=== PATIENT | male | born 1940 | race Caucasian/White ===

== ENCOUNTER 2019-02-27 09:30 | Outpatient (RCR) | payer MEDICARE, SELFPAY ==
[2018-12-13 09:17] LABS: INR 2.3; Prothrombin Time 24.2 Seconds (9.64-11.0)
[2018-12-26 08:06] LABS: INR 1.8; Prothrombin Time 18.7 Seconds (9.64-11.0)
[2019-01-02 08:16] LABS: INR 1.9; Prothrombin Time 19.6 Seconds (9.64-11.0)
[2019-01-23 10:51] LABS: INR 1.8; Prothrombin Time 18.5 Seconds (9.64-11.0)
[2019-02-27 09:50] LABS: INR 1.5; Prothrombin Time 15.4 Seconds (9.64-11.0)
== END 2019-03-13 23:59 | disposition home or self-care (01) ==
LOC: CHSLAB 09:30
PROVIDERS: PCP Internal Medicine; Visit Provider Internal Medicine
DX: Z79.01 Long term (current) use of anticoagulants (principal)
CPT/HCPCS: 36415; 85610

== ENCOUNTER 2019-04-16 11:28 | Outpatient (CLI) | payer MEDICARE, SELFPAY ==
[2019-04-16 11:52] LABS: INR 1.1; Prothrombin Time 11.8 Seconds (9.64-11.0)
== END 2019-04-16 11:29 | disposition home or self-care (01) ==
LOC: CHSLAB 11:30
PROVIDERS: PCP Internal Medicine; Visit Provider Dentist
DX: Z79.01 Long term (current) use of anticoagulants (principal)
CPT/HCPCS: 36415; 85610

== ENCOUNTER 2019-04-17 18:58 | Emergency (ER) | payer MEDICARE, SELFPAY ==
[2019-04-17 19:56] VITALS: BP 191/88; PULSE 69; RESP 13; TEMP 36.4; O2SAT 100
--- NOTE | 2019-04-17 20:20 | ED.GENADULT ---
HPI - General Adult General Chief complaint: Dental/Oral Stated complaint: Tooth removed today, will not stop bleeding Time Seen by Provider: 04/17/19 20:20 Source: patient and family Mode of arrival: ambulatory Limitations: no limitations History of Present Illness HPI narrative: 78-year-old man comes in today complaining of Bleeding from his gums we had a tooth extracted at approximately 3:00 p.m. today. He states that he has been replacing the gauze regularly. He has not taking his Coumadin for 3 days as per his dentist's instructions. He states that his jaw is aching. He is taking no pain medication. He states he is feeling a little weak tonight. He had local anesthesia only. Onset (ago): hour(s) (4) Location: mouth Radiation: non-radiation Severity: moderate Quality: aching Pain Consistency: constant Relieving factors: none Exacerbating factors: none Treatments prior to arrival: none Related Data Home Medications Medication Instructions Recorded Confirmed allopurinol 300 mg PO DAILY 04/17/19 04/17/19 amoxicillin 1 mg PO DAILY 04/17/19 04/17/19 carvedilol 6.25 mg PO BID 04/17/19 04/17/19 enalapril maleate 5 mg PO DAILY 04/17/19 04/17/19 finasteride 5 mg PO DAILY 04/17/19 04/17/19 furosemide 40 mg PO DAILY 04/17/19 04/17/19 glimepiride 4 mg PO DAILY 04/17/19 04/17/19 lovastatin 20 mg PO DAILY 04/17/19 04/17/19 metformin 1,000 mg PO DAILY 04/17/19 04/17/19 potassium chloride 20 meq PO DAILY 04/17/19 04/17/19 tamsulosin 0.4 mg PO DAILY 04/17/19 04/17/19 warfarin 3 mg PO HS 04/17/19 04/17/19 warfarin 4 mg PO HS 04/17/19 04/17/19 Allergies Allergy/AdvReac Type Severity Reaction Status Date / Time No Known Allergies Allergy Unverified 08/02/17 10:42 Review of Systems Constitutional: Constitutional: Denies chills, Denies fever(s) and Reports weakness Eyes: Eyes: Denies change in vision and Denies photophobia PMF Past Medical History Medical History (Updated 04/17/19 @ 22:26 by Mark Bean MD) Atrial fibrillation Back pain BPH (benign prostatic hyperplasia) Dyslipidemia Gout Hypertension Type 2 diabetes mellitus Surgical History Surgical History Pacemaker Social History Social History Tobacco type: smokeless tobacco Alcohol intake: never Substance use: never Living arrangements: alone Occupation/Education: retired Exam Const: General: healthy appearing, no acute distress and alert Orientation/consciousness: patient oriented x3 Limitations: no limitations Other: chatting and laughing with friends HENMT: Head: normal to inspection Ears: TM's normal bilaterally and EAC's normal Mouth: Yes Normal oral and palatal mucosa present and Yes moist mucous membranes Throat: posterior oropharynx normal and uvula midline Other: small amount of blood weeping from a right jaw wound. No swelling. Eyes: Conjunctivae: conjunctivae normal Pupils: Equal, round and reactive pupils present EOM: EOMs intact bilaterally Resp: Effort & Inspection: normal respiratory effort and not labored Auscultation: clear to auscultation bilaterally, no rales, no rhonchi and no wheezes Cardio: Rate: regular rate Rhythm: regular rhythm Heart sounds: no murmurs Skin: General skin exam: normal color, no jaundice and no pallor Rashes: no rashes Neuro: General: patient oriented x3, moves all extremities, no focal motor deficits and CN's II-XI intact bilaterally Speech: normal speech Extrem: General: normal to inspection and no clubbing, cyanosis or edema Psych: Appearance: grossly normal and well kempt Mental Status: mental status grossly normal Affect: normal affect Attitude: cooperative Thought content: Yes Normal thought content present Course Vital Signs Vital signs: Vital Signs Temperature 36.4 C 04/17/19 19:56 Pulse Rate 69 04/17/19 19:56 Respiratory Rate 13
--- NOTE | 2019-04-17 20:54 | ECG_ITS ---
Measurements Intervals [place] Rate: 62 P: IN: 0 QRS: -46 QRSD: 178 T: 120 QT: 448 QTc: 457 Interpretive Statements ELECTRONIC VENTRICULAR PACEMAKER BASELINE ARTIFACT- I, II, III, AVR, AVL, AVF, V1-V6 NO FURTHER INTERPRETATION IS POSSIBLE ATYPICAL ECG Electronically Signed On 04-18-2019 8:19:57 CDT by Cj Barrera D.O.
[2019-04-17 20:55] LABS: Basophils Absolute Auto 0.03 K/mm3 (0.00-0.10); Basophils Percent Auto 0.3 % (0.0-1.0); Eosinophils Absolute Auto 0.05 K/mm3 (0.02-0.50); Eosinophils Percent Auto 0.5 % (1.0-6.0); Hematocrit 42.4 % (37.0-46.0); Hemoglobin 14.2 g/dL (12.4-15.3); Immature Granulocyte Absolute 0.05 K/mm3 (0.00-0.00); Immature Granulocyte Percent A 0.5 % (0.0-0.0); Lymphocytes Absolute Auto 1.05 K/mm3 (1.10-4.50); Lymphocytes Percent Auto 9.5 % (18.0-42.0); Mean Corpuscular HGB Conc 33.5 g/dL (32.0-36.0); Mean Corpuscular Hemoglobin 30.9 pg (27.0-31.0); Mean Corpuscular Volume 92.2 fL (78.0-102.0); Mean Platelet Volume 9.8 fl (8.7-11.0); Monocytes Absolute Auto 0.55 K/mm3 (0.10-0.90); Neutrophils Absolute Auto 9.3 K/mm3 (1.7-7.2); Neutrophils Percent Auto 84.2 % (50.0-70.0); Platelet Count Result 176 K/mm3 (150-420); Red Cell Distribution Width 12.7 % (11.6-14.4)
[2019-04-17 21:08] LABS: Partial Thromboplastin Time 28.7 SEC (22.3-31.6); Prothrombin Time 10.3 Seconds (9.64-11.0)
[2019-04-17 21:12] LABS: Anion Gap 13.3 mmol/L (7-16); Blood Urea Nitrogen 17 mg/dL (7-18); Calcium 9.7 mg/dL (8.5-10.1); Carbon Dioxide 26 mmol/L (21-32); Chloride 102 mmol/L (98-108); Estimated CRCL calculation 53 ml/min; Estimated Glomerular Filt Rate > 60; Glucose 206 mg/dL (70-99); Osmolality Calculated 291 mOsm/kg (285-295); Potassium 4.3 mmol/L (3.5-5.1); Sodium 137 mmol/L (136-145); Troponin I 0.03 ng/mL (0.00-0.056)
[2019-04-17 21:42] LABS: Add Urine Microscopic? YES; Appearance Urine Clear (Clear); Bilirubin Urine Negative (Negative); Blood Urine Negative (Negative); Color Urine Yellow (Yellow); Glucose Urine UA Negative (Negative); Ketones Urine Negative (Negative); Leukocyte Esterase Ur Negative LEU/UL (Negative); Nitrate Urine Negative (Negative); Protein Urine Trace (Negative); Specific Grav Ur >= 1.030 (1.010-1.020); Urobilinogen Urine 0.2 mg/dL (0.2-1.0)
[2019-04-17 21:49] LABS: RBC Urine 0-2 /hpf (0-2); Squamous Epithelial Cell Urine Rare /hpf (Few); WBC Urine 0-3 /hpf (0-3)
[2019-04-17 21:50] LABS: Bacteria Urine Trace /hpf
[2019-04-17 21:57] VITALS: BP 163/89
[2019-04-17 22:30] VITALS: RESP 14; O2SAT 100
== END 2019-04-17 22:31 | disposition home or self-care (01) ==
PROVIDERS: Emergency Provider Emergency Medicine; PCP Internal Medicine
DX: L76.22 Postprocedural hemorrhage of skin and subcutaneous tissue following other procedure (principal); I48.91 Unspecified atrial fibrillation; E78.5 Hyperlipidemia, unspecified; I10 Essential (primary) hypertension; E11.9 Type 2 diabetes mellitus without complications
CPT/HCPCS: 36415; 80048; 81001; 84484; 85025; 85610; 85730; 93005; 99283; 99284; A9270

== ENCOUNTER 2019-05-15 09:11 | Outpatient (RCR) | payer MEDICARE, SELFPAY ==
[2019-03-26 09:15] LABS: INR 4.8; Prothrombin Time 47.4 Seconds (9.64-11.0)
[2019-04-05 10:05] LABS: Prothrombin Time 29.5 Seconds (9.64-11.0)
[2019-04-27 10:50] LABS: INR 1.2; Prothrombin Time 12.2 Seconds (9.64-11.0)
[2019-05-07 10:52] LABS: INR 4.2; Prothrombin Time 41.3 Seconds (9.64-11.0)
[2019-05-15 09:37] LABS: INR 3.9; Prothrombin Time 38.3 Seconds (9.64-11.0)
== END 2019-06-24 23:59 | disposition home or self-care (01) ==
LOC: CHSLAB 09:11
PROVIDERS: PCP Internal Medicine; Visit Provider Internal Medicine
DX: Z79.01 Long term (current) use of anticoagulants (principal)
CPT/HCPCS: 36415; 85610

== ENCOUNTER 2019-06-01 10:47 | Outpatient (CLI) | payer MEDICARE, SELFPAY ==
--- NOTE | ~2019-06-01 | US_ITS ---
EXAMINATION: US soft tissue LE LT DATE: 06/01/2019 12:20 INDICATION: Left leg cellulitis and abscess with swelling and erythema. TECHNIQUE: Multiple grayscale and Doppler ultrasound images of the left lower leg were obtained. COMPARISON: None FINDINGS: 2.6 x 1.9 x 0.6 cm complex mixed hypoechoic/anechoic subcutaneous fluid collection at the medial aspe ct of the distal third of the left lower leg. No internal flow on color Doppler. IMPRESSION: 1. 2.6 x 1.9 x 0.6 cm loculated complex fluid collection at the medial distal left lower leg consiste nt with given history of abscess. Differential would include hematoma. Reviewed, dictated and finalized at location A. IMPRESSION: 1. 2.6 x 1.9 x 0.6 cm loculated complex fluid collection at the medial distal l eft lower leg consistent with given history of abscess. Differential would incl ude hematoma.
[2019-06-01 11:01] LABS: Basophils Absolute Auto 0.02 K/mm3 (0.00-0.10); Basophils Percent Auto 0.3 % (0.0-1.0); Eosinophils Absolute Auto 0.09 K/mm3 (0.02-0.50); Eosinophils Percent Auto 1.4 % (1.0-6.0); Hemoglobin 13.7 g/dL (12.4-15.3); Immature Granulocyte Absolute 0.02 K/mm3 (0.00-0.00); Immature Granulocyte Percent A 0.3 % (0.0-0.0); Lymphocytes Percent Auto 20.5 % (18.0-42.0); Mean Corpuscular HGB Conc 34.3 g/dL (32.0-36.0); Mean Corpuscular Hemoglobin 31.8 pg (27.0-31.0); Mean Corpuscular Volume 92.8 fL (78.0-102.0); Mean Platelet Volume 9.6 fl (8.7-11.0); Monocytes Absolute Auto 0.36 K/mm3 (0.10-0.90); Monocytes Percent Auto 5.7 % (2.0-11.0); Neutrophils Absolute Auto 4.6 K/mm3 (1.7-7.2); Neutrophils Percent Auto 71.8 % (50.0-70.0); Platelet Count Result 173 K/mm3 (150-420); Red Blood Count 4.31 M/mm3 (4.70-6.10); Red Cell Distribution Width 13.3 % (11.6-14.4); White Blood Count 6.4 K/mm3 (4.8-10.8)
[2019-06-01 11:11] LABS: Anion Gap 13.6 mmol/L (7-16); Blood Urea Nitrogen 19 mg/dL (7-18); Calcium 9.9 mg/dL (8.5-10.1); Carbon Dioxide 27 mmol/L (21-32); Chloride 103 mmol/L (98-108); Estimated Glomerular Filt Rate > 60; Glucose 141 mg/dL (70-99); Osmolality Calculated 292 mOsm/kg (285-295); Potassium 4.6 mmol/L (3.5-5.1); Sodium 139 mmol/L (136-145)
== END 2019-06-01 10:48 | disposition home or self-care (01) ==
LOC: CHSIMG 10:50
PROVIDERS: PCP Internal Medicine; Visit Provider Internal Medicine
DX: L03.116 Cellulitis of left lower limb (principal)
CPT/HCPCS: 36415; 76882; 80048; 85025

== ENCOUNTER 2019-08-04 06:44 | Outpatient (CLI) | payer MEDICARE, SELFPAY ==
[2019-08-04 07:13] LABS: Basophils Absolute Auto 0.03 K/mm3 (0.00-0.10); Basophils Percent Auto 0.6 % (0.0-1.0); Eosinophils Percent Auto 1.8 % (1.0-6.0); Hematocrit 38.4 % (37.0-46.0); Hemoglobin 12.9 g/dL (12.4-15.3); Immature Granulocyte Absolute 0.02 K/mm3 (0.00-0.00); Immature Granulocyte Percent A 0.4 % (0.0-0.0); Lymphocytes Absolute Auto 1.43 K/mm3 (1.10-4.50); Lymphocytes Percent Auto 26.4 % (18.0-42.0); Mean Corpuscular HGB Conc 33.6 g/dL (32.0-36.0); Mean Corpuscular Hemoglobin 31.7 pg (27.0-31.0); Mean Corpuscular Volume 94.3 fL (78.0-102.0); Mean Platelet Volume 9.6 fl (8.7-11.0); Monocytes Absolute Auto 0.43 K/mm3 (0.10-0.90); Monocytes Percent Auto 7.9 % (2.0-11.0); Neutrophils Absolute Auto 3.4 K/mm3 (1.7-7.2); Neutrophils Percent Auto 62.9 % (50.0-70.0); Platelet Count Result 190 K/mm3 (150-420); Red Blood Count 4.07 M/mm3 (4.70-6.10); Red Cell Distribution Width 13.9 % (11.6-14.4); White Blood Count 5.4 K/mm3 (4.8-10.8)
[2019-08-04 07:16] LABS: Add Urine Microscopic? NO; Appearance Urine Clear (Clear); Bilirubin Urine Negative (Negative); Blood Urine Negative (Negative); Color Urine Yellow (Yellow); Glucose Urine UA Negative (Negative); Ketones Urine Negative (Negative); Leukocyte Esterase Ur Negative LEU/UL (Negative); Nitrate Urine Negative (Negative); Protein Urine Negative (Negative); Specific Grav Ur 1.015 (1.010-1.020); Urobilinogen Urine 0.2 mg/dL (0.2-1.0)
[2019-08-04 07:22] LABS: Hemoglobin A1C 6.7 % (<5.7)
[2019-08-04 07:25] LABS: INR 2.6; Prothrombin Time 26.1 Seconds (9.64-11.0)
[2019-08-04 07:57] LABS: Creatinine Urine 61.65 mg/dL (40-278)
[2019-08-04 08:12] LABS: MALB Creatinine Ratio 2.1 mg/g (0-30); Microalbumin Urine Random < 1.3 mg/L
[2019-08-04 08:22] LABS: Alanine Aminotransferase 35 U/L (16-63); Albumin Level 3.7 g/dL (3.4-5.0); Alkaline Phosphatase 96 U/L (46-116); Anion Gap 12.4 mmol/L (7-16); Aspartate Amino Transferase 28 U/L (15-37); Bilirubin,Total 0.4 mg/dL (0.00-1.00); Blood Urea Nitrogen 24 mg/dL (7-18); Calcium 8.9 mg/dL (8.5-10.1); Carbon Dioxide 28 mmol/L (21-32); Chloride 103 mmol/L (98-108); Cholesterol 125 mg/dL (0-200); Creatine Kinase 100 U/L (39-308); Estimated Glomerular Filt Rate > 60; Free T4 Free Thyroxine 1.09 ng/dL (0.76-1.46); Glucose 135 mg/dL (70-99); HDL Direct 32 mg/dL (40-60); LDL Cholesterol Calculated 72 mg/dL (<130); Osmolality Calculated 294 mOsm/kg (285-295); Potassium 4.4 mmol/L (3.5-5.1); Sodium 139 mmol/L (136-145); Thyroid Stimulating Hormone 4.34 uIU/mL (0.36-3.74); Total Protein 6.6 g/dL (6.4-8.2); Triglycerides 106 mg/dL (0-150); Uric Acid 4.8 mg/dL (3.5-7.2)
== END 2019-08-04 06:45 | disposition home or self-care (01) ==
LOC: CHSLAB 06:47
PROVIDERS: PCP Internal Medicine; Visit Provider Internal Medicine
DX: E78.5 Hyperlipidemia, unspecified (principal); I10 Essential (primary) hypertension; E11.9 Type 2 diabetes mellitus without complications; E79.0 Hyperuricemia without signs of inflammatory arthritis and tophaceous disease; E03.4 Atrophy of thyroid (acquired); D64.9 Anemia, unspecified; Z79.01 Long term (current) use of anticoagulants
CPT/HCPCS: 36415; 80053; 80061; 81003; 82043; 82550; 83036; 84439; 84443; 84550; 85025; 85610

== ENCOUNTER 2019-09-07 07:23 | Outpatient (RCR) | payer MEDICARE, SELFPAY ==
[2019-06-29 08:49] LABS: INR 2.7; Prothrombin Time 26.8 Seconds (9.64-11.0)
[2019-07-30 07:44] LABS: INR 4.7; Prothrombin Time 46.2 Seconds (9.64-11.0)
[2019-09-07 08:08] LABS: INR 2.4; Prothrombin Time 23.9 Seconds (9.64-11.0)
== END 2019-09-27 23:59 | disposition home or self-care (01) ==
LOC: CHSLAB 07:23
PROVIDERS: PCP Internal Medicine; Visit Provider Internal Medicine
DX: Z79.01 Long term (current) use of anticoagulants (principal)
CPT/HCPCS: 36415; 85610

== ENCOUNTER 2019-10-03 07:07 | Outpatient (RCR) | payer MEDICARE, SELFPAY ==
[2019-10-03 07:30] LABS: INR 2.7; Prothrombin Time 27.1 Seconds (9.64-11.0)
== END 2019-11-05 09:12 | disposition home or self-care (01) ==
LOC: CHSLAB 07:07
PROVIDERS: PCP Internal Medicine; Visit Provider Internal Medicine
DX: Z79.01 Long term (current) use of anticoagulants (principal)
CPT/HCPCS: 36415; 85610

== ENCOUNTER 2019-12-13 07:34 | Outpatient (CLI) | payer MEDICARE, SELFPAY ==
--- NOTE | ~2019-12-13 | XR_ITS ---
EXAMINATION: XR chest 2V EXAM DATE: 12/13/2019 07:58 INDICATION: Hypertension, pre-OP TECHNIQUE: Frontal and lateral projections of the chest obtained and reviewed. Comparison is made to prior examination from 07/10/2014. FINDINGS: There is a dual lead pacemaker/AICD seen with leads projecting over the expected locations of the right atrial appendage and right ventricle. The lungs are clear. There are no pleural effusi ons. The cardiomediastinal silhouette is within normal limits. There is no pneumothorax suspected. The bones and soft tissues are unremarkable. There is aortic arteriosclerosis. IMPRESSION: No acute cardiopulmonary findings. Reviewed, dictated and finalized at location B. 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
[2019-12-13 07:45] LABS: Basophils Absolute Auto 0.02 K/mm3 (0.00-0.10); Basophils Percent Auto 0.3 % (0.0-1.0); Eosinophils Absolute Auto 0.16 K/mm3 (0.02-0.50); Eosinophils Percent Auto 2.4 % (1.0-6.0); Hematocrit 41.4 % (37.0-46.0); Hemoglobin 13.5 g/dL (12.4-15.3); Immature Granulocyte Absolute 0.03 K/mm3 (0.00-0.00); Immature Granulocyte Percent A 0.4 % (0.0-0.0); Lymphocytes Absolute Auto 1.39 K/mm3 (1.10-4.50); Lymphocytes Percent Auto 20.4 % (18.0-42.0); Mean Corpuscular HGB Conc 32.6 g/dL (32.0-36.0); Mean Corpuscular Hemoglobin 30.6 pg (27.0-31.0); Mean Corpuscular Volume 93.9 fL (78.0-102.0); Mean Platelet Volume 9.5 fl (8.7-11.0); Monocytes Absolute Auto 0.51 K/mm3 (0.10-0.90); Monocytes Percent Auto 7.5 % (2.0-11.0); Neutrophils Absolute Auto 4.7 K/mm3 (1.7-7.2); Platelet Count Result 170 K/mm3 (150-420); Red Blood Count 4.41 M/mm3 (4.70-6.10); Red Cell Distribution Width 13.4 % (11.6-14.4); White Blood Count 6.8 K/mm3 (4.8-10.8)
[2019-12-13 07:49] LABS: Add Urine Microscopic? NO; Appearance Urine Clear (Clear); Bilirubin Urine Negative (Negative); Blood Urine Negative (Negative); Color Urine Yellow (Yellow); Glucose Urine UA Negative (Negative); Ketones Urine Negative (Negative); Leukocyte Esterase Ur Negative (Negative); Nitrate Urine Negative (Negative); Protein Urine Negative (Negative); Specific Grav Ur >= 1.030 (1.010-1.020); Urobilinogen Urine 0.2 mg/dL (0.2-1.0); pH Urine 5.5 (5.0-8.0)
[2019-12-13 07:59] LABS: Creatinine Urine 171.86 mg/dL (40-278); MALB Creatinine Ratio 9.6 mg/g (0-30); Microalbumin Urine Random 16.5 mg/L
[2019-12-13 08:01] LABS: Hemoglobin A1C 6.9 % (<5.7)
[2019-12-13 09:05] LABS: Alanine Aminotransferase 47 U/L (16-63); Albumin Level 4.1 g/dL (3.4-5.0); Alkaline Phosphatase 111 U/L (46-116); Anion Gap 10 mmol/L (8-16); Aspartate Amino Transferase 24 U/L (15-37); Bilirubin,Total 0.6 mg/dL (0.00-1.00); Blood Urea Nitrogen 18 mg/dL (7-18); Calcium 9.6 mg/dL (8.5-10.1); Carbon Dioxide 28 mmol/L (21-32); Chloride 104 mmol/L (98-108); Cholesterol 145 mg/dL (0-200); Creatine Kinase 108 U/L (39-308); Estimated Glomerular Filt Rate > 60; Free T3 2.61 pg/mL (2.18-3.98); Free T4 Free Thyroxine 1.11 ng/dL (0.76-1.46); Glucose 168 mg/dL (70-99); HDL Direct 37 mg/dL (40-60); LDL Cholesterol Calculated 87 mg/dL (<130); Osmolality Calculated 299 mOsm/kg (285-295); Potassium 4.4 mmol/L (3.5-5.1); Sodium 142 mmol/L (136-145); Total Protein 7.3 g/dL (6.4-8.2); Triglycerides 103 mg/dL (0-150)
== END 2019-12-13 07:35 | disposition home or self-care (01) ==
PROVIDERS: PCP Internal Medicine; Visit Provider Internal Medicine
DX: Z01.812 Encounter for preprocedural laboratory examination (principal); E11.9 Type 2 diabetes mellitus without complications; I10 Essential (primary) hypertension; E03.9 Hypothyroidism, unspecified; D64.9 Anemia, unspecified; E78.5 Hyperlipidemia, unspecified
CPT/HCPCS: 36415; 71046; 80053; 80061; 81003; 82043; 82550; 83036; 84439; 84443; 84481; 85025

== ENCOUNTER 2020-01-24 09:08 | Outpatient (RCR) | payer MEDICARE, SELFPAY ==
[2019-11-05 09:24] LABS: INR 3.6; Prothrombin Time 35.2 Seconds (9.64-11.0)
[2019-12-03 09:43] LABS: Prothrombin Time 19.8 Seconds (9.64-11.0)
[2020-01-24 09:31] LABS: INR 1.8; Prothrombin Time 19.5 Seconds (9.50-12.10)
== END 2020-02-03 23:59 | disposition home or self-care (01) ==
LOC: CHSLAB 09:08
PROVIDERS: PCP Internal Medicine; Visit Provider Internal Medicine
DX: Z79.01 Long term (current) use of anticoagulants (principal)
CPT/HCPCS: 36415; 85610

== ENCOUNTER 2020-04-24 10:13 | Outpatient (RCR) | payer MEDICARE, SELFPAY ==
[2020-02-07 08:07] LABS: INR 2.6; Prothrombin Time 26.8 Seconds (9.50-12.10)
[2020-03-10 10:32] LABS: INR 3.6; Prothrombin Time 36.1 Seconds (9.50-12.10)
[2020-03-17 08:43] LABS: INR 3.3; Prothrombin Time 33.7 Seconds (9.50-12.10)
[2020-04-24 10:40] LABS: INR 2.3; Prothrombin Time 23.6 Seconds (9.50-12.10)
== END 2020-05-07 23:59 | disposition home or self-care (01) ==
LOC: CHSLAB 10:13
PROVIDERS: PCP Internal Medicine; Visit Provider Internal Medicine
DX: Z79.01 Long term (current) use of anticoagulants (principal)
CPT/HCPCS: 36415; 85610

== ENCOUNTER 2020-06-09 07:28 | Outpatient (CLI) | payer MEDICARE, SELFPAY ==
[2020-06-09 07:44] LABS: Add Urine Microscopic? NO; Appearance Urine Clear (Clear); Basophils Absolute Auto 0.02 K/mm3 (0.00-0.10); Basophils Percent Auto 0.3 % (0.0-1.0); Bilirubin Urine Negative (Negative); Blood Urine Negative (Negative); Color Urine Yellow (Yellow); Eosinophils Absolute Auto 0.13 K/mm3 (0.02-0.50); Glucose Urine UA Negative (Negative); Hematocrit 38.1 % (37.0-46.0); Hemoglobin 12.5 g/dL (12.4-15.3); Immature Granulocyte Absolute 0.02 K/mm3 (0.00-0.00); Immature Granulocyte Percent A 0.3 % (0.0-0.0); Ketones Urine Negative (Negative); Leukocyte Esterase Ur Negative (Negative); Lymphocytes Absolute Auto 1.35 K/mm3 (1.10-4.50); Lymphocytes Percent Auto 20.7 % (18.0-42.0); Mean Corpuscular HGB Conc 32.8 g/dL (32.0-36.0); Mean Corpuscular Hemoglobin 31.5 pg (27.0-31.0); Mean Platelet Volume 9.5 fl (8.7-11.0); Monocytes Absolute Auto 0.48 K/mm3 (0.10-0.90); Monocytes Percent Auto 7.4 % (2.0-11.0); Neutrophils Absolute Auto 4.5 K/mm3 (1.7-7.2); Neutrophils Percent Auto 69.3 % (50.0-70.0); Nitrate Urine Negative (Negative); Platelet Count Result 180 K/mm3 (150-420); Protein Urine Negative (Negative); Red Blood Count 3.97 M/mm3 (4.70-6.10); Red Cell Distribution Width 13.2 % (11.6-14.4); Specific Grav Ur 1.015 (1.010-1.020); Urobilinogen Urine 0.2 mg/dL (0.2-1.0); White Blood Count 6.5 K/mm3 (4.8-10.8); pH Urine 5.5 (5.0-8.0)
[2020-06-09 07:56] LABS: Creatinine Urine 131.29 mg/dL (40-278); MALB Creatinine Ratio 17.8 mg/g (0-30); Microalbumin Urine Random 23.5 mg/L
[2020-06-09 07:57] LABS: INR 2.7; Prothrombin Time 27.6 Seconds (9.50-12.10)
[2020-06-09 08:36] LABS: Alanine Aminotransferase 43 U/L (16-63); Albumin Level 3.7 g/dL (3.4-5.0); Alkaline Phosphatase 105 U/L (46-116); Anion Gap 6 mmol/L (8-16); Aspartate Amino Transferase 21 U/L (15-37); Bilirubin,Total 0.5 mg/dL (0.00-1.00); Blood Urea Nitrogen 18 mg/dL (7-18); Calcium 9.7 mg/dL (8.5-10.1); Carbon Dioxide 28 mmol/L (21-32); Chloride 102 mmol/L (98-108); Cholesterol 110 mg/dL (0-200); Creatine Kinase 91 U/L (39-308); Estimated Glomerular Filt Rate > 60; Free T3 2.28 pg/mL (2.18-3.98); Free T4 Free Thyroxine 1.05 ng/dL (0.76-1.46); Glucose 141 mg/dL (70-99); HDL Direct 31 mg/dL (40-60); LDL Cholesterol Calculated 59 mg/dL (<130); Osmolality Calculated 285 mOsm/kg (285-295); Potassium 4.9 mmol/L (3.5-5.1); Sodium 136 mmol/L (136-145); Thyroid Stimulating Hormone 4.49 uIU/mL (0.36-3.74); Total Protein 6.7 g/dL (6.4-8.2); Triglycerides 99 mg/dL (0-150)
== END 2020-06-09 07:29 | disposition home or self-care (01) ==
PROVIDERS: PCP Internal Medicine; Visit Provider Internal Medicine
DX: I10 Essential (primary) hypertension (principal); E78.2 Mixed hyperlipidemia; E03.9 Hypothyroidism, unspecified; E11.8 Type 2 diabetes mellitus with unspecified complications; I47.1 Supraventricular tachycardia
CPT/HCPCS: 36415; 80053; 80061; 81003; 82043; 82550; 83036; 84439; 84443; 84481; 85025; 85610

== ENCOUNTER 2020-08-12 07:56 | Outpatient (RCR) | payer MEDICARE, SELFPAY ==
[2020-05-23 09:14] LABS: INR 3.4; Prothrombin Time 34.3 Seconds (9.50-12.10)
[2020-07-11 11:57] LABS: INR 3.2
[2020-08-12 08:18] LABS: INR 2.4; Prothrombin Time 24.2 Seconds (9.50-12.10)
== END 2020-08-21 23:59 | disposition home or self-care (01) ==
LOC: CHSLAB 07:56
PROVIDERS: PCP Internal Medicine; Visit Provider Internal Medicine
DX: Z79.01 Long term (current) use of anticoagulants (principal)
CPT/HCPCS: 36415; 85610

== ENCOUNTER 2020-09-04 11:32 | Outpatient (CLI) | payer MEDICARE, SELFPAY ==
[2020-09-04 12:08] LABS: Basophils Absolute Auto 0.03 K/mm3 (0.00-0.10); Basophils Percent Auto 0.5 % (0.0-1.0); Eosinophils Absolute Auto 0.18 K/mm3 (0.02-0.50); Eosinophils Percent Auto 2.9 % (1.0-6.0); Hematocrit 39.8 % (37.0-46.0); Hemoglobin 13.3 g/dL (12.4-15.3); Immature Granulocyte Absolute 0.03 K/mm3 (0.00-0.00); Immature Granulocyte Percent A 0.5 % (0.0-0.0); Lymphocytes Absolute Auto 1.52 K/mm3 (1.10-4.50); Lymphocytes Percent Auto 24.6 % (18.0-42.0); Mean Corpuscular HGB Conc 33.4 g/dL (32.0-36.0); Mean Corpuscular Hemoglobin 31.7 pg (27.0-31.0); Mean Platelet Volume 9.7 fl (8.7-11.0); Monocytes Absolute Auto 0.63 K/mm3 (0.10-0.90); Monocytes Percent Auto 10.2 % (2.0-11.0); Neutrophils Absolute Auto 3.8 K/mm3 (1.7-7.2); Neutrophils Percent Auto 61.3 % (50.0-70.0); Platelet Count Result 214 K/mm3 (150-420); Red Blood Count 4.19 M/mm3 (4.70-6.10); Red Cell Distribution Width 13.2 % (11.6-14.4); White Blood Count 6.2 K/mm3 (4.8-10.8)
[2020-09-04 12:28] LABS: INR 4.4; Prothrombin Time 43.4 Seconds (9.50-12.10)
[2020-09-04 12:48] LABS: Alanine Aminotransferase 51 U/L (16-63); Albumin Level 3.9 g/dL (3.4-5.0); Alkaline Phosphatase 108 U/L (46-116); Anion Gap 11 mmol/L (8-16); Aspartate Amino Transferase 34 U/L (15-37); Bilirubin,Total 0.5 mg/dL (0.00-1.00); Blood Urea Nitrogen 23 mg/dL (7-18); CRP 0.7 mg/dL (0.0-0.9); Calcium 9.5 mg/dL (8.5-10.1); Carbon Dioxide 25 mmol/L (21-32); Chloride 102 mmol/L (98-108); Creatine Kinase 214 U/L (39-308); Estimated Glomerular Filt Rate > 60; Glucose 127 mg/dL (70-99); Magnesium 2.1 mg/dL (1.8-2.4); Osmolality Calculated 291 mOsm/kg (285-295); Potassium 4.7 mmol/L (3.5-5.1); Sodium 138 mmol/L (136-145); Total Protein 7.4 g/dL (6.4-8.2); Vitamin B12 444 pg/mL (193-986)
[2020-09-04 13:11] LABS: Erythrocyte Sedimentation Rate 34 mm/hr (0-20)
== END 2020-09-04 11:33 | disposition home or self-care (01) ==
LOC: CHSLAB 11:37
PROVIDERS: PCP Internal Medicine; Visit Provider Internal Medicine
DX: M79.605 Pain in left leg (principal); M79.604 Pain in right leg; I48.91 Unspecified atrial fibrillation; E11.9 Type 2 diabetes mellitus without complications; M79.10 Myalgia, unspecified site; G62.9 Polyneuropathy, unspecified
CPT/HCPCS: 36415; 80053; 82550; 82607; 83735; 85025; 85610; 85652; 86140

== ENCOUNTER 2020-10-09 09:10 | Outpatient (RCR) | payer MEDICARE, SELFPAY ==
[2020-09-11 09:47] LABS: INR 3.2
[2020-10-09 09:32] LABS: INR 2.8; Prothrombin Time 28.8 Seconds (9.50-12.10)
== END 2020-12-10 23:59 | disposition home or self-care (01) ==
LOC: CHSLAB 09:10
PROVIDERS: PCP Internal Medicine; Visit Provider Internal Medicine
DX: Z79.01 Long term (current) use of anticoagulants (principal)
CPT/HCPCS: 36415; 85610

== ENCOUNTER 2020-11-07 08:32 | Outpatient (CLI) | payer MEDICARE, SELFPAY ==
[2020-11-07 08:58] LABS: INR 2.6; Prothrombin Time 26.8 Seconds (9.50-12.10)
== END 2020-11-07 08:33 | disposition home or self-care (01) ==
LOC: CHSLAB 08:33
PROVIDERS: PCP Internal Medicine; Visit Provider Internal Medicine
DX: Z79.01 Long term (current) use of anticoagulants (principal)
CPT/HCPCS: 36415; 85610

== ENCOUNTER 2020-12-08 07:45 | Outpatient (CLI) | payer MEDICARE, SELFPAY ==
[2020-12-08 08:00] LABS: Basophils Absolute Auto 0.02 K/mm3 (0.00-0.10); Basophils Percent Auto 0.3 % (0.0-1.0); Eosinophils Absolute Auto 0.16 K/mm3 (0.02-0.50); Eosinophils Percent Auto 2.6 % (1.0-6.0); Hematocrit 39.7 % (37.0-46.0); Hemoglobin 13.1 g/dL (12.4-15.3); Immature Granulocyte Absolute 0.03 K/mm3 (0.00-0.00); Immature Granulocyte Percent A 0.5 % (0.0-0.0); Lymphocytes Absolute Auto 1.57 K/mm3 (1.10-4.50); Lymphocytes Percent Auto 25.2 % (18.0-42.0); Mean Corpuscular Hemoglobin 31.2 pg (27.0-31.0); Mean Corpuscular Volume 94.5 fL (78.0-102.0); Mean Platelet Volume 9.3 fl (8.7-11.0); Monocytes Absolute Auto 0.42 K/mm3 (0.10-0.90); Monocytes Percent Auto 6.7 % (2.0-11.0); Neutrophils Percent Auto 64.7 % (50.0-70.0); Platelet Count Result 211 K/mm3 (150-420); Red Cell Distribution Width 13.1 % (11.6-14.4); White Blood Count 6.2 K/mm3 (4.8-10.8)
[2020-12-08 08:01] LABS: Add Urine Microscopic? YES; Appearance Urine Clear (Clear); Bilirubin Urine Negative (Negative); Blood Urine 1+ (Negative); Color Urine Light Yellow (Yellow); Glucose Urine UA Negative (Negative); Ketones Urine Negative (Negative); Leukocyte Esterase Ur Negative (Negative); Nitrate Urine Negative (Negative); Protein Urine Negative (Negative); Urobilinogen Urine 0.2 mg/dL (0.2-1.0); pH Urine 5.5 (5.0-8.0)
[2020-12-08 08:06] LABS: Bacteria Urine Trace /hpf; WBC Urine None seen /hpf (0-3)
[2020-12-08 08:15] LABS: Creatinine Urine 90.16 mg/dL (40-278); MALB Creatinine Ratio 14.4 mg/g (0-30); Microalbumin Urine Random < 13.0 mg/L
[2020-12-08 08:25] LABS: INR 2.8; Prothrombin Time 28.8 Seconds (9.50-12.10)
[2020-12-08 08:28] LABS: Hemoglobin A1C 6.3 % (<5.7)
[2020-12-08 09:06] LABS: Alanine Aminotransferase 59 U/L (16-63); Albumin Level 3.8 g/dL (3.4-5.0); Alkaline Phosphatase 125 U/L (46-116); Anion Gap 8 mmol/L (8-16); Aspartate Amino Transferase 28 U/L (15-37); Bilirubin,Total 0.4 mg/dL (0.00-1.00); Blood Urea Nitrogen 25 mg/dL (7-18); Calcium 9.2 mg/dL (8.5-10.1); Carbon Dioxide 28 mmol/L (21-32); Chloride 106 mmol/L (98-108); Cholesterol 115 mg/dL (0-200); Creatine Kinase 115 U/L (39-308); Estimated Glomerular Filt Rate 54; Free T3 2.01 pg/mL (2.18-3.98); Free T4 Free Thyroxine 1.01 ng/dL (0.76-1.46); Glucose 97 mg/dL (70-99); HDL Direct 27 mg/dL (40-60); LDL Cholesterol Calculated 63 mg/dL (<130); Osmolality Calculated 298 mOsm/kg (285-295); Potassium 4.9 mmol/L (3.5-5.1); Sodium 142 mmol/L (136-145); Thyroid Stimulating Hormone 5.83 uIU/mL (0.36-3.74); Total Protein 6.9 g/dL (6.4-8.2); Triglycerides 124 mg/dL (0-150); Uric Acid 3.9 mg/dL (3.5-7.2)
== END 2020-12-08 07:46 | disposition home or self-care (01) ==
LOC: CHSLAB 07:47
PROVIDERS: PCP Internal Medicine; Visit Provider Internal Medicine
DX: E11.9 Type 2 diabetes mellitus without complications (principal); I10 Essential (primary) hypertension; E78.2 Mixed hyperlipidemia; E03.4 Atrophy of thyroid (acquired); E79.0 Hyperuricemia without signs of inflammatory arthritis and tophaceous disease; I48.21 Permanent atrial fibrillation
CPT/HCPCS: 36415; 80053; 80061; 81001; 82043; 82550; 83036; 84439; 84443; 84481; 84550; 85025; 85610

== ENCOUNTER 2021-04-06 07:49 | Outpatient (CLI) | payer MEDICARE, SELFPAY ==
[2021-04-06 09:00] LABS: Alanine Aminotransferase 74 U/L (16-63); Albumin Level 3.6 g/dL (3.4-5.0); Alkaline Phosphatase 134 U/L (46-116); Anion Gap 8 mmol/L (8-16); Aspartate Amino Transferase 37 U/L (15-37); Bilirubin,Total 0.4 mg/dL (0.00-1.00); Blood Urea Nitrogen 21 mg/dL (7-18); Calcium 9.6 mg/dL (8.5-10.1); Carbon Dioxide 27 mmol/L (21-32); Chloride 106 mmol/L (98-108); Cholesterol 123 mg/dL (0-200); Estimated Glomerular Filt Rate > 60; Glucose 140 mg/dL (70-99); HDL Direct 28 mg/dL (40-60); LDL Cholesterol Calculated 69 mg/dL (<130); Osmolality Calculated 297 mOsm/kg (285-295); Potassium 4.9 mmol/L (3.5-5.1); Sodium 141 mmol/L (136-145); Total Protein 6.7 g/dL (6.4-8.2); Triglycerides 128 mg/dL (0-150)
== END 2021-04-06 07:50 | disposition home or self-care (01) ==
LOC: CHSLAB 07:51
PROVIDERS: PCP Internal Medicine; Visit Provider Internal Medicine Cardiovascular Disease
DX: I25.10 Atherosclerotic heart disease of native coronary artery without angina pectoris (principal); I50.32 Chronic diastolic (congestive) heart failure; I48.19 Other persistent atrial fibrillation; E11.69 Type 2 diabetes mellitus with other specified complication; E78.5 Hyperlipidemia, unspecified
CPT/HCPCS: 36415; 80053; 80061

== ENCOUNTER 2021-04-13 08:55 | Outpatient (RCR) | payer MEDICARE, SELFPAY ==
[2021-01-14 08:06] LABS: INR 2.9; Prothrombin Time 29.9 Seconds (9.50-12.10)
[2021-02-12 09:37] LABS: INR 2.6; Prothrombin Time 26.7 Seconds (9.50-12.10)
[2021-03-18 09:49] LABS: INR 2.6; Prothrombin Time 26.9 Seconds (9.50-12.10)
[2021-04-13 09:36] LABS: INR 2.3
== END 2021-04-14 23:59 | disposition home or self-care (01) ==
LOC: CHSLAB 08:55
PROVIDERS: PCP Internal Medicine; Visit Provider Internal Medicine
DX: Z79.01 Long term (current) use of anticoagulants (principal)
CPT/HCPCS: 36415; 85610

== ENCOUNTER 2021-05-20 07:59 | Outpatient (CLI) | payer MEDICARE, SELFPAY ==
[2021-05-20 08:29] LABS: INR 2.8; Prothrombin Time 28.8 Seconds (9.50-12.10)
[2021-05-20 09:02] LABS: Alanine Aminotransferase 62 U/L (16-63); Albumin Level 3.6 g/dL (3.4-5.0); Alkaline Phosphatase 133 U/L (46-116); Anion Gap 8 mmol/L (8-16); Aspartate Amino Transferase 36 U/L (15-37); Bilirubin,Total 0.4 mg/dL (0.00-1.00); Blood Urea Nitrogen 21 mg/dL (7-18); Calcium 9.4 mg/dL (8.5-10.1); Carbon Dioxide 27 mmol/L (21-32); Chloride 102 mmol/L (98-108); Estimated Glomerular Filt Rate > 60; Glucose 105 mg/dL (70-99); Osmolality Calculated 287 mOsm/kg (285-295); Potassium 4.8 mmol/L (3.5-5.1); Sodium 137 mmol/L (136-145); Total Protein 6.8 g/dL (6.4-8.2)
== END 2021-05-20 08:00 | disposition home or self-care (01) ==
LOC: CHSLAB 08:04
PROVIDERS: PCP Internal Medicine; Visit Provider Internal Medicine
DX: Z79.01 Long term (current) use of anticoagulants (principal); R94.5 Abnormal results of liver function studies
CPT/HCPCS: 36415; 80053; 85610

== ENCOUNTER 2021-06-08 07:34 | Outpatient (CLI) | payer MEDICARE, SELFPAY ==
[2021-06-08 07:53] LABS: Basophils Absolute Auto 0.03 K/mm3 (0.00-0.10); Basophils Percent Auto 0.5 % (0.0-1.0); Eosinophils Absolute Auto 0.13 K/mm3 (0.02-0.50); Eosinophils Percent Auto 2.1 % (1.0-6.0); Hematocrit 39.4 % (37.0-46.0); Hemoglobin 12.9 g/dL (12.4-15.3); Immature Granulocyte Absolute 0.01 K/mm3 (0.00-0.00); Immature Granulocyte Percent A 0.2 % (0.0-0.0); Lymphocytes Absolute Auto 1.34 K/mm3 (1.10-4.50); Lymphocytes Percent Auto 21.3 % (18.0-42.0); Mean Corpuscular HGB Conc 32.7 g/dL (32.0-36.0); Mean Corpuscular Hemoglobin 30.9 pg (27.0-31.0); Mean Corpuscular Volume 94.5 fL (78.0-102.0); Mean Platelet Volume 9.6 fl (8.7-11.0); Monocytes Absolute Auto 0.46 K/mm3 (0.10-0.90); Monocytes Percent Auto 7.3 % (2.0-11.0); Neutrophils Absolute Auto 4.3 K/mm3 (1.7-7.2); Neutrophils Percent Auto 68.6 % (50.0-70.0); Platelet Count Result 217 K/mm3 (150-420); Red Blood Count 4.17 M/mm3 (4.70-6.10); Red Cell Distribution Width 13.8 % (11.6-14.4); White Blood Count 6.3 K/mm3 (4.8-10.8)
[2021-06-08 07:58] LABS: Add Urine Microscopic? NO; Appearance Urine Clear (Clear); Bilirubin Urine Negative (Negative); Blood Urine Negative (Negative); Color Urine Light Yellow (Yellow); Glucose Urine UA Negative (Negative); Ketones Urine Negative (Negative); Leukocyte Esterase Ur Negative (Negative); Nitrate Urine Negative (Negative); Protein Urine Negative (Negative); Urobilinogen Urine 0.2 mg/dL (0.2-1.0); pH Urine 5.5 (5.0-8.0)
[2021-06-08 08:06] LABS: INR 3.3; Prothrombin Time 32.9 Seconds (9.50-12.10)
[2021-06-08 08:17] LABS: Alanine Aminotransferase 58 U/L (16-63); Albumin Level 3.5 g/dL (3.4-5.0); Alkaline Phosphatase 135 U/L (46-116); Anion Gap 7 mmol/L (8-16); Aspartate Amino Transferase 33 U/L (15-37); Bilirubin,Total 0.4 mg/dL (0.00-1.00); Blood Urea Nitrogen 19 mg/dL (7-18); Calcium 9.3 mg/dL (8.5-10.1); Carbon Dioxide 27 mmol/L (21-32); Chloride 103 mmol/L (98-108); Cholesterol 103 mg/dL (0-200); Creatine Kinase 138 U/L (39-308); Estimated Glomerular Filt Rate > 60; Glucose 100 mg/dL (70-99); HDL Direct 27 mg/dL (40-60); LDL Cholesterol Calculated 50 mg/dL (<130); Osmolality Calculated 286 mOsm/kg (285-295); Potassium 4.4 mmol/L (3.5-5.1); Sodium 137 mmol/L (136-145); Thyroid Stimulating Hormone 6.41 uIU/mL (0.36-3.74); Total Protein 7.3 g/dL (6.4-8.2); Triglycerides 129 mg/dL (0-150); Uric Acid 3.8 mg/dL (3.5-7.2)
[2021-06-08 08:22] LABS: Creatinine Urine 74.88 mg/dL (40-278); MALB Creatinine Ratio 30.3 mg/g (0-30); Microalbumin Urine Random 22.7 mg/L
[2021-06-08 08:40] LABS: Hemoglobin A1C 6.2 % (<5.7)
== END 2021-06-08 07:35 | disposition home or self-care (01) ==
LOC: CHSLAB 07:37
PROVIDERS: PCP Internal Medicine; Visit Provider Internal Medicine
DX: E11.9 Type 2 diabetes mellitus without complications (principal); I10 Essential (primary) hypertension; E79.0 Hyperuricemia without signs of inflammatory arthritis and tophaceous disease; E03.4 Atrophy of thyroid (acquired); I48.21 Permanent atrial fibrillation
CPT/HCPCS: 36415; 80053; 80061; 81003; 82043; 82550; 83036; 84439; 84443; 84550; 85025; 85610

== ENCOUNTER 2021-07-16 08:33 | Outpatient (CLI) | payer MEDICARE, SELFPAY ==
[2021-07-19 02:53] LABS: Thyroid Peroxidase Antibodies <1 IU/mL (<9)
[2021-07-20 17:43] LABS: Thyroxin Binding Globulin 21.2 mcg/mL (12.7-25.1)
== END 2021-07-16 08:34 | disposition home or self-care (01) ==
LOC: CHSLAB 08:37
PROVIDERS: PCP Internal Medicine; Visit Provider Internal Medicine
DX: E03.9 Hypothyroidism, unspecified (principal)
CPT/HCPCS: 36415; 84442; 86376

== ENCOUNTER 2021-07-17 08:47 | Outpatient (CLI) | payer MEDICARE, SELFPAY ==
--- NOTE | ~2021-07-17 | US_ITS ---
EXAMINATION: US thyroid DATE: 07/17/2021 09:11 INDICATION: Hypothyroidism. TECHNIQUE: Multiple ultrasound images of the thyroid were obtained. COMPARISON: Ultrasound 04/28/2005 FINDINGS: The right thyroid lobe measures 5.1 x 1.6 x 1.8 cm. The left thyroid lobe measures 3.6 x 1.4 x 1.3 c m. There is normal echotexture and echogenicity throughout the thyroid gland. No discrete nodules id entified. Normal vascular flow is present. IMPRESSION: 1. Normal thyroid. Reviewed, dictated and finalized at location A. IMPRESSION: 1. Normal thyroid.
== END 2021-07-17 08:48 | disposition home or self-care (01) ==
LOC: CHSIMG 08:47
PROVIDERS: PCP Internal Medicine; Visit Provider Internal Medicine
DX: E03.9 Hypothyroidism, unspecified (principal)
CPT/HCPCS: 76536

== ENCOUNTER 2021-09-25 08:51 | Outpatient (RCR) | payer MEDICARE, SELFPAY ==
[2021-07-13 09:05] LABS: INR 3.5; Prothrombin Time 35.1 Seconds (9.50-12.10)
[2021-08-28 08:57] LABS: INR 2.4; Prothrombin Time 24.9 Seconds (9.50-12.10)
[2021-09-25 09:20] LABS: INR 3.2; Prothrombin Time 31.8 Seconds (9.50-12.10)
== END 2021-10-11 23:59 | disposition home or self-care (01) ==
LOC: CHSLAB 08:51
PROVIDERS: PCP Internal Medicine; Visit Provider Internal Medicine
DX: Z79.01 Long term (current) use of anticoagulants (principal)
CPT/HCPCS: 36415; 85610

== ENCOUNTER 2021-10-13 13:18 | Outpatient (CLI) | payer MEDICARE, MEDICAID, SELFPAY | END 2021-10-13 13:19 | disposition home or self-care (01) | LOC: CHSIMG 13:21 | PROVIDERS: PCP Internal Medicine; Visit Provider Internal Medicine | DX: M54.50 Low back pain, unspecified (principal); I73.9 Peripheral vascular disease, unspecified | CPT/HCPCS: 99199 ==

== ENCOUNTER 2021-10-26 09:13 | Outpatient (CLI) | payer MEDICARE, SELFPAY ==
--- NOTE | ~2021-10-26 | CT_ITS ---
EXAMINATION: CT lumbar spine wo con DATE: 10/26/2021 09:43 INDICATION: Chronic low back pain. TECHNIQUE: Computed tomography (CT) of the lumbar spine was performed without intravenous contrast. A utomated exposure control and iterative reconstruction technique were employed. The dose-length produ ct was 984.51 mGy-cm. COMPARISON: CT lumbar spine 04/12/2017 FINDINGS: There is 15 degrees dextroscoliosis of lumbar spine. L1 vertebral body and posterior elemen ts are enlarged with thickening of the cortex and trabecula, consistent with Paget disease. There is a chronic compression fracture of L1 with 2/5 loss of height. There is moderately decreased disc heig ht at L1-L2 and severely decreased disc height from L2-L3 through L5-S1 with endplate remodeling. The re are old healed right rib fractures. The following disc levels are specifically discussed: L1-L2: The disc does not extend beyond the endplate margin. There is moderate and severe left facet j oint osteoarthritis. There is mild right and moderate left neural foraminal stenosis. There is mild c entral canal stenosis. L2-L3: The disc is bulging. There is severe bilateral facet joint osteoarthritis. There is mild right and moderate left neural foraminal stenosis. There is mild central canal stenosis. L3-L4: The disc is bulging. There is severe bilateral facet joint osteoarthritis. There is mild bilat eral neural foraminal stenosis. There is mild central canal stenosis. L4-L5: The disc is bulging. There is severe bilateral facet joint osteoarthritis. There is moderate b ilateral neural foraminal stenosis. There is mild central canal stenosis. L5-S1: The disc is bulging. There is severe bilateral facet joint osteoarthritis. There is mild bilat eral neural foraminal stenosis. There is mild central canal stenosis. IMPRESSION: 1. Severe lumbar spondylosis, stable from 04/12/2017. 2. Lumbar dextroscoliosis. Reviewed, dictated and finalized at location A.
[2021-10-26 09:41] LABS: INR 3.6
== END 2021-10-26 09:14 | disposition home or self-care (01) ==
LOC: CHSIMG 09:18
PROVIDERS: PCP Internal Medicine; Visit Provider Internal Medicine
DX: M54.50 Low back pain, unspecified (principal); Z79.01 Long term (current) use of anticoagulants
CPT/HCPCS: 36415; 72131; 85610

== ENCOUNTER 2021-12-11 09:14 | Outpatient (RCR) | payer MEDICARE, SELFPAY ==
[2021-11-03 09:50] LABS: Prothrombin Time 30.3 Seconds (9.50-12.10)
[2021-12-11 09:37] LABS: INR 1.5; Prothrombin Time 16.2 Seconds (9.50-12.10)
== END 2022-02-01 23:59 | disposition home or self-care (01) ==
LOC: CHSLAB 09:14
PROVIDERS: PCP Internal Medicine; Visit Provider Internal Medicine
DX: Z51.81 Encounter for therapeutic drug level monitoring (principal); Z79.01 Long term (current) use of anticoagulants
CPT/HCPCS: 36415; 85610

== ENCOUNTER 2021-12-17 07:41 | Outpatient (CLI) | payer MEDICARE, SELFPAY ==
[2021-12-17 07:54] LABS: Basophils Absolute Auto 0.02 K/mm3 (0.00-0.10); Basophils Percent Auto 0.4 % (0.0-1.0); Eosinophils Absolute Auto 0.12 K/mm3 (0.02-0.50); Eosinophils Percent Auto 2.1 % (1.0-6.0); Hematocrit 34.7 % (37.0-46.0); Hemoglobin 11.1 g/dL (12.4-15.3); Immature Granulocyte Absolute 0.02 K/mm3 (0.00-0.00); Immature Granulocyte Percent A 0.4 % (0.0-0.0); Lymphocytes Absolute Auto 1.03 K/mm3 (1.10-4.50); Mean Corpuscular Hemoglobin 30.4 pg (27.0-31.0); Mean Corpuscular Volume 95.1 fL (78.0-102.0); Mean Platelet Volume 9.1 fl (8.7-11.0); Monocytes Absolute Auto 0.43 K/mm3 (0.10-0.90); Monocytes Percent Auto 7.5 % (2.0-11.0); Neutrophils Absolute Auto 4.1 K/mm3 (1.7-7.2); Neutrophils Percent Auto 71.6 % (50.0-70.0); Platelet Count Result 212 K/mm3 (150-420); Red Blood Count 3.65 M/mm3 (4.70-6.10); Red Cell Distribution Width 14.9 % (11.6-14.4); White Blood Count 5.7 K/mm3 (4.8-10.8)
[2021-12-17 08:02] LABS: Appearance Urine Clear (Clear); Bilirubin Urine Negative (Negative); Blood Urine Negative (Negative); Glucose Urine UA Negative (Negative); Ketones Urine Negative (Negative); Leukocyte Esterase Ur Negative LEU/UL (Negative); Nitrate Urine Negative (Negative); Protein Urine Negative (Negative); Specific Grav Ur 1.015 (1.010-1.020); Urobilinogen Urine 0.2 mg/dL (0.2-1.0)
[2021-12-17 08:05] LABS: Add Urine Microscopic? NO; Color Urine Light Yellow (Yellow)
[2021-12-17 08:09] LABS: INR 2.6; Prothrombin Time 26.2 Seconds (9.50-12.10)
[2021-12-17 08:12] LABS: Hemoglobin A1C 6.2 % (<5.7)
[2021-12-17 08:51] LABS: Alanine Aminotransferase 74 U/L (16-63); Albumin Level 3.5 g/dL (3.4-5.0); Alkaline Phosphatase 143 U/L (46-116); Anion Gap 7 mmol/L (8-16); Aspartate Amino Transferase 42 U/L (15-37); Bilirubin,Total 0.5 mg/dL (0.00-1.00); Blood Urea Nitrogen 24 mg/dL (7-18); Calcium 9.1 mg/dL (8.5-10.1); Carbon Dioxide 27 mmol/L (21-32); Chloride 106 mmol/L (98-108); Cholesterol 106 mg/dL (0-200); Creatine Kinase 157 U/L (39-308); Estimated Glomerular Filt Rate 50; Free T3 2.38 pg/mL (2.18-3.98); Glucose 130 mg/dL (70-99); HDL Direct 25 mg/dL (40-60); LDL Cholesterol Calculated 61 mg/dL (<130); Osmolality Calculated 296 mOsm/kg (285-295); Potassium 4.9 mmol/L (3.5-5.1); Sodium 140 mmol/L (136-145); Total Protein 6.8 g/dL (6.4-8.2); Triglycerides 99 mg/dL (0-150); Uric Acid 4.5 mg/dL (3.5-7.2)
== END 2021-12-17 07:42 | disposition home or self-care (01) ==
PROVIDERS: PCP Internal Medicine; Visit Provider Internal Medicine
DX: Z79.01 Long term (current) use of anticoagulants (principal); E78.2 Mixed hyperlipidemia; I10 Essential (primary) hypertension; E11.9 Type 2 diabetes mellitus without complications; E79.0 Hyperuricemia without signs of inflammatory arthritis and tophaceous disease; N39.0 Urinary tract infection, site not specified; E03.9 Hypothyroidism, unspecified
CPT/HCPCS: 36415; 80053; 80061; 81003; 82550; 83036; 84439; 84443; 84481; 84550; 85025; 85610

== ENCOUNTER 2022-02-17 07:18 | Outpatient (CLI) | payer MEDICARE, SELFPAY ==
[2022-02-17 08:17] LABS: INR 3.4; Prothrombin Time 33.4 Seconds (9.50-12.10)
[2022-02-17 08:46] LABS: Anion Gap 8 mmol/L (8-16); Blood Urea Nitrogen 32 mg/dL (7-18); Calcium 9.1 mg/dL (8.5-10.1); Carbon Dioxide 27 mmol/L (21-32); Chloride 99 mmol/L (98-108); Estimated Glomerular Filt Rate 52; Glucose 107 mg/dL (70-99); Osmolality Calculated 284 mOsm/kg (285-295); Potassium 5.1 mmol/L (3.5-5.1); Sodium 134 mmol/L (136-145)
== END 2022-02-17 07:19 | disposition home or self-care (01) ==
PROVIDERS: PCP Internal Medicine; Visit Provider Internal Medicine
DX: I10 Essential (primary) hypertension (principal); Z79.01 Long term (current) use of anticoagulants
CPT/HCPCS: 36415; 80048; 85610

== ENCOUNTER 2022-02-23 13:57 | Outpatient (CLI) | payer MEDICARE, SELFPAY ==
[2022-02-23 14:16] LABS: Immature Reticulocyte Fraction 11.1 % (2.0-16.52); Reticulocyte Hemoglobin Conten 32.8 pg (28.0-35.0); Reticulocyte Percent 1.59 % (0.50-1.50); Reticulocytes Absolute 0.06 M/mm3 (0.02-0.1)
[2022-02-23 15:20] LABS: Ferritin 19 ng/mL (26-388); Iron 70 ug/dL (65-175); Vitamin B12 432 pg/mL (193-986)
== END 2022-02-23 13:58 | disposition home or self-care (01) ==
LOC: CHSLAB 14:00
PROVIDERS: PCP Internal Medicine; Visit Provider Internal Medicine
DX: D64.9 Anemia, unspecified (principal)
CPT/HCPCS: 36415; 82607; 82728; 83540; 85046

== ENCOUNTER 2022-03-12 08:06 | Outpatient (CLI) | payer MEDICARE, SELFPAY ==
[2022-03-12 09:11] LABS: Anion Gap 6 mmol/L (8-16); Blood Urea Nitrogen 20 mg/dL (7-18); Calcium 8.9 mg/dL (8.5-10.1); Carbon Dioxide 27 mmol/L (21-32); Chloride 104 mmol/L (98-108); Estimated Glomerular Filt Rate > 60; Glucose 126 mg/dL (70-99); Osmolality Calculated 288 mOsm/kg (285-295); Potassium 4.9 mmol/L (3.5-5.1); Sodium 137 mmol/L (136-145)
== END 2022-03-12 08:07 | disposition home or self-care (01) ==
LOC: CHSLAB 08:08
PROVIDERS: PCP Internal Medicine; Visit Provider Internal Medicine
DX: D64.9 Anemia, unspecified (principal); I10 Essential (primary) hypertension
CPT/HCPCS: 36415; 80048

== ENCOUNTER 2022-04-01 01:22 | Day surgery (SDC) | payer MEDICARE, SELFPAY ==
[2022-03-26 10:23] VITALS: BMI 27.2
--- NOTE | 2022-03-26 16:20 | PC.NURSE ---
pt interviewed for procedure, instructions given, Dr. Bianchi's office had received an okay to hold Warfarin for 5 days, pt expressed his anxiety and concern over holding for 5 days, he asked if it was ok with Dr. Argueta, I did tell him I could check with her if that would reassure him. I called and faxed her office. She was not in the office today and there was no one that could sign off on it today. I called the pt back and explained this to him and his biggest concern was stopping it for 5 days, I called Dr. Bianchi's office and explained, Dr. Bianchi gave okay for pt to hold for 4 days instead of 5. I gave this instruction to patient and he was quite relieved and stated he could follow that and his last dose of Warfarin would be on 03/27/2022,
--- NOTE | 2022-04-01 07:43 | WPDANESEPPF ---
Anes - Initial Pre Proc Eval Procedure: Operation Date: 04/01/22 09:30 Proposed Procedures p Colonoscopy - Power Bianchi DO Date/Time: 04/01/22 07:43 Surgeon: Power Bianchi DO Pre Op Diagnosis: change in bowel habits Patient Data Age: 81 Gender: M Height: 1.8 m Weight: 88.5 kg Allergies Allergy/AdvReac Type Severity Reaction Status Date / Time No Known Allergies Allergy Unverified 03/26/22 10:24 Home Medications Medication Instructions Recorded Confirmed Type allopurinol 300 mg tablet 300 mg PO DAILY 04/17/19 03/26/22 History carvedilol 6.25 mg tablet 6.25 mg PO BID 04/17/19 03/26/22 History enalapril maleate 5 mg tablet 5 mg PO DAILY 04/17/19 03/26/22 History furosemide 40 mg tablet 40 mg PO DAILY 04/17/19 03/26/22 History lovastatin 20 mg tablet 20 mg PO DAILY 04/17/19 03/26/22 History potassium chloride 20 mEq 20 meq PO DAILY 04/17/19 03/26/22 History tablet,extended release(part/cryst) warfarin 1 mg tablet 0.5 mg PO HS 04/17/19 03/26/22 History aspirin 81 mg tablet 81 mg PO DAILY 03/26/22 03/26/22 History glimepiride 2 mg tablet 2 mg PO DAILY 03/26/22 03/26/22 History magnesium oxide 400 mg PO DAILY 03/26/22 03/26/22 History triamcinolone acetonide 0.1 % 1 applic topical DAILY 03/26/22 03/26/22 History topical cream warfarin 5 mg tablet 5 mg PO HS 03/26/22 03/26/22 History Patient hx anesthesia problems: none Family hx anesthesia problems: none Results Review: All pre-operative results and documents have been reviewed as part of the pre-operative evaluation. [facility] Past Medical History Medical History (Updated 04/18/19 @ 00:00 by Background Daemon) Atrial fibrillation Back pain BPH (benign prostatic hyperplasia) Dyslipidemia Gout Hypertension Type 2 diabetes mellitus Surgical History Surgical History (Updated 04/18/19 @ 00:00 by Background Daemon) Pacemaker Social History Social History Years smoked: 30 Smoking status: Former smoker Tobacco type: cigarettes, cigars and smokeless tobacco Alcohol intake: current Substance use: never Substance use type: does not use Living arrangements: alone Occupation/Education: retired Spiritual care concerns: No Anes - Eval Final PreProcedure Day of Procedure 04/01/22 07:43 Patient weight: overweight Heart: regular rate and rhythm Lungs: clear to auscultation Airway: Mallampati scale class II Neurological: alert and oriented Last oral intake: >/= 8 hours ASA classification: III Emergent: no Anesthetic plan: proceed Anesthesia type and monitoring: general GIVS and standard monitoring Results Review: All pre-operative results and documents have been reviewed as part of the pre-operative evaluation. Informed Consent: The patient's anesthetic plan and its attendant risks and benefits were discussed with the patient/family/POA. Questions were solicited and answers provided to the satisfaction of the patient/family/POA.
[2022-04-01 08:48] VITALS: BP 141/68; PULSE 92; RESP 20; TEMP 30.3; O2SAT 100; BMI 25.4
[2022-04-01] MEDS: LACTATED RINGERS 1,000 ML 150 ML IV CONT ×2 (08:52→10:49)
[2022-04-01 08:57] LABS: Glucose Point of Care 127 mg/dl (65-105)
[2022-04-01 09:24] LABS: INR 1.4; Partial Thromboplastin Time 39.7 SECONDS (22.3-36.8); Prothrombin Time 16.3 Seconds (11.1-14.7)
--- NOTE | 2022-04-01 10:00 | PM.IMHP ---
H&P: HPI History of Present Illness Date/Time: 04/01/22 10:00 Chief Complaint: change in bowel habits Narrative: this is an 81-year-old man who presents for colonoscopy. He last had a colonoscopy 5 years ago and 1 polyp was removed. He has had changes with his bowel habits alternating between looser stool and constipation. He denies any blood in his stool. Review of Systems Review of Systems: All systems reviewed & are unremarkable except as noted in HPI and below Constitutional: Constitutional: Denies chills, Denies fever(s), Denies headache(s) and Denies weight loss Eyes: Eyes: Denies change in vision ENT: Denies dizziness, Denies headache(s), Denies neck mass and Denies throat swelling Cardiovascular: Cardiovascular: Denies chest pain, Denies lightheadedness and Denies dyspnea Respiratory: Respiratory: Denies cough, Denies dyspnea and Denies wheezing Gastrointestinal: Gastrointestinal: Denies abdominal pain, Denies change in bowel habits, Denies nausea and Denies vomiting Genitourinary: Genitourinary: Denies hematuria and Denies dysuria Musculoskeletal: Musculoskeletal: Reports as per HPI Integumentary/Breasts: Skin/Breast: Reports as per HPI Neurologic: Denies dizziness and Denies headache(s) Allergic/Immunologic: Allergic/Immunologic: Denies throat swelling and Denies wheezing [facility] Past Medical History Medical History (Updated 04/01/22 @ 10:01 by Power Bianchi DO) Atrial fibrillation Back pain BPH (benign prostatic hyperplasia) Dyslipidemia Gout Hypertension Type 2 diabetes mellitus Surgical History Surgical History (Updated 04/18/19 @ 00:00 by Jalil Connell) Pacemaker Social History Social History Years smoked: 30 Smoking status: Former smoker Tobacco type: cigarettes, cigars and smokeless tobacco Alcohol intake: current Substance use: never Substance use type: does not use Living arrangements: alone Occupation/Education: retired Spiritual care concerns: No Meds Home Medications and Allergies Home Medications Medication Instructions Recorded Confirmed Type allopurinol 300 mg tablet 300 mg PO DAILY 04/17/19 03/26/22 History carvedilol 6.25 mg tablet 6.25 mg PO BID 04/17/19 03/26/22 History enalapril maleate 5 mg tablet 5 mg PO DAILY 04/17/19 03/26/22 History furosemide 40 mg tablet 40 mg PO DAILY 04/17/19 03/26/22 History lovastatin 20 mg tablet 20 mg PO DAILY 04/17/19 03/26/22 History potassium chloride 20 mEq 20 meq PO DAILY 04/17/19 03/26/22 History tablet,extended release(part/cryst) warfarin 1 mg tablet 0.5 mg PO HS 04/17/19 03/26/22 History aspirin 81 mg tablet 81 mg PO DAILY 03/26/22 03/26/22 History glimepiride 2 mg tablet 2 mg PO DAILY 03/26/22 03/26/22 History magnesium oxide 400 mg PO DAILY 03/26/22 03/26/22 History triamcinolone acetonide 0.1 % 1 applic topical DAILY 03/26/22 03/26/22 History topical cream warfarin 5 mg tablet 5 mg PO HS 03/26/22 03/26/22 History Allergies Allergy/AdvReac Type Severity Reaction Status Date / Time No Known Allergies Allergy Unverified 03/26/22 10:24 Vital Signs Vital Signs - 24 hr 04/01/22 08:48 Temperature 30.3 C L Pulse Rate 92 Respiratory Rate 20 Blood Pressure 141/68 H Pulse Oximetry 100 Oxygen Delivery Room Air Exam Const: General: no acute distress and alert Orientation/consciousness: patient oriented x3 HENMT: Head: normocephalic and atraumatic Ears: hearing grossly normal bilaterally Face/Nose/Sinus: Normal nares present Mouth: Yes Normal oral and palatal mucosa present Eyes: Periorbital: periorbital findings normal Sclera: sclerae normal EOM: EOMs intact bilaterally Neck: Neck: normal visual inspection, no lymphadenopathy and trachea midline Chest: Chest palpation & inspection: normal inspection of the chest Resp: Effort & Inspection: normal respiratory effort Auscultation: clear to auscultation b
[2022-04-01 10:47] VITALS: BP 116/64; PULSE 62; RESP 24; O2SAT 100
[2022-04-01 10:57] VITALS: BP 129/66; PULSE 60; RESP 18; O2SAT 100
[2022-04-01 11:07] VITALS: BP 149/70; PULSE 62; RESP 20; O2SAT 100
== END 2022-04-01 11:32 | disposition home or self-care (01) ==
PROVIDERS: PCP Internal Medicine; Visit Provider Surgery
PROC: 0DJD8ZZ Inspection of Lower Intestinal Tract, Via Natural or Artificial Opening Endoscopic (ICD-10-PCS; CPT 45378; principal; 2022-04-01 09:30)
DX: K52.9 Noninfective gastroenteritis and colitis, unspecified (principal); D12.0 Benign neoplasm of cecum; K62.89 Other specified diseases of anus and rectum; I48.91 Unspecified atrial fibrillation; I10 Essential (primary) hypertension; E11.9 Type 2 diabetes mellitus without complications; E78.5 Hyperlipidemia, unspecified; M10.9 Gout, unspecified; N40.0 Benign prostatic hyperplasia without lower urinary tract symptoms; Z95.0 Presence of cardiac pacemaker; Z79.01 Long term (current) use of anticoagulants; Z79.84 Long term (current) use of oral hypoglycemic drugs; Z79.82 Long term (current) use of aspirin; Z87.891 Personal history of nicotine dependence
CPT/HCPCS: 45380; 36415; 82948; 85610; 85730; 88305; J2704; J7120

== ENCOUNTER 2022-04-12 09:51 | Outpatient (RCR) | payer MEDICARE, SELFPAY ==
[2022-04-12 10:20] LABS: Prothrombin Time 20.9 Seconds (9.50-12.10)
== END 2022-07-11 23:59 | disposition home or self-care (01) ==
LOC: CHSLAB 09:51
PROVIDERS: PCP Internal Medicine; Visit Provider Internal Medicine
DX: Z51.81 Encounter for therapeutic drug level monitoring (principal); Z79.01 Long term (current) use of anticoagulants
CPT/HCPCS: 36415; 85610

== ENCOUNTER 2022-05-10 07:07 | Outpatient (CLI) | payer MEDICARE, SELFPAY ==
[2022-05-10 07:23] LABS: Basophils Absolute Auto 0.02 K/mm3 (0.00-0.10); Basophils Percent Auto 0.3 % (0.0-1.0); Eosinophils Absolute Auto 0.17 K/mm3 (0.02-0.50); Eosinophils Percent Auto 2.9 % (1.0-6.0); Hematocrit 34.9 % (37.0-46.0); Hemoglobin 11.5 g/dL (12.4-15.3); Immature Granulocyte Absolute 0.02 K/mm3 (0.00-0.00); Immature Granulocyte Percent A 0.3 % (0.0-0.0); Lymphocytes Absolute Auto 1.38 K/mm3 (1.10-4.50); Lymphocytes Percent Auto 23.6 % (18.0-42.0); Mean Corpuscular Hemoglobin 29.7 pg (27.0-31.0); Mean Corpuscular Volume 90.2 fL (78.0-102.0); Mean Platelet Volume 8.9 fl (8.7-11.0); Monocytes Absolute Auto 0.51 K/mm3 (0.10-0.90); Monocytes Percent Auto 8.7 % (2.0-11.0); Neutrophils Absolute Auto 3.8 K/mm3 (1.7-7.2); Neutrophils Percent Auto 64.2 % (50.0-70.0); Platelet Count Result 211 K/mm3 (150-420); Red Blood Count 3.87 M/mm3 (4.70-6.10); Red Cell Distribution Width 14.2 % (11.6-14.4); White Blood Count 5.9 K/mm3 (4.8-10.8)
[2022-05-10 07:36] LABS: INR 3.2
== END 2022-05-10 07:08 | disposition home or self-care (01) ==
LOC: CHSLAB 07:08
PROVIDERS: PCP Internal Medicine; Visit Provider Internal Medicine
DX: D64.9 Anemia, unspecified (principal); I48.21 Permanent atrial fibrillation
CPT/HCPCS: 36415; 85025; 85610

== ENCOUNTER 2022-05-20 14:53 | Outpatient (CLI) | payer MEDICARE, SELFPAY ==
[2022-05-20 15:23] LABS: Basophils Absolute Auto 0.02 K/mm3 (0.00-0.10); Basophils Percent Auto 0.3 % (0.0-1.0); Eosinophils Absolute Auto 0.15 K/mm3 (0.02-0.50); Eosinophils Percent Auto 2.1 % (1.0-6.0); Hematocrit 33.6 % (37.0-46.0); Hemoglobin 11.1 g/dL (12.4-15.3); Immature Granulocyte Absolute 0.03 K/mm3 (0.00-0.00); Immature Granulocyte Percent A 0.4 % (0.0-0.0); Lymphocytes Absolute Auto 1.27 K/mm3 (1.10-4.50); Lymphocytes Percent Auto 18.1 % (18.0-42.0); Mean Corpuscular Hemoglobin 30.2 pg (27.0-31.0); Mean Corpuscular Volume 91.6 fL (78.0-102.0); Mean Platelet Volume 9.9 fl (8.7-11.0); Monocytes Absolute Auto 0.51 K/mm3 (0.10-0.90); Monocytes Percent Auto 7.3 % (2.0-11.0); Neutrophils Percent Auto 71.8 % (50.0-70.0); Platelet Count Result 205 K/mm3 (150-420); Red Blood Count 3.67 M/mm3 (4.70-6.10); Red Cell Distribution Width 14.2 % (11.6-14.4)
[2022-05-20 15:50] LABS: Alanine Aminotransferase 109 U/L (16-63); Albumin Level 3.5 g/dL (3.4-5.0); Alkaline Phosphatase 167 U/L (46-116); Anion Gap 10 mmol/L (8-16); Aspartate Amino Transferase 50 U/L (15-37); Bilirubin,Total 0.5 mg/dL (0.00-1.00); Blood Urea Nitrogen 18 mg/dL (7-18); Calcium 8.9 mg/dL (8.5-10.1); Carbon Dioxide 26 mmol/L (21-32); Chloride 101 mmol/L (98-108); Estimated Glomerular Filt Rate > 60; Free T3 2.08 pg/mL (2.18-3.98); Glucose 137 mg/dL (70-99); NT Pro B Type Natriuretic Pept 909 pg/mL (0-450); Osmolality Calculated 287 mOsm/kg (285-295); Potassium 4.6 mmol/L (3.5-5.1); Sodium 137 mmol/L (136-145); Total Protein 7.3 g/dL (6.4-8.2)
== END 2022-05-20 14:54 | disposition home or self-care (01) ==
LOC: CHSLAB 14:56
PROVIDERS: PCP Internal Medicine; Visit Provider Internal Medicine
DX: I50.9 Heart failure, unspecified (principal); M79.89 Other specified soft tissue disorders; E03.9 Hypothyroidism, unspecified
CPT/HCPCS: 36415; 80053; 83880; 84481; 85025

== ENCOUNTER 2022-05-26 08:17 | Outpatient (CLI) | payer MEDICARE, SELFPAY ==
--- NOTE | ~2022-05-26 | US_ITS ---
Limited Abdominal Sonogram: Real-time sonographic imaging of the right upper quadrant was performed. Clinical History: Abnormal liver enzymes Findings: The liver appears mildly echogenic, with no evidence of mass lesion or bile duct dilatatio n. Main portal vein demonstrates normal direction of flow. The gallbladder is partially distended, an d appears normal with no evidence of gallstone or wall thickening. The common bile duct measures 4 mm . The visualized pancreas, aorta, and IVC are unremarkable. Impression: Diffuse fatty infiltration of the liver. Reviewed, dictated and finalized at location M. Impression: Diffuse fatty infiltration of the liver.
== END 2022-05-26 08:18 | disposition home or self-care (01) ==
LOC: CHSIMG 08:19
PROVIDERS: PCP Internal Medicine; Visit Provider Internal Medicine
DX: R74.01 Elevation of levels of liver transaminase levels (principal); I10 Essential (primary) hypertension; K76.0 Fatty (change of) liver, not elsewhere classified
CPT/HCPCS: 76705

== ENCOUNTER 2022-05-31 14:03 | Outpatient (CLI) | payer MEDICARE, SELFPAY ==
--- NOTE | 2022-05-31 14:52 | ECHO_ITS ---
Patient Info Name: Pato Payne Age: 81 years : 1940 Gender: Male Ht: 71 in Wt: 200 lbs BSA: 2.15 m2 HR: 86 bpm BP: 126 / 66 mmHg Technical Quality: Fair Exam Date: 05/31/2022 2:09 PM Exam Location: [facility] Patient Status: Outpatient Admit Date: 05/31/2022 Staff Ordering Physician: Brady Bourgeois MD Car Shunter: Scot Valle RDCS, RT Attending Provider: Brady Bourgeois MD Referring Physician: Bk SAGASTUME; Exam Type: CA echo doppler color flow Study Info Indications I50.9 - Heart failure, unspecified Complete two-dimensional, color flow and Doppler transthoracic echocardiogram is performed. Strain analysis performed. Summary 1. Complete two-dimensional, color flow and Doppler transthoracic echocardiogram is performed. 2. Left ventricular chamber dimension is normal. 3. Left ventricular systolic function is normal, estimated at 55-60%. 4. There is mild concentric increased left ventricular wall thickness. 5. The left ventricular diastolic function is grade IV diastolic dysfunction. 6. E/e' 21 is elevated. 7. Global longitudinal strain is abnormal at -11.5%. 8. Linear artifact in right ventricle suggestive of catheter(s), pacemaker lead(s), or ICD lead(s). 9. Left atrial chamber dimension is moderately enlarged. 10. Linear artifact in the right atrium suggestive of catheter(s), pacemaker lead(s), or ICD lead(s). 11. There is mild aortic valve sclerosis. 12. There is trace aortic valve regurgitation. 13. There is mild to moderate mitral valve regurgitation. 14. There is moderate to severe tricuspid valve regurgitation. 15. Moderate pulmonary hypertension, estimated pulmonary arterial systolic pressure is 53 mmHg. 16. There is trace pulmonic regurgitation. 17. Dilated inferior vena cava with >50% collapse upon inspiration consistent with elevated right atrial pressure, 10 mmHg. Left Ventricle E/e' 21 is elevated. Global longitudinal strain is abnormal at -11.5%. Left ventricular chamber dimension is normal. Left ventricular systolic function is normal, estimated at 55-60%. There is mild concentric increased left ventricular wall thickness. The left ventricular diastolic function is grade IV diastolic dysfunction. Right Ventricle Right ventricular systolic function is normal and with normal TAPSE 1.7 cm. Linear artifact in right ventricle suggestive of catheter(s), pacemaker lead(s), or ICD lead(s). Right ventricular chamber dimension is normal. Left Atria Left atrial chamber dimension is moderately enlarged. Right Atria Linear artifact in the right atrium suggestive of catheter(s), pacemaker lead(s), or ICD lead(s). Right atrial chamber dimension is normal. Aortic Valve The aortic valve is trileaflet. There is mild aortic valve sclerosis. There is no aortic valve stenosis. There is trace aortic valve regurgitation. Pulmonic Valve There is trace pulmonic regurgitation. Mitral Valve There is no mitral valve stenosis. There is mild to moderate mitral valve regurgitation. Tricuspid Valve There is moderate to severe tricuspid valve regurgitation. Moderate pulmonary hypertension, estimated pulmonary arterial systolic pressure is 53 mmHg. Pericardium/Pleural There is no pericardial effusion. Inferior Vena Cava Dilated inferior vena cava with >50% collapse upon inspiration consistent with elevated right atrial pressure, 10 mmHg. Aorta The aortic root size at the sinus of Valsalva is normal. Left Ventricula
== END 2022-05-31 14:04 | disposition home or self-care (01) ==
LOC: CHSIMG 14:05
PROVIDERS: PCP Internal Medicine; Visit Provider Internal Medicine
DX: I50.9 Heart failure, unspecified (principal); M79.89 Other specified soft tissue disorders; E03.9 Hypothyroidism, unspecified; I35.8 Other nonrheumatic aortic valve disorders; I51.7 Cardiomegaly
CPT/HCPCS: 93306

== ENCOUNTER 2022-06-14 07:15 | Outpatient (CLI) | payer MEDICARE, SELFPAY ==
[2022-06-14 07:32] LABS: Basophils Absolute Auto 0.02 K/mm3 (0.00-0.10); Basophils Percent Auto 0.4 % (0.0-1.0); Eosinophils Absolute Auto 0.09 K/mm3 (0.02-0.50); Eosinophils Percent Auto 1.9 % (1.0-6.0); Hematocrit 34.6 % (37.0-46.0); Hemoglobin 11.1 g/dL (12.4-15.3); Lymphocytes Absolute Auto 1.12 K/mm3 (1.10-4.50); Lymphocytes Percent Auto 23.2 % (18.0-42.0); Mean Corpuscular HGB Conc 32.1 g/dL (32.0-36.0); Mean Corpuscular Hemoglobin 29.3 pg (27.0-31.0); Mean Corpuscular Volume 91.3 fL (78.0-102.0); Mean Platelet Volume 9.3 fl (8.7-11.0); Monocytes Absolute Auto 0.32 K/mm3 (0.10-0.90); Monocytes Percent Auto 6.6 % (2.0-11.0); Neutrophils Absolute Auto 3.3 K/mm3 (1.7-7.2); Neutrophils Percent Auto 67.9 % (50.0-70.0); Platelet Count Result 185 K/mm3 (150-420); Red Blood Count 3.79 M/mm3 (4.70-6.10); Red Cell Distribution Width 13.9 % (11.6-14.4); White Blood Count 4.8 K/mm3 (4.8-10.8)
[2022-06-14 07:33] LABS: Appearance Urine Clear (Clear); Bilirubin Urine Negative (Negative); Blood Urine Negative (Negative); Color Urine Light Yellow (Yellow); Glucose Urine UA Negative (Negative); Ketones Urine Negative (Negative); Leukocyte Esterase Ur Negative (Negative); Nitrate Urine Negative (Negative); Protein Urine Negative (Negative); Specific Grav Ur 1.015 (1.010-1.020); Urobilinogen Urine 0.2 mg/dL (0.2-1.0)
[2022-06-14 07:43] LABS: Add Urine Microscopic? NO
[2022-06-14 07:44] LABS: Creatinine Urine 55.79 mg/dL (40-278); MALB Creatinine Ratio 45.1 mg/g (0-30); Microalbumin Urine Random 25.2 mg/L
[2022-06-14 07:46] LABS: Hemoglobin A1C 6.6 % (<5.7)
[2022-06-14 07:53] LABS: INR 2.3
[2022-06-14 08:39] LABS: Alanine Aminotransferase 111 U/L (16-63); Albumin Level 3.4 g/dL (3.4-5.0); Alkaline Phosphatase 170 U/L (46-116); Anion Gap 8 mmol/L (8-16); Aspartate Amino Transferase 71 U/L (15-37); Bilirubin,Total 0.5 mg/dL (0.00-1.00); Blood Urea Nitrogen 17 mg/dL (7-18); Calcium 8.9 mg/dL (8.5-10.1); Carbon Dioxide 27 mmol/L (21-32); Chloride 104 mmol/L (98-108); Estimated Glomerular Filt Rate > 60; Glucose 155 mg/dL (70-99); NT Pro B Type Natriuretic Pept 809 pg/mL (0-450); Osmolality Calculated 292 mOsm/kg (285-295); Potassium 4.9 mmol/L (3.5-5.1); Sodium 139 mmol/L (136-145); Total Protein 6.9 g/dL (6.4-8.2); Uric Acid 4.1 mg/dL (3.5-7.2)
== END 2022-06-14 07:16 | disposition home or self-care (01) ==
LOC: CHSLAB 07:16
PROVIDERS: PCP Internal Medicine; Visit Provider Internal Medicine
DX: E79.0 Hyperuricemia without signs of inflammatory arthritis and tophaceous disease (principal); E78.2 Mixed hyperlipidemia; E11.8 Type 2 diabetes mellitus with unspecified complications; I50.9 Heart failure, unspecified; Z79.01 Long term (current) use of anticoagulants
CPT/HCPCS: 36415; 80053; 81003; 82043; 83036; 83880; 84550; 85025; 85610

== ENCOUNTER 2022-06-22 11:14 | Outpatient (CLI) | payer MEDICARE, SELFPAY ==
[2022-06-22 12:05] LABS: Prothrombin Time 30.4 Seconds (9.50-12.10)
[2022-06-22 12:29] LABS: Ferritin 18 ng/mL (26-388); GGT 33 U/L (15-85); Iron 38 ug/dL (65-175)
[2022-06-27 12:07] LABS: Hepatitis B Surface Antibody Nonreactive (Nonreactive); Hepatitis C Signal to Cutoff 0.03 ratio (<1.00); Hepatitis C Virus Antibody Nonreactive (Nonreactive)
== END 2022-06-22 11:15 | disposition home or self-care (01) ==
PROVIDERS: PCP Internal Medicine; Visit Provider Internal Medicine
DX: R74.01 Elevation of levels of liver transaminase levels (principal); Z79.01 Long term (current) use of anticoagulants
CPT/HCPCS: 36415; 82728; 82977; 83540; 85610; 86706; 86803

== ENCOUNTER 2022-06-30 06:55 | Outpatient (CLI) | payer MEDICARE, SELFPAY ==
--- NOTE | ~2022-06-30 | US_ITS ---
EXAMINATION: US carotid duplex BI DATE: 06/30/2022 09:11 INDICATION: Bilateral carotid stenosis TECHNIQUE: Grayscale, color Doppler, and pulsed Doppler images of the cervical carotid arteries were obtained. The degree of vessel stenosis is placed in one of the following categories: normal, <50%, 5 0-69%, >=70% but less than near-occlusion, near-occlusion, or total occlusion. Note that percent sten osis relative to normal distal artery lumen diameter is indirectly measured from velocity measurement s as described by Davey, et al. Radiology 2003; 229:340-346. COMPARISON: 11/26/2009 FINDINGS: RIGHT: The right common carotid artery (CCA) peak systolic velocity (PSV) is 64 cm/s. The right internal car otid artery (ICA) PSV is 72 cm/s. The right ICA end-diastolic velocity (EDV) is 20 cm/s. The right IC A/CCA PSV ratio is 1.1. Grayscale and color Doppler images yield an estimate of <50% diameter reducti on from plaque in the ICA. The external carotid artery (ECA) PSV is 53 cm/s. There is antegrade flow in the right vertebral artery. LEFT: The left CCA PSV is 84 cm/s. The left ICA PSV is 63 cm/s. The left ICA EDV is 16 cm/s. The left ICA/C CA PSV ratio is 0.8. Grayscale and color Doppler images yield an estimate of <50% diameter reduction from plaque in the ICA. The ECA PSV is cm/s. There is antegrade flow in the left vertebral artery. IMPRESSION: 1. <50% stenosis in the right internal carotid artery. 2. <50% stenosis in the left internal carotid artery. Reviewed, dictated and finalized at location A.
--- NOTE | ~2022-06-30 | US_ITS ---
US arterial ankle brachial ind INDICATION: Peripheral arterial disease TECHNIQUE: Segmental pressures and plethysmographic and Doppler waveforms of the brachial and lower e xtremity arteries were obtained. COMPARISON: None. FINDINGS: Right and left brachial artery pressures of 133 mm Hg and 138 mm Hg, respectively, are concordant (no rmal difference <= 30 mmHg). The right ankle-brachial index (OLIVIA) is 1.49 (normal >= 0.9-1.0). The right great toe-brachial index (TBI) is 0.71 (normal >= 0.60). The left OLIVIA is 1.16. The left TBI is 0.6. IMPRESSION: 1. Normal bilateral ankle and toe brachial indices. Reviewed, dictated and finalized at location B.
--- NOTE | ~2022-06-30 | CT_ITS ---
EXAMINATION: CT abdomen w con DATE: 06/30/2022 07:48 INDICATION: Abnormal liver enzymes. TECHNIQUE: Computed tomography (CT) of the abdomen and pelvis was performed with 100 cc Omnipaque 350 intravenous contrast. The dose-length product was 620.61 mGy-cm. Automated exposure control and iter ative reconstruction technique were employed. COMPARISON: None. FINDINGS: There is a 6 mm fissural nodule on the right, image 55. Small pleural effusions. Heart size normal. There is atherosclerosis. Small hiatal hernia. There is atherosclerosis of the abdominal aor ta without aneurysm. No lymphadenopathy. Fatty infiltration of the liver. These spleen, pancreas, adrenal glands are unremarkable. There are b ilateral renal cysts. Nonobstructive bowel pattern. No free air or free fluid. Gallbladder is present . IMPRESSION: 1. Hepatic steatosis. 2: Small pleural effusions. 3: Right-sided fissural nodule measuring 6 mm. Recommend follow-up low dose CT chest in 3 months. Reviewed, dictated and finalized at location B.
== END 2022-06-30 06:56 | disposition home or self-care (01) ==
LOC: CHSIMG 06:57
PROVIDERS: PCP Internal Medicine; Visit Provider Internal Medicine
DX: R74.01 Elevation of levels of liver transaminase levels (principal); I10 Essential (primary) hypertension; I73.9 Peripheral vascular disease, unspecified; I65.23 Occlusion and stenosis of bilateral carotid arteries; K76.0 Fatty (change of) liver, not elsewhere classified; J90 Pleural effusion, not elsewhere classified; R91.1 Solitary pulmonary nodule
CPT/HCPCS: 74160; 93880; 93922; Q9967

== ENCOUNTER 2022-07-13 13:33 | Outpatient (CLI) | payer MEDICARE, SELFPAY ==
[2022-07-13 13:51] VITALS: BMI 25.4
[2022-07-13] MEDS: IRON SUCROSE COMPLEX 300 MG in SODIUM CHLORIDE 0.9% IV 250 ML 125 MG IVPB (13:55)
[2022-07-13 14:03] VITALS: BP 128/71; PULSE 72; RESP 14; TEMP 36.4; O2SAT 97
--- NOTE | 2022-07-13 14:05 | PC.NURSE ---
Patient here for #1 of 3 q 2 weeks IV Venofer infusion. Education given. All concerns voiced. IV Venofer administration started. SEE MAR.
== END 2022-07-13 13:34 | disposition home or self-care (01) ==
LOC: CHSTREATRM 13:36
PROVIDERS: PCP Internal Medicine; Visit Provider Internal Medicine
DX: D50.9 Iron deficiency anemia, unspecified (principal)
CPT/HCPCS: 96365; 96366; J1756; J7050

== ENCOUNTER 2022-07-27 13:41 | Outpatient (CLI) | payer MEDICARE, SELFPAY ==
[2022-07-27 13:48] VITALS: BMI 25.4
[2022-07-27 14:16] LABS: INR 2.8; Prothrombin Time 28.4 Seconds (9.50-12.10)
[2022-07-27] MEDS: IRON SUCROSE COMPLEX 300 MG in SODIUM CHLORIDE 0.9% IV 250 ML 125 MG IVPB (14:22)
--- NOTE | 2022-07-27 14:23 | PC.NURSE ---
Patient here for #2 of 3 IV Venofer infusion. Education given. No concerns voiced. Reports no problems with the last IV Venofer infusion. IV infusion administeration started.
[2022-07-27 14:24] VITALS: BP 121/63; PULSE 68; RESP 14; TEMP 36.4; O2SAT 98
[2022-07-27 14:37] LABS: Alanine Aminotransferase 78 U/L (16-63); Albumin Level 3.5 g/dL (3.4-5.0); Alkaline Phosphatase 167 U/L (46-116); Anion Gap 8 mmol/L (8-16); Aspartate Amino Transferase 43 U/L (15-37); Bilirubin,Total 0.5 mg/dL (0.00-1.00); Blood Urea Nitrogen 22 mg/dL (7-18); Carbon Dioxide 26 mmol/L (21-32); Chloride 101 mmol/L (98-108); Estimated CRCL calculation 49 ml/min; Estimated Glomerular Filt Rate > 60; Glucose 134 mg/dL (70-99); Osmolality Calculated 285 mOsm/kg (285-295); Potassium 4.8 mmol/L (3.5-5.1); Sodium 135 mmol/L (136-145); Total Protein 6.8 g/dL (6.4-8.2)
--- NOTE | 2022-07-28 08:05 | PC.NURSE ---
07/27/22 1420 Tolerated IV Venofer infusion well. No concerns. Safe exit of hospital. Will return 08/09/22 at 1400 for #3 of 3.
== END 2022-07-27 13:42 | disposition home or self-care (01) ==
LOC: CHSLAB 13:45 → CHSTREATRM 14:06
PROVIDERS: PCP Internal Medicine; Visit Provider Internal Medicine
DX: D50.9 Iron deficiency anemia, unspecified (principal)
CPT/HCPCS: 36415; 80053; 85610; 96365; 96366; J1756; J7050

== ENCOUNTER 2022-08-11 13:52 | Outpatient (CLI) | payer MEDICARE, SELFPAY ==
[2022-08-11 13:56] VITALS: BMI 26.2
[2022-08-11 14:03] VITALS: BP 119/60; PULSE 88; RESP 16; TEMP 36.8
[2022-08-11] MEDS: IRON SUCROSE COMPLEX 300 MG in SODIUM CHLORIDE 0.9% IV 250 ML 125 MG IVPB (14:10)
--- NOTE | 2022-08-11 14:13 | PC.NURSE ---
Patient here for #3 of 3 IV Venofer infusion. Education given. No concerns voiced. Reports has tolerated the last two infusion without a problem. IV Venofer infusion started. SEE MAR. Call light in reach.
--- NOTE | 2022-08-11 16:22 | PC.NURSE ---
Patient's IV therapy completed. IV flushed, then removed intact. No c/o offered.
== END 2022-08-11 13:53 | disposition home or self-care (01) ==
LOC: CHSTREATRM 13:55
PROVIDERS: PCP Internal Medicine; Visit Provider Internal Medicine
DX: D50.9 Iron deficiency anemia, unspecified (principal)
CPT/HCPCS: 96365; 96366; J1756; J7050

== ENCOUNTER 2022-08-26 06:55 | Outpatient (CLI) | payer MEDICARE, SELFPAY ==
[2022-08-26 07:08] LABS: Basophils Absolute Auto 0.02 K/mm3 (0.00-0.10); Basophils Percent Auto 0.4 % (0.0-1.0); Eosinophils Absolute Auto 0.09 K/mm3 (0.02-0.50); Eosinophils Percent Auto 1.8 % (1.0-6.0); Hematocrit 36.6 % (37.0-46.0); Hemoglobin 11.8 g/dL (12.4-15.3); Immature Granulocyte Absolute 0.01 K/mm3 (0.00-0.00); Immature Granulocyte Percent A 0.2 % (0.0-0.0); Immature Reticulocyte Fraction 8.2 % (2.0-16.52); Lymphocytes Absolute Auto 1.34 K/mm3 (1.10-4.50); Lymphocytes Percent Auto 26.6 % (18.0-42.0); Mean Corpuscular HGB Conc 32.2 g/dL (32.0-36.0); Mean Corpuscular Hemoglobin 29.4 pg (27.0-31.0); Mean Corpuscular Volume 91.3 fL (78.0-102.0); Monocytes Absolute Auto 0.44 K/mm3 (0.10-0.90); Monocytes Percent Auto 8.7 % (2.0-11.0); Neutrophils Absolute Auto 3.1 K/mm3 (1.7-7.2); Neutrophils Percent Auto 62.3 % (50.0-70.0); Platelet Count Result 172 K/mm3 (150-420); Red Blood Count 4.01 M/mm3 (4.70-6.10); Reticulocyte Hemoglobin Conten 35.6 pg (28.0-35.0); Reticulocyte Percent 1.16 % (0.50-1.50); Reticulocytes Absolute 0.05 M/mm3 (0.02-0.1)
[2022-08-26 07:22] LABS: INR 2.1; Prothrombin Time 21.4 Seconds (9.50-12.10)
[2022-08-26 08:06] LABS: Alanine Aminotransferase 92 U/L (16-63); Albumin Level 3.4 g/dL (3.4-5.0); Alkaline Phosphatase 169 U/L (46-116); Anion Gap 6 mmol/L (8-16); Aspartate Amino Transferase 47 U/L (15-37); Bilirubin,Total 0.4 mg/dL (0.00-1.00); Blood Urea Nitrogen 18 mg/dL (7-18); Calcium 9.2 mg/dL (8.5-10.1); Carbon Dioxide 28 mmol/L (21-32); Chloride 102 mmol/L (98-108); Estimated Glomerular Filt Rate > 60; Ferritin 122 ng/mL (26-388); Glucose 104 mg/dL (70-99); Iron 59 ug/dL (65-175); Osmolality Calculated 283 mOsm/kg (285-295); Potassium 4.6 mmol/L (3.5-5.1); Sodium 136 mmol/L (136-145); Total Protein 6.5 g/dL (6.4-8.2)
== END 2022-08-26 06:56 | disposition home or self-care (01) ==
LOC: CHSLAB 06:57
PROVIDERS: PCP Internal Medicine; Visit Provider Internal Medicine
DX: E11.9 Type 2 diabetes mellitus without complications (principal); I10 Essential (primary) hypertension; R74.8 Abnormal levels of other serum enzymes; D64.89 Other specified anemias; I48.21 Permanent atrial fibrillation
CPT/HCPCS: 36415; 80053; 82728; 83540; 85025; 85046; 85610

== ENCOUNTER 2022-09-03 07:11 | Outpatient (CLI) | payer MEDICARE, SELFPAY ==
[2022-09-12 19:12] LABS: Calprotectin, Stool 78 mcg/g
== END 2022-09-03 07:12 | disposition home or self-care (01) ==
LOC: CHSLAB 07:12
PROVIDERS: PCP Internal Medicine; Visit Provider Internal Medicine Gastroenterology
DX: K52.9 Noninfective gastroenteritis and colitis, unspecified (principal)
CPT/HCPCS: 83993

== ENCOUNTER 2022-09-22 13:05 | Emergency (ER) | payer MEDICARE, SELFPAY ==
[2022-09-22] VITALS (26 sets, daily range): BP systolic 117–124; BP diastolic 41–67; PULSE 61–85; RESP 17–28; TEMP 37.2–37.7; O2SAT 94–100
--- NOTE | ~2022-09-22 | CT_ITS ---
EXAMINATION: CT brain wo con DATE: 09/22/2022 13:52 INDICATION: Confusion. TECHNIQUE: Computed tomography (CT) of the head was performed without intravenous contrast. The mA wa s adjusted according to patient size. Iterative reconstruction technique was employed. The dose-lengt h product was 681.00 mGy-cm. 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 There is a small infarct in left parietal lobe. There is no intracranial hemorrhage or abnormal intracranial mass lesion. The ventricles are normal in size. There are likely changes of ocular lens replacement surgeries. There is mild mucosal thicken ing in the paranasal sinuses. The mastoid air cells are normal. IMPRESSION: 1. Age-indeterminate small infarct in left parietal lobe. 2. Old infarct in left cerebellum. Reviewed, dictated and finalized at location A.
--- NOTE | ~2022-09-22 | XR_ITS ---
EXAMINATION: XR chest 1V portable Exam Date/Time: 09/22/2022 15:40 CDT HISTORY: COVID positive/SOB Comparison: 12/13/2019; x-ray RIBS 07/10/2014. RESULT: Lines, tubes, and devices: Left chest pacer, with one disconnected lead. Lungs and pleura: Mild diffuse interstitial opacities. Minimal streaky bibasilar atelectasis/scar. Cardiomediastinal silhouette: Stable. Other: No acute osseous or upper abdominal finding. IMPRESSION: A pacer lead is disconnected, correlate with pacemaker function. Mild interstitial edema. Reviewed, dictated and finalized at location K.
--- NOTE | 2022-09-22 13:19 | ECG_ITS ---
Measurements Intervals Hinkle Rate: 64 P: MS: 0 QRS: -41 QRSD: 170 T: 257 QT: 432 QTc: 446 Interpretive Statements ELECTRONIC VENTRICULAR PACEMAKER NO FURTHER INTERPRETATION POSSIBLE COMPARED TO ECG 04/17/2019 21:10:53 NO SIGNIFICANT CHANGES Electronically Signed On 09-22-2022 13:31:03 CDT by Doug Nick M.D.
--- NOTE | 2022-09-22 13:19 | ED.NEUROSD ---
HPI - Neuro Symptoms/Deficit General Chief Complaint: Weakness Stated Complaint: confusion Time Seen by Provider: 09/22/22 13:12 Source: patient Mode of arrival: ambulatory Limitations: no limitations History of Present Illness HPI Narrative: 82-year-old male with a history of ex smoking, diabetes mellitus pain BPH,, atrial fibrillation status post ablation permanent pacemaker presents to the ER a 1 day history of\ -- patient has been off balance since yesterday while walking. 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 -- EN route to the house he had 1 episode of vomiting. -- Increased confusion. The patient is able to answer questions and follow simple commands. Symptoms started last night. Onset (ago): day(s) ( Symptoms started yesterday) Last Observed Normal: 16:00 Timing confirmed by: caregiver Location: altered Severity: mild Relieving factors: none Exacerbating factors: none On Anticoagulants: Yes Associated symptoms: confusion Treatments Prior to Arrival: none Related Data Home Medications Medication Instructions Recorded Confirmed allopurinol 300 mg tablet 300 mg PO DAILY 04/17/19 09/22/22 carvedilol 6.25 mg tablet 6.25 mg PO BID 04/17/19 09/22/22 enalapril maleate 5 mg tablet 5 mg PO DAILY 04/17/19 09/22/22 lovastatin 20 mg tablet 20 mg PO DAILY 04/17/19 09/22/22 potassium chloride 20 mEq 20 meq PO DAILY 04/17/19 09/22/22 tablet,extended release(part/cryst) warfarin 1 mg tablet 0.5 mg PO HS 04/17/19 08/31/22 glimepiride 2 mg tablet 2 mg PO DAILY 03/26/22 09/22/22 warfarin 5 mg tablet 5 mg PO HS 03/26/22 08/31/22 furosemide 40 mg tablet 60 mg PO DAILY 08/31/22 09/22/22 Allergies Allergy/AdvReac Type Severity Reaction Status Date / Time No Known Allergies Allergy Verified 09/22/22 13:15 Review of Systems Review of Systems: All systems reviewed & are unremarkable except as noted in HPI and below Constitutional: Constitutional: Reports as per HPI and Reports no additional constitutional complaints Eyes: Eyes: Reports as per HPI and Reports no additional eye complaints ENT: Reports system reviewed and no additional complaints, except as documented and Reports as per HPI Cardiovascular: Cardiovascular: Reports as per HPI and Reports no additional cardiovascular complaints Respiratory: Respiratory: Reports as per HPI and Reports no additional respiratory complaints Gastrointestinal: Gastrointestinal: Reports as per HPI and Reports no additional gastrointestinal complaints Genitourinary: Genitourinary: Reports no additional male genitourinary complaints and Reports as per HPI Musculoskeletal: Musculoskeletal: Reports no additional musculoskeletal complaints and Reports as per HPI Integumentary/Breasts: Skin/Breast: Reports system reviewed and no additional complaints, except as docu and Reports as per HPI Neurologic: Reports system reviewed and no additional complaints, except as documented and Reports as per HPI Psychiatric: Psychiatric: Reports no additional psychiatric complaints and Reports as per HPI Endocrine: Endocrine: Reports no additional endocrine complaints and Reports excessive sweating Hematologic/Lymphatic: Hematologic/Lymphatic: Reports no additional hematologic/lymphatic complaints and Reports as per HPI PMFSH Past Medical History Medical History Atrial fibrillation Back pain BPH (benign prostatic hyperplasia) Dyslipidemia Gout Hypertension Type 2 diabetes mellitus Surgical History Surgical History Pacemaker Social History Social History Years smoked: 30 Smoking status: Former smoker Tobacco type: cigarettes, cigars and smokeless tobacco Alcohol intake: current Substance use: never Substance use type: does not use L
[2022-09-22 13:40] LABS: Glucose Point of Care 92 mg/dl (65-105)
[2022-09-22 14:16] LABS: Basophils Absolute Auto 0.02 K/mm3 (0.00-0.10); Basophils Percent Auto 0.3 % (0.0-1.0); Eosinophils Absolute Auto 0.02 K/mm3 (0.02-0.50); Eosinophils Percent Auto 0.3 % (1.0-6.0); Hematocrit 36.1 % (37.0-46.0); Immature Granulocyte Absolute 0.03 K/mm3 (0.00-0.00); Immature Granulocyte Percent A 0.5 % (0.0-0.0); Lymphocytes Absolute Auto 0.61 K/mm3 (1.10-4.50); Lymphocytes Percent Auto 10.6 % (18.0-42.0); Mean Corpuscular HGB Conc 33.2 g/dL (32.0-36.0); Mean Corpuscular Hemoglobin 29.7 pg (27.0-31.0); Mean Corpuscular Volume 89.4 fL (78.0-102.0); Mean Platelet Volume 9.3 fl (8.7-11.0); Monocytes Percent Auto 12.1 % (2.0-11.0); Neutrophils Absolute Auto 4.4 K/mm3 (1.7-7.2); Neutrophils Percent Auto 76.2 % (50.0-70.0); Platelet Count Result 165 K/mm3 (150-420); Red Blood Count 4.04 M/mm3 (4.70-6.10); Red Cell Distribution Width 16.7 % (11.6-14.4); White Blood Count 5.8 K/mm3 (4.8-10.8)
[2022-09-22 14:17] LABS: Appearance Urine Clear (Clear); Bilirubin Urine Negative (Negative); Blood Urine Trace-Intact (Negative); Color Urine Light Yellow (Yellow); Glucose Urine UA Negative (Negative); Ketones Urine Negative (Negative); Leukocyte Esterase Ur Negative LEU/UL (Negative); Nitrate Urine Negative (Negative); Protein Urine Negative (Negative); Urobilinogen Urine 0.2 mg/dL (0.2-1.0); pH Urine 5.5 (5.0-8.0)
[2022-09-22 14:25] LABS: Add Urine Microscopic? YES; Bacteria Urine None seen /hpf; RBC Urine 0-2 /hpf (0-2); WBC Urine None seen /hpf (0-3)
[2022-09-22 14:30] LABS: INR 3.5; Partial Thromboplastin Time 61.2 SEC (23.90-30.70); Prothrombin Time 35.1 Seconds (9.50-12.10)
[2022-09-22 14:43] LABS: Lactic Acid Reflex 3.1 mmol/L (0.4-2.0)
[2022-09-22 14:44] LABS: Alanine Aminotransferase 92 U/L (16-63); Albumin Level 3.4 g/dL (3.4-5.0); Alkaline Phosphatase 169 U/L (46-116); Anion Gap 10 mmol/L (8-16); Aspartate Amino Transferase 48 U/L (15-37); Bilirubin,Total 0.6 mg/dL (0.00-1.00); Blood Urea Nitrogen 21 mg/dL (7-18); Calcium 8.9 mg/dL (8.5-10.1); Carbon Dioxide 26 mmol/L (21-32); Chloride 96 mmol/L (98-108); Estimated Glomerular Filt Rate 55; Glucose 95 mg/dL (70-99); NT Pro B Type Natriuretic Pept 2369 pg/mL (0-450); Osmolality Calculated 277 mOsm/kg (285-295); Potassium 4.4 mmol/L (3.5-5.1); Sodium 132 mmol/L (136-145); Thyroid Stimulating Hormone 1.85 uIU/mL (0.36-3.74); Total Protein 7.1 g/dL (6.4-8.2)
[2022-09-22 14:47] LABS: Ammonia 20 umol/L (11-32); Troponin I 60.6 ng/L (0.00-60.4)
[2022-09-22 14:52] LABS: Influenza A QL RT-PCR Negative (Negative); Influenza B QL RT-PCR Negative (Negative); SARS-CoV-2 RNA PCR Positive (Negative)
[2022-09-22 14:56] LABS: RSV RNA, RT-PCR Negative (Negative)
[2022-09-22] MEDS: LACTATED RINGERS 1,000 ML 999 ML IV CONT (15:10)
[2022-09-22 17:14] LABS: Reflex Lactic Acid Yes or No Add Lactic
== END 2022-09-22 16:31 | disposition short-term general hospital (02) ==
PROVIDERS: Emergency Provider Internal Medicine Critical Care Medicine; PCP Internal Medicine
DX: I63.9 Cerebral infarction, unspecified (principal); U07.1 COVID-19; R41.0 Disorientation, unspecified; R77.8 Other specified abnormalities of plasma proteins; E11.9 Type 2 diabetes mellitus without complications; I48.91 Unspecified atrial fibrillation; E78.5 Hyperlipidemia, unspecified; I10 Essential (primary) hypertension; Z79.01 Long term (current) use of anticoagulants; Z87.891 Personal history of nicotine dependence; Z95.0 Presence of cardiac pacemaker
CPT/HCPCS: 36415; 70450; 71045; 80053; 81001; 82140; 82948; 83605; 83880; 84443; 84484; 85025; 85610; 85730; 87637; 93005; 96360; 99285; J7120

== ENCOUNTER 2022-09-22 23:10 | Inpatient (IN) | payer MEDICARE, SELFPAY ==
--- NOTE | ~2022-09-22 | XR_ITS ---
EXAMINATION: XR chest 1V portable INDICATION: Cough and shortness of breath TECHNIQUE: Portable AP chest at 1417 hours COMPARISON: 09/22/2022 FINDINGS: Mild diffuse opacities of the lungs persists without significant change. No pleural effusio n or pneumothorax. Cardiomediastinal silhouette is stable. A dual-lead cardiac pacemaker of the left chest wall ends with leads in expected locations. There is chronic disconnection of one of the pacema ker leads. IMPRESSION: 1. Mild, stable diffuse lung disease, consistent with pneumonia and/or pulmonary edema. 2. Disconnected pacemaker lead. Reviewed, dictated and finalized at location B. IMPRESSION: 1. Mild, stable diffuse lung disease, consistent with pneumonia and/or pulmonar y edema. 2. Disconnected pacemaker lead.
--- NOTE | ~2022-09-22 | CT_ITS ---
EXAMINATION: CT abdomen pelvis wo con DATE: 09/24/2022 10:57 INDICATION: Nausea TECHNIQUE: Computed tomography (CT) of the abdomen and pelvis was performed without intravenous contr ast. Automated exposure control and iterative reconstruction technique were employed. The dose-length product was 540.95 mGy-cm. COMPARISON: 06/30/2022 FINDINGS: Mild dependent atelectasis in the bilateral lower lobes. No significant interval change in a 5-6 mm p clarke fissural right lower lobe nodule. Tiny posterior layering right pleural effusion. Mild cardiomega ly. Atherosclerotic coronary artery calcifications. No pericardial effusion. Small sliding-type hiata l hernia. Liver, gallbladder, spleen, pancreas and bilateral adrenal glands are normal. Bilateral cameron al cysts the larger on the left measuring 2.7 cm. Small amount of residual excreted contrast in the b ilateral renal collecting systems and in the bladder related to contrast enhancement in brain and car otid CT angiogram from one day prior. Small amount of gas and a Carrillo catheter within the decompresse d bladder. There is mild colonic diverticulosis with a sigmoid predominance. There is no adjacent in flammatory change to suggest diverticulitis. No bowel obstruction. Short appendix versus appendiceal stump post prior appendectomy. Small amount of ascites in the deep pelvis. No abscess or free intrape ritoneal gas. No pathologically enlarged abdominal or pelvic lymphadenopathy. 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 Mild lumbar dextrocurvature with severe spondylosis. IMPRESSION: 1. Small amount of ascites in the deep pelvis. No other acute intra-abdominal/pelvic process. 2. Tiny right pleural effusion. 3. Mild cardiomegaly. 4. No interval change in a 5-6 mm elizabeth fissural right lower lobe nodule. Consider 1 year follow-up lo w-dose noncontrast chest CT. Reviewed, dictated and finalized at location A. IMPRESSION: 1. Small amount of ascites in the deep pelvis. No other acute intra-abdominal/p elvic process. 2. Tiny right pleural effusion. 3. Mild cardiomegaly. 4. No interval change in a 5-6 mm elizabeth fissural right lower lobe nodule. Consid er 1 year follow-up low-dose noncontrast chest CT.
--- NOTE | ~2022-09-22 | CT_ITS ---
EXAMINATION: CTA brain carotid DATE: 09/23/2022 17:04 INDICATION: L parietal stroke TECHNIQUE: Computed tomographic angiography (CTA) of the head was performed without and with 100 mL O mnipaque-350 intravenous contrast. CTA of the neck was performed with intravenous contrast. The dose- length product was 1827.36 mGy-cm. Maximum intensity projection and volume rendered 3D-reconstruction s were created by the technologist on a separate workstation. COMPARISON: CT brain 09/22/2022. FINDINGS: CT BRAIN: No acute large vessel infarct, intracranial hemorrhage, mass, or hydrocephalus. CTA HEAD: No large vessel occlusion, aneurysm, high flow vascular malformation, nidus or extravasation. Symmetr ic parenchymal enhancement. Patent cerebral veins. CTA NECK: Aortic arch and proximal great vessels: Normal arch anatomy. Moderate arch calcifications. Right common carotid, carotid bifurcation, and internal carotid artery: Calcified plaque at the right bifurcation.There is 0% stenosis of the proximal right internal carotid artery relative to normal di stal artery lumen diameter (NASCET criteria). Left common carotid, carotid bifurcation, and internal carotid artery: No significant plaque.There is 0% stenosis of the proximal left internal carotid artery relative to normal distal artery lumen diam eter (NASCET criteria). Vertebral arteries: No significant plaque or stenosis. Vertebral arteries co-dominant. Other findings: Mild paranasal sinus mucosal thickening. Bilateral lens replacements. Mild emphysemat ous/senescent changes in the lungs. IMPRESSION: No large vessel occlusion. No significant carotid or vertebral stenosis. Reviewed, dictated and finalized at location K.
--- NOTE | ~2022-09-22 | US_ITS ---
EXAMINATION: US carotid duplex BI DATE: 09/23/2022 18:09 INDICATION: Left parietal lobe infarct. Cerebral vascular accident. TECHNIQUE: Grayscale, color Doppler, and pulsed Doppler images of the cervical carotid arteries were obtained. The degree of vessel stenosis is placed in one of the following categories: normal, <50%, 5 0-69%, >=70% but less than near-occlusion, near-occlusion, or total occlusion. Note that percent sten osis relative to normal distal artery lumen diameter is indirectly measured from velocity measurement s as described by Davey, et al. Radiology 2003; 229:340-346. COMPARISON: None. FINDINGS: RIGHT: The right common carotid artery (CCA) peak systolic velocity (PSV) is 98 cm/s. The right internal car otid artery (ICA) PSV is 95 cm/s. The right ICA end-diastolic velocity (EDV) is 21 cm/s. The right IC A/CCA PSV ratio is 1.0. Grayscale and color Doppler images yield an estimate of <50% diameter reducti on from plaque in the ICA. There is antegrade flow in the right vertebral artery. LEFT: The left CCA PSV is 118 cm/s. The left ICA PSV is 72 cm/s. The left ICA EDV is 17 cm/s. The left ICA/ CCA PSV ratio is 0.6. Grayscale and color Doppler images yield an estimate of <50% diameter reduction from plaque in the ICA. There is antegrade flow in the left vertebral artery. IMPRESSION: 1. <50% stenosis in the right internal carotid artery. 2. <50% stenosis in the left internal carotid artery. Reviewed, dictated and finalized at location A.
[2022-09-22 17:41] VITALS: BP 119/63; PULSE 78; RESP 18; TEMP 36.9; O2SAT 98; BMI 26.6
--- NOTE | 2022-09-22 17:41 | ADMGEN ---
This patient, Pato Payne, was admitted to IMU Room 202-01. Patient/family oriented to hospital policies and general routines including ID bracelet, bed and alarms, visiting hours, pain management, procedures, bathroom and other care routines, personal items, smoking policy, room service/diet, and visiting hours. Information on how to activate the Rapid Response Team has been discussed. Patient/Family are encouraged to report perceived risks to care and to ask questions if they do not understand what they are told or what they should do.
[2022-09-22 17:44] VITALS: BMI 26.6
[2022-09-22 18:00] VITALS: PULSE 70
[2022-09-22 20:00] VITALS: BP 118/74; PULSE 72; PULSE 78; RESP 20; TEMP 36.3; O2SAT 96
[2022-09-22 22:00] VITALS: PULSE 64
--- NOTE | 2022-09-22 23:13 | PM.IMHP ---
H&P: HPI History of Present Illness Date/Time: 09/22/22 23:00 Chief Complaint: Weakness and confusion. Narrative: This is a pleasant 82-year-old male with atrial fibrillation status post cardiac ablation and permanent pacemaker insertion on chronic anticoagulation, diastolic dysfunction, hypertension, hyperlipidemia, and type 2 diabetes mellitus who presented to the emergency department at the [facility] earlier today for evaluation of weakness and confusion. The patient provides the following history. He was feeling okay yesterday but felt perhaps a bit off balance. He attended a town romero meeting last evening. Later that night at home he developed some mild confusion and had difficulties remembering with the meeting was about. He had an appointment today with Dr. Argueta and had an echocardiogram done at that time. On the way home he began to feel bad with nausea and he had 1 episode of emesis. He was a bit more confused than he was the night before and he was directed to the emergency department. Workup for that facility was significant for a positive SARS-CoV-2 by PCR, mildly elevated troponin with no complaints of chest pain, and a brain CT which showed a left parietal hypodensity suspicious for CVA. Transfer was initiated to [place] for close monitoring and neurology consultation. At the time my evaluation he is resting comfortably and has no specific complaints. He denies headache, facial droop, slurred speech, difficulty speaking and swallowing, focal weakness, and paresthesias. He also denies chest pain, pleuritic pain, palpitations, and shortness of breath. No fever, chills, or sweats. He denies sinus congestion, body aches, sore throat, and cough. No further nausea or vomiting. Denies diarrhea. Review of Systems Review of Systems: Twelve systems were reviewed and are negative except for as per HPI. [facility] Past Medical History Medical History (Updated 09/22/22 @ 23:26 by Adri Johnston PA-C) Arthritis Atrial fibrillation Benign prostatic hyperplasia Chronic anticoagulation Diastolic congestive heart failure Dyslipidemia Gout Hypertension Type 2 diabetes mellitus Surgical History Surgical History (Updated 09/22/22 @ 23:19 by Adri Johnston PA-C) History of appendectomy History of cardiac catheterization History of colonoscopy with polypectomy History of permanent cardiac pacemaker placement Family History Family History (Updated 09/22/22 @ 23:19 by Adri G Gerling, PA-C) Other Diabetes mellitus Hypertension Social History Social History (Updated 09/22/22 @ 23:20 by Adri Johnston PA-C) Social History: Surrogate medical decision maker: Kiley Saha (daughter) or Ham Brewer (son). Code status: Full code. Years smoked: 30 Smoking status: Former smoker Tobacco type: cigarettes Smoking end date: 09/08/99 Alcohol intake: never Substance use: never Substance use type: does not use Lack of Transportation: No Lack of Food: Never True Current Housing: I Have Housing Concerned About Future Housing: No Difficulty Paying Gas/Electric Bills: No Difficulty Paying for Meds: No Currently Unemployed: No Education: High School Diploma/GED Difficulty w/ Childcare or Family Care: No Living arrangements: alone Occupation/Education: retired Spiritual care concerns: No Meds Home Medications and Allergies Home Medications Medication Instructions Recorded Confirmed Type allopurinol 300 mg tablet 300 mg PO DAILY 04/17/19 09/22/22 History carvedilol 6.25 mg tablet 6.25 mg PO BID 04/17/19 09/22/22 History enalapril maleate 5 mg tablet 5 mg PO DAILY 04/17/19 09/22/22 History lovastatin 20 mg tablet 20 mg PO DAILY 04/17/19 09/22/22 History potassium chloride 20 mEq 20 meq PO DAILY 04/17/19 09/22/22 History tablet,extended release(part/cryst) warfarin 1 mg tablet 0.5 mg PO HS 04/17/19 09/22/22 History glimepiride 2 mg tablet 2 mg PO DAILY
[2022-09-22 23:19] VITALS: BP 110/60; PULSE 73; RESP 18; TEMP 36.6; O2SAT 96
[2022-09-23] VITALS (16 sets, daily range): BP systolic 118–141; BP diastolic 53–74; PULSE 52–77; RESP 16–28; TEMP 36.4–37.7; O2SAT 9–99
--- NOTE | 2022-09-23 | ECHO_ITS ---
Patient Info Name: Pato Payne Age: 82 years : 1940 Gender: Male Ht: 71 in Wt: 191 lbs BSA: 2.10 m2 HR: 71 bpm BP: 141 / 74 mmHg Heart Rhythm: Atrial Fibrillation Technical Quality: Good Exam Date: 09/23/2022 10:30 AM Exam Location: [facility] Pulmonary Patient Status: Outpatient Admit Date: 09/22/2022 Staff Ordering Physician: Adri Johnston PA-C Demand Manager: Osito Thakur RDCS Attending Provider: Noe Wright MD Referring Physician: Preston BENITEZ; Exam Type: CA echo doppler color flow Study Info Indications - stroke, afib, HTN Complete two-dimensional, color flow and Doppler transthoracic echocardiogram is performed. Summary 1. Complete two-dimensional, color flow and Doppler transthoracic echocardiogram is performed. 2. Mild left ventricular hypertrophy with normal systolic contractility. 3. Moderate biatrial dilation. 4. Permanent pacemaker leads noted. 5. Mild mitral and tricuspid valve regurgitation. 6. Atrial fibrillation. 7. Compared with exam from May of this year nothing has changed. Left Ventricle Left ventricular chamber dimension is normal. Left ventricular systolic function is normal, estimated at 55-60%. The left ventricular diastolic function is indeterminate. Right Ventricle Right ventricular chamber dimension is normal. Linear artifact in right ventricle suggestive of catheter(s), pacemaker lead(s), or ICD lead(s). Left Atria Left atrial chamber dimension is moderately enlarged. Right Atria Right atrial chamber dimension is moderately enlarged. Linear artifact in the right atrium suggestive of catheter(s), pacemaker lead(s), or ICD lead(s). Aortic Valve The aortic valve is normal. There is trace aortic valve regurgitation. Pulmonic Valve The pulmonic valve is not well visualized. Mitral Valve The mitral valve has normal leaflets. There is mild mitral valve regurgitation. Tricuspid Valve The tricuspid valve leaflets are normal. There is mild tricuspid valve regurgitation. Moderate pulmonary hypertension, estimated pulmonary arterial systolic pressure is 53 mmHg. Pericardium/Pleural The pericardium appears normal. Aorta The aortic root size at the sinus of Valsalva is normal. Left Ventricular Outflow Tract Name Value Normal LVOT 2D LVOT Diameter 2.4 cm LVOT Doppler LVOT Peak Gradient 2 mmHg LVOT Mean Gradient 1 mmHg LVOT VTI 18 cm LVOT VTI/AV VTI Ratio 0.7 LVOT Stroke Volume 81 ml LVOT CO 4.9 l/min LVOT CI 2.4 l/min/m2 Pulmonic Valve Name Value Normal RVOT Doppler RVOT Peak Gradient 3 mmHg PV Doppler PV Peak Gradient 4 mmHg Mitral Valve ---
[2022-09-23 00:14] LABS: INR 2.6
[2022-09-23] MEDS: carvediloL 6.25 MG TABLET PO ×3 (00:14→20:19)
[2022-09-23 00:33] LABS: Anion Gap 6 mmol/L (8-16); Blood Urea Nitrogen 21 mg/dL (9-20); CRP 4.4 mg/dL (<1.0); Calcium 8.6 mg/dL (8.4-10.2); Carbon Dioxide 24 mmol/L (22-30); Chloride 97 mmol/L (98-107); Estimated CRCL calculation 48 ml/min; Estimated Glomerular Filt Rate > 60; Glucose 129 mg/dL (65-110); Magnesium 1.8 mg/dL (1.6-2.3); Potassium 4.2 mmol/L (3.4-5.0); Sodium 127 mmol/L (137-145); Troponin I 0.076 ng/mL (0.000-0.034)
[2022-09-23 00:46] LABS: Lactate Dehydrogenase 161 U/L (120-246)
[2022-09-23] MEDS: ONDANSETRON INJ 4 MG/2 ML VIAL IV PUSH ×2 (04:40→13:31)
[2022-09-23 06:49] LABS: Hematocrit 36.2 % (42.0-52.0); Hemoglobin 12.1 g/dL (14.0-18.0); Mean Corpuscular HGB Conc 33.4 g/dl (32-36); Mean Corpuscular Hemoglobin 29.7 pg (26-34); Mean Corpuscular Volume 88.9 fl (80-100); Mean Platelet Volume 9.2 fl (7.4-10.4); Platelet Count Result 142 k/mm3 (150-375); Red Blood Count 4.07 M/mm3 (4.6-6.20); Red Cell Distribution Width 17.1 % (11.5-14.5); White Blood Count 6.1 K/mm3 (4.5-10.0)
[2022-09-23 06:50] LABS: Alanine Aminotransferase 72 U/L (6-50); Albumin Level 3.5 g/dL (3.5-5.1); Alkaline Phosphatase 129 U/L (38-126); Anion Gap 5 mmol/L (8-16); Aspartate Amino Transferase 56 U/L (17-59); Bilirubin,Total 0.6 mg/dL (0.2-1.3); Blood Urea Nitrogen 23 mg/dL (9-20); Calcium 8.9 mg/dL (8.4-10.2); Carbon Dioxide 27 mmol/L (22-30); Chloride 95 mmol/L (98-107); Estimated CRCL calculation 41 ml/min; Estimated Glomerular Filt Rate 53; Glucose 151 mg/dL (65-110); Potassium 4.7 mmol/L (3.4-5.0); Sodium 127 mmol/L (137-145)
[2022-09-23 07:05] LABS: Troponin I 0.086 ng/mL (0.000-0.034)
[2022-09-23] MEDS: allopurinoL 300 MG TABLET PO (10:35)
[2022-09-23] MEDS: ENALAPRIL MALEATE 5 MG TABLET PO (10:36)
[2022-09-23] MEDS: LOVASTATIN 20 MG TABLET PO (10:36)
[2022-09-23] MEDS: FUROSEMIDE 20 MG TABLET 60 MG PO (10:36)
[2022-09-23] MEDS: POTASSIUM CHLORIDE 20 MEQ ER TABLET PO (10:36)
[2022-09-23] MEDS: GLIMEPIRIDE 2 MG TABLET PO (10:36)
[2022-09-23 12:25] LABS: Glucose Point of Care 178 mg/dl (65-105)
--- NOTE | 2022-09-23 12:26 | WPDNEURCNPN ---
Assessment and Plan Assessment and plan (1) Cerebrovascular accident: Code(s): I63.9 - Cerebral infarction, unspecified Status: Acute (2) Chronic anticoagulation: Code(s): Z79.01 - penitentiary (current) use of anticoagulants Status: Acute (3) Atrial fibrillation: Code(s): I48.91 - Unspecified atrial fibrillation Status: Acute (4) Type 2 diabetes mellitus: Code(s): E11.9 - Type 2 diabetes mellitus without complications Status: Acute (5) Dyslipidemia: Code(s): E78.5 - Hyperlipidemia, unspecified Status: Acute (6) Hypertension: Code(s): I10 - Essential (primary) hypertension Status: Acute Plan Mr. Torres is an 82 year old male with a history of HTN, HLD, DM, atrial fibrillation s/p pacemaker, on chronic anticoagulation with warfarin. Patient presented due to altered mental status and generalized weakness. CT head showed age indeterminate L parietal hypodensity, concerning for stroke -- correlates with new RUE and RLE weakness. INR was 3.5 on day of admission so there is no concern for warfarin non-compliance. There is no strong evidence for switching anticoagulation in the setting of acute ischemic stroke secondary to atrial fibrillation while already on oral anticoagulation, but may be worth switching to Eliquis given supratherapeutic INR on presentation. Would discuss with Cardiology, if ok from a cardiac/pacemaker standpoint to make this change. - Obtain vessel imaging -- CTA brain/carotid - Check LDL, A1c - Surface echo has been done, results pending - Continue Lovastatin 20mg daily (goal LDL <70) Consult date: 09/23/22 Reason for consult: R sided weakness, stroke HPI: Pato Payne is a 82 year old male with a history of atrial fibrillation s/p cardiac ablation and permanent pacemaker, on warfarin, HTN, HLD, DM presenting due to weakness and confusion. Patient lives a lone. The day prior to admission he felt a little off balance. 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 On the way home he had emesis and was more confused. He was directed to go to the emergency department for further evaluation. He was noted to be positive for COVID. CT head was done that showed L parietal hypodensity, that was concerning for stroke. He reports good compliance with his warfarin, and his INR was 3.5 on presentation. Vessel imaging has not been done. LDL was done about a year ago and was 61. Most recent HgbA1c is 6.6. Blood pressure has been mostly in the 120s systolic since admission. Echocardiogram has been done but report is pending. Review of Systems Constitutional: Constitutional: Denies chills, Denies fever(s), Reports weakness and Denies weight loss Eyes: Eyes: Denies diplopia and Denies loss of vision ENT: Denies dizziness, Denies hearing loss and Denies tinnitus Cardiovascular: Cardiovascular: Reports chest pain, Denies syncope and Reports dyspnea Respiratory: Respiratory: Denies cough, Denies dyspnea and Denies wheezing Gastrointestinal: Gastrointestinal: Denies abdominal pain, Denies change in bowel habits and Denies vomiting Genitourinary: Genitourinary: Denies urinary incontinence Musculoskeletal: Musculoskeletal: Reports arthralgias and Denies joint swelling Integumentary/Breasts: Skin/Breast: Denies new lesions and Denies rash Neurologic: Reports as per HPI, Denies dizziness, Denies syncope and Denies loss of vision Psychiatric: Psychiatric: Denies anxiety and Denies depression Endocrine: Endocrine: Denies cold intolerance and Denies heat intolerance Hematologic/Lymphatic: Hematologic/Lymphatic: Denies easy bleeding and Denies easy bruising Allergic/Immunologic: Allergic/Immunologic: Denies no additional allergic/immunologic complaints and Denies wheezing PMFSH Past Medical History Medical History Arthritis Atrial fibrillation Benign prostatic hyperplasia 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
--- NOTE | 2022-09-23 14:35 | PM.IMPN ---
Progress Note: A&P Assessment and Plan (1) Cerebrovascular accident: Code(s): I63.9 - Cerebral infarction, unspecified Status: Acute Assessment and Plan: Patient presents with weakness and confusion. Head CT shows age-indeterminate small infarct in left parietal lobe. 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 Blood pressure is well controlled. Neurology has been consulted. INR was 3.5 on admission. Coumadin was held. Will start baby aspirin. No recent lipid panel. Currently on lovastatin. Appreciate Neurology input. Echo is pending. CTA head/neckhas been ordered. (2) COVID-19: Code(s): U07.1 - COVID-19 Status: Acute Assessment and Plan: Patient was diagnosed with COVID. He believes he has been vaccinated although is unsure of this. CRP is 4.4 but LDH and ferritin levels are normal. Patient is on room air. Continue supportive care. (3) Elevated troponin: Code(s): R77.8 - Other specified abnormalities of plasma proteins Status: Inactive Assessment and Plan: Troponin elevated to 0.086. EKG shows paced rhythm with evidence of atrial flutter. Echocardiogram from May is reviewed. Echo has been repeated and results are pending. Etiology unclear. He is not tachycardic or hypertensive. Could be related to COVID infection and/or recent CVA. Cardiology consult. (4) Atrial fibrillation: Code(s): I48.91 - Unspecified atrial fibrillation Status: Acute Assessment and Plan: Patient has chronic atrial fibrillation as paced rhythm at times. He is on Coreg. Coumadin was held because INR was supratherapeutic. INR is better today. Neurology recommends possibly transitioning patient to Eliquis. Will consult Cardiology for their opinion in this regard. Continue daily INRs but will hold on resuming the Coumadin today. (5) Diastolic congestive heart failure: Code(s): I50.30 - Unspecified diastolic (congestive) heart failure Status: Acute Assessment and Plan: Echocardiogram in May shows grade 4 diastolic dysfunction. Will add empagliflozin and stop his Amaryl. Currently euvolemic. Continue to follow. (6) Hypertension: Code(s): I10 - Essential (primary) hypertension Status: Acute Assessment and Plan: Patient's blood pressure was reviewed on 09/23 Blood pressure remains well controlled. Will continue to monitor (7) Dyslipidemia: Code(s): E78.5 - Hyperlipidemia, unspecified Status: Acute Assessment and Plan: As above. Repeat lipid panel. LFTs mildly elevated on admission and are trending downward. Probably related to COVID. Continue lovastatin. (8) Type 2 diabetes mellitus: Code(s): E11.9 - Type 2 diabetes mellitus without complications Status: Acute Assessment and Plan: The patient's blood glucose was reviewed on 09/23 Glucose remains well controlled. Continue AccuCheks covering with sliding scale. Hypoglycemia protocol available as needed. Continue to monitor. Stop Amaryl and start empagliflozin. Plan Urine retention - called by RN stating patient not voiding and has 700mL urine retention. Subjective Date/time seen: 09/23/22 14:35 Interval history: 82yo male with HTN, CHF, AFib on anticoagulation and DM here for weakness and confusion. Patient is alert but confused and hx is unreliable. Review of Systems Review of Systems: ROS unobtainable: Yes unobtainable due to mental status Exam Narrative: AF 98.2 133/55 66 28 97% ra Gen - NARD Chest - CTA bilaterally, nml RR CV - irregularly irregular. Tele showing AFib/flutter Abd - Soft, NT/ND, Positive BS Ext - No pedal edema Neuro - Alert and oriented x2. No focal weakness Psych - Nml mood and affect Skin - Warm and dry Objective Data Vital Signs Vital Signs: Vital Signs - 24 hr 09/22/22 17:41 09/22/22 18:00 09/22/22 18:00 Temperature 98.4 F
[2022-09-23 16:59] LABS: LDL Cholesterol Direct 51 mg/dL
[2022-09-23 17:48] LABS: Glucose Point of Care 138 mg/dl (65-105)
[2022-09-23] MEDS: ASPIRIN 81 MG CHEWABLE TABLET PO (20:19)
[2022-09-23 20:24] LABS: Hemoglobin A1C 6.2 % (<5.7)
[2022-09-23 20:28] LABS: Glucose Point of Care 155 mg/dl (65-105)
[2022-09-23 20:48] LABS: Creatinine Urine 72.5 mg/dL
[2022-09-23 21:07] LABS: Sodium Urine Random 14 meq/L
[2022-09-24] VITALS (15 sets, daily range): BP systolic 111–140; BP diastolic 56–72; PULSE 60–80; RESP 16–24; TEMP 36.4–36.8; O2SAT 96–99
[2022-09-24] MEDS: ONDANSETRON INJ 4 MG/2 ML VIAL IV PUSH (03:00)
[2022-09-24 05:17] LABS: Hematocrit 39.8 % (42.0-52.0); Hemoglobin 13.2 g/dL (14.0-18.0); Mean Corpuscular HGB Conc 33.2 g/dl (32-36); Mean Corpuscular Hemoglobin 29.9 pg (26-34); Mean Platelet Volume 9.3 fl (7.4-10.4); Platelet Count Result 146 k/mm3 (150-375); Red Blood Count 4.42 M/mm3 (4.6-6.20); Red Cell Distribution Width 17.2 % (11.5-14.5); White Blood Count 5.8 K/mm3 (4.5-10.0)
[2022-09-24 05:26] LABS: Alanine Aminotransferase 66 U/L (6-50); Albumin Level 3.4 g/dL (3.5-5.1); Alkaline Phosphatase 123 U/L (38-126); Anion Gap 7 mmol/L (8-16); Aspartate Amino Transferase 58 U/L (17-59); Bilirubin,Total 0.5 mg/dL (0.2-1.3); Blood Urea Nitrogen 30 mg/dL (9-20); Calcium 8.9 mg/dL (8.4-10.2); Carbon Dioxide 26 mmol/L (22-30); Chloride 96 mmol/L (98-107); Cholesterol 89 mg/dL (0-200); Estimated CRCL calculation 48 ml/min; Estimated Glomerular Filt Rate > 60; Glucose 156 mg/dL (65-110); HDL Direct 24 mg/dL; INR 2.1; Magnesium 2.1 mg/dL (1.6-2.3); Potassium 4.5 mmol/L (3.4-5.0); Prothrombin Time 24.8 Seconds (11.1-14.7); Sodium 129 mmol/L (137-145); Triglycerides 93 mg/dL (<150)
[2022-09-24 05:36] LABS: LDL Cholesterol Direct 45 mg/dL
[2022-09-24 08:08] LABS: Glucose Point of Care 157 mg/dl (65-105)
[2022-09-24] MEDS: ASPIRIN 81 MG CHEWABLE TABLET PO (08:51)
[2022-09-24] MEDS: allopurinoL 300 MG TABLET PO (08:51)
[2022-09-24] MEDS: carvediloL 6.25 MG TABLET PO ×2 (08:51→21:24)
[2022-09-24] MEDS: POTASSIUM CHLORIDE 20 MEQ ER TABLET PO (08:51)
[2022-09-24] MEDS: EMPAGLIFLOZIN 10 MG TABLET PO (08:51)
[2022-09-24] MEDS: LOVASTATIN 20 MG TABLET PO (08:52)
[2022-09-24] MEDS: FUROSEMIDE 20 MG TABLET 60 MG PO (08:52)
[2022-09-24] MEDS: ENALAPRIL MALEATE 5 MG TABLET PO (08:52)
--- NOTE | 2022-09-24 09:34 | PM.CNCAR ---
Assessment and Plan Assessment and plan (1) Atrial fibrillation: Code(s): I48.91 - Unspecified atrial fibrillation Status: Acute (2) Pacemaker: Code(s): Z95.0 - Presence of cardiac pacemaker Status: Acute Plan This is an elderly man with chronic coronary artery disease and chronic atrial fibrillation who entered the hospital with a CVA despite being anticoagulated. It is also important to note that he has tested positive for coronavirus. He has had no difficulty with noncompliance with Coumadin and his INR upon arrival is therapeutic. As the neurology senior professional services consultant correctly indicated in consultation note there is no guideline based evidence to transition him to a different anticoagulant based on this event. It is also important to note the patient has a level of comfort with Coumadin and does not wish to changes agents. As far as his atrial fib is concerned does not matter to me which anticoagulation he takes. Since it is the patient's preference to stick with Coumadin that is what I would do. If you have any questions regarding this opinion please let me know Kit Patel MD [facility] History of Present Illness History of Present Illness Consult date/time: 09/24/22 09:34 Reason For Visit: STROKE,ELEVATED TROP Narrative: This is a 82-year-old man who I am seeing this morning at the request of the hospitalist to render an opinion regarding choice of anticoagulation agent. The patient is unknown to me but is known to and followed chronically by my partner, Dr. Argueta. The patient was admitted to the hospital here yesterday after coming into the hospital with some generalized weakness confusion and apparently some right-sided arm and leg weakness. The patient is seems to be a poor historian of this he can not really recount the symptoms very well to me this morning. He otherwise feels okay this morning and denies any specific complaints. The patient sees Dr. Farias because of a history of coronary disease and chronic persistent atrial fibrillation with AV node dysfunction and a chronically implanted pacemaker device with which he is known to be dependent. 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 He has had this anatomy since 2007. He has been anticoagulated with warfarin because of chronic permanent atrial fibrillation and has a [employer] pacemaker device implanted. His pacemaker was implanted in 2007 and he underwent a generator change in 2015. The current device is functioning well and has over 2 years left until expected need for generator change. Because of this he has been anticoagulated with Coumadin. He has been compliant with his anticoagulation his INR upon admission to the hospital was 3.5. He also tested positive for coronavirus upon admission to the hospital. He is denying any specific symptoms such as cough or fever. In this setting I am seeing him in consultation. The neurology senior professional services consultant suggested the option of transitioning the patient to apixaban for anticoagulation. I have been asked to render an opinion regarding this matter. This was discussed in some detail with Mr. Payne at the time of this appointment. He indicates a comfort level with staying on Coumadin because he has been on it for years and is familiar with that and it is his preference not to change agents. Review of Systems Constitutional: Constitutional: Reports fatigue Eyes: Eyes: Reports no additional eye complaints ENT: Reports system reviewed and no additional complaints, except as documented Cardiovascular: Cardiovascular: Reports no additional cardiovascular complaints Respiratory: Respiratory: Reports no additional respiratory complaints Gastrointestinal: Gastrointestinal: Reports no additional gastrointestinal complaints Musculoskeletal: Musculoskeletal: Reports back pain Integumentary/Breasts: Skin/Breas
--- NOTE | 2022-09-24 09:58 | PM.IMPN ---
Progress Note: A&P Assessment and Plan (1) Cerebrovascular accident: Code(s): I63.9 - Cerebral infarction, unspecified Status: Acute Assessment and Plan: Patient presents with weakness and confusion. Head CT shows age-indeterminate small infarct in left parietal lobe. 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 Blood pressure is well controlled. Neurology was consulted. INR was 3.5 on admission. Coumadin was held. He was started on a baby aspirin. LDL 45. Echo showing EF 55-60% and no change since May. CTA head/neck showing no large vessel occlusion. Currently on lovastatin. Appreciate Neurology input. PT/OT. (2) COVID-19: Code(s): U07.1 - COVID-19 Status: Acute Assessment and Plan: Patient was diagnosed with COVID. He believes he has been vaccinated although is unsure of this. CRP was 4.4 but LDH and ferritin levels are normal. CXR showing mild interstitial edema. Patient remains on room air. Continue supportive care. Repeat CXR. (3) Elevated troponin: Code(s): R77.8 - Other specified abnormalities of plasma proteins Status: Inactive Assessment and Plan: Troponin elevated to 0.086. EKG shows paced rhythm with evidence of atrial flutter. Echo noted and unchanged from May. Etiology of elevated Trop unclear. He was not tachycardic or hypertensive. Could be related to COVID infection and/or recent CVA. He is having atypical chest pain felt related to COVID but will check EKG and serial Trop. Add NTG. Cardiology consulted and appreciate their input. (4) Atrial fibrillation: Code(s): I48.91 - Unspecified atrial fibrillation Status: Acute Assessment and Plan: Patient has chronic atrial fibrillation as paced rhythm at times. He is on Coreg. Coumadin was held because INR was supratherapeutic. INR remains therapeutic. Neurology recommends possibly transitioning patient to Eliquis. Cardiology note reviewed. Continue daily INRs. Resume Coumadin today. (5) Diastolic congestive heart failure: Code(s): I50.30 - Unspecified diastolic (congestive) heart failure Status: Acute Assessment and Plan: Echocardiogram in May shows grade 4 diastolic dysfunction but echo this admission showing no significant change but only showing indeterminate diastolic function. Empagliflozin added. Currently euvolemic. CXR showing mild interstitial edema but felt this is likely from COVID and not edema. Repeat CXR as above. CXR did show possible PM lead off so will interrogate PM. Continue to follow. (6) Hypertension: Code(s): I10 - Essential (primary) hypertension Status: Acute Assessment and Plan: Patient's blood pressure was reviewed on 09/24 Blood pressure remains well controlled. Will continue to monitor (7) Dyslipidemia: Code(s): E78.5 - Hyperlipidemia, unspecified Status: Acute Assessment and Plan: As above. Repeat lipid panel noted. LFTs mildly elevated on admission and are trending downward. Probably related to COVID. Continue lovastatin. (8) Type 2 diabetes mellitus: Code(s): E11.9 - Type 2 diabetes mellitus without complications Status: Acute Assessment and Plan: The patient's blood glucose was reviewed on 09/24 Glucose remains well controlled. Continue AccuCheks covering with sliding scale. Hypoglycemia protocol available as needed. Continue to monitor. (9) Nausea & vomiting: Code(s): R11.2 - Nausea with vomiting, unspecified Status: Acute Assessment and Plan: Patient was having n/v on arrival. Thought related to urine retention but still with symptoms despite Carrillo placement. Abd soft and nonsurgical. Will check CT. Zofran prn. (10) Urine retention: Code(s): R33.9 - Retention of urine, unspecified Status: Acute Assessment and Plan: Called by RN 09/23 stating patient not voiding and has 700mL urine rete
--- NOTE | 2022-09-24 10:29 | ECG_ITS ---
Measurements Intervals [place] Rate: 67 P: [place]: 0 QRS: -53 QRSD: 165 T: 113 QT: 451 QTc: 476 Interpretive Statements ELECTRONIC VENTRICULAR PACEMAKER ATRIAL RHYTHM IS ATRIAL FIBRILLATION ABNORMAL RHYTHM ECG COMPARED TO ECG 09/22/2022 13:22:35 NO SIGNIFICANT CHANGES Electronically Signed On 09-24-2022 16:00:13 CDT by Kit Patel M.D.
--- NOTE | 2022-09-24 11:25 | PC.NURSE ---
Received call from [employer] stating [employer] called to report no recent cardiac activity present on the pacemaker interrogation report. Informed Dr Wright. Fax placed on chart.
--- NOTE | 2022-09-24 11:33 | PCSTNOTE ---
Please refer to the Bedside Swallow Evaluation in the EMR. Please note, silent aspiration cannot be ruled out at bedside.
[2022-09-24 12:08] LABS: Glucose Point of Care 181 mg/dl (65-105)
[2022-09-24 12:37] LABS: Troponin I 0.053 ng/mL (0.000-0.034)
[2022-09-24 14:55] LABS: Troponin I 0.052 ng/mL (0.000-0.034)
[2022-09-24] MEDS: WARFARIN (*PBKC) 4 MG TABLET PO (16:21)
[2022-09-24 17:05] LABS: Glucose Point of Care 149 mg/dl (65-105)
[2022-09-24 17:13] LABS: Troponin I 0.053 ng/mL (0.000-0.034)
[2022-09-24 21:04] LABS: Glucose Point of Care 174 mg/dl (65-105)
[2022-09-25] VITALS (14 sets, daily range): BP systolic 103–135; BP diastolic 54–86; PULSE 60–73; RESP 18; TEMP 36–36.9; O2SAT 95–99
[2022-09-25 05:26] LABS: Anion Gap 8 mmol/L (8-16); Blood Urea Nitrogen 29 mg/dL (9-20); Calcium 8.7 mg/dL (8.4-10.2); Carbon Dioxide 28 mmol/L (22-30); Chloride 96 mmol/L (98-107); Estimated CRCL calculation 44 ml/min; Estimated Glomerular Filt Rate 58; Glucose 131 mg/dL (65-110); Potassium 4.4 mmol/L (3.4-5.0); Sodium 132 mmol/L (137-145)
[2022-09-25 09:12] LABS: INR 2.2; Prothrombin Time 26.2 Seconds (11.1-14.7)
[2022-09-25] MEDS: FUROSEMIDE 40 MG TABLET PO (09:46)
[2022-09-25] MEDS: ENALAPRIL MALEATE 5 MG TABLET PO (09:47)
[2022-09-25] MEDS: POTASSIUM CHLORIDE 20 MEQ ER TABLET PO (09:47)
[2022-09-25] MEDS: TAMSULOSIN HCL 0.4 MG CAPSULE PO (09:47)
[2022-09-25] MEDS: carvediloL 6.25 MG TABLET PO ×2 (09:47→20:18)
[2022-09-25] MEDS: EMPAGLIFLOZIN 10 MG TABLET PO (09:47)
[2022-09-25] MEDS: LOVASTATIN 20 MG TABLET PO (09:47)
[2022-09-25] MEDS: allopurinoL 300 MG TABLET PO (09:48)
[2022-09-25] MEDS: ASPIRIN 81 MG CHEWABLE TABLET PO (09:48)
[2022-09-25 13:47] LABS: Glucose Point of Care 164 mg/dl (65-105)
--- NOTE | 2022-09-25 15:07 | PM.IMPN ---
Progress Note: A&P Assessment and Plan (1) Cerebrovascular accident: Code(s): I63.9 - Cerebral infarction, unspecified Status: Acute Assessment and Plan: Patient presents with weakness and confusion. Head CT shows age-indeterminate small infarct in left parietal lobe. 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 Blood pressure is well controlled. Neurology was consulted. INR was 3.5 on admission. Coumadin was held. He was started on a baby aspirin. LDL 45. Echo showing EF 55-60% and no change since May. CTA head/neck showing no large vessel occlusion. Currently on lovastatin. Confusion resolved. Appreciate Neurology input. PT/OT evaluation showing he needs home health. (2) COVID-19: Code(s): U07.1 - COVID-19 Status: Acute Assessment and Plan: Patient was diagnosed with COVID. He believes he has been vaccinated although is unsure of this. CXR showing mild interstitial edema. CRP was 4.4 but LDH and ferritin levels are normal. Patient remains on room air. Repeat CXR showing mild stable diffuse disease. Continue supportive care. (3) Elevated troponin: Code(s): R77.8 - Other specified abnormalities of plasma proteins Status: Inactive Assessment and Plan: Troponin elevated to 0.086. EKG shows paced rhythm with evidence of atrial flutter. Echo noted and unchanged from May. Etiology of elevated Trop unclear but felt related to COVID infection and/or recent CVA. He was having atypical chest pain felt related to COVID. Cardiology consulted and appreciate their input. (4) Atrial fibrillation: Code(s): I48.91 - Unspecified atrial fibrillation Status: Acute Assessment and Plan: Patient has chronic atrial fibrillation with paced rhythm at times. He is on Coreg. Coumadin was held because INR was supratherapeutic. INR remained therapeutic. Neurology recommends possibly transitioning patient to Eliquis. Cardiology note reviewed and felt okay to resume Coumadin which was done. Continue daily INRs. (5) Diastolic congestive heart failure: Code(s): I50.30 - Unspecified diastolic (congestive) heart failure Status: Acute Assessment and Plan: Echocardiogram in May shows grade 4 diastolic dysfunction but echo this admission showing no significant change but only showing indeterminate diastolic function. Empagliflozin added. Currently euvolemic. CXR showing mild interstitial edema but felt this is likely from COVID and not edema. Repeat CXR as above. CXR did show possible PM lead off but normal function with PM interrogation; felt the lead was capped. Continue to follow. (6) Hypertension: Code(s): I10 - Essential (primary) hypertension Status: Acute Assessment and Plan: Patient's blood pressure was reviewed on 09/25 Blood pressure remains well controlled. Will continue to monitor (7) Dyslipidemia: Code(s): E78.5 - Hyperlipidemia, unspecified Status: Acute Assessment and Plan: As above. Repeat lipid panel noted. LFTs mildly elevated on admission and are trending downward. Probably related to COVID. Continue lovastatin. (8) Type 2 diabetes mellitus: Code(s): E11.9 - Type 2 diabetes mellitus without complications Status: Acute Assessment and Plan: The patient's blood glucose was reviewed on 09/25 Glucose remains well controlled. Continue AccuCheks covering with sliding scale. Hypoglycemia protocol available as needed. Continue to monitor. (9) Nausea & vomiting: Code(s): R11.2 - Nausea with vomiting, unspecified Status: Acute Assessment and Plan: Patient was having n/v on arrival. Thought related to urine retention but still with symptoms despite Carrillo placement. Abd soft and nonsurgical. CT showing no acute findings. Zofran prn. (10) Urine retention: Code(s): R33.9 - Retention of urine, unspecified Status: Acut
[2022-09-25 17:23] LABS: Glucose Point of Care 124 mg/dl (65-105)
[2022-09-25] MEDS: WARFARIN (*PBKC) 4 MG TABLET PO (17:26)
--- NOTE | 2022-09-25 17:35 | PC.NURSE ---
Received from [facility] via bed. Wallet placed in safe on [facility].
[2022-09-25 19:52] LABS: Strep Group A RT-PCR NOT DETECTED (Negative)
[2022-09-25 20:25] LABS: Glucose Point of Care 151 mg/dl (65-105)
[2022-09-26] VITALS (7 sets, daily range): BP systolic 116–127; BP diastolic 46–61; PULSE 61–75; RESP 18–21; TEMP 36.2–36.4; O2SAT 97–100
[2022-09-26 05:10] LABS: Anion Gap 7 mmol/L (8-16); Blood Urea Nitrogen 26 mg/dL (9-20); Calcium 8.6 mg/dL (8.4-10.2); Carbon Dioxide 28 mmol/L (22-30); Chloride 98 mmol/L (98-107); Estimated CRCL calculation 48 ml/min; Estimated Glomerular Filt Rate > 60; Glucose 125 mg/dL (65-110); Potassium 4.1 mmol/L (3.4-5.0); Sodium 133 mmol/L (137-145)
[2022-09-26 05:33] LABS: INR 2.9; Prothrombin Time 32.2 Seconds (11.1-14.7)
[2022-09-26 08:36] LABS: Glucose Point of Care 114 mg/dl (65-105)
[2022-09-26] MEDS: ENALAPRIL MALEATE 5 MG TABLET PO (10:10)
[2022-09-26] MEDS: FUROSEMIDE 40 MG TABLET PO (10:10)
[2022-09-26] MEDS: carvediloL 6.25 MG TABLET PO (10:11)
[2022-09-26] MEDS: ASPIRIN 81 MG CHEWABLE TABLET PO (10:13)
[2022-09-26] MEDS: EMPAGLIFLOZIN 10 MG TABLET PO (10:13)
[2022-09-26] MEDS: LOVASTATIN 20 MG TABLET PO (10:13)
[2022-09-26] MEDS: POTASSIUM CHLORIDE 20 MEQ ER TABLET PO (10:15)
[2022-09-26] MEDS: allopurinoL 300 MG TABLET PO (10:16)
[2022-09-26] MEDS: TAMSULOSIN HCL 0.4 MG CAPSULE PO (10:17)
--- NOTE | 2022-09-26 11:56 | PM.DS ---
DS: Admitting Diagnosis Discharge Date 09/26/22 Admitting Diagnosis Confusion DS: Discharge Diagnosis Discharge Diagnosis (1) Cerebrovascular accident: Code(s): I63.9 - Cerebral infarction, unspecified Status: Acute (2) COVID-19: Code(s): U07.1 - COVID-19 Status: Acute (3) Elevated troponin: Code(s): R77.8 - Other specified abnormalities of plasma proteins Status: Inactive (4) Atrial fibrillation: Code(s): I48.91 - Unspecified atrial fibrillation Status: Acute (5) Diastolic congestive heart failure: Code(s): I50.30 - Unspecified diastolic (congestive) heart failure Status: Acute (6) Hypertension: Code(s): I10 - Essential (primary) hypertension Status: Acute (7) Dyslipidemia: Code(s): E78.5 - Hyperlipidemia, unspecified Status: Acute (8) Type 2 diabetes mellitus: Code(s): E11.9 - Type 2 diabetes mellitus without complications Status: Acute (9) Nausea & vomiting: Code(s): R11.2 - Nausea with vomiting, unspecified Status: Acute (10) Urine retention: Code(s): R33.9 - Retention of urine, unspecified Status: Acute (11) Hyponatremia: Code(s): E87.1 - Hypo-osmolality and hyponatremia Status: Acute DS: Summary Hospital Course Reason for hospitalization: 82yo male with HTN, CHF, AFib on anticoagulation and DM here for weakness and confusion. Please see H&P for details. Hospital Course: Patient presents with weakness and confusion.? Head CT shows age-indeterminate small infarct in left parietal lobe.? 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 Blood pressure remained well controlled.? Neurology was consulted.? INR was 3.5 on admission.? Coumadin was held.? He was started on a baby aspirin. CTA head/neck showing no large vessel occlusion. LDL 45.? We continued his lovastatin.? His confusion resolved. PT/OT evaluation showing he needs to walk with a walker and home health. Patient refused home health. Patient was diagnosed with COVID on admission.? He believes he has been vaccinated although he was unsure of this.? CXR showing mild interstitial edema. CRP was 4.4 but LDH and ferritin levels were normal. Patient remained on room air.? Repeat CXR showing mild stable diffuse disease. He was treated with supportive care. Troponin was elevated to 0.086.? EKG showed paced rhythm with evidence of atrial flutter. Etiology of elevated Trop unclear but felt related to COVID infection and/or recent CVA. He was having atypical chest pain felt related to COVID. Cardiology was consulted and appreciated their input. Patient has chronic atrial fibrillation with paced rhythm at times.? He was continued on Coreg.? Coumadin was held because INR was supratherapeutic.? INR improved and remained therapeutic throughout his hospital course.? Neurology recommended possibly transitioning patient to Eliquis. Cardiology note reviewed and felt okay to resume Coumadin which was done.?Echo in May shows grade 4 diastolic dysfunction but echo this admission showing no significant change but only showing indeterminate diastolic function. Empagliflozin added.? He remained euvolemic. CXR as above and felt this is likely from COVID and not edema. CXR did show possible PM lead off but PM was functioning normally. It was felt the lead was capped. Patient was having n/v on arrival. Thought related to urine retention but still with symptoms despite Carrillo placement. Abd was soft and nonsurgical. CT Abd/Pelvis showing no acute findings. Patient was not voiding and had 700mL urine retention. Carrillo was placed and Flomax started. Carrillo trial attempted once he was more ambulatory and he was able to void on his own. Patient has normal sodium at baseline. Na 132 on admission and dropped to 127. Urine Na 14. Sodium better at 133 today. We did cut his Lasix back. He overall did well and was able to be discharged on 09/26/22. Discussed in detail with rajiv
[2022-09-26 12:14] LABS: Glucose Point of Care 164 mg/dl (65-105)
== END 2022-09-26 14:28 | disposition home or self-care (01) | DRG 64 ==
LOC: ANHIMU 09-24 13:37 → ANH2MED 09-25 17:23
PROVIDERS: Internal Medicine; Physician Assistant; Student in an Organized Health Care Education/Training Program; Admitting Provider Internal Medicine; PCP Internal Medicine; Visit Provider Internal Medicine
DX: I63.9 Cerebral infarction, unspecified (principal); U07.1 COVID-19; E87.1 Hypo-osmolality and hyponatremia; G81.91 Hemiplegia, unspecified affecting right dominant side; I48.20 Chronic atrial fibrillation, unspecified; I50.32 Chronic diastolic (congestive) heart failure; I48.92 Unspecified atrial flutter; R41.0 Disorientation, unspecified; E78.5 Hyperlipidemia, unspecified; E86.0 Dehydration; R07.89 Other chest pain; R79.1 Abnormal coagulation profile; E11.9 Type 2 diabetes mellitus without complications; I11.0 Hypertensive heart disease with heart failure; I50.9 Heart failure, unspecified; N40.1 Benign prostatic hyperplasia with lower urinary tract symptoms; R33.8 Other retention of urine; M19.90 Unspecified osteoarthritis, unspecified site; I25.10 Atherosclerotic heart disease of native coronary artery without angina pectoris; Z79.01 Long term (current) use of anticoagulants; Z95.0 Presence of cardiac pacemaker; Z90.49 Acquired absence of other specified parts of digestive tract; Z87.891 Personal history of nicotine dependence
CPT/HCPCS: 36415; 70496; 70498; 71045; 74176; 80048; 80053; 80061; 82570; 82728; 82948; 83036; 83605; 83615; 83721; 83735; 84300; 84484; 85027; 85610; 86140; 87040; 87651; 87880; 92610; 93005; 93306; 93880; 96374; 96376; 97161; 97165; A9270; G0378; G0379; J2405; Q9967

== ENCOUNTER 2022-10-27 15:05 | Outpatient (RCR) | payer MEDICARE, SELFPAY ==
--- NOTE | 2022-11-09 07:33 | OPREHPOC ---
Outpatient Therapy Plan of Care This is a Multidisciplinary Plan of Care that may contain components documented by all disciplines (PT, OT, and ST.) PT Problem 1 PT Problem #1 Knowledge Deficit PT Goal 1 Goal 1. Patient to demonstrate independence with HEP to improve progress made in PT. Target Visit 5 PT Problem 2 PT Problem #2 Impaired Strength PT Goal 1 Goal 1. Patient to improve LE strength to 4/5 or more overall to improve endurance for walking in home. Target Visit 10 PT Problem 3 PT Problem #3 Impaired Balance PT Goal 1 Goal 1. Patient to improve Tinetti balance score to 24 points or greater to decrease fall risk. 2. Patient to improve 5 times sit to stand time to 20 seconds or less without use of UE. Target Visit 10 PT Problem 4 PT Problem #4 Impaired Endurance PT Goal 1 Goal 1. Patient to perform 6 MWT with no more than 1 seated rest break to improve endurance for walking in community. 2. Patient to tolerate standing for 15 minutes while performing exercises to improve endurance for cooking in home. Target Visit 10 PT Problem 5 PT Problem #5 Impaired Functional Mobil PT Goal 1 Goal 1. Patient to climb 3 steps with unilateral handrail to improve ability to navigate community. 2. Patient to perform squat without loss of balance to allow for him to cloth picker item from floor. Target Visit 10
--- NOTE | 2022-11-09 07:33 | PTOPEVAL1 ---
Assessment and note entered by JT File, PT Evaluation Information Assessment Status Evaluation Diagnosis CVA Onset 10/20/22 Subjective Information Patient reports he had a stroke about three weeks ago. He notes he was in the hospital for about 5 or 6 days before returning back home. He has been having difficulty with his R shoulder and lower back since the stroke. He reports that he feels unsteady when he has been walking, and notes he has not been using any assistive device. He states he lives in a long term community, where he has some help with cleaning and cooking. His goals for PT are to be able to move better and return to his prior level of activity, stating he was fairly active prior to the stroke. Reported Pain Level Pain Score 0: Self Report Assessment PT Clinical Summary Mr. Payne is a 82 y/o male who presents to skilled PT following a CVA three weeks ago. He currently demonstrates R sided weakness, as well as impairments in balance, gait, and endurance. Patient is currently a fall risk as assessed by the Tinnetti, and has not been ambulating with any assistive device. He currently has difficulty with endurance for his normal activities and has been requiring more rest breaks with upright activity, making it more difficult to perform activities he would like to such as cooking in his home. Appropriate to continue skilled PT to address general strenghtening, balance, and endurance to allow for improved patient safety and ability to perform activities in home. Plan of Care PT Services Indicated Yes Treatment Frequency and 3x/week for 10 visits Duration These treatments will address the objective and functional deficits as defined above. The patient will be advanced safely and appropriately in order for the patient to progress towards his/her prior level of function. Additional exercises will be introduced and as well as a comprehensive home exercise program upon discharge, if needed, ?to ensure carryover of functional gains achieved in the clinic. This treatment plan has been reviewed and agreement upon by the patient.
--- NOTE | 2022-11-23 16:02 | OPREHPOC ---
Outpatient Therapy Plan of Care This is a Multidisciplinary Plan of Care that may contain components documented by all disciplines (PT, OT, and ST.) PT Problem 1 PT Problem #1 Knowledge Deficit PT Goal 1 Goal 1. Patient to demonstrate independence with HEP to improve progress made in PT. Target Visit 5 Progress Met PT Problem 2 PT Problem #2 Impaired Strength PT Goal 1 Goal 1. Patient to improve LE strength to 4/5 or more overall to improve endurance for walking in home. Target Visit 10 Progress Met PT Problem 3 PT Problem #3 Impaired Balance PT Goal 1 Goal 1. Patient to improve Tinetti balance score to 24 points or greater to decrease fall risk. 2. Patient to improve 5 times sit to stand time to 20 seconds or less without use of UE. met Target Visit 10 Progress Partially Met PT Problem 4 PT Problem #4 Impaired Endurance PT Goal 1 Goal 1. Patient to perform 6 MWT with no more than 1 seated rest break to improve endurance for walking in community. 2. Patient to tolerate standing for 15 minutes while performing exercises to improve endurance for cooking in home. met Target Visit 10 Progress Partially Met PT Problem 5 PT Problem #5 Impaired Functional Mobil PT Goal 1 Goal 1. Patient to climb 3 steps with unilateral handrail to improve ability to navigate community. met 2. Patient to perform squat without loss of balance to allow for him to vegetable picker item from floor. met Target Visit 10 Progress Met
--- NOTE | 2022-11-23 16:03 | PTOPDC ---
Assessment and note entered by JT File, PT Evaluation Information Assessment Status Discharge Diagnosis CVA Onset 10/20/22 Subjective Information patient reports he feels Good this date. he reports he is compliant with his HEP at home daily , uses his walker for all ambulation, and is up and down daily with exercises/activities around the home. Reported Pain Level Pain Score 0: Self Report Assessment PT Clinical Summary mr. esparza presents to skilled PT for his 10th skilled therapy visit. he has met nearly all goals for skilled PT, and is compliant with using a walker for all ambulation. he is safe and independent with his walker, and is ready to DC skilled PT today. he will continue with independent HEP and attend fall prevention class 1 -2 times weekly. Plan of Care PT Services Indicated Yes
== END 2022-11-23 17:01 | disposition home or self-care (01) ==
LOC: CHSPT 15:05
PROVIDERS: PCP Internal Medicine; Visit Provider Internal Medicine
DX: I69.398 Other sequelae of cerebral infarction (principal); R26.89 Other abnormalities of gait and mobility
CPT/HCPCS: 97110; 97112; 97161; 97530; 97750

== ENCOUNTER 2022-10-28 11:30 | Observation (INO) | payer MEDICARE, SELFPAY ==
[2022-10-28] VITALS (7 sets, daily range): BP systolic 96–124; BP diastolic 34–68; PULSE 60–85; RESP 16–20; TEMP 36.3–36.7; O2SAT 97–100; BMI 25.0
--- NOTE | ~2022-10-28 | CT_ITS ---
EXAMINATION: CT brain wo con DATE: 10/28/2022 12:11 INDICATION: Head injury post fall TECHNIQUE: Computed tomography (CT) of the head was performed without intravenous contrast. Sagittal and coronal reconstructions were performed. The mA was adjusted according to patient size. Iterative reconstruction technique was employed. The dose-length product was 605.33 mGy-cm. COMPARISON: head CT dated 09/23/2022 FINDINGS: Small left frontal scalp hematoma. No calvarial fracture. Small old infarct in the left cerebellar he misphere. Additional small old infarct in the left parietal lobe at the posterior margin of the sylvi an fissure. No acute intracranial hemorrhage, acute infarction or abnormal extra axial fluid collecti on. Symmetric prominence of the sulci consistent with moderate age-appropriate diffuse cerebral volum e loss. No mass/mass effect. Changes of bilateral intraocular lens replacement. The orbits and mastoi d air cells are normal. Moderate mucosal thickening of the bilateral ethmoid and maxillary sinuses. IMPRESSION: 1. No fracture or acute intracranial process. 2. 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 Reviewed, dictated and finalized at location A.
--- NOTE | ~2022-10-28 | CT_ITS ---
EXAMINATION: 1. CT facial & cervical spine wo DATE: 10/28/2022 12:11 INDICATION: Neck and facial injury post fall TECHNIQUE: 1. Computed tomography (CT) of the maxillofacial region and of the cervical spine were performed with out intravenous contrast. Sagittal and coronal reconstructions of both regions were obtained. Automat ed exposure control and iterative reconstruction technique were employed. The dose-length product was 349.88 mGy-cm. COMPARISON: None. FINDINGS: Maxillofacial CT: Small left frontal scalp hematoma. No maxillofacial fractures. Specifically the mandible, zygomatic a rches, nasal bones and chavez of the orbits and paranasal sinuses are all intact. Changes of bilateral intraocular lens replacement. Orbits are otherwise normal. Moderate mucosal thickening in the bilate ral ethmoid and maxillary sinuses. Nasal septum is midline. Minimal dependently layering fluid in the right sphenoid sinus. Visualized portion of the mastoid air cells and middle ear cavities are clear. Maxilla is edentulous with alveolar ridge resorption. There are couple residual left-sided tooth fra gments, one of which appears loose with small amount of surrounding lucency. There are multiple absen t teeth along the mandible. With periodontal disease associated with the remaining teeth. Small amoun t of atherosclerotic calcific location at the right carotid bulb. Cervical spine CT: 15 degree cervicothoracic dextroscoliosis. Sagittal alignment is normal. Vertebral body heights are n ormal. No acute fracture. Severe disc height loss at C5-C6 and moderate disc height loss at C3-C4. Se halley left-sided and moderate right-sided uncovertebral osteoarthritis at both levels. Disc bulges res ulting in mild central canal stenosis at C2-C3, C3-C4 and C5-C6. There is multilevel moderate to epi re cervical and upper thoracic facet osteoarthritis. This contributes to moderate neural foraminal st enosis on the left at C5-C6 and T1-T2, mild to moderate neural from stenosis bilaterally at C3-C4 and on the left at C5-C6. Mild neural from stenosis at the remaining cervical and upper thoracic levels. Visualized apices of the lungs are clear. IMPRESSION: 1. No maxillofacial fractures. 2. Severe cervical spondylosis with no acute osseous abnormality. Reviewed, dictated and finalized at location A.
[2022-10-28 12:29] LABS: Basophils Absolute Auto 0.03 K/mm3 (0.00-0.10); Basophils Percent Auto 0.5 % (0.0-1.0); Eosinophils Absolute Auto 0.13 K/mm3 (0.02-0.50); Eosinophils Percent Auto 2.1 % (1.0-6.0); Hematocrit 33.8 % (37.0-46.0); Hemoglobin 11.1 g/dL (12.4-15.3); Immature Granulocyte Absolute 0.01 K/mm3 (0.00-0.00); Immature Granulocyte Percent A 0.2 % (0.0-0.0); Lymphocytes Absolute Auto 1.18 K/mm3 (1.10-4.50); Lymphocytes Percent Auto 18.9 % (18.0-42.0); Mean Corpuscular HGB Conc 32.8 g/dL (32.0-36.0); Mean Corpuscular Volume 91.4 fL (78.0-102.0); Mean Platelet Volume 9.1 fl (8.7-11.0); Monocytes Absolute Auto 0.37 K/mm3 (0.10-0.90); Monocytes Percent Auto 5.9 % (2.0-11.0); Neutrophils Absolute Auto 4.5 K/mm3 (1.7-7.2); Neutrophils Percent Auto 72.4 % (50.0-70.0); Platelet Count Result 161 K/mm3 (150-420); Red Cell Distribution Width 15.7 % (11.6-14.4); White Blood Count 6.2 K/mm3 (4.8-10.8)
[2022-10-28 12:44] LABS: Alanine Aminotransferase 61 U/L (16-63); Albumin Level 2.9 g/dL (3.4-5.0); Alkaline Phosphatase 141 U/L (46-116); Anion Gap 6 mmol/L (8-16); Aspartate Amino Transferase 28 U/L (15-37); Bilirubin,Total 0.4 mg/dL (0.00-1.00); Blood Urea Nitrogen 22 mg/dL (7-18); Calcium 9.3 mg/dL (8.5-10.1); Carbon Dioxide 28 mmol/L (21-32); Chloride 100 mmol/L (98-108); Estimated CRCL calculation 44 ml/min; Estimated Glomerular Filt Rate 57; Glucose 138 mg/dL (70-99); Osmolality Calculated 283 mOsm/kg (285-295); Potassium 4.6 mmol/L (3.5-5.1); Sodium 134 mmol/L (136-145); Total Protein 6.4 g/dL (6.4-8.2)
[2022-10-28 12:49] LABS: INR 1.8; Partial Thromboplastin Time 42.1 SEC (23.90-30.70); Prothrombin Time 19.3 Seconds (9.50-12.10)
--- NOTE | 2022-10-28 13:05 | ED.FALL ---
HPI - Fall General Chief Complaint: Fall Stated Complaint: fall Time Seen by Provider: 10/28/22 11:34 Source: patient and EMS Mode of arrival: EMS Limitations: no limitations History of Present Illness HPI Narrative: this is an 82-year-old male that presents via EMS after he sustained a ground level fall he was going into his home he had a bag of groceries and misstepped and hit the the curb and fell forward some face planting causing some abrasions to above the left eye and to the bridge of his nose, initially there was bleeding at the scene but here in the ER there is currently no bleeding the patient is alert oriented times 4 with no neurological deficits currently no bleeding is not complaining of any neck pain or headache does have some tenderness around the the abrasion site over the left eye. The patient recently had a stroke approximately a month ago and was just released from home health/ physical therapy, the patient has a history of atrial fibrillation and his vitals are stable with a blood pressure 121/64 with a heart rate of 85. The patient denies any chest pain shortness a breath no back pain. Patient is on Coumadin. Patient lives alone. patient brought in with a cervical collar. avulsion injury above his left eyebrow. complaint: fall Onset (ago): hour(s) Fall from: standing Fall witnessed: no Place fall occurred: street Loss of consciousness: none Prolonged down time: no Symptoms prior to fall: none Context: tripped/slipped Location of injury: head, face and neck Related Data Home Medications Medication Instructions Recorded Confirmed allopurinol 300 mg tablet 300 mg PO HS 04/17/19 10/28/22 carvedilol 6.25 mg tablet 6.25 mg PO BID 04/17/19 10/28/22 enalapril maleate 5 mg tablet 5 mg PO DAILY 04/17/19 10/28/22 lovastatin 20 mg tablet 20 mg PO HS 04/17/19 10/28/22 potassium chloride 20 mEq 20 meq PO DAILY 04/17/19 10/28/22 tablet,extended release(part/cryst) albuterol sulfate 90 mcg/actuation 2 puff inhalation Q4H PRN sob 10/28/22 10/28/22 aerosol inhaler glimepiride 2 mg tablet 2 mg PO HS 10/28/22 10/28/22 Allergies Allergy/AdvReac Type Severity Reaction Status Date / Time No Known Allergies Allergy Verified 10/19/22 09:39 Review of Systems Review of Systems: All systems reviewed & are unremarkable except as noted in HPI and below PMFSH Past Medical History Medical History Arthritis Atrial fibrillation Benign prostatic hyperplasia Chronic anticoagulation Diastolic congestive heart failure Dyslipidemia Gout Hypertension Type 2 diabetes mellitus Surgical History Surgical History History of appendectomy History of cardiac catheterization History of colonoscopy with polypectomy History of permanent cardiac pacemaker placement Family History Family History Other Diabetes mellitus Hypertension Social History Social History Social History: Surrogate medical decision maker: Kiley Saha (daughter) or Ahm Osman (son). Code status: Full code. Years smoked: 30 Smoking status: Former smoker Tobacco type: cigarettes Smoking end date: 09/08/99 Alcohol intake: never Substance use: never Substance use type: does not use Lack of Transportation: No Lack of Food: Never True Current Housing: I Have Housing Concerned About Future Housing: No Difficulty Paying Gas/Electric Bills: No Difficulty Paying for Meds: No Currently Unemployed: No Education: High School Diploma/GED Difficulty w/ Childcare or Family Care: No Living arrangements: alone Occupation/Education: retired Spiritual care concerns: No Exam Const: General: healthy appearing, no acute distress and alert Nutritional Appearance: well nourished Orientation/conscio
[2022-10-28] MEDS: TETANUS,DIPHTHERIA,AC PERTUSSIS ADULT 0.5 ML (ADACEL) IM (14:25)
--- NOTE | 2022-10-28 14:35 | ADMGEN ---
This patient, Pato Payne, was admitted to 2nd Floor Room 205-1. Patient/family oriented to hospital policies and general routines including ID bracelet, bed and alarms, visiting hours, pain management, procedures, bathroom and other care routines, personal items, smoking policy, room service/diet, and visiting hours. Information on how to activate the Rapid Response Team has been discussed. Patient/Family are encouraged to report perceived risks to care and to ask questions if they do not understand what they are told or what they should do.
--- NOTE | 2022-10-28 14:49 | PC.NURSE ---
On 10/28/22, the student, [CEASAR JERNIGAN ], provided care and completed [employer] ([facility] documentation on this patient. I have reviewed the student's documentation and agree with the findings.
--- NOTE | 2022-10-28 15:27 | PC.NURSE ---
Patient reports carried lafrg box of groceries into apartment across grass. tripped when stepping onto concrete and could not catch himself
[2022-10-28] MEDS: DOCUSATE SODIUM 100 MG CAPSULE PO (16:40)
[2022-10-28] MEDS: WARFARIN (*PBKC) 2 MG TABLET PO (16:40)
[2022-10-28 16:45] LABS: Glucose Point of Care 138 mg/dl (65-105)
[2022-10-28] MEDS: ACETAMINOPHEN 325 MG TABLET 650 MG PO (16:47)
--- NOTE | 2022-10-28 17:52 | PM.IMHP ---
H&P: HPI History of Present Illness Date/Time: 10/28/22 17:52 Chief Complaint: fall Narrative: This is an 82 year old male with history of a fib, pacemaker, diabetes type 2, CHF, HTN and HLD who is admitted for monitoring and PT/OT evaluation after a mechanical fall with left eyebrow laceration, right arm skin tear and larger periorbital contusion left eye. Patient was carrying a box of food from his truck to his house when he went to turn and his foot fell off a small step. Patient reports he fell forward, leading with his head and arms outreached in front of him. Patient reports he did not lose consciousness. He states he saw stars. Patient had essentially negative workup in the ER but the ER physician did not feel good about sending patient home alone tonight. He requested admission for neuro checks, PT/OT consult and reevaluation due to patient taking warfarin and sustaining head injury. Patient states that he will return to his home independently tomorrow but his son is off work tomorrow and can help him around the house all day. Patient reports he is undergoing physical therapy as an outpatient at this time. His home medications were reviewed and restarted as appropriate. Review of Systems Review of Systems: All systems reviewed & are unremarkable except as noted in HPI and below PMFSH Past Medical History Medical History Arthritis Atrial fibrillation Benign prostatic hyperplasia Chronic anticoagulation Diastolic congestive heart failure Dyslipidemia Gout Hypertension Type 2 diabetes mellitus Surgical History Surgical History History of appendectomy History of cardiac catheterization History of colonoscopy with polypectomy History of permanent cardiac pacemaker placement Family History Family History Other Diabetes mellitus Hypertension Social History Social History Social History: Surrogate medical decision maker: Kiley Saha (daughter) or Ham Osman (son). Code status: Full code. Years smoked: 30 Smoking status: Former smoker Tobacco type: cigarettes Smokeless tobacco user: chewing tobacco Second hand tobacco smoke exposure: Yes Smoking end date: 02/07/02 Alcohol intake: former Substance use: never Substance use type: does not use Lack of Transportation: No Lack of Food: Sometimes True Current Housing: I Have Housing Concerned About Future Housing: No Difficulty Paying Gas/Electric Bills: YES Difficulty Paying for Meds: No Currently Unemployed: No Education: High School Diploma/GED Difficulty w/ Childcare or Family Care: No Living arrangements: alone Occupation/Education: retired Spiritual care concerns: No Meds Home Medications and Allergies Home Medications Medication Instructions Recorded Confirmed Type allopurinol 300 mg tablet 300 mg PO HS 04/17/19 10/28/22 History carvedilol 6.25 mg tablet 6.25 mg PO BID 04/17/19 10/28/22 History enalapril maleate 5 mg tablet 5 mg PO DAILY 04/17/19 10/28/22 History lovastatin 20 mg tablet 20 mg PO HS 04/17/19 10/28/22 History potassium chloride 20 mEq 20 meq PO DAILY 04/17/19 10/28/22 History tablet,extended release(part/cryst) aspirin 81 mg chewable tablet 81 mg PO DAILY@0800 #30 tabs 09/26/22 10/28/22 Rx ([facility]in) empagliflozin 10 mg tablet 10 mg PO DAILY #30 tabs 09/26/22 10/28/22 Rx (Jardiance) furosemide 20 mg tablet 20 mg PO MoWeFr@1400 #15 tabs 09/26/22 10/28/22 Rx furosemide 40 mg tablet 40 mg PO DAILY #30 tabs 09/26/22 10/28/22 Rx tamsulosin 0.4 mg capsule 0.4 mg PO QAM #30 caps 09/26/22 10/28/22 Rx warfarin 4 mg tablet 4 mg PO QPM #30 tabs 09/26/22 10/28/22 Rx pantoprazole 40 mg tablet,delayed 40 mg PO QAM 4 weeks #30 tabs 10/19/22 10/28/22 Rx
[2022-10-28] MEDS: LOVASTATIN 20 MG TABLET PO (21:12)
[2022-10-28] MEDS: GLIMEPIRIDE 2 MG TABLET PO (21:12)
[2022-10-28] MEDS: carvediloL 6.25 MG TABLET PO (21:12)
[2022-10-28] MEDS: allopurinoL 300 MG TABLET PO (21:12)
[2022-10-28 21:21] LABS: Glucose Point of Care 131 mg/dl (65-105)
[2022-10-29 04:00] VITALS: BP 103/44; PULSE 61; RESP 16; TEMP 36.3; O2SAT 98
[2022-10-29 05:30] LABS: Basophils Absolute Auto 0.02 K/mm3 (0.00-0.10); Basophils Percent Auto 0.5 % (0.0-1.0); Eosinophils Percent Auto 2.3 % (1.0-6.0); Hematocrit 33.6 % (37.0-46.0); Hemoglobin 11.1 g/dL (12.4-15.3); Immature Granulocyte Absolute 0.02 K/mm3 (0.00-0.00); Immature Granulocyte Percent A 0.5 % (0.0-0.0); Lymphocytes Absolute Auto 1.15 K/mm3 (1.10-4.50); Lymphocytes Percent Auto 26.1 % (18.0-42.0); Mean Corpuscular Hemoglobin 30.4 pg (27.0-31.0); Mean Corpuscular Volume 92.1 fL (78.0-102.0); Mean Platelet Volume 9.4 fl (8.7-11.0); Monocytes Absolute Auto 0.36 K/mm3 (0.10-0.90); Monocytes Percent Auto 8.2 % (2.0-11.0); Neutrophils Absolute Auto 2.8 K/mm3 (1.7-7.2); Neutrophils Percent Auto 62.4 % (50.0-70.0); Platelet Count Result 149 K/mm3 (150-420); Red Blood Count 3.65 M/mm3 (4.70-6.10); Red Cell Distribution Width 15.6 % (11.6-14.4); White Blood Count 4.4 K/mm3 (4.8-10.8)
[2022-10-29 05:41] LABS: Anion Gap 4 mmol/L (8-16); Blood Urea Nitrogen 19 mg/dL (7-18); Calcium 9.2 mg/dL (8.5-10.1); Carbon Dioxide 28 mmol/L (21-32); Chloride 106 mmol/L (98-108); Estimated CRCL calculation 45 ml/min; Estimated Glomerular Filt Rate 58; Glucose 89 mg/dL (70-99); Osmolality Calculated 287 mOsm/kg (285-295); Potassium 4.3 mmol/L (3.5-5.1); Sodium 138 mmol/L (136-145)
[2022-10-29 05:42] LABS: INR 1.8; Prothrombin Time 18.8 Seconds (9.50-12.10)
[2022-10-29 07:40] LABS: Glucose Point of Care 113 mg/dl (65-105)
[2022-10-29 07:44] VITALS: BP 120/70; PULSE 69; RESP 14; TEMP 36.4; O2SAT 100
[2022-10-29 08:00] VITALS: PULSE 63
[2022-10-29] MEDS: ASPIRIN 81 MG CHEWABLE TABLET PO (08:34)
[2022-10-29] MEDS: FUROSEMIDE 40 MG TABLET PO (08:34)
[2022-10-29] MEDS: TAMSULOSIN HCL 0.4 MG CAPSULE PO (08:34)
[2022-10-29] MEDS: EMPAGLIFLOZIN 10 MG TABLET PO (08:34)
[2022-10-29 08:35] VITALS: PULSE 69
[2022-10-29] MEDS: carvediloL 6.25 MG TABLET PO (08:35)
[2022-10-29] MEDS: DOCUSATE SODIUM 100 MG CAPSULE PO (08:35)
[2022-10-29] MEDS: POTASSIUM CHLORIDE 20 MEQ ER TABLET PO (08:35)
[2022-10-29] MEDS: ENALAPRIL MALEATE 5 MG TABLET PO (08:36)
[2022-10-29] MEDS: PANTOPRAZOLE 40 MG TABLET PO (08:36)
--- NOTE | 2022-10-29 10:15 | PC.NURSE ---
IV removed intact. new tefla put on left brow. tegaderm in place on right arm. FINISH ROLLS OPERATOR give wound care instructions to patient
--- NOTE | 2022-10-29 10:48 | PM.DS ---
DS: Admitting Diagnosis Discharge Date 10/29/2022 Admitting Diagnosis head injury, periorbital contusion of left eye, atrial fibrillation, pacemaker, hypertension, type 2 diabetes mellitus, chronic anticoagulation, hyponatremia DS: Discharge Diagnosis Discharge Diagnosis (1) Head injury: Qualifiers: Encounter type: initial encounter Qualified Code(s): S09.90XA - Unspecified injury of head, initial encounter Code(s): S09.90XA - Unspecified injury of head, initial encounter Status: Acute (2) Periorbital contusion of left eye: Code(s): S05.12XA - Contusion of eyeball and orbital tissues, left eye, initial encounter Status: Acute (3) Atrial fibrillation: Code(s): I48.91 - Unspecified atrial fibrillation Status: Chronic (4) Pacemaker: Code(s): Z95.0 - Presence of cardiac pacemaker Status: Chronic (5) Hypertension: Code(s): I10 - Essential (primary) hypertension Status: Chronic (6) Type 2 diabetes mellitus: Code(s): E11.9 - Type 2 diabetes mellitus without complications Status: Acute (7) Chronic anticoagulation: Code(s): Z79.01 - intermediate project manager (current) use of anticoagulants Status: Acute (8) Hyponatremia: Code(s): E87.1 - Hypo-osmolality and hyponatremia Status: Chronic Plan Discharge home with son DS: Summary Hospital Course Reason for hospitalization: This is an 82-year-old male patient who was admitted to the hospital for repeat neuro checks and reassessment/ observation after a fall with minor head injury while taking blood thinning medications. Hospital Course: Patient was admitted for observation. He had minor oozing of skin tear right forearm as well as evolving periorbital contusion/ hematoma. Patient had no vision disturbance. No change in neurologic status. He remains alert oriented and fully functional independently. He was assessed by Physical therapy Occupational therapy and again emphasized the importance of using his walker which he chooses not to use at home. Vital signs remained stable, neurologic assessment unchanged labs stable, and patient was wanting to be discharged. Patient's son came to pick him up. Updated flu vaccine upon discharge. Status at Discharge Cognitive/behavioral status at discharge: Awake alert oriented and very pleasant Functional status at discharge: independent ambulation ( supposed to use walker but is mostly able to ambulate without) Time Spent with Patient Time attestation: Total time spent providing and/or coordinating discharge services: 35 Time spent: Greater than 30 minutes Exam Narrative: GENERAL: Generally well appearing, alert and oriented, in no apparent distress. He is pleasant and conversant in full sentences. HEENT: Pupils are equally round and briskly reactive to light. Extraocular muscles are intact. Oral mucous membranes are moist without lesions. Laceration above left eyebrow repaired with sutures, mild oozing recently. Significant left periorbital contusion and hematoma, mild scleral hemorrhage lateral portion of eye, no blood in anterior chamber NECK: The patient has no noted JVD. No adenopathy is appreciated. Mild to moderate kyphosis and thick circumference of neck. CHEST/LUNGS: Lungs are clear bilaterally without rhonchi, rales, or wheezes. There is no subcutaneous air appreciated. Minor abrasion noted lower chest/upper abdomen HEART: The patient has a regular rate and rhythm. No murmurs, rubs, or gallops are appreciated. Distal pulses are 2+. Paced rhythm on monitor and storage bin tender per my interpretation. ABDOMEN: The patient's abdomen is soft, nontender, and nondistended. Bowel sounds are positive. No peritoneal signs. EXTREMITIES: The patient has no peripheral edema. There is no focal long bone tenderness or deformity. Medium-size skin tear right forearm SKIN: The patient's skin is warm and dry, without rashes or lesions. PSYCHIATRIC: The patient has normal me
--- NOTE | 2022-10-29 11:49 | PC.NURSE ---
Flu vaccine administered to patient
--- NOTE | 2022-11-01 15:42 | PC.NURSE ---
Discharge call back. Patient states he had plenty of instruction and the care was the best it's ever been. Reports following through with therapy and using walker. F/U appointment with Dr. Bourgeois on 11/03
== END 2022-10-29 11:40 | disposition home or self-care (01) ==
LOC: CHSED 14:10 → CHS2ND 14:45
PROVIDERS: Nurse Practitioner; Admitting Provider Internal Medicine; Emergency Provider Emergency Medicine; PCP Internal Medicine; Visit Provider Internal Medicine
DX: S01.112A Laceration without foreign body of left eyelid and periocular area, initial encounter (principal); S05.12XA Contusion of eyeball and orbital tissues, left eye, initial encounter; I48.20 Chronic atrial fibrillation, unspecified; I11.0 Hypertensive heart disease with heart failure; I50.32 Chronic diastolic (congestive) heart failure; E87.1 Hypo-osmolality and hyponatremia; E78.5 Hyperlipidemia, unspecified; E11.9 Type 2 diabetes mellitus without complications; M10.9 Gout, unspecified; N40.0 Benign prostatic hyperplasia without lower urinary tract symptoms; W19.XXXA Unspecified fall, initial encounter; Z95.0 Presence of cardiac pacemaker; Z23 Encounter for immunization; Z79.01 Long term (current) use of anticoagulants
CPT/HCPCS: 12011; 36415; 70450; 70486; 72125; 80048; 80053; 82948; 85025; 85610; 85730; 90471; 90694; 90715; 97161; 97530; 99285; A9270; G0008; G0378

== ENCOUNTER 2022-11-01 07:12 | Outpatient (CLI) | payer MEDICARE, SELFPAY ==
[2022-11-01 07:59] LABS: Basophils Absolute Auto 0.02 K/mm3 (0.00-0.10); Basophils Percent Auto 0.5 % (0.0-1.0); Eosinophils Absolute Auto 0.13 K/mm3 (0.02-0.50); Hematocrit 36.7 % (37.0-46.0); Hemoglobin 12.1 g/dL (12.4-15.3); Immature Granulocyte Absolute 0.02 K/mm3 (0.00-0.00); Immature Granulocyte Percent A 0.5 % (0.0-0.0); Lymphocytes Absolute Auto 1.03 K/mm3 (1.10-4.50); Lymphocytes Percent Auto 24.1 % (18.0-42.0); Mean Corpuscular Hemoglobin 30.9 pg (27.0-31.0); Mean Corpuscular Volume 93.9 fL (78.0-102.0); Mean Platelet Volume 9.8 fl (8.7-11.0); Monocytes Absolute Auto 0.33 K/mm3 (0.10-0.90); Monocytes Percent Auto 7.7 % (2.0-11.0); Neutrophils Absolute Auto 2.7 K/mm3 (1.7-7.2); Neutrophils Percent Auto 64.2 % (50.0-70.0); Platelet Count Result 187 K/mm3 (150-420); Red Blood Count 3.91 M/mm3 (4.70-6.10); Red Cell Distribution Width 15.7 % (11.6-14.4); White Blood Count 4.3 K/mm3 (4.8-10.8)
[2022-11-01 08:13] LABS: INR 1.2
[2022-11-01 15:11] LABS: Alanine Aminotransferase 62 U/L (16-63); Albumin Level 3.3 g/dL (3.4-5.0); Alkaline Phosphatase 155 U/L (46-116); Anion Gap 12 mmol/L (8-16); Aspartate Amino Transferase 31 U/L (15-37); Bilirubin,Total 0.6 mg/dL (0.00-1.00); Blood Urea Nitrogen 17 mg/dL (7-18); Calcium 9.6 mg/dL (8.5-10.1); Carbon Dioxide 24 mmol/L (21-32); Chloride 105 mmol/L (98-108); Estimated Glomerular Filt Rate 60; Glucose 149 mg/dL (70-99); Osmolality Calculated 296 mOsm/kg (285-295); Potassium 4.6 mmol/L (3.5-5.1); Sodium 141 mmol/L (136-145); Total Protein 6.5 g/dL (6.4-8.2)
[2022-11-01 18:59] LABS: NT Pro B Type Natriuretic Pept 811 pg/mL (0-450)
== END 2022-11-01 07:13 | disposition home or self-care (01) ==
LOC: CHSLAB 07:13
PROVIDERS: PCP Internal Medicine; Visit Provider Internal Medicine
DX: Z79.01 Long term (current) use of anticoagulants (principal)
CPT/HCPCS: 36415; 80053; 83880; 85025; 85610

== ENCOUNTER 2022-12-15 09:18 | Outpatient (CLI) | payer MEDICARE, SELFPAY ==
--- NOTE | ~2022-12-15 | US_ITS ---
EXAMINATION: US abdomen limited DATE: 12/15/2022 10:27 INDICATION: Fatty change of the liver TECHNIQUE: Multiple grayscale and Doppler ultrasound images of the abdomen were obtained. COMPARISON: 05/26/2022; CT, 09/24/2022 FINDINGS: Bowel gas obscures visualization of the pancreas. The visualized portions of the pancreas a re unremarkable. The liver is normal with normal echogenicity and echotexture. No surface nodularity. Normal hepatopetal flow in the main portal vein. The gallbladder is normal with no abnormal wall thi ckening, pericholecystic fluid or stones. The normal common bile duct measures 3 mm. There was no son ographic Valle sign. IMPRESSION: 1. Unremarkable right upper quadrant ultrasound. Reviewed, dictated and finalized at location B. E CAPTAIN
== END 2022-12-15 09:19 | disposition home or self-care (01) ==
PROVIDERS: PCP Internal Medicine; Visit Provider Internal Medicine Gastroenterology
DX: R74.8 Abnormal levels of other serum enzymes (principal); K76.0 Fatty (change of) liver, not elsewhere classified
CPT/HCPCS: 76705

== ENCOUNTER 2023-01-01 09:07 | Outpatient (CLI) | payer MEDICARE, SELFPAY ==
--- NOTE | ~2023-01-01 | XR_ITS ---
EXAM: [id number]_[id number]_CR DATE: 01/01/2023 09:29 HISTORY: FALL 2-3 WKS AGO,PAIN RADIATES FROM OCCIPITAL-POSTERIOR NECK . COMPARISON: 12/01/2017; x-ray chest 09/24/2022. FINDINGS: Craniocervical association and atlantoaxial joint are aligned. Mild degenerative change at the atlantoaxial joint. No prevertebral soft tissue swelling. Vertebral bodies are aligned. Vertebra l body heights are maintained. Multilevel disc space narrowing, mild at C3-4 and moderate at C5-6. Mu ltilevel moderate facet hypertrophy. Partially visualized left chest pacer with a disconnected lead. IMPRESSION: No acute fracture or traumatic malalignment detected in the cervical spine. Disconnected pacemaker lead, correlate with pacemaker function. Reviewed, dictated and finalized at location K. RVISOR MIRROR FABRICATION
== END 2023-01-01 09:08 | disposition home or self-care (01) ==
LOC: CHSIMG 09:09
PROVIDERS: PCP Internal Medicine; Visit Provider Nurse Practitioner Family
DX: M54.2 Cervicalgia (principal)
CPT/HCPCS: 72040

== ENCOUNTER 2023-01-03 08:47 | Outpatient (RCR) | payer MEDICARE, SELFPAY ==
[2022-11-29 08:28] LABS: INR 1.7; Prothrombin Time 17.5 Seconds (9.50-12.10)
[2023-01-03 09:14] LABS: Prothrombin Time 20.9 Seconds (9.50-12.10)
== END 2023-02-27 23:59 | disposition home or self-care (01) ==
LOC: CHSLAB 08:47
PROVIDERS: PCP Internal Medicine; Visit Provider Internal Medicine
DX: Z51.81 Encounter for therapeutic drug level monitoring (principal); Z79.01 Long term (current) use of anticoagulants
CPT/HCPCS: 36415; 85610

== ENCOUNTER 2023-01-10 13:34 | Outpatient (RCR) | payer MEDICARE, SELFPAY ==
--- NOTE | 2023-01-10 13:56 | PTOPEVAL1 ---
Assessment and note entered by Kit Miranda Evaluation Information Assessment Status Evaluation Diagnosis neck pain Onset 01/04/23 Subjective Information Pt. reports that he developed neck pain 1-2 weeks ago. He reports that he has most pain with attempting to turn his head. He states that he did have xray which revealed arthritis. He states that he has pain on both sides of his neck. He reports that pain will wake him on occassion. He reports that he gets some pain with driving, especially with turning his head. He reports that his goal is to be able to decrease his pain with turning his head. Reported Pain Level Pain Score 5: Self Report Assessment PT Clinical Summary Pt. is an 82 year old male who enters the clinic with neck pain. Pt. presents with impaired c- spine rotation and lateral flexion active ROM, impaired postural awareness, impaired proximal u.e . strength and pain. Continued skilled PT is indicated in order to improve these areas to allow for improved comfort and efficiency with IADL performance. Plan of Care Interventions Hot Pack/Cold Pack,Manual Therapy,Mechanical Traction,Neuro Re-education,Patient/Caregiver Educati,Therapeutic Activities,Therapeutic Exercise PT Services Indicated Yes Treatment Frequency and 2x/week x 10 visits Duration These treatments will address the objective and functional deficits as defined above. The patient will be advanced safely and appropriately in order for the patient to progress towards his/her prior level of function. Additional exercises will be introduced and as well as a comprehensive home exercise program upon discharge, if needed, ?to ensure carryover of functional gains achieved in the clinic. This treatment plan has been reviewed and agreement upon by the patient.
--- NOTE | 2023-01-10 13:56 | OPREHPOC ---
Outpatient Therapy Plan of Care This is a Multidisciplinary Plan of Care that may contain components documented by all disciplines (PT, OT, and ST.) PT Problem 1 PT Problem #1 Knowledge Deficit PT Goal 1 Goal Pt. will be independent with a HEP addressing mobility and postural awareness Target Visit 2 PT Problem 2 PT Problem #2 Impaired Range of Motion PT Goal 1 Goal Pt. will achieve 65 degrees bilateral c-spine rotation to assist with improved visual field with tasks such as driving. Target Visit 10 PT Problem 3 PT Problem #3 Impaired Strength PT Goal 1 Goal Pt. will present with 4+/5 gross proximal u.e. strength to improve postural awareness. Target Visit 10 PT Problem 4 PT Problem #4 Pain PT Goal 1 Goal Pt. will report pain levels at 2/10 at worst to improve sleep habits and comfort with IADL's.
--- NOTE | 2023-02-17 09:36 | OPREHPOC ---
Outpatient Therapy Plan of Care This is a Multidisciplinary Plan of Care that may contain components documented by all disciplines (PT, OT, and ST.) PT Problem 1 PT Problem #1 Knowledge Deficit PT Goal 1 Goal Pt. will be independent with a HEP addressing mobility and postural awareness Target Visit 2 Progress Met PT Problem 2 PT Problem #2 Impaired Range of Motion PT Goal 1 Goal Pt. will achieve 65 degrees bilateral c-spine rotation to assist with improved visual field with tasks such as driving. Target Visit 10 Progress Not Met PT Problem 3 PT Problem #3 Impaired Strength PT Goal 1 Goal Pt. will present with 4+/5 gross proximal u.e. strength to improve postural awareness. Target Visit 10 Progress Not Met PT Goal 2 Progress Not Met PT Problem 4 PT Problem #4 Pain PT Goal 1 Goal Pt. will report pain levels at 2/10 at worst to improve sleep habits and comfort with IADL's. Progress Met
--- NOTE | 2023-02-17 09:38 | PTOPDC ---
Assessment and note entered by Jessica Montague DPT Evaluation Information Assessment Status Discharge Diagnosis neck pain Onset 01/04/23 Subjective Information Patient reports his neck pain has improved but has new onset of R shoulder pain. He reports he is no longer waking up due to neck pain. He reports he is still limited in turning his head when driving but has noticed improved range and less pain. He thinks he is ready for DC at this time. Reported Pain Level Pain Score 1,2: Self Report Assessment PT Clinical Summary Mr. Payne has been seen for 10 visits of skilled PT. He reports decrease in pain since start of PT . He is no longer waking in the night due to neck pain and is able to drive with less pain. He continues to lack UE strength but contriubtes this to new onset of R shoulder pain. He is appropriate for discharge of neck pain at this time. Plan of Care PT Services Indicated No
== END 2023-02-17 13:28 | disposition home or self-care (01) ==
LOC: CHSPT 13:34
PROVIDERS: Visit Provider Nurse Practitioner Family
DX: M54.2 Cervicalgia (principal)
CPT/HCPCS: 97110; 97140; 97161

== ENCOUNTER 2023-02-01 14:15 | Outpatient (CLI) | payer MEDICARE, SELFPAY ==
--- NOTE | ~2023-02-01 | XR_ITS ---
EXAMINATION: XR shoulder RT min 2V DATE: 02/01/2023 14:33 INDICATION: Right shoulder pain TECHNIQUE: AP internally and externally rotated, AP oblique externally rotated and transscapular Y vi ews of the right shoulder were obtained. COMPARISON: None FINDINGS: There is cephalad subluxation of the humeral head with respect to the glenoid with narrowing of the s ubacromial space consistent with rotator cuff tear. No fracture.Mild to moderate right glenohumeral a nd acromioclavicular osteoarthritis. Visualized portion of the lungs are clear. ` Partially visualize d cardiac pacemaker leads, one terminating at the right atrium and the second extending into the righ t ventricle and distal tip collimated beyond the field of imaging. IMPRESSION: 1. Cephalad subluxation of the humeral head and narrowing of the subacromial space consistent with ag e-indeterminate right rotator cuff tear. 2. 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 Reviewed, dictated and finalized at location A. IER GAMBLING IMPRESSION: 1. Cephalad subluxation of the humeral head and narrowing of the subacromial sp ange consistent with age-indeterminate right rotator cuff tear. 2. 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
--- NOTE | ~2023-02-01 | XR_ITS ---
EXAMINATION: XR elbow RT min 3V DATE: 02/01/2023 14:33 INDICATION: Right elbow pain post fall in bathtub TECHNIQUE: Anteroposterior, two oblique and lateral views of the right elbow were obtained. COMPARISON: None. FINDINGS: Alignment is normal. No fracture or joint effusion. Joint spaces are normal. Mild soft tissue swellin g posterior to the right elbow. IMPRESSION: 1. No right elbow joint effusion or acute osseous abnormality. Reviewed, dictated and finalized at location A. NEYMAN PRESS OPERATOR
== END 2023-02-01 14:16 | disposition home or self-care (01) ==
LOC: CHSIMG 14:18
PROVIDERS: PCP Family Medicine; Visit Provider Family Medicine
DX: M25.521 Pain in right elbow (principal); M25.511 Pain in right shoulder; M19.011 Primary osteoarthritis, right shoulder; S43.001A Unspecified subluxation of right shoulder joint, initial encounter
CPT/HCPCS: 73030; 73080

== ENCOUNTER 2023-02-14 07:12 | Outpatient (CLI) | payer MEDICARE, SELFPAY ==
[2023-02-14 07:43] LABS: Basophils Absolute Auto 0.03 K/mm3 (0.00-0.10); Basophils Percent Auto 0.5 % (0.0-1.0); Eosinophils Absolute Auto 0.08 K/mm3 (0.02-0.50); Eosinophils Percent Auto 1.3 % (1.0-6.0); Hematocrit 39.8 % (37.0-46.0); Hemoglobin 13.1 g/dL (12.4-15.3); Immature Granulocyte Absolute 0.01 K/mm3 (0.00-0.00); Immature Granulocyte Percent A 0.2 % (0.0-0.0); Lymphocytes Absolute Auto 1.29 K/mm3 (1.10-4.50); Lymphocytes Percent Auto 21.1 % (18.0-42.0); Mean Corpuscular HGB Conc 32.9 g/dL (32.0-36.0); Mean Corpuscular Hemoglobin 31.3 pg (27.0-31.0); Mean Corpuscular Volume 95.2 fL (78.0-102.0); Monocytes Absolute Auto 0.38 K/mm3 (0.10-0.90); Monocytes Percent Auto 6.2 % (2.0-11.0); Neutrophils Absolute Auto 4.3 K/mm3 (1.7-7.2); Neutrophils Percent Auto 70.7 % (50.0-70.0); Platelet Count Result 263 K/mm3 (150-420); Red Blood Count 4.18 M/mm3 (4.70-6.10); White Blood Count 6.1 K/mm3 (4.8-10.8)
[2023-02-14 08:00] LABS: INR 2.1; Prothrombin Time 22.1 Seconds (9.50-12.10)
[2023-02-14 08:07] LABS: Appearance Urine Clear (Clear); Bilirubin Urine Negative (Negative); Blood Urine Negative (Negative); Color Urine Light Yellow (Yellow); Glucose Urine UA 3+ (Negative); Ketones Urine Negative (Negative); Leukocyte Esterase Ur Negative LEU/UL (Negative); Nitrate Urine Negative (Negative); Protein Urine Negative (Negative); Urobilinogen Urine 0.2 mg/dL (0.2-1.0)
[2023-02-14 08:28] LABS: Hemoglobin A1C 8.4 % (<5.7)
[2023-02-14 09:08] LABS: Add Urine Microscopic? YES; Alanine Aminotransferase 52 U/L (16-63); Albumin Level 3.6 g/dL (3.4-5.0); Alkaline Phosphatase 151 U/L (46-116); Anion Gap 9 mmol/L (8-16); Aspartate Amino Transferase 27 U/L (15-37); Bacteria Urine None seen /hpf; Bilirubin,Total 0.4 mg/dL (0.00-1.00); Blood Urea Nitrogen 28 mg/dL (7-18); Calcium 9.4 mg/dL (8.5-10.1); Carbon Dioxide 27 mmol/L (21-32); Chloride 104 mmol/L (98-108); Cholesterol 128 mg/dL (0-200); Creatine Kinase 103 U/L (39-308); Estimated Glomerular Filt Rate 50; Free T4 Free Thyroxine 1.02 ng/dL (0.76-1.46); Glucose 179 mg/dL (70-99); HDL Direct 29 mg/dL (40-60); LDL Cholesterol Calculated 72 mg/dL (<130); NT Pro B Type Natriuretic Pept 634 pg/mL (0-450); Osmolality Calculated 299 mOsm/kg (285-295); Potassium 4.7 mmol/L (3.5-5.1); RBC Urine None seen /hpf (0-2); Sodium 140 mmol/L (136-145); Triglycerides 133 mg/dL (0-150); Uric Acid 3.9 mg/dL (3.5-7.2); WBC Urine None seen /hpf (0-3)
== END 2023-02-14 07:13 | disposition home or self-care (01) ==
PROVIDERS: PCP Internal Medicine; Visit Provider Internal Medicine
DX: I10 Essential (primary) hypertension (principal); E78.2 Mixed hyperlipidemia; E11.65 Type 2 diabetes mellitus with hyperglycemia; E79.0 Hyperuricemia without signs of inflammatory arthritis and tophaceous disease; N39.0 Urinary tract infection, site not specified; E03.9 Hypothyroidism, unspecified; I50.9 Heart failure, unspecified; Z79.01 Long term (current) use of anticoagulants
CPT/HCPCS: 36415; 80053; 80061; 81001; 82550; 83036; 83880; 84439; 84443; 84481; 84550; 85025; 85610

== ENCOUNTER 2023-03-01 14:05 | Outpatient (CLI) | payer MEDICARE, SELFPAY ==
--- NOTE | ~2023-03-01 | XR_ITS ---
EXAMINATION: XR hand LT min 3V, XR wrist LT w scaphoid DATE: 03/01/2023 14:34 INDICATION: Nontraumatic left hand and wrist pain. TECHNIQUE: 1. Posteroanterior, ulnar deviation, oblique, and lateral views of the left wrist were obtained. 2. Dorsal palmar, oblique and lateral views of the left hand were obtained. COMPARISON: None. FINDINGS: Bone alignment of the left hand and wrist is normal. No fracture. Chondrocalcinosis in the region of the right exit fibrocartilage complex. Polyarticular osteoarthritis, moderate severity at the first c arpal metacarpal, second proximal interphalangeal and at the distal interphalangeal joints and mild a t the wrist, triscaphe and many of the remaining metacarpophalangeal and interphalangeal joints. Ther e are scattered small lytic lesions with thin sclerotic margins which could represent other degenerat antonio subchondral cysts or chronic erosions at the base of the ulnar styloid process, proximal to the s caphoid proximal pole of the capitate, the head of the first and second proximal phalanges and at the fifth middle phalanx. IMPRESSION: 1. 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 2. Scattered lytic lesions with thin sclerotic margins at the left hemipelvis as detailed above which could represent either degenerative subchondral cysts or chronic erosion such as in the setting of g out. 3.Chondrocalcinosis at the triangular fibrocartilage complex. Reviewed, dictated and finalized at location A. HOUSEKEEPER IMPRESSION: 1. 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 2. Scattered lytic lesions with thin sclerotic margins at the left hemipelvis a s detailed above which could represent either degenerative subchondral cysts or chronic erosion such as in the setting of gout. 3.Chondrocalcinosis at the triangular fibrocartilage complex.
== END 2023-03-01 14:06 | disposition home or self-care (01) ==
LOC: CHSIMG 14:07
PROVIDERS: PCP Internal Medicine; Visit Provider Internal Medicine
DX: M79.642 Pain in left hand (principal); M19.042 Primary osteoarthritis, left hand; M89.9 Disorder of bone, unspecified; M11.232 Other chondrocalcinosis, left wrist
CPT/HCPCS: 73110; 73130

== ENCOUNTER 2023-03-21 09:12 | Outpatient (CLI) | payer MEDICARE, SELFPAY ==
[2023-03-21 09:32] LABS: Basophils Absolute Auto 0.03 K/mm3 (0.00-0.10); Basophils Percent Auto 0.5 % (0.0-1.0); Eosinophils Percent Auto 1.8 % (1.0-6.0); Hematocrit 38.4 % (37.0-46.0); Hemoglobin 12.5 g/dL (12.4-15.3); Immature Granulocyte Absolute 0.02 K/mm3 (0.00-0.00); Immature Granulocyte Percent A 0.4 % (0.0-0.0); Lymphocytes Absolute Auto 0.87 K/mm3 (1.10-4.50); Lymphocytes Percent Auto 15.4 % (18.0-42.0); Mean Corpuscular HGB Conc 32.6 g/dL (32.0-36.0); Mean Corpuscular Hemoglobin 30.6 pg (27.0-31.0); Mean Corpuscular Volume 94.1 fL (78.0-102.0); Mean Platelet Volume 9.2 fl (8.7-11.0); Monocytes Absolute Auto 0.29 K/mm3 (0.10-0.90); Monocytes Percent Auto 5.1 % (2.0-11.0); Neutrophils Absolute Auto 4.3 K/mm3 (1.7-7.2); Neutrophils Percent Auto 76.8 % (50.0-70.0); Platelet Count Result 170 K/mm3 (150-420); Red Blood Count 4.08 M/mm3 (4.70-6.10); Red Cell Distribution Width 14.3 % (11.6-14.4); White Blood Count 5.6 K/mm3 (4.8-10.8)
[2023-03-21 09:52] LABS: INR 4.2; Prothrombin Time 41.9 Seconds (9.50-12.10)
[2023-03-21 10:05] LABS: Anion Gap 12 mmol/L (8-16); Blood Urea Nitrogen 14 mg/dL (7-18); CRP 0.9 mg/dL (0.0-0.9); Calcium 8.9 mg/dL (8.5-10.1); Carbon Dioxide 26 mmol/L (21-32); Chloride 103 mmol/L (98-108); Estimated Glomerular Filt Rate > 60; Glucose 150 mg/dL (70-99); Osmolality Calculated 295 mOsm/kg (285-295); Potassium 4.4 mmol/L (3.5-5.1); Sodium 141 mmol/L (136-145)
[2023-03-21 10:11] LABS: Rheumatoid Factor Screen Negative (Negative)
[2023-03-21 10:32] LABS: Erythrocyte Sedimentation Rate 44 mm/hr (0-20)
[2023-03-21 12:07] LABS: Uric Acid 3.1 mg/dL (3.5-7.2)
[2023-03-23 21:27] LABS: Anti Cyclic Citrullinated Pept <16 Units (<20)
== END 2023-03-21 09:13 | disposition home or self-care (01) ==
LOC: CHSLAB 09:14
PROVIDERS: PCP Internal Medicine; Visit Provider Internal Medicine
DX: G89.29 Other chronic pain (principal); M79.89 Other specified soft tissue disorders; Z79.01 Long term (current) use of anticoagulants
CPT/HCPCS: 36415; 80048; 84550; 85025; 85610; 85652; 86140; 86200; 86430

== ENCOUNTER 2023-03-23 09:48 | Outpatient (CLI) | payer MEDICARE, SELFPAY ==
--- NOTE | ~2023-03-23 | CT_ITS ---
EXAMINATION: CT wrist LT wo con DATE: 03/23/2023 10:37 INDICATION: Left wrist pain TECHNIQUE: High resolution computed tomography (CT) of the left wrist was performed without intraveno us contrast. Additional sagittal and coronal reconstructions were performed. Automated exposure contr ol and iterative reconstruction technique were employed. The dose-length product was 397.72 mGy-cm. COMPARISON: Radiographs dated 03/01/2023 FINDINGS: Diffuse osteopenia. There appears to be increased scapholunate and lunocapitate angles consistent wit h dorsal intercalated segment instability (DISI) and suggests scapholunate ligament insufficiency. Al ignment is otherwise unremarkable. No fracture. There is prominent chondrocalcinosis at the triangula r fibrocartilage complex and along the wrist and metacarpal joints. There is moderate osteoarthritis at the scaphoid capitate articulation of the midcarpal joint and at the first carpal metacarpal joint . Mild osteoarthritis at the distal radioulnar, wrist, triscaphe and first metacarpophalangeal joints . There are scattered well-defined subarticular lytic bone lesions at the wrist and carpus with thin sclerotic margins, the majority with intact appearing overlying cortices which favors degenerative edwards bchondral cyst over chronic erosions. These are most prominent along the distal ulna and at the capit ate. There are scattered vascular calcific lesions along the radial and ulnar arteries. No joint effu sions or other abnormal fluid collections. IMPRESSION: 1. 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 No acute osseous abnorma lity. 2. Multiple scattered lytic lesions at the wrist and carpus and favor degenerative subchondral cyst o faiza chronic erosions. 3. Chondrocalcinosis at the wrist and metacarpal joints which could be seen in setting of a crystalli ne arthropathy including calcium pyrophosphate deposition (CPPD) disease. 4. 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 The atypical prominence of the arthritis at the scaphoid capitate articulation can be seen with secondar y scapholunate advanced collapse (SLAC) wrist. Reviewed, dictated and finalized at location A. DER TIER IMPRESSION: 1. 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 No acute osseous abnormality. 2. Multiple scattered lytic lesions at the wrist and carpus and favor degenerat antonio subchondral cyst over chronic erosions. 3. Chondrocalcinosis at the wrist and metacarpal joints which could be seen in setting of a crystalline arthropathy including calcium pyrophosphate deposition (CPPD) disease. 4. 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 The atypical prominence of the arthritis at the scaphoid cap itate articulation can be seen with secondary scapholunate advanced collapse (S LAC) wrist.
== END 2023-03-23 09:49 | disposition home or self-care (01) ==
LOC: CHSIMG 09:49
PROVIDERS: PCP Internal Medicine; Visit Provider Internal Medicine
DX: M25.532 Pain in left wrist (principal); M19.032 Primary osteoarthritis, left wrist; M89.9 Disorder of bone, unspecified; M11.232 Other chondrocalcinosis, left wrist; M25.332 Other instability, left wrist
CPT/HCPCS: 73200

== ENCOUNTER 2023-05-24 07:17 | Outpatient (CLI) | payer MEDICARE, SELFPAY ==
[2023-05-24 07:38] LABS: Appearance Urine Clear (Clear); Basophils Absolute Auto 0.02 K/mm3 (0.00-0.10); Basophils Percent Auto 0.4 % (0.0-1.0); Bilirubin Urine Negative (Negative); Blood Urine Negative (Negative); Color Urine Light Yellow (Yellow); Eosinophils Absolute Auto 0.13 K/mm3 (0.02-0.50); Eosinophils Percent Auto 2.4 % (1.0-6.0); Glucose Urine UA 3+ (Negative); Hematocrit 40.7 % (37.0-46.0); Hemoglobin 12.6 g/dL (12.4-15.3); Immature Granulocyte Absolute 0.04 K/mm3 (0.00-0.00); Immature Granulocyte Percent A 0.7 % (0.0-0.0); Ketones Urine Negative (Negative); Leukocyte Esterase Ur Negative LEU/UL (Negative); Lymphocytes Absolute Auto 1.17 K/mm3 (1.10-4.50); Lymphocytes Percent Auto 21.4 % (18.0-42.0); Mean Corpuscular Hemoglobin 30.6 pg (27.0-31.0); Mean Corpuscular Volume 98.8 fL (78.0-102.0); Mean Platelet Volume 9.6 fl (8.7-11.0); Monocytes Absolute Auto 0.45 K/mm3 (0.10-0.90); Monocytes Percent Auto 8.2 % (2.0-11.0); Neutrophils Absolute Auto 3.67 K/mm3 (1.70-7.20); Neutrophils Percent Auto 66.9 % (50.0-70.0); Nitrate Urine Negative (Negative); Platelet Count Result 195 K/mm3 (150-420); Protein Urine Negative (Negative); Red Blood Count 4.12 M/mm3 (4.70-6.10); Red Cell Distribution Width 14.3 % (11.6-14.4); Urobilinogen Urine 0.2 mg/dL (0.2-1.0); White Blood Count 5.5 K/mm3 (4.8-10.8)
[2023-05-24 07:44] LABS: Creatinine Urine 49.46 mg/dL (40-278); MALB Creatinine Ratio 40.8 mg/g (0-30); Microalbumin Urine Random 20.2 mg/L
[2023-05-24 07:45] LABS: Add Urine Microscopic? YES; Bacteria Urine Rare /hpf; RBC Urine None seen /hpf (0-2); WBC Urine None seen /hpf (0-3)
[2023-05-24 07:53] LABS: INR 1.7; Prothrombin Time 18.2 Seconds (9.50-12.1)
[2023-05-24 07:55] LABS: Hemoglobin A1C 6.8 % (<5.7)
[2023-05-24 08:40] LABS: Alanine Aminotransferase 84 U/L (16-63); Albumin Level 3.4 g/dL (3.4-5.0); Alkaline Phosphatase 168 U/L (46-116); Anion Gap 6 mmol/L (4-12); Aspartate Amino Transferase 37 U/L (15-37); Bilirubin,Total 0.3 mg/dL (0.00-1.00); Blood Urea Nitrogen 21 mg/dL (7-18); Carbon Dioxide 30 mmol/L (21-32); Chloride 106 mmol/L (98-108); Cholesterol 123 mg/dL (0-200); Creatine Kinase 76 U/L (39-308); Estimated Glomerular Filt Rate > 60; Free T3 2.19 pg/mL (2.18-3.98); Free T4 Free Thyroxine 0.94 ng/dL (0.76-1.46); Glucose 166 mg/dL (70-99); HDL Direct 39 mg/dL (40-60); LDL Cholesterol Calculated 73 mg/dL (<130); Osmolality Calculated 301 mOsm/kg (285-295); Potassium 4.8 mmol/L (3.5-5.1); Sodium 142 mmol/L (136-145); Thyroid Stimulating Hormone 4.51 uIU/mL (0.36-3.74); Total Protein 6.7 g/dL (6.4-8.2); Triglycerides 54 mg/dL (0-150); Uric Acid 3.3 mg/dL (3.5-7.2)
== END 2023-05-24 07:18 | disposition home or self-care (01) ==
PROVIDERS: PCP Internal Medicine; Visit Provider Internal Medicine
DX: E78.2 Mixed hyperlipidemia (principal); I10 Essential (primary) hypertension; N39.0 Urinary tract infection, site not specified; E11.9 Type 2 diabetes mellitus without complications; E79.0 Hyperuricemia without signs of inflammatory arthritis and tophaceous disease; E03.4 Atrophy of thyroid (acquired); Z79.01 Long term (current) use of anticoagulants
CPT/HCPCS: 36415; 80053; 80061; 81001; 82043; 82550; 83036; 84439; 84443; 84481; 84550; 85025; 85610

== ENCOUNTER 2023-05-30 09:33 | Outpatient (CLI) | payer MEDICARE, SELFPAY ==
[2023-05-30 10:46] LABS: INR 1.3; Prothrombin Time 13.9 Seconds (9.50-12.1)
--- NOTE | 2023-05-30 12:41 | ECHO_ITS ---
Patient Info Name: aPto Payne Age: 82 years : 1940 Gender: Male Ht: 65 in Wt: 126 lbs BSA: 1.62 m2 HR: 70 bpm BP: 118 / 65 mmHg Technical Quality: Good Exam Date: 05/30/2023 12:47 PM Exam Location: Echo Lab Patient Status: Outpatient Admit Date: 05/30/2023 Staff Ordering Physician: Tereza Stock MD Multimedia Teacher: Osito Thakur RDCS Attending Provider: Tereza Stock MD Exam Type: CA echo doppler color flow Study Info Indications - A FIB/HISTORY OF STROKE Complete two-dimensional, color flow and Doppler transthoracic echocardiogram is performed. Summary 1. Complete two-dimensional, color flow and Doppler transthoracic echocardiogram is performed. 2. Left ventricular chamber dimension is normal. 3. Left ventricular systolic function is normal, estimated at 55-60%. 4. The left ventricular diastolic function is abnormal. 5. E/e' 23 is significantly elevated. 6. Linear artifact in right ventricle suggestive of catheter(s), pacemaker lead(s), or ICD lead(s). 7. Left atrial chamber dimension is severely enlarged. 8. Linear artifact in the right atrium suggestive of catheter(s), pacemaker lead(s), or ICD lead(s). 9. There is mild aortic valve sclerosis. 10. There is mild aortic valve regurgitation. 11. There is mild mitral valve regurgitation. 12. There is moderate tricuspid valve regurgitation. 13. Mild pulmonary hypertension, estimated pulmonary arterial systolic pressure is 44 mmHg. 14. Normal inferior vena cava with <50% collapse upon inspiration consistent with elevated right atrial pressure, 10 mmHg. Left Ventricle E/e' 23 is significantly elevated. Left ventricular chamber dimension is normal. Left ventricular systolic function is normal, estimated at 55-60%. The left ventricular diastolic function is abnormal. Right Ventricle Right ventricular systolic function is normal and with normal TAPSE 2.4 cm. Linear artifact in right ventricle suggestive of catheter(s), pacemaker lead(s), or ICD lead(s). Right ventricular chamber dimension is normal. Left Atria Left atrial chamber dimension is severely enlarged. Right Atria Linear artifact in the right atrium suggestive of catheter(s), pacemaker lead(s), or ICD lead(s). Right atrial chamber dimension is normal. Aortic Valve The aortic valve is trileaflet. There is mild aortic valve sclerosis. There is no aortic valve stenosis. There is mild aortic valve regurgitation. Pulmonic Valve There is no pulmonic regurgitation. Mitral Valve There is no mitral valve stenosis. There is mild mitral valve regurgitation. Tricuspid Valve There is moderate tricuspid valve regurgitation. Mild pulmonary hypertension, estimated pulmonary arterial systolic pressure is 44 mmHg. Pericardium/Pleural There is no pericardial effusion. Inferior Vena Cava Normal inferior vena cava with <50% collapse upon inspiration consistent with elevated right atrial pressure, 10 mmHg. Aorta The aortic root size at the sinus of Valsalva is normal. Left Ventricular Outflow Tract Name Value Normal LVOT 2D LVOT Diameter 2.2 cm LVOT Doppler LVOT Peak Velocity 72 cm/s LVOT Peak Gradient 2 mmHg LVOT Mean
== END 2023-05-30 09:34 | disposition home or self-care (01) ==
LOC: CHSIMG 09:36
PROVIDERS: PCP Internal Medicine; Visit Provider Student in an Organized Health Care Education/Training Program
DX: I48.91 Unspecified atrial fibrillation (principal); Z79.01 Long term (current) use of anticoagulants; Z95.0 Presence of cardiac pacemaker; I27.20 Pulmonary hypertension, unspecified; I08.3 Combined rheumatic disorders of mitral, aortic and tricuspid valves
CPT/HCPCS: 36415; 85610; 93306

== ENCOUNTER 2023-06-14 08:39 | Outpatient (RCR) | payer MEDICARE, SELFPAY ==
[2023-04-05 08:54] LABS: INR 2.3; Prothrombin Time 24.2 Seconds (9.50-12.10)
[2023-05-06 09:15] LABS: INR 2.1
[2023-06-03 10:46] LABS: INR 1.8
[2023-06-14 09:28] LABS: INR 1.3; Prothrombin Time 13.9 Seconds (9.50-12.1)
== END 2023-07-04 23:59 | disposition home or self-care (01) ==
LOC: CHSLAB 08:39
PROVIDERS: PCP Internal Medicine; Visit Provider Internal Medicine
DX: Z51.81 Encounter for therapeutic drug level monitoring (principal); Z79.01 Long term (current) use of anticoagulants
CPT/HCPCS: 36415; 85610

== ENCOUNTER 2023-06-23 12:42 | Outpatient (CLI) | payer MEDICARE, SELFPAY ==
--- NOTE | 2023-06-23 12:50 | ECHO_ITS ---
Patient Info Name: Pato Payne Age: 82 years : 1940 Gender: Male Ht: 71 in Wt: 180 lbs BSA: 2.03 m2 HR: 68 bpm BP: 116 / 68 mmHg Technical Quality: Good Exam Date: 06/23/2023 12:42 PM Exam Location: Echo Lab Patient Status: Outpatient Admit Date: 06/23/2023 Staff Ordering Physician: Tereza Stock MD Stitcher Standard Machine: Scot Kidd RDCS Attending Provider: Tereza Stock MD Exam Type: CA echo limited w bubble study Study Info Indications - stroke Limited two-dimensional transthoracic echocardiogram is performed with agitated saline. Contrast/Agitated Saline Contrast/Ag. Saline: Agitated Saline Amount: 20.00 ml Administered By: Mariaelena Kong MARCO New IV Access: Right Site Condition: IV removed Summary 1. Limited echocardiogram to assess atrial septum. 2. Agitated saline injection with and without valsalva maneuver opacified right side cardiac chambers without shunt to left side cardiac chambers. 3. No evidence of patent foramen ovale. Atrial Septum Agitated saline injection with and without valsalva maneuver opacified right side cardiac chambers without shunt to left side cardiac chambers. No evidence of patent foramen ovale. Limited echocardiogram to assess atrial septum. Interatrial septum not well visualized by 2D and agitated saline imaging. Report Signatures
== END 2023-06-23 12:43 | disposition home or self-care (01) ==
LOC: CHSIMG 12:43
PROVIDERS: PCP Internal Medicine; Visit Provider Student in an Organized Health Care Education/Training Program
DX: I63.9 Cerebral infarction, unspecified (principal)
CPT/HCPCS: 99199; 93308; 96375

== ENCOUNTER 2023-09-08 07:06 | Outpatient (CLI) | payer MEDICARE, SELFPAY ==
[2023-09-08 07:36] LABS: Add Urine Microscopic? NO; Appearance Urine Clear (Clear); Basophils Absolute Auto 0.02 K/mm3 (0.00-0.10); Basophils Percent Auto 0.4 % (0.0-1.0); Bilirubin Urine Negative (Negative); Blood Urine Negative (Negative); Color Urine Light Yellow (Yellow); Eosinophils Absolute Auto 0.06 K/mm3 (0.02-0.50); Eosinophils Percent Auto 1.1 % (1.0-6.0); Glucose Urine UA 3+ (Negative); Hematocrit 38.4 % (37.0-46.0); Immature Granulocyte Absolute 0.03 K/mm3 (0.00-0.00); Immature Granulocyte Percent A 0.6 % (0.0-0.0); Ketones Urine Negative (Negative); Leukocyte Esterase Ur Negative (Negative); Lymphocytes Absolute Auto 0.97 K/mm3 (1.10-4.50); Lymphocytes Percent Auto 17.9 % (18.0-42.0); Mean Corpuscular HGB Conc 33.9 g/dL (32-36); Mean Corpuscular Hemoglobin 31.9 pg (27.0-31.0); Mean Corpuscular Volume 94.3 fL (78.0-102.0); Mean Platelet Volume 9.7 fl (8.7-11.0); Monocytes Absolute Auto 0.46 K/mm3 (0.10-0.90); Monocytes Percent Auto 8.5 % (2.0-11.0); Neutrophils Absolute Auto 3.88 K/mm3 (1.70-7.20); Neutrophils Percent Auto 71.5 % (50.0-70.0); Nitrate Urine Negative (Negative); Platelet Count Result 174 K/mm3 (150-420); Protein Urine Negative (Negative); Red Blood Count 4.07 M/mm3 (4.70-6.10); Red Cell Distribution Width 13.5 % (11.6-14.4); Urobilinogen Urine 0.2 mg/dL (0.2-1.0); White Blood Count 5.4 K/mm3 (4.8-10.8)
[2023-09-08 07:51] LABS: Prothrombin Time 10.8 Seconds (9.50-12.1)
[2023-09-08 08:24] LABS: Alanine Aminotransferase 72 U/L (16-63); Albumin Level 3.7 g/dL (3.4-5.0); Alkaline Phosphatase 149 U/L (46-116); Anion Gap 8 mmol/L (4-12); Aspartate Amino Transferase 40 U/L (15-37); Bilirubin,Total 0.6 mg/dL (0.00-1.00); Blood Urea Nitrogen 18 mg/dL (7-18); Calcium 9.1 mg/dL (8.5-10.1); Carbon Dioxide 25 mmol/L (21-32); Chloride 106 mmol/L (98-108); Estimated Glomerular Filt Rate > 60; Free T3 2.24 pg/mL (2.18-3.98); Free T4 Free Thyroxine 0.94 ng/dL (0.76-1.46); Glucose 127 mg/dL (70-99); NT Pro B Type Natriuretic Pept 637 pg/mL (0-450); Osmolality Calculated 291 mOsm/kg (285-295); Potassium 4.8 mmol/L (3.5-5.1); Sodium 139 mmol/L (136-145); Total Protein 6.8 g/dL (6.4-8.2); Uric Acid 4.1 mg/dL (3.5-7.2)
== END 2023-09-08 07:07 | disposition home or self-care (01) ==
LOC: CHSLAB 07:11
PROVIDERS: PCP Internal Medicine; Visit Provider Internal Medicine
DX: E03.4 Atrophy of thyroid (acquired) (principal); Z79.01 Long term (current) use of anticoagulants; E11.65 Type 2 diabetes mellitus with hyperglycemia; I73.9 Peripheral vascular disease, unspecified; E79.0 Hyperuricemia without signs of inflammatory arthritis and tophaceous disease; I48.21 Permanent atrial fibrillation; I50.31 Acute diastolic (congestive) heart failure
CPT/HCPCS: 36415; 80053; 81003; 83036; 83880; 84439; 84443; 84481; 84550; 85025; 85610

== ENCOUNTER 2023-09-11 19:49 | Observation (INO) | payer MEDICARE, SELFPAY ==
--- NOTE | ~2023-09-11 | XR_ITS ---
XR ribs RT 2V DATE: 09/11/2023 20:14 INDICATION: Fall. Right anterior rib pain. TECHNIQUE: 3 views of right ribs COMPARISON: None FINDINGS: There is diffuse osteopenia. No right rib fracture or bone destruction is detected. Rotator cuff atrophy of the right shoulder. Right atrial and ventricular pacemaker leads are noted. No right lung infiltrate or consolidation, pleural effusion or pneumothorax is noted. IMPRESSION: Osteopenia No right rib fractures evident Reviewed, dictated and finalized at location J.
--- NOTE | ~2023-09-11 | CT_ITS ---
CT hip RT wo con DATE: 09/11/2023 21:17 INDICATION: Fall. Unable to bear weight. Severe right hip pain. TECHNIQUE: Axial images through the right hip; sagittal and coronal reconstructions COMPARISON: 09/11/2023 pelvis and right hip FINDINGS: There is very subtle nondisplaced anterior cortical fracture of the anterior articular pill ar of the right acetabulum, not radiographically evident on the pelvis and right hip retrospectively. Severe degenerative disc disease at L3-4 and particularly L4-5 and L5-S1. Diffuse osteopenia.. IMPRESSION: Very subtle nondisplaced anterior cortical fracture of the anterior articular pillar of t he right acetabulum Reviewed, dictated and finalized at Location A. Reviewed, dictated and finalized at location J. IMPRESSION: Very subtle nondisplaced anterior cortical fracture of the anterior articular pillar of the right acetabulum
--- NOTE | ~2023-09-11 | XR_ITS ---
XR hip RT 2V w AP pelvis DATE: 09/11/2023 20:13 INDICATION: Fall. Right hip pain. TECHNIQUE: AP pelvis. AP and lateral views of right hip. COMPARISON: None FINDINGS: There is osteopenia. Normal alignment at the pubic symphysis and sacroiliac joint. No pelvic fracture or bone destruction is detected. Hip joint spaces are symmetric and relatively preserved. No fracture, dislocation, avascular necrosis or bone destruction of the right hip is detected. Multilevel severe degenerative disc disease and dextroscoliosis of the lumbar spine. Abdominal aortic and bilateral iliac and femoral arterial calcifications. IMPRESSION: Osteopenia No pelvic or right hip fracture or dislocation is detected Scoliosis and multilevel severe degenerative disc disease of the lumbar spine Reviewed, dictated and finalized at location J.
[2023-09-11 19:50] VITALS: BP 142/73; PULSE 82; RESP 18; TEMP 36.6; O2SAT 99
--- NOTE | 2023-09-11 19:51 | ED.FALL ---
HPI - Fall General Chief Complaint: Fall Stated Complaint: fall, hip and rib cage injury Time Seen by Provider: 09/11/23 19:50 Source: patient Mode of arrival: EMS Limitations: no limitations History of Present Illness HPI Narrative: patient is an 83-year-old male who tripped over his own feet at a ground level fall and landed on his right side with a right hip pain and right ribs anterior chest wall pain. patient is on Eliquis. complaint: fall Onset (ago): hour(s) (1) Fall from: standing Fall witnessed: no Place fall occurred: home Loss of consciousness: none Prolonged down time: no Symptoms prior to fall: none Context: tripped/slipped Location of injury: other ( Right hip and right chest) Severity: mild Severity scale (1-10): 2 Quality: sharp Associated symptoms (after fall): denies Related Data Home Medications Medication Instructions Recorded Confirmed allopurinol 300 mg tablet 300 mg PO HS 04/17/19 09/11/23 carvedilol 6.25 mg tablet 6.25 mg PO BID 04/17/19 09/11/23 enalapril maleate 5 mg tablet 5 mg PO DAILY 04/17/19 09/11/23 potassium chloride 20 mEq 20 meq PO DAILY 04/17/19 09/11/23 tablet,extended release(part/cryst) apixaban 5 mg tablet (Eliquis) 5 mg PO BID 07/18/23 09/11/23 sitagliptin phosphate 100 mg 100 mg PO DAILY 09/11/23 09/11/23 tablet (Januvia) tamsulosin 0.4 mg capsule 0.4 mg PO DAILY 09/11/23 09/11/23 Allergies Allergy/AdvReac Type Severity Reaction Status Date / Time No Known Allergies Allergy Verified 08/29/23 08:30 Review of Systems Review of Systems: All systems reviewed & are unremarkable except as noted in HPI and below Constitutional: Constitutional: Reports no additional constitutional complaints Eyes: Eyes: Reports no additional eye complaints ENT: Reports system reviewed and no additional complaints, except as documented Cardiovascular: Cardiovascular: Reports no additional cardiovascular complaints Respiratory: Respiratory: Reports no additional respiratory complaints Gastrointestinal: Gastrointestinal: Reports no additional gastrointestinal complaints Genitourinary: Genitourinary: Reports no additional male genitourinary complaints Musculoskeletal: Musculoskeletal: Reports no additional musculoskeletal complaints Integumentary/Breasts: Skin/Breast: Reports system reviewed and no additional complaints, except as docu Neurologic: Reports system reviewed and no additional complaints, except as documented Psychiatric: Psychiatric: Reports no additional psychiatric complaints Endocrine: Endocrine: Reports no additional endocrine complaints Hematologic/Lymphatic: Hematologic/Lymphatic: Reports no additional hematologic/lymphatic complaints Allergic/Immunologic: Allergic/Immunologic: Reports no additional allergic/immunologic complaints PMFSH Past Medical History Medical History Arthritis Atrial fibrillation Benign prostatic hyperplasia Chronic anticoagulation Diastolic congestive heart failure Dyslipidemia Gout Hypertension Type 2 diabetes mellitus Surgical History Surgical History History of appendectomy History of cardiac catheterization History of colonoscopy with polypectomy History of permanent cardiac pacemaker placement Family History Family History Other Diabetes mellitus Hypertension Social History Social History Social History: Surrogate medical decision maker: Kiley Saha (daughter) or Ham Brewer (son). Code status: Full code. Years smoked: 30 Smoking status: Former smoker Tobacco type: cigarettes Smokeless tobacco user: chewing tobacco Second hand tobacco smoke exposure: Yes Smoking end date: 02/07/02 Alcohol intake: former Substance use: never Substance use type: does not use Do You Fee
[2023-09-11 19:52] VITALS: BP 142/73; PULSE 82; RESP 18; TEMP 36.2; O2SAT 99
--- NOTE | 2023-09-11 20:15 | PC.NURSE ---
Assisted casing grader w/ moving pt from stretcher to x ray machine
--- NOTE | 2023-09-11 20:44 | PC.NURSE ---
POC discussed w/ pt. Trying to find someone to take pt home.
--- NOTE | 2023-09-11 20:56 | PC.NURSE ---
Attempted to help pt stand to walk and he has severe pain when trying to ambulate and noticable limp. CT scan ordered per ERP.
[2023-09-11 21:00] VITALS: BP 142/65; PULSE 81; RESP 18; O2SAT 98
[2023-09-11] MEDS: traMADol HCL (*CRX) 50 MG TABLET PO (21:53)
[2023-09-11] MEDS: MELOXICAM 7.5 MG TABLET 15 MG PO (22:00)
--- NOTE | 2023-09-11 22:03 | PC.NURSE ---
POC discussed w/ pt about new CT results. He wants [facility] contacted, will call [facility] for ortho consult.
--- NOTE | 2023-09-11 23:10 | PC.NURSE ---
Consult made w/ ortho Dr Francis, POC for admit to [facility] and need for rehab and therapy discussed w/ pt as he is to be non wt bearing for healing.
[2023-09-11 23:29] VITALS: BP 132/57; PULSE 68; RESP 14; TEMP 36.7; O2SAT 95
--- NOTE | 2023-09-11 23:32 | PC.NURSE ---
Call to floor, spoke w/ set up and charger Lilly, pt will be made 23 hr obs to Rm [id number].
[2023-09-11 23:47] VITALS: BP 130/62; PULSE 82; RESP 18; TEMP 36.6; O2SAT 97
[2023-09-12] VITALS: BP 132/62; PULSE 86; RESP 16; TEMP 36.4; O2SAT 98; BMI 24.6
--- NOTE | 2023-09-12 00:03 | ADMGEN ---
This patient, Pato Payne, was admitted to 2nd Floor Room 208-1. Patient oriented to hospital policies and general routines including ID bracelet, bed and alarms, visiting hours, pain management, procedures, bathroom and other care routines, personal items, smoking policy, room service/diet, and visiting hours. Information on how to activate the Rapid Response Team has been discussed. Patient are encouraged to report perceived risks to care and to ask questions if they do not understand what they are told or what they should do.
--- NOTE | 2023-09-12 00:37 | PC.NURSE ---
EKG order noted to be STAT, call placed to Cardio-Pulmonary, spoke with Darling (RT therapist), states Dr. Medley has ordered EKG for 0600. Call placed to ED to verify the discrepancy, spoke with Lexie ROJAS who states the test is to be done at 6am.
--- NOTE | 2023-09-12 02:14 | PC.NURSE ---
Patient unable to use urinal at this time, states he will call if he requires assist.
--- NOTE | 2023-09-12 02:24 | PC.NURSE ---
Patient requesting sandoval catheter d/t inability to urinate in urinal and being on bedrest and NWB to RLE d/t fx. Education attempted on risk factors for catheter, condom cath offered as a short term option but patient declines. Spoke with Dr. Medley, states he wants to wait on catheter d/t risks. Patient aware, agrees to lie in side lying position and try urinal again.
--- NOTE | 2023-09-12 02:44 | PC.NURSE ---
Patient remains unable to void, does agree to condom cath for short term use
--- NOTE | 2023-09-12 06:00 | ECG_ITS ---
Test Date: 2023-09-12 05:21:52 Measurements Intervals [place] Rate: 71 P: 0 [place]: 0 QRS: -63 QRSD: 180 T: 92 QT: 439 QTc: 479 Interpretive Statements ELECTRONIC VENTRICULAR PACEMAKER No previous ECG available for comparison Electronically Signed On 09-13-2023 14:32:19 CDT by Pallavi Montes M.D.
[2023-09-12 07:05] LABS: Alanine Aminotransferase 55 U/L (6-50); Albumin Level 3.8 g/dL (3.5-5.1); Alkaline Phosphatase 114 U/L (38-126); Anion Gap 10 mmol/L (4-12); Aspartate Amino Transferase 50 U/L (17-59); Bilirubin,Total 0.7 mg/dL (0.2-1.3); Blood Urea Nitrogen 29 mg/dL (9-20); Carbon Dioxide 22 mmol/L (22-30); Chloride 104 mmol/L (98-107); Estimated CRCL calculation 47 ml/min; Estimated Glomerular Filt Rate > 60; Glucose 164 mg/dL (65-110); Osmolality Calculated 291 mOsm/kg (285-295); Potassium 4.3 mmol/L (3.4-5.0); Sodium 136 mmol/L (137-145)
[2023-09-12 08:00] VITALS: BP 118/61; PULSE 78; RESP 20; TEMP 35.7; O2SAT 95
[2023-09-12 08:43] LABS: Basophils Absolute Auto 0.02 K/mm3 (0.00-0.10); Basophils Percent Auto 0.3 % (0.0-1.0); Eosinophils Absolute Auto 0.03 K/mm3 (0.02-0.50); Eosinophils Percent Auto 0.4 % (1.0-6.0); Hematocrit 36.7 % (37.0-46.0); Hemoglobin 12.3 g/dL (12.4-15.3); Immature Granulocyte Absolute 0.03 K/mm3 (0.00-0.00); Immature Granulocyte Percent A 0.4 % (0.0-0.0); Lymphocytes Percent Auto 12.4 % (18.0-42.0); Mean Corpuscular HGB Conc 33.5 g/dL (32-36); Mean Corpuscular Hemoglobin 31.6 pg (27.0-31.0); Mean Corpuscular Volume 94.3 fL (78.0-102.0); Mean Platelet Volume 10.2 fl (8.7-11.0); Monocytes Absolute Auto 0.64 K/mm3 (0.10-0.90); Monocytes Percent Auto 8.8 % (2.0-11.0); Neutrophils Absolute Auto 5.66 K/mm3 (1.70-7.20); Neutrophils Percent Auto 77.7 % (50.0-70.0); Platelet Count Result 164 K/mm3 (150-420); Red Blood Count 3.89 M/mm3 (4.70-6.10); Red Cell Distribution Width 13.5 % (11.6-14.4); White Blood Count 7.3 K/mm3 (4.8-10.8)
[2023-09-12] MEDS: ENALAPRIL MALEATE 5 MG TABLET PO (09:05)
[2023-09-12] MEDS: SITagliptin PHOSPHATE 50 MG TABLET 100 MG PO (09:05)
[2023-09-12 09:06] VITALS: PULSE 78
[2023-09-12] MEDS: POTASSIUM CHLORIDE 20 MEQ ER TABLET PO (09:06)
[2023-09-12] MEDS: APIXABAN 2.5 MG TABLET 5 MG PO ×2 (09:06→22:01)
[2023-09-12] MEDS: TAMSULOSIN HCL 0.4 MG CAPSULE PO (09:06)
[2023-09-12] MEDS: FUROSEMIDE 40 MG TABLET PO (09:06)
[2023-09-12] MEDS: LOVASTATIN 20 MG TABLET 40 MG PO (09:06)
[2023-09-12] MEDS: carvediloL 6.25 MG TABLET PO ×2 (09:06→22:01)
[2023-09-12] MEDS: EMPAGLIFLOZIN 10 MG TABLET PO (09:06)
--- NOTE | 2023-09-12 10:40 | PM.IMHP ---
H&P: HPI History of Present Illness Date/Time: 09/12/23 10:40 Chief Complaint: Fall Narrative: This is an 83 year old gentleman with a past medical history significant for arthritis, atrial fibrillation on anticoagulation, HTN, BPH, HFpEF, dyslipidemia, gout, left parietal CVA and DM II who presented to [facility] after suffering a mechanical fall at home. He provides the following history. He states that he was getting up from his chair when he tripped causing him to land on the right side of his chest and hip. He was wearing a life alert necklace and was able to call for help. In the ED imaging was notable for a nondisplaced anterior cortical fracture of the right acetabulum. The emergency room physician spoke with orthopedic surgeon network contractor who states the treatment is non-surgical with non-weightbearing for 4-6 weeks. In the ED labs were significant for hemoglobin 12.3, g/dl, sodium 136, and glucose 164. Labs were otherwise fairly unremarkable. He had imaging of his ribs which showed no acute fracture. X-ray of his right hip and pelvis did not show an acute fracture but the patient was unable to bear weight and mobilize so a CT hip and pelvis was completed which showed the nondisplaced right acetabular fracture. The patient denied striking his head and there was no obvious head trauma so CT scan of his head was not completed in the emergency room. The patient was admitted for pain control, PT/OT consults, and help with placement in a nursing facility. Review of Systems Review of Systems: All systems reviewed & are unremarkable except as noted in HPI and below PMFSH Past Medical History Medical History (Updated 09/12/23 @ 16:23 by Keely Acevedo APRN) Arthritis Atrial fibrillation Benign prostatic hyperplasia Cerebrovascular accident Chronic anticoagulation Diastolic congestive heart failure Dyslipidemia Gout Hypertension Type 2 diabetes mellitus Surgical History Surgical History History of appendectomy History of cardiac catheterization History of colonoscopy with polypectomy History of permanent cardiac pacemaker placement Previous back surgery Family History Family History Other Diabetes mellitus Hypertension Social History Social History (Updated 09/12/23 @ 16:25 by Keely Acevedo APRN) Social History: The patient is with two children. His daughter lives in [place] and is a traveling nurse. He designates his son, Ham as his emergency contact. He is retired, disabled after work for [employer]. He suffered a back injury which left him to retire early. He lives at home alone. Surrogate medical decision maker: Ham Brewer (son). Code status: Full code. Years smoked: 30 Smoking status: Former smoker Smokeless tobacco user: chewing tobacco Second hand tobacco smoke exposure: Yes Alcohol intake: former Substance use: never Substance use type: does not use Do You Feel Safe in your Home?: No Lack of Transportation: No Lack of Food: Never True Current Housing: I Have Housing Concerned About Future Housing: No Difficulty Paying Gas/Electric Bills: No Difficulty Paying for Meds: No Currently Unemployed: No Education: High School Diploma/GED Difficulty w/ Childcare or Family Care: No Living arrangements: alone Occupation/Education: retired Spiritual care concerns: No Meds Home Medications and Allergies Home Medications Medication Instructions Recorded Confirmed Type allopurinol 300 mg tablet 300 mg PO HS 04/17/19 09/11/23 History carvedilol 6.25 mg tablet 6.25 mg PO BID 04/17/19 09/11/23 History enalapril maleate 5 mg tablet 5 mg PO DAILY 04/17/19 09/11/23 History potassium chloride 20 mEq 20 meq PO DAILY 04/17/19 09/11/23 History tablet,extended release(part/cryst) empagliflozin 10 mg tablet 10 mg PO DAILY #30 tabs 0
[2023-09-12] MEDS: HYDROcodone/acetaminophen (*CRX) 5-325 MG TABLET 1 TAB PO ×2 (11:47→22:02)
[2023-09-12 16:00] VITALS: BP 115/53; PULSE 70; RESP 20; TEMP 35.8; O2SAT 97
[2023-09-12 19:35] LABS: Add Urine Microscopic? NO; Appearance Urine Clear (Clear); Bilirubin Urine Negative (Negative); Blood Urine Negative (Negative); Color Urine Light Yellow (Yellow); Glucose Urine UA 3+ (Negative); Ketones Urine Negative (Negative); Leukocyte Esterase Ur Negative LEU/UL (Negative); Nitrate Urine Negative (Negative); Protein Urine Negative (Negative); Urobilinogen Urine 0.2 mg/dL (0.2-1.0)
[2023-09-12 20:00] VITALS: PULSE 70; RESP 20; O2SAT 97
[2023-09-12 22:01] VITALS: PULSE 84
[2023-09-12] MEDS: SENNA/DOCUSATE SODIUM TABLET 1 TAB PO (22:01)
[2023-09-12] MEDS: allopurinoL 300 MG TABLET PO (22:01)
[2023-09-13] VITALS: BP 118/61; PULSE 84; RESP 18; TEMP 36.2; O2SAT 97
[2023-09-13] MEDS: ACETAMINOPHEN 325 MG TABLET 650 MG PO (03:43)
[2023-09-13 05:18] LABS: Hematocrit 33.4 % (37.0-46.0); Hemoglobin 11.4 g/dL (12.4-15.3); Mean Corpuscular HGB Conc 34.1 g/dL (32-36); Mean Corpuscular Hemoglobin 32.4 pg (27.0-31.0); Mean Corpuscular Volume 94.9 fL (78.0-102.0); Mean Platelet Volume 9.4 fl (8.7-11.0); Platelet Count Result 128 K/mm3 (150-420); Red Blood Count 3.52 M/mm3 (4.70-6.10); Red Cell Distribution Width 13.6 % (11.6-14.4); White Blood Count 6.3 K/mm3 (4.8-10.8)
[2023-09-13 05:31] LABS: INR 1.1; Partial Thromboplastin Time 34.9 Sec (23.9-30.70); Prothrombin Time 11.7 Seconds (9.50-12.1)
[2023-09-13 06:18] LABS: Alanine Aminotransferase 45 U/L (6-50); Albumin Level 3.4 g/dL (3.5-5.1); Alkaline Phosphatase 105 U/L (38-126); Anion Gap 9 mmol/L (4-12); Aspartate Amino Transferase 33 U/L (17-59); Blood Urea Nitrogen 29 mg/dL (9-20); Carbon Dioxide 21 mmol/L (22-30); Chloride 104 mmol/L (98-107); Estimated CRCL calculation 52 ml/min; Estimated Glomerular Filt Rate > 60; Glucose 142 mg/dL (65-110); Magnesium 2.2 mg/dL (1.6-2.3); Osmolality Calculated 285 mOsm/kg (285-295); Potassium 4.5 mmol/L (3.4-5.0); Sodium 134 mmol/L (137-145)
--- NOTE | 2023-09-13 07:52 | WPDPN ---
Progress Note: A&P Assessment and Plan (1) Fall: Qualifiers: Encounter type: initial encounter Qualified Code(s): W19.XXXA - Unspecified fall, initial encounter Code(s): W19.XXXA - Unspecified fall, initial encounter Status: Acute Assessment and Plan: Hip Fracture no surgical intervention indicated (2) Cerebrovascular accident: Code(s): I63.9 - Cerebral infarction, unspecified Status: Acute Assessment and Plan: minimal residual noted (3) Mild cognitive impairment: Code(s): G31.84 - Mild cognitive impairment of uncertain or unknown etiology Status: Acute (4) Closed pelvic fracture: Qualifiers: Encounter type: initial encounter Fracture alignment: nondisplaced Laterality: right Pelvic bone location: acetabulum Sublocation of acetabulum: unspecified portion of acetabulum Qualified Code(s): S32.401A - Unspecified fracture of right acetabulum, initial encounter for closed fracture Code(s): S32.9XXA - Fracture of unspecified parts of lumbosacral spine and pelvis, initial encounter for closed fracture Status: Acute Assessment and Plan: non weight bearing for 6 weeks pt is frail Fall precaution right acetabulum nondisplaced fracture awaiting placement Subjective Date/time seen: 09/13/23 07:52 Interval history: Pt continue to remain nonweight bearing. Patient is needing placement reviewed vitals participate with therapy eating and drinking without difficulties Exam Const: General: cooperative, ill appearing and underweight Orientation/consciousness: oriented to person, oriented to place, oriented to time and patient oriented x3 HENMT: Head: normal to inspection Mouth: Yes Normal oral and palatal mucosa present Chest: Chest palpation & inspection: normal inspection of the chest Resp: Effort & Inspection: able to speak in complete sentences and Actively coughing Auscultation: diminished lung sounds GI: Inspection: normal to inspection Auscultation: normal bowel sounds Back/Spine/Pelvis: Back: no CVA tenderness Skin: General skin exam: normal color Lesions: no lesions Rashes: no rashes Neuro: General: oriented to person, oriented to place, oriented to time and patient oriented x3 Extrem: General: normal exam except as noted Psych: Appearance: well kempt and disheveled Objective Data Vital Signs Vital Signs: Vital Signs - 24 hr 09/12/23 09:06 09/12/23 08:00 09/12/23 16:00 Temperature 96.3 F L 96.4 F L Pulse Rate 78 78 70 Respiratory Rate 20 20 Blood Pressure 118/61 115/53 L Pulse Oximetry 95 97 Oxygen Delivery Room Air Room Air 09/12/23 20:00 09/12/23 22:01 09/13/23 00:00 Temperature 97.1 F L Pulse Rate 70 84 84 Respiratory Rate 20 18 Blood Pressure 118/61 Pulse Oximetry 97 97 Oxygen Delivery Room Air Room Air Intake/Output Intake/Output: Intake & Output 09/10/23 09/11/23 09/12/23 09/13/23 23:59 23:59 23:59 23:59 Intake Total 2330 240 Output Total 1650 1200 Balance 680 -960 Meds/Results Medications: Active Medications Generic Name Dose Route Start Last Admin Trade Name Freq PRN Reason Stop Dose Admin Acetaminophen 650 mg 09/11/23 23:21 09/13/23 03:43 Acetaminophen 325 Mg Tablet PO 650 mg Q4H PRN Administration Mild Pain (1-3) or Fever Hydrocodone Bitart/Acetaminophen 1 tab 09/11/23 23:21 09/12/23 22:02 Hydrocodone/Acetaminophen (*Crx) 5-325 Mg Tablet PO 1 tab Q6H PRN Administration Moderate Pain (4-6) Allopurinol 300 mg 09/12/23 21:00 09/12/23 22:01 Allopurinol 300 Mg Tablet PO 300 mg HS SHAHRZAD Administration Apixaban 5 mg 09/12/23 09:00 09/12/23 22:01 Apixaban 2.5 Mg Tablet PO 5 mg Q12HR SHAHRZAD Administration Carvedilol 6.25 mg 09/12/23 09:00 09/12/23 22:01 Carvedilol 6.25 Mg Tablet PO 6.25 mg Q12HR SHAHRZAD Administration Dextrose 12.5 gm 09/12/23 16:43 Dextrose 50% 2
[2023-09-13 08:00] VITALS: BP 108/64; PULSE 67; RESP 17; TEMP 36.4; O2SAT 97
[2023-09-13] MEDS: SITagliptin PHOSPHATE 50 MG TABLET 100 MG PO (09:50)
[2023-09-13] MEDS: APIXABAN 2.5 MG TABLET 5 MG PO ×2 (09:50→20:27)
[2023-09-13] MEDS: LOVASTATIN 20 MG TABLET 40 MG PO (09:50)
[2023-09-13] MEDS: EMPAGLIFLOZIN 10 MG TABLET PO (09:50)
[2023-09-13] MEDS: TAMSULOSIN HCL 0.4 MG CAPSULE PO (09:50)
[2023-09-13] MEDS: ENALAPRIL MALEATE 5 MG TABLET PO (09:50)
[2023-09-13 09:51] VITALS: PULSE 67
[2023-09-13] MEDS: carvediloL 6.25 MG TABLET PO ×2 (09:51→20:27)
[2023-09-13] MEDS: FUROSEMIDE 40 MG TABLET PO (09:51)
[2023-09-13] MEDS: POTASSIUM CHLORIDE 20 MEQ ER TABLET PO (09:51)
[2023-09-13 16:00] VITALS: BP 112/65; PULSE 70; RESP 18; TEMP 36.6; O2SAT 96
[2023-09-13 20:27] VITALS: PULSE 68
[2023-09-13] MEDS: SENNA/DOCUSATE SODIUM TABLET 1 TAB PO (20:27)
[2023-09-13] MEDS: allopurinoL 300 MG TABLET PO (20:27)
[2023-09-13 23:57] VITALS: BP 111/57; PULSE 68; RESP 20; TEMP 36.1; O2SAT 96
--- NOTE | 2023-09-14 07:33 | PM.IMPN ---
Progress Note: A&P Assessment and Plan (1) Fall: Qualifiers: Encounter type: initial encounter Qualified Code(s): W19.XXXA - Unspecified fall, initial encounter Code(s): W19.XXXA - Unspecified fall, initial encounter Status: Acute Assessment and Plan: Hip Fracture no surgical intervention indicated working well with therapy plan to find placement for patien t (2) Cerebrovascular accident: Code(s): I63.9 - Cerebral infarction, unspecified Status: Acute Assessment and Plan: minimal residual noted (3) Mild cognitive impairment: Code(s): G31.84 - Mild cognitive impairment of uncertain or unknown etiology Status: Acute (4) Closed pelvic fracture: Qualifiers: Encounter type: initial encounter Fracture alignment: nondisplaced Laterality: right Pelvic bone location: acetabulum Sublocation of acetabulum: unspecified portion of acetabulum Qualified Code(s): S32.401A - Unspecified fracture of right acetabulum, initial encounter for closed fracture Code(s): S32.9XXA - Fracture of unspecified parts of lumbosacral spine and pelvis, initial encounter for closed fracture Status: Acute Assessment and Plan: non weight bearing for 6 weeks pt is frail Fall precaution right acetabulum nondisplaced fracture awaiting placement Subjective Date/time seen: 09/14/23 07:33 Interval history: Reviewed vital Reviewed labs plan to continue therapy awaiting placement for patient 09/13/2023 Pt continue to remain nonweight bearing. Patient is needing placement reviewed vitals participate with therapy eating and drinking without difficulties Exam Const: General: cooperative, healthy appearing, ill appearing, well nourished and underweight Nutritional Appearance: well nourished and underweight Orientation/consciousness: oriented to person, oriented to place, oriented to time and patient oriented x3 HENMT: Head: normal to inspection Ears: external ears normal Face/Nose/Sinus: Normal external nose present Mouth: Yes Normal oral and palatal mucosa present Eyes: Conjunctivae: conjunctivae normal Pupils: Equal, round and reactive pupils present EOM: EOMs intact bilaterally Neck: Neck: normal visual inspection Chest: Chest palpation & inspection: normal inspection of the chest Resp: Effort & Inspection: normal respiratory effort, able to speak in complete sentences, Actively coughing and not labored Auscultation: clear to auscultation bilaterally and diminished lung sounds Cardio: Rate: regular rate Rhythm: regular rhythm Heart sounds: no murmurs GI: Inspection: normal to inspection and non-distended Auscultation: normal bowel sounds : General: Yes bladder normal to palpation and Yes no CVA tenderness Back/Spine/Pelvis: Back: no CVA tenderness Skin: General skin exam: normal color Lesions: no lesions Rashes: no rashes Wounds: no wounds Neuro: General: oriented to person, oriented to place, oriented to time and patient oriented x3 Cranial nerves: Yes Equal, round and reactive pupils present and Yes Nystagmus not present Speech: normal speech Extrem: General: normal to inspection and normal exam except as noted Other: Tender right hip to palpation as well as right anterior chest wall Psych: Appearance: well kempt and disheveled Mental Status: mental status grossly normal Affect: normal affect Attitude: cooperative Objective Data Vital Signs Vital Signs: Vital Signs - 24 hr 09/13/23 09:51 09/13/23 08:00 09/13/23 16:00 Temperature 97.5 F L 98 F Pulse Rate 67 67 70 Respiratory Rate 17 18 Blood Pressure 108/64 112/65 Pulse Oximetry 97 96 Oxygen Delivery Room Air Room Air 09/13/23 20:27 09/13/23 23:57 Temperature 96.9 F L Pulse Rate 68 68 Respiratory Rate 20 Blood Pressure 111/57 L Pulse Oximetry 96 Oxygen Delivery Room Air Intake/Output Intake/Output: Intake & Out
[2023-09-14 08:00] VITALS: BP 122/60; PULSE 82; RESP 17; TEMP 36.6; O2SAT 98
[2023-09-14 09:44] VITALS: PULSE 81
[2023-09-14] MEDS: FUROSEMIDE 40 MG TABLET PO (09:44)
[2023-09-14] MEDS: ENALAPRIL MALEATE 5 MG TABLET PO (09:44)
[2023-09-14] MEDS: TAMSULOSIN HCL 0.4 MG CAPSULE PO (09:44)
[2023-09-14] MEDS: POTASSIUM CHLORIDE 20 MEQ ER TABLET PO (09:44)
[2023-09-14] MEDS: APIXABAN 2.5 MG TABLET 5 MG PO (09:44)
[2023-09-14] MEDS: EMPAGLIFLOZIN 10 MG TABLET PO (09:44)
[2023-09-14] MEDS: carvediloL 6.25 MG TABLET PO (09:44)
[2023-09-14] MEDS: LOVASTATIN 20 MG TABLET 40 MG PO (09:44)
[2023-09-14] MEDS: SITagliptin PHOSPHATE 50 MG TABLET 100 MG PO (09:44)
--- NOTE | 2023-09-14 12:18 | PM.TDS ---
Transfer Discharge Sum: Prov Provider Date of admission: 09/11/23 23:17 Primary care physician: Brady Bourgeois MD Admitting clinician: Florin Wright MD Attending physician on admission: Noe Wright Consults: 09/11/23 Care Coordination Consult Routine Reason for Consult:: Acute Rehab Consult Attending physician on discharge: Noe Wright Discharging clinician: Dillon Medina Anticipated date of transfer: 09/14/23 Receiving physician/facility: [facility] DS: Admitting Diagnosis Discharge Date 09/13/ Admitting Diagnosis Fracture of hip/closed Pelvic fracture DS: Discharge Diagnosis Discharge Diagnosis (1) Fall: Qualifiers: Encounter type: initial encounter Qualified Code(s): W19.XXXA - Unspecified fall, initial encounter Code(s): W19.XXXA - Unspecified fall, initial encounter Status: Acute Assessment and Plan: Hip Fracture no surgical intervention indicated working well with therapy plan to find placement for patien t (2) Contusion of rib: Qualifiers: Encounter type: initial encounter Laterality: right Qualified Code(s): S20.211A - Contusion of right front wall of thorax, initial encounter Code(s): S20.219A - Contusion of unspecified front wall of thorax, initial encounter Status: Acute (3) Closed pelvic fracture: Qualifiers: Encounter type: initial encounter Fracture alignment: nondisplaced Laterality: right Pelvic bone location: acetabulum Sublocation of acetabulum: unspecified portion of acetabulum Qualified Code(s): S32.401A - Unspecified fracture of right acetabulum, initial encounter for closed fracture Code(s): S32.9XXA - Fracture of unspecified parts of lumbosacral spine and pelvis, initial encounter for closed fracture Status: Acute Assessment and Plan: non weight bearing for 6 weeks pt is frail Fall precaution right acetabulum nondisplaced fracture awaiting placement Plan Patieint is going to acute rehab at this time Transfer Discharge Sum: Med Medications Active and Home Medications: Home Medications allopurinol 300 mg tablet 300 mg PO HS 04/17/19 [History Confirmed 09/11/23] carvedilol 6.25 mg tablet 6.25 mg PO BID 04/17/19 [History Confirmed 09/11/23] enalapril maleate 5 mg tablet 5 mg PO DAILY 04/17/19 [History Confirmed 09/11/23] potassium chloride 20 mEq tablet,extended release(part/cryst) 20 meq PO DAILY 04/17/19 [History Confirmed 09/11/23] empagliflozin 10 mg tablet (Jardiance) 10 mg PO DAILY #30 tabs 09/26/22 [Rx Confirmed 09/11/23] furosemide 40 mg tablet 40 mg PO DAILY #30 tabs 09/26/22 [Rx Confirmed 09/11/23] lovastatin 40 mg tablet 40 mg PO DAILY #30 tabs 05/25/23 [Rx Confirmed 09/11/23] apixaban 5 mg tablet (Eliquis) 5 mg PO BID 07/18/23 [History Confirmed 09/11/23] sitagliptin phosphate 100 mg tablet (Januvia) 100 mg PO DAILY 09/11/23 [History Confirmed 09/11/23] tamsulosin 0.4 mg capsule 0.4 mg PO DAILY 09/11/23 [History Confirmed 09/11/23] Active Medications Acetaminophen (Acetaminophen 325 Mg Tablet) 650 mg PO Q4H PRN PRN Reason: Mild Pain (1-3) or Fever Last Admin: 09/13/23 03:43 Dose: 650 mg Hydrocodone Bitart/Acetaminophen (Hydrocodone/Acetaminophen (*Crx) 5-325 Mg Tablet) 1 tab PO Q6H PRN PRN Reason: Moderate Pain (4-6) Last Admin: 09/12/23 22:02 Dose: 1 tab Allopurinol (Allopurinol 300 Mg Tablet) 300 mg PO HS [facility] Last Admin: 09/13/23 20:27 Dose: 300 mg Apixaban (Apixaban 2.5 Mg Tablet) 5 mg PO Q12HR SHAHRZAD Last Admin: 09/14/23 09:44 Dose: 5 mg Carvedilol (Carvedilol 6.25 Mg Tablet) 6.25 mg PO Q12HR SHAHRZAD Last Admin: 09/14/23 09:44 Dose: 6.25 mg Dextrose (Dextrose 50% 25 Gm/50 Ml Syringe) 12.5 gm IV PUSH PRN PRN; Protocol PRN Reason: Hypoglycemia Empagliflozin (Empagliflozin 10 Mg Tablet) 10 mg PO DAILY [facility] Last Admin: 09/14/23 09:44 Dose: 10 mg Enalapril Maleate (Enalapril Maleate 5
--- NOTE | 2023-09-14 15:00 | PC.NURSE ---
Report called to [facility] [place]. Spoke with Arlene.
--- NOTE | 2023-09-14 15:10 | PC.NURSE ---
Report given to [facility]. Pt transferred to [facility] for transport.
--- NOTE | 2023-09-16 10:25 | PC.NURSE ---
[facility], no questions regarding dc packet
== END 2023-09-14 15:15 ==
LOC: CHSED 23:15 → CHS2ND 09-12 07:12
PROVIDERS: Admitting Provider Internal Medicine; Emergency Provider Emergency Medicine; PCP Internal Medicine; Visit Provider Nurse Practitioner Acute Care
DX: S32.491A Other specified fracture of right acetabulum, initial encounter for closed fracture (principal); S20.211A Contusion of right front wall of thorax, initial encounter; W01.0XXA Fall on same level from slipping, tripping and stumbling without subsequent striking against object, initial encounter; I48.91 Unspecified atrial fibrillation; G31.84 Mild cognitive impairment of uncertain or unknown etiology; N40.0 Benign prostatic hyperplasia without lower urinary tract symptoms; I11.0 Hypertensive heart disease with heart failure; I50.30 Unspecified diastolic (congestive) heart failure; E11.9 Type 2 diabetes mellitus without complications; E78.5 Hyperlipidemia, unspecified; M10.9 Gout, unspecified; Z95.0 Presence of cardiac pacemaker; F17.220 Nicotine dependence, chewing tobacco, uncomplicated; Z79.01 Long term (current) use of anticoagulants; Z79.84 Long term (current) use of oral hypoglycemic drugs; Z86.73 Personal history of transient ischemic attack (TIA), and cerebral infarction without residual deficits
CPT/HCPCS: 36415; 71100; 73502; 73700; 80053; 81003; 83735; 85025; 85027; 85610; 85730; 93005; 97161; 97165; 97530; 97535; 99285; A9270; G0378

== ENCOUNTER 2023-09-29 11:39 | Inpatient (IN) | payer MEDICARE, SELFPAY ==
--- NOTE | ~2023-09-29 | XR_ITS ---
XR chest 1V portable 10/07/2023 09:49 Indication: Shortness of breath and cough Procedure: AP portable chest Comparison: Comparison to multiple prior studies sequentially, with oldest reviewed study dated 06/2019. Findings: Cardiomegaly. Mild interstitial edema. No significant effusion. No pneumothorax. Pacemaker leads are in expected position. Impression: 1: Cardiomegaly with mild interstitial edema. Reviewed, dictated and finalized at location B. Impression: 1: Cardiomegaly with mild interstitial edema.
--- NOTE | ~2023-09-29 | XR_ITS ---
AP view of the pelvis and AP and lateral views of the bilateral hips Clinical history: Pain, right acetabular fracture COMPARISON: 09/11/2023 Findings: No acute fracture or dislocation is seen. Osseous alignment is anatomic. Bilateral hip and SI joint spaces are preserved. Degenerative spondylosis of the lower lumbar spine noted. Soft tissues are unremarkable. Impression: No significant abnormality is seen radiographically. Reviewed, dictated and finalized at location . Impression: No significant abnormality is seen radiographically.
--- NOTE | ~2023-09-29 | XR_ITS ---
EXAMINATION: XR chest 1V portable DATE: 10/09/2023 14:10 INDICATION: Shortness of breath and cough TECHNIQUE: frontal view of the chest was obtained. COMPARISON: Chest radiograph dated 10/07/2023 FINDINGS: Mild opacities along the left lung base. Near-complete resolution of prior opacities in the right low er lung zone. No pleural effusion or pneumothorax. The cardiomediastinal silhouette is within normal limits for AP technique. Dual lead pacemaker seen with leads projecting over the expected locations o f the right atrium and right ventricle. One of the leads appears disconnected. IMPRESSION: 1. Mild opacities at the left lung base which could represent atelectasis or pneumonia. Reviewed, dictated and finalized at location A. IMPRESSION: 1. Mild opacities at the left lung base which could represent atelectasis or pn eumonia.
--- NOTE | 2023-09-29 11:50 | ADMGEN ---
This patient, Pato Payne, was admitted to 2nd Floor Room 204-1. Patient/family oriented to hospital policies and general routines including ID bracelet, bed and alarms, visiting hours, pain management, procedures, bathroom and other care routines, personal items, smoking policy, room service/diet, and visiting hours. Information on how to activate the Rapid Response Team has been discussed. Patient/Family are encouraged to report perceived risks to care and to ask questions if they do not understand what they are told or what they should do.
[2023-09-29 11:53] VITALS: BMI 24.2
[2023-09-29 12:00] VITALS: BP 116/64; PULSE 65; RESP 16; TEMP 36.4; O2SAT 100
[2023-09-29 12:35] LABS: Glucose Point of Care 122 mg/dl (65-105)
[2023-09-29] MEDS: ACETAMINOPHEN 500 MG TABLET 1000 MG PO ×2 (14:27→21:06)
[2023-09-29 16:00] VITALS: BP 139/70; PULSE 78; RESP 20; TEMP 36.2; O2SAT 100
[2023-09-29 16:51] LABS: Glucose Point of Care 101 mg/dl (65-105)
[2023-09-29 20:31] VITALS: PULSE 82
[2023-09-29] MEDS: carvediloL 6.25 MG TABLET PO (20:31)
[2023-09-29] MEDS: APIXABAN 2.5 MG TABLET 5 MG PO (20:31)
[2023-09-29] MEDS: MELATONIN 5 MG TABLET PO (20:31)
[2023-09-29 20:32] LABS: Glucose Point of Care 117 mg/dl (65-105)
[2023-09-29] MEDS: allopurinoL 300 MG TABLET PO (20:32)
[2023-09-30] VITALS: BP 130/60; PULSE 80; RESP 16; TEMP 36.6; O2SAT 99
[2023-09-30] MEDS: ACETAMINOPHEN 500 MG TABLET 1000 MG PO ×3 (06:08→21:57)
[2023-09-30 07:24] LABS: Glucose Point of Care 115 mg/dl (65-105)
[2023-09-30 08:00] VITALS: BP 124/64; PULSE 92; RESP 16; TEMP 35.8; O2SAT 97
[2023-09-30] MEDS: ENALAPRIL MALEATE 2.5 MG TABLET PO (08:31)
[2023-09-30] MEDS: LOVASTATIN 20 MG TABLET 40 MG PO (08:31)
[2023-09-30] MEDS: SITagliptin PHOSPHATE 50 MG TABLET 100 MG PO (08:32)
[2023-09-30] MEDS: APIXABAN 2.5 MG TABLET 5 MG PO ×2 (08:32→21:57)
[2023-09-30 08:33] VITALS: PULSE 92
[2023-09-30] MEDS: TAMSULOSIN HCL 0.4 MG CAPSULE PO (08:33)
[2023-09-30] MEDS: SENNA/DOCUSATE SODIUM TABLET 1 TAB PO (08:33)
[2023-09-30] MEDS: carvediloL 6.25 MG TABLET PO ×2 (08:33→21:57)
[2023-09-30] MEDS: EMPAGLIFLOZIN 10 MG TABLET PO (08:33)
--- NOTE | 2023-09-30 10:31 | PM.IMHP ---
H&P: HPI History of Present Illness Date/Time: 09/30/23 10:31 Chief Complaint: weakness Narrative: This is an 83 year old gentleman with a past medical history significant for arthritis, atrial fibrillation on anticoagulation, HTN, BPH, HFpEF, dyslipidemia, gout, left parietal CVA and DM II who [facility]. He is known to the hospitalist service after a recent admission on 09/11 after suffering a mechanical fall at home and sustaining a right acetabulum fracture. orthopedics was consulted and recommended nonweightbearing for 4-6 weeks. The patient was transferred to [facility] for acute rehab. he did well and PRISCILLA but was not felt to be strong enough to go home yet. He is admitted is a swing bed patient for further PT and OT for weakness and deconditioning. On exam today is resting in the chair in no acute distress. Other than intermittently having a runny nose and chronic shortness of breath he has no complaints. He reports a good appetite and is having daily bowel movements and voiding without difficulty. Review of Systems Review of Systems: All systems reviewed & are unremarkable except as noted in HPI and below PMFSH Past Medical History Medical History Arthritis Atrial fibrillation Benign prostatic hyperplasia Cerebrovascular accident Chronic anticoagulation Diastolic congestive heart failure Dyslipidemia Gout Hypertension Type 2 diabetes mellitus Surgical History Surgical History History of appendectomy History of cardiac catheterization History of colonoscopy with polypectomy History of permanent cardiac pacemaker placement Previous back surgery Family History Family History Other Diabetes mellitus Hypertension Social History Social History Social History: The patient is with two children. His daughter lives in [place] and is a traveling nurse. He designates his son, Ham as his emergency contact. He is retired, disabled after work for [employer]. He suffered a back injury which left him to retire early. He lives at home alone. Surrogate medical decision maker: Ham Brewer (son). Code status: Full code. Years smoked: 30 Smoking status: Former smoker Tobacco type: cigarettes Smokeless tobacco user: chewing tobacco Second hand tobacco smoke exposure: Yes Alcohol intake: never Substance use: never Substance use type: does not use Do You Feel Safe in your Home?: No Lack of Transportation: No Lack of Food: Sometimes True Current Housing: I Have Housing Concerned About Future Housing: No Difficulty Paying Gas/Electric Bills: YES Difficulty Paying for Meds: No Currently Unemployed: No Education: High School Diploma/GED Difficulty w/ Childcare or Family Care: No Living arrangements: alone Occupation/Education: retired Spiritual care concerns: No Meds Home Medications and Allergies Home Medications Medication Instructions Recorded Confirmed Type allopurinol 300 mg tablet 300 mg PO HS 04/17/19 09/29/23 History carvedilol 6.25 mg tablet 6.25 mg PO BID 04/17/19 09/29/23 History enalapril maleate 5 mg tablet 2.5 mg PO DAILY 04/17/19 09/29/23 History empagliflozin 10 mg tablet 10 mg PO DAILY #30 tabs 09/26/22 09/29/23 Rx (Jardiance) lovastatin 40 mg tablet 40 mg PO DAILY #30 tabs 05/25/23 09/29/23 Rx apixaban 5 mg tablet (Eliquis) 5 mg PO BID 07/18/23 09/29/23 History sitagliptin phosphate 100 mg 100 mg PO DAILY 09/11/23 09/29/23 History tablet (Januvia) tamsulosin 0.4 mg capsule 0.4 mg PO DAILY 09/11/23 09/29/23 History Miralax 17 g PO DAILY PRN Constipation 09/29/23 09/29/23 History ROSA-COLACE 1 tablet PO BID 09/29/23 09/29/23 History acetaminophen 500 mg tablet 1,000 mg PO
[2023-09-30 11:55] LABS: Glucose Point of Care 136 mg/dl (65-105)
[2023-09-30 16:00] VITALS: BP 110/60; PULSE 75; RESP 16; TEMP 35.8; O2SAT 99
[2023-09-30 16:41] LABS: Glucose Point of Care 85 mg/dl (65-105)
--- NOTE | 2023-09-30 17:53 | PC.NURSE ---
Jewelry Drill Operator noticed that patient has a mepilex on his Left elbow that is dated 09/26. Jewelry Drill Operator removed mepilex to see a small half lr skin tear with well approximated skin. Jewelry Drill Operator cleansed area and applied new dressing. No s/s infection noted.
[2023-09-30] MEDS: allopurinoL 300 MG TABLET PO (21:57)
[2023-09-30 22:14] LABS: Glucose Point of Care 93 mg/dl (65-105)
[2023-10-01] VITALS: BP 126/75; PULSE 97; RESP 18; TEMP 36.5; O2SAT 99
[2023-10-01] MEDS: ACETAMINOPHEN 500 MG TABLET 1000 MG PO ×3 (06:29→21:40)
[2023-10-01 07:52] LABS: Glucose Point of Care 124 mg/dl (65-105)
[2023-10-01 08:00] VITALS: BP 106/60; PULSE 69; RESP 17; TEMP 36.6; O2SAT 100
[2023-10-01] MEDS: LOVASTATIN 20 MG TABLET 40 MG PO (09:34)
[2023-10-01] MEDS: TAMSULOSIN HCL 0.4 MG CAPSULE PO (09:34)
[2023-10-01] MEDS: EMPAGLIFLOZIN 10 MG TABLET PO (09:34)
[2023-10-01 09:35] VITALS: PULSE 69
[2023-10-01] MEDS: APIXABAN 2.5 MG TABLET 5 MG PO ×2 (09:35→21:41)
[2023-10-01] MEDS: carvediloL 6.25 MG TABLET PO ×2 (09:35→21:40)
[2023-10-01] MEDS: ENALAPRIL MALEATE 2.5 MG TABLET PO (09:46)
[2023-10-01 11:40] LABS: Glucose Point of Care 152 mg/dl (65-105)
[2023-10-01 16:00] VITALS: BP 122/71; PULSE 88; RESP 18; TEMP 35.8; O2SAT 99
[2023-10-01 16:45] LABS: Glucose Point of Care 126 mg/dl (65-105)
[2023-10-01] MEDS: MELATONIN 5 MG TABLET PO (21:40)
[2023-10-01] MEDS: allopurinoL 300 MG TABLET PO (21:40)
[2023-10-01 21:52] LABS: Glucose Point of Care 166 mg/dl (65-105)
[2023-10-02] VITALS: BP 125/71; PULSE 96; RESP 18; TEMP 36.1; O2SAT 98
[2023-10-02] MEDS: ACETAMINOPHEN 500 MG TABLET 1000 MG PO ×3 (06:22→21:48)
[2023-10-02 07:57] LABS: Glucose Point of Care 113 mg/dl (65-105)
[2023-10-02 08:00] VITALS: BP 105/60; PULSE 65; RESP 16; TEMP 36.2; O2SAT 97
[2023-10-02 09:20] VITALS: PULSE 65
[2023-10-02] MEDS: APIXABAN 2.5 MG TABLET 5 MG PO ×2 (09:20→21:48)
[2023-10-02] MEDS: carvediloL 6.25 MG TABLET PO ×2 (09:20→21:48)
[2023-10-02] MEDS: EMPAGLIFLOZIN 10 MG TABLET PO (09:21)
[2023-10-02] MEDS: TAMSULOSIN HCL 0.4 MG CAPSULE PO (09:21)
[2023-10-02] MEDS: LOVASTATIN 20 MG TABLET 40 MG PO (09:21)
[2023-10-02] MEDS: ENALAPRIL MALEATE 2.5 MG TABLET PO (09:21)
[2023-10-02] MEDS: TOLNAFTATE 1% POWDER 45 GM BTL 1 APPLIC TOPICAL ×2 (10:50→21:49)
[2023-10-02 11:45] LABS: Glucose Point of Care 152 mg/dl (65-105)
[2023-10-02 16:00] VITALS: PULSE 74; RESP 16; TEMP 36.6; O2SAT 96
[2023-10-02] MEDS: allopurinoL 300 MG TABLET PO (21:48)
[2023-10-02 23:21] VITALS: BP 123/72; PULSE 88; RESP 14; TEMP 36.4; O2SAT 98
[2023-10-03] MEDS: ACETAMINOPHEN 500 MG TABLET 1000 MG PO ×3 (06:40→21:03)
[2023-10-03 07:46] LABS: Glucose Point of Care 140 mg/dl (65-105)
[2023-10-03 07:48] VITALS: BP 127/58; PULSE 75; RESP 16; TEMP 36; O2SAT 99
[2023-10-03] MEDS: APIXABAN 2.5 MG TABLET 5 MG PO ×2 (08:44→21:02)
[2023-10-03 08:45] VITALS: PULSE 78
[2023-10-03] MEDS: LOVASTATIN 20 MG TABLET 40 MG PO (08:45)
[2023-10-03] MEDS: carvediloL 6.25 MG TABLET PO ×2 (08:45→21:02)
[2023-10-03] MEDS: TOLNAFTATE 1% POWDER 45 GM BTL 1 APPLIC TOPICAL ×2 (08:46→21:03)
[2023-10-03] MEDS: EMPAGLIFLOZIN 10 MG TABLET PO (08:46)
[2023-10-03] MEDS: TAMSULOSIN HCL 0.4 MG CAPSULE PO (08:46)
[2023-10-03] MEDS: ENALAPRIL MALEATE 2.5 MG TABLET PO (09:01)
[2023-10-03 11:45] LABS: Glucose Point of Care 137 mg/dl (65-105)
[2023-10-03 16:00] VITALS: BP 134/63; PULSE 83; RESP 16; TEMP 36.1; O2SAT 99
[2023-10-03 16:43] LABS: Glucose Point of Care 143 mg/dl (65-105)
[2023-10-03 20:00] VITALS: PULSE 87; RESP 16; O2SAT 99
[2023-10-03 21:02] VITALS: PULSE 87
[2023-10-03] MEDS: allopurinoL 300 MG TABLET PO (21:02)
[2023-10-03] MEDS: MELATONIN 5 MG TABLET PO (21:02)
[2023-10-03 21:07] LABS: Glucose Point of Care 122 mg/dl (65-105)
[2023-10-04] VITALS (7 sets, daily range): BP systolic 120–139; BP diastolic 54–68; PULSE 69–92; RESP 16; TEMP 36.1–36.4; O2SAT 100
[2023-10-04] MEDS: LORATADINE 10 MG TABLET PO ×2 (00:07→21:02)
--- NOTE | 2023-10-04 00:10 | PC.NURSE ---
Patient c/o NPC and congestion, afebrile with temp 97.1, SPO2 at 100% on room air, lung sounds diminished bilaterally t/o. PRN Claritin given.
[2023-10-04] MEDS: ACETAMINOPHEN 500 MG TABLET 1000 MG PO ×2 (05:31→21:02)
[2023-10-04 05:47] LABS: Basophils Absolute Auto 0.01 K/mm3 (0.00-0.10); Basophils Percent Auto 0.2 % (0.0-1.0); Eosinophils Absolute Auto 0.08 K/mm3 (0.02-0.50); Eosinophils Percent Auto 1.5 % (1.0-6.0); Hematocrit 33.9 % (37.0-46.0); Hemoglobin 11.2 g/dL (12.4-15.3); Immature Granulocyte Absolute 0.03 K/mm3 (0.00-0.00); Immature Granulocyte Percent A 0.6 % (0.0-0.0); Lymphocytes Absolute Auto 1.13 K/mm3 (1.10-4.50); Lymphocytes Percent Auto 20.9 % (18.0-42.0); Mean Corpuscular Hemoglobin 32.4 pg (27.0-31.0); Mean Platelet Volume 10.3 fl (8.7-11.0); Monocytes Absolute Auto 0.46 K/mm3 (0.10-0.90); Monocytes Percent Auto 8.5 % (2.0-11.0); Neutrophils Percent Auto 68.3 % (50.0-70.0); Platelet Count Result 157 K/mm3 (150-420); Red Blood Count 3.46 M/mm3 (4.70-6.10); Red Cell Distribution Width 13.8 % (11.6-14.4); White Blood Count 5.4 K/mm3 (4.8-10.8)
[2023-10-04] MEDS: APIXABAN 2.5 MG TABLET 5 MG PO ×2 (09:14→21:02)
[2023-10-04] MEDS: LOVASTATIN 20 MG TABLET 40 MG PO (09:15)
[2023-10-04] MEDS: ENALAPRIL MALEATE 2.5 MG TABLET PO (09:15)
[2023-10-04] MEDS: carvediloL 6.25 MG TABLET PO ×2 (09:16→21:02)
[2023-10-04] MEDS: EMPAGLIFLOZIN 10 MG TABLET PO (09:16)
[2023-10-04] MEDS: TAMSULOSIN HCL 0.4 MG CAPSULE PO (09:17)
[2023-10-04] MEDS: TOLNAFTATE 1% POWDER 45 GM BTL 1 APPLIC TOPICAL ×2 (09:17→21:02)
[2023-10-04 11:25] LABS: Glucose Point of Care 159 mg/dl (65-105)
[2023-10-04 11:25] LABS: Glucose Point of Care 181 mg/dl (65-105)
--- NOTE | 2023-10-04 12:08 | PM.EVENT ---
Event Note Event Note Event Note: Patient is seen today chair breakfast. He is in no acute distress. He is now current medical concerns. He states therapy is going well but he is anxious to start bearing weight on his leg. Care coordination spoke with Dr. Shay's office who wants repeat imaging on 10/08 or after. Orthopedic doctor will review imaging and if okay will clear him for weight-bearing. X-ray has already been ordered. Anticipate imaging on 10/10.
[2023-10-04] MEDS: MELATONIN 5 MG TABLET PO (21:02)
[2023-10-04] MEDS: allopurinoL 300 MG TABLET PO (21:02)
[2023-10-05] MEDS: ACETAMINOPHEN 500 MG TABLET 1000 MG PO ×3 (06:39→21:32)
[2023-10-05 08:00] VITALS: BP 119/67; PULSE 70; RESP 14; TEMP 36.1; O2SAT 100
[2023-10-05 08:02] LABS: Glucose Point of Care 133 mg/dl (65-105)
[2023-10-05] MEDS: ENALAPRIL MALEATE 2.5 MG TABLET PO (08:57)
[2023-10-05] MEDS: TAMSULOSIN HCL 0.4 MG CAPSULE PO (08:57)
[2023-10-05] MEDS: LOVASTATIN 20 MG TABLET 40 MG PO (08:57)
[2023-10-05] MEDS: APIXABAN 2.5 MG TABLET 5 MG PO ×2 (08:57→21:18)
[2023-10-05 08:58] VITALS: PULSE 70
[2023-10-05] MEDS: carvediloL 6.25 MG TABLET PO ×2 (08:58→21:20)
[2023-10-05] MEDS: EMPAGLIFLOZIN 10 MG TABLET PO (08:58)
--- NOTE | 2023-10-05 14:24 | PC.NURSE ---
Pt given tylenol at 1400 by RO. The computer scanner would not work after 4 tries.
[2023-10-05 16:00] VITALS: BP 131/57; PULSE 66; RESP 18; TEMP 35.8; O2SAT 100
[2023-10-05] MEDS: LORATADINE 10 MG TABLET PO (21:19)
[2023-10-05] MEDS: allopurinoL 300 MG TABLET PO (21:20)
[2023-10-05] MEDS: MELATONIN 5 MG TABLET PO (21:20)
[2023-10-05] MEDS: TOLNAFTATE 1% POWDER 45 GM BTL 1 APPLIC TOPICAL (21:20)
[2023-10-05 23:26] VITALS: BP 129/74; PULSE 86; RESP 20; TEMP 36.2; O2SAT 97
[2023-10-06] MEDS: ACETAMINOPHEN 500 MG TABLET 1000 MG PO ×3 (06:40→21:35)
[2023-10-06 08:00] VITALS: BP 130/57; PULSE 67; RESP 17; TEMP 36.2; O2SAT 99
[2023-10-06 08:02] LABS: Glucose Point of Care 162 mg/dl (65-105)
[2023-10-06 09:06] VITALS: PULSE 67
[2023-10-06] MEDS: EMPAGLIFLOZIN 10 MG TABLET PO (09:06)
[2023-10-06] MEDS: ENALAPRIL MALEATE 2.5 MG TABLET PO (09:06)
[2023-10-06] MEDS: TAMSULOSIN HCL 0.4 MG CAPSULE PO (09:06)
[2023-10-06] MEDS: LOVASTATIN 20 MG TABLET 40 MG PO (09:06)
[2023-10-06] MEDS: carvediloL 6.25 MG TABLET PO ×2 (09:06→21:35)
[2023-10-06] MEDS: APIXABAN 2.5 MG TABLET 5 MG PO ×2 (09:06→21:34)
[2023-10-06] MEDS: TOLNAFTATE 1% POWDER 45 GM BTL 1 APPLIC TOPICAL ×2 (09:08→21:35)
[2023-10-06 16:00] VITALS: BP 151/68; PULSE 77; RESP 17; TEMP 35.8; O2SAT 98
[2023-10-06] MEDS: LORATADINE 10 MG TABLET PO (21:34)
[2023-10-06] MEDS: allopurinoL 300 MG TABLET PO (21:34)
[2023-10-06] MEDS: MELATONIN 5 MG TABLET PO (21:35)
[2023-10-07] VITALS: BP 141/73; PULSE 87; RESP 20; TEMP 36.4; O2SAT 96
[2023-10-07] MEDS: ACETAMINOPHEN 500 MG TABLET 1000 MG PO ×3 (05:52→21:24)
--- NOTE | 2023-10-07 07:53 | P.PNIM_ITS ---
Progress Note: A&P Assessment and Plan (1) Closed pelvic fracture: Qualifiers: Encounter type: initial encounter Fracture alignment: nondisplaced Laterality: right Pelvic bone location: acetabulum Sublocation of acetabulum: unspecified portion of acetabulum Qualified Code(s): S32.401A - Unspecified fracture of right acetabulum, initial encounter for closed fracture Code(s): S32.9XXA - Fracture of unspecified parts of lumbosacral spine and pelvis, initial encounter for closed fracture Status: Acute Assessment and Plan: * Right acetabulum fracture with non operative management. * Nonweightbearing for 4-6 weeks from initial injury on 09/11 * DVT prophylaxis with apixaban * PT OT consult recs are appreciated * bowel regimen with Senokot and p.r.n. MiraLax * Denies pain. P.r.n. Tylenol as needed. 10/07/23: * Xray on 10/08 scheduled (2) Diastolic congestive heart failure: Code(s): I50.30 - Unspecified diastolic (congestive) heart failure Status: Acute Assessment and Plan: Diastolic heart failure with a preserved EF ECHO from 05/2023 showed normal LV systolic function with estimated EF 55-60% and mild pulmonary HTN with a PA pressure of 44 mmHg. He is on Coreg 6.25 mg BID, enalapril 5 mg daily, Lasix 40 mg daily, and lovastatin 40 mg daily. * Patient appears euvolemic * Continue home medications * Monitor blood pressures daily * intake and output, daily weight 10/07/23: * SOB at night * CXR showed interstitial edema * started on 40mg Lasix PO daily Plan Chronic conditions: 1. Diastolic heart failure with a preserved EF ECHO from 05/2023 showed normal LV systolic function with estimated EF 55-60% and mild pulmonary HTN with a PA pressure of 44 mmHg. He is on Coreg 6.25 mg BID, enalapril 5 mg daily, Lasix 40 mg daily, and lovastatin 40 mg daily. * Patient appears euvolemic * Continue home medications * Monitor blood pressures daily * intake and output, daily weight 2. Diabetes Patient has a hemoglobin A1C of 7.0%. He is currently on Januvia 100 mg daily and Jardiance 10 mg daily. He normally checks his blood sugar at home every other day. * khai LIZARRAGA Accu-Cheks * Hypoglycemic protocol was ordered, low-dose SSI, holding oral antidiabetic therapy while inpatient * Diabetic diet 3. Atrial fibrillation Patient is on Coreg 6.25 mg BID and Eliquis 5 mg BID. * Continue home medications. Code status: Full code per patient PT/OT notes: Goal is go home Disposition: Patient continues admission to swing bed continue to work with PT / OT goal is to return home Time Spent With Patient Time with patient: 15 - 25 minutes Subjective Date/time seen: 10/07/23 07:53 Interval history: Admission: Medical Chart This is an 83 year old gentleman with a past medical history significant for arthritis, atrial fibrillation on anticoagulation, HTN, BPH, HFpEF, dyslipidemia, gout, left parietal CVA and DM II who presented to [facility] from [facility]. He is known to the hospitalist service after a recent admiss
--- NOTE | 2023-10-07 07:53 | PM.IMPN ---
Progress Note: A&P Assessment and Plan (1) Closed pelvic fracture: Qualifiers: Encounter type: initial encounter Fracture alignment: nondisplaced Laterality: right Pelvic bone location: acetabulum Sublocation of acetabulum: unspecified portion of acetabulum Qualified Code(s): S32.401A - Unspecified fracture of right acetabulum, initial encounter for closed fracture Code(s): S32.9XXA - Fracture of unspecified parts of lumbosacral spine and pelvis, initial encounter for closed fracture Status: Acute Assessment and Plan: Right acetabulum fracture with non operative management. Nonweightbearing for 4-6 weeks from initial injury on 09/11 DVT prophylaxis with apixaban PT OT consult recs are appreciated bowel regimen with Senokot and p.r.n. MiraLax Denies pain. P.r.n. Tylenol as needed. 10/07/23: Xray on 10/08 scheduled (2) Diastolic congestive heart failure: Code(s): I50.30 - Unspecified diastolic (congestive) heart failure Status: Acute Assessment and Plan: Diastolic heart failure with a preserved EF ECHO from 05/2023 showed normal LV systolic function with estimated EF 55-60% and mild pulmonary HTN with a PA pressure of 44 mmHg. He is on Coreg 6.25 mg BID, enalapril 5 mg daily, Lasix 40 mg daily, and lovastatin 40 mg daily. Patient appears euvolemic Continue home medications Monitor blood pressures daily intake and output, daily weight 10/07/23: SOB at night CXR showed interstitial edema started on 40mg Lasix PO daily Plan Chronic conditions: 1. Diastolic heart failure with a preserved EF ECHO from 05/2023 showed normal LV systolic function with estimated EF 55-60% and mild pulmonary HTN with a PA pressure of 44 mmHg. He is on Coreg 6.25 mg BID, enalapril 5 mg daily, Lasix 40 mg daily, and lovastatin 40 mg daily. Patient appears euvolemic Continue home medications Monitor blood pressures daily intake and output, daily weight 2. Diabetes Patient has a hemoglobin A1C of 7.0%. He is currently on Januvia 100 mg daily and Jardiance 10 mg daily. He normally checks his blood sugar at home every other day. a.c. HS Accu-Cheks Hypoglycemic protocol was ordered, low-dose SSI, holding oral antidiabetic therapy while inpatient Diabetic diet 3. Atrial fibrillation Patient is on Coreg 6.25 mg BID and Eliquis 5 mg BID. Continue home medications. Code status: Full code per patient PT/OT notes: Goal is go home Disposition: Patient continues admission to swing bed continue to work with PT / OT goal is to return home Time Spent With Patient Time with patient: 15 - 25 minutes Subjective Date/time seen: 10/07/23 07:53 Interval history: Admission: Medical Chart This is an 83 year old gentleman with a past medical history significant for arthritis, atrial fibrillation on anticoagulation, HTN, BPH, HFpEF, dyslipidemia, gout, left parietal CVA and DM II who presented to [facility] from [facility]. He is known to the hospitalist service after a recent admission on 09/11 after suffering a mechanical fall at home and sustaining a right acetabulum fracture. orthopedics was consulted and recommended nonweightbearing for 4-6 weeks. The patient was transferred to [facility] for acute rehab. he did well and PRISCILLA but was not felt to be strong enough to go home yet. He is admitted is a swing bed patient for further PT and OT for weakness and deconditioning. 10/07/23: Patient was in chair doing good but did report some SOB at night when sleeping. Did chest CXR that showed some interstitial edema started PO lasix daily will monitor for improvement also recommend elevating head of bed at night. Follow-up XRAY 10/08. Review of Systems Review of Systems: All systems reviewed & are unremarkable except as noted in HPI and below Exam Narrative: General: well appearing, appears stated age. HECHELA
[2023-10-07 08:00] VITALS: BP 136/65; PULSE 80; RESP 17; TEMP 36.1; O2SAT 100
[2023-10-07 08:14] LABS: Glucose Point of Care 146 mg/dl (65-105)
[2023-10-07] MEDS: ENALAPRIL MALEATE 2.5 MG TABLET PO (09:23)
[2023-10-07] MEDS: LOVASTATIN 20 MG TABLET 40 MG PO (09:23)
[2023-10-07] MEDS: APIXABAN 2.5 MG TABLET 5 MG PO ×2 (09:23→21:24)
[2023-10-07] MEDS: EMPAGLIFLOZIN 10 MG TABLET PO (09:23)
[2023-10-07 09:24] VITALS: PULSE 79
[2023-10-07] MEDS: TAMSULOSIN HCL 0.4 MG CAPSULE PO (09:24)
[2023-10-07] MEDS: carvediloL 6.25 MG TABLET PO ×2 (09:24→21:23)
[2023-10-07] MEDS: TOLNAFTATE 1% POWDER 45 GM BTL 1 APPLIC TOPICAL ×2 (09:25→21:25)
[2023-10-07] MEDS: FUROSEMIDE 40 MG TABLET PO (13:54)
[2023-10-07 16:00] VITALS: BP 143/77; PULSE 70; RESP 16; TEMP 36.1; O2SAT 75
[2023-10-07 21:23] VITALS: PULSE 80
[2023-10-07] MEDS: allopurinoL 300 MG TABLET PO (21:24)
[2023-10-08] VITALS (7 sets, daily range): BP systolic 122–135; BP diastolic 67–89; PULSE 77–86; RESP 16; TEMP 36.1–36.2; O2SAT 94–100
[2023-10-08] MEDS: ACETAMINOPHEN 500 MG TABLET 1000 MG PO ×3 (06:15→21:09)
[2023-10-08 07:17] LABS: Glucose Point of Care 159 mg/dl (65-105)
[2023-10-08] MEDS: LOVASTATIN 20 MG TABLET 40 MG PO (08:49)
[2023-10-08] MEDS: TAMSULOSIN HCL 0.4 MG CAPSULE PO (08:50)
[2023-10-08] MEDS: FUROSEMIDE 40 MG TABLET PO (08:50)
[2023-10-08] MEDS: ENALAPRIL MALEATE 2.5 MG TABLET PO (08:50)
[2023-10-08] MEDS: APIXABAN 2.5 MG TABLET 5 MG PO ×2 (08:51→21:08)
[2023-10-08] MEDS: EMPAGLIFLOZIN 10 MG TABLET PO (08:51)
[2023-10-08] MEDS: carvediloL 6.25 MG TABLET PO ×2 (08:51→21:06)
[2023-10-08] MEDS: TOLNAFTATE 1% POWDER 45 GM BTL 1 APPLIC TOPICAL ×2 (08:52→21:10)
--- NOTE | 2023-10-08 08:57 | P.PNCROSS_ITS ---
Event Note Event Note Event Note: Follow-up CXR showed some pulmonary edema add 20mg lasix PO daily patient repo rted SOB had improved last night will continue.
--- NOTE | 2023-10-08 08:57 | PM.EVENT ---
Event Note Event Note Event Note: Follow-up CXR showed some pulmonary edema add 20mg lasix PO daily patient reported SOB had improved last night will continue.
[2023-10-08] MEDS: SENNA/DOCUSATE SODIUM TABLET 1 TAB PO (14:15)
[2023-10-08] MEDS: LORATADINE 10 MG TABLET PO (21:06)
[2023-10-08] MEDS: allopurinoL 300 MG TABLET PO (21:09)
[2023-10-09] MEDS: ACETAMINOPHEN 500 MG TABLET 1000 MG PO ×3 (06:44→21:20)
[2023-10-09 07:23] VITALS: BP 138/73; PULSE 91; RESP 16; TEMP 35.8; O2SAT 97
[2023-10-09 07:35] LABS: Glucose Point of Care 151 mg/dl (65-105)
[2023-10-09] MEDS: APIXABAN 2.5 MG TABLET 5 MG PO ×2 (08:27→21:20)
[2023-10-09] MEDS: LOVASTATIN 20 MG TABLET 40 MG PO (08:28)
[2023-10-09 08:29] VITALS: PULSE 91
[2023-10-09] MEDS: EMPAGLIFLOZIN 10 MG TABLET PO (08:29)
[2023-10-09] MEDS: carvediloL 6.25 MG TABLET PO ×2 (08:29→21:20)
[2023-10-09] MEDS: TAMSULOSIN HCL 0.4 MG CAPSULE PO (08:29)
[2023-10-09] MEDS: FUROSEMIDE 40 MG TABLET PO (08:29)
[2023-10-09] MEDS: ENALAPRIL MALEATE 2.5 MG TABLET PO (08:29)
[2023-10-09] MEDS: TOLNAFTATE 1% POWDER 45 GM BTL 1 APPLIC TOPICAL ×2 (08:30→21:21)
[2023-10-09 16:00] VITALS: BP 150/64; PULSE 74; RESP 16; TEMP 36; O2SAT 96
[2023-10-09 20:00] VITALS: PULSE 74; RESP 16; O2SAT 96
[2023-10-09 21:20] VITALS: PULSE 86
[2023-10-09] MEDS: LORATADINE 10 MG TABLET PO (21:20)
[2023-10-09] MEDS: allopurinoL 300 MG TABLET PO (21:20)
[2023-10-09 23:57] VITALS: BP 143/63; PULSE 86; RESP 16; TEMP 36.1; O2SAT 98
[2023-10-10] MEDS: ACETAMINOPHEN 500 MG TABLET 1000 MG PO ×3 (06:09→21:32)
[2023-10-10 08:00] VITALS: BP 132/69; PULSE 79; RESP 17; TEMP 36.1; O2SAT 100
[2023-10-10 08:05] LABS: Glucose Point of Care 140 mg/dl (65-105)
--- NOTE | 2023-10-10 08:13 | PC.NURSE ---
Pt noe is 140 at 0730.
--- NOTE | 2023-10-10 08:35 | P.PNCROSS_ITS ---
Event Note Event Note Event Note: Patient with no complaints, follow-up CXR showing some atelectasis added a i ncentive spirometer
[2023-10-10] MEDS: LOVASTATIN 20 MG TABLET 40 MG PO (09:07)
[2023-10-10] MEDS: EMPAGLIFLOZIN 10 MG TABLET PO (09:08)
[2023-10-10] MEDS: ENALAPRIL MALEATE 2.5 MG TABLET PO (09:08)
[2023-10-10] MEDS: TAMSULOSIN HCL 0.4 MG CAPSULE PO (09:08)
[2023-10-10 09:09] VITALS: PULSE 75
[2023-10-10] MEDS: carvediloL 6.25 MG TABLET PO ×2 (09:09→21:32)
[2023-10-10] MEDS: APIXABAN 2.5 MG TABLET 5 MG PO ×2 (09:09→21:31)
[2023-10-10] MEDS: FUROSEMIDE 40 MG TABLET PO (09:10)
[2023-10-10] MEDS: TOLNAFTATE 1% POWDER 45 GM BTL 1 APPLIC TOPICAL ×2 (09:10→21:33)
[2023-10-10 16:35] VITALS: BP 134/67; PULSE 70; RESP 16; TEMP 36.1; O2SAT 97
[2023-10-10] MEDS: allopurinoL 300 MG TABLET PO (21:32)
[2023-10-10 23:55] VITALS: BP 142/68; PULSE 90; RESP 18; TEMP 36.2; O2SAT 100
[2023-10-11] MEDS: ACETAMINOPHEN 500 MG TABLET 1000 MG PO ×3 (06:08→20:20)
[2023-10-11 07:59] LABS: Glucose Point of Care 158 mg/dl (65-105)
[2023-10-11 08:00] VITALS: BP 124/57; PULSE 72; RESP 16; TEMP 36.2; O2SAT 98
[2023-10-11 09:00] VITALS: PULSE 78
[2023-10-11] MEDS: carvediloL 6.25 MG TABLET PO ×2 (09:00→20:18)
[2023-10-11] MEDS: FUROSEMIDE 40 MG TABLET PO (09:00)
[2023-10-11] MEDS: LOVASTATIN 20 MG TABLET 40 MG PO (09:00)
[2023-10-11] MEDS: TAMSULOSIN HCL 0.4 MG CAPSULE PO (09:00)
[2023-10-11] MEDS: EMPAGLIFLOZIN 10 MG TABLET PO (09:00)
[2023-10-11] MEDS: ENALAPRIL MALEATE 2.5 MG TABLET PO (09:00)
[2023-10-11] MEDS: APIXABAN 2.5 MG TABLET 5 MG PO ×2 (09:00→20:18)
[2023-10-11] MEDS: TOLNAFTATE 1% POWDER 45 GM BTL 1 APPLIC TOPICAL ×2 (09:03→20:20)
[2023-10-11] MEDS: SENNA/DOCUSATE SODIUM TABLET 1 TAB PO ×2 (14:07→20:18)
[2023-10-11 16:00] VITALS: BP 116/50; PULSE 65; RESP 17; TEMP 36.3; O2SAT 97
[2023-10-11] MEDS: allopurinoL 300 MG TABLET PO (20:18)
[2023-10-11 23:46] VITALS: BP 129/70; PULSE 90; RESP 18; TEMP 36.1; O2SAT 100
[2023-10-12] MEDS: ACETAMINOPHEN 500 MG TABLET 1000 MG PO ×3 (05:30→20:40)
[2023-10-12 08:00] VITALS: BP 120/87; PULSE 76; RESP 18; TEMP 36.1; O2SAT 96
[2023-10-12 08:06] LABS: Glucose Point of Care 158 mg/dl (65-105)
[2023-10-12 08:47] VITALS: PULSE 76
[2023-10-12] MEDS: ENALAPRIL MALEATE 2.5 MG TABLET PO (08:47)
[2023-10-12] MEDS: EMPAGLIFLOZIN 10 MG TABLET PO (08:47)
[2023-10-12] MEDS: carvediloL 6.25 MG TABLET PO ×2 (08:47→20:40)
[2023-10-12] MEDS: TAMSULOSIN HCL 0.4 MG CAPSULE PO (08:47)
[2023-10-12] MEDS: LOVASTATIN 20 MG TABLET 40 MG PO (08:47)
[2023-10-12] MEDS: FUROSEMIDE 40 MG TABLET PO (08:47)
[2023-10-12] MEDS: APIXABAN 2.5 MG TABLET 5 MG PO ×2 (08:47→20:40)
[2023-10-12] MEDS: TOLNAFTATE 1% POWDER 45 GM BTL 1 APPLIC TOPICAL ×2 (08:48→20:40)
--- NOTE | 2023-10-12 11:28 | P.PNCROSS_ITS ---
Event Note Event Note Event Note: Patient will require wheelchair for use at home. The patient is unable to safe ly and independently ambulate household distances due to their current impairments. His current diagnosis includes difficulty walking, right acetabular fracture, and there impairments including decreased strength, decreased endurance, decreased range of motion, decreased balance, and lower extremity weakness. This will facilitate optimal safety for that patient and is strongly recommended for functional mobility.
[2023-10-12 16:00] VITALS: BP 123/67; PULSE 96; RESP 17; TEMP 36.2; O2SAT 100
[2023-10-12] MEDS: allopurinoL 300 MG TABLET PO (20:40)
[2023-10-13] VITALS: BP 133/68; PULSE 87; RESP 18; TEMP 36.2; O2SAT 100
[2023-10-13] MEDS: ACETAMINOPHEN 500 MG TABLET 1000 MG PO ×3 (06:01→21:23)
[2023-10-13 07:30] VITALS: BP 109/55; PULSE 78; RESP 16; TEMP 36.1; O2SAT 97
[2023-10-13 07:30] LABS: Glucose Point of Care 174 mg/dl (65-105)
[2023-10-13 08:18] VITALS: PULSE 78
[2023-10-13] MEDS: ENALAPRIL MALEATE 2.5 MG TABLET PO (08:18)
[2023-10-13] MEDS: carvediloL 6.25 MG TABLET PO ×2 (08:18→20:24)
[2023-10-13] MEDS: LOVASTATIN 20 MG TABLET 40 MG PO (08:18)
[2023-10-13] MEDS: EMPAGLIFLOZIN 10 MG TABLET PO (08:19)
[2023-10-13] MEDS: APIXABAN 2.5 MG TABLET 5 MG PO ×2 (08:19→20:24)
[2023-10-13] MEDS: FUROSEMIDE 40 MG TABLET PO (08:19)
[2023-10-13] MEDS: TOLNAFTATE 1% POWDER 45 GM BTL 1 APPLIC TOPICAL ×2 (08:20→20:24)
[2023-10-13] MEDS: TAMSULOSIN HCL 0.4 MG CAPSULE PO (08:20)
[2023-10-13 16:00] VITALS: BP 114/66; PULSE 86; RESP 16; TEMP 35.9; O2SAT 97
[2023-10-13] MEDS: allopurinoL 300 MG TABLET PO (20:23)
[2023-10-13 20:24] VITALS: PULSE 82
[2023-10-14] VITALS: BP 124/75; PULSE 82; RESP 16; TEMP 36.7; O2SAT 98
[2023-10-14] MEDS: ACETAMINOPHEN 500 MG TABLET 1000 MG PO (06:13)
[2023-10-14 07:42] LABS: Glucose Point of Care 158 mg/dl (65-105)
--- NOTE | 2023-10-14 07:48 | PM.DS ---
DS: Admitting Diagnosis Discharge Date 10/14/23 Admitting Diagnosis Closed pelvic fracture DS: Summary Hospital Course Reason for hospitalization: Closed pelvic fracture Hospital Course: This is an 83-year-old male who presented to [facility] from [facility] for additional strength training due to weakness and muscular deconditioning after sustaining a closed pelvic fracture. he was to remain nonweightbearing for 4-6 weeks. Follow-up x-ray was done on 10/10/2023 and sent over to the orthopedic surgeon to review and order was placed for weight-bearing as tolerated on the right leg. Patient was optimized here and will go home with [facility] to continue PT and OT on an outpatient basis. Patient is to continue to use a wheeled walker and a wheelchair was ordered for him for use at home. He will need to follow up with his orthopedic surgeon on 10/24/2023. He is stable for discharge at this time. Final diagnosis: Closed pelvic fracture, weakness Status at Discharge Cognitive/behavioral status at discharge: Alert and oriented x3 Functional status at discharge: uses cane/walker Overall status at discharge: patient is progressing back to baseline Time Spent with Patient Time attestation: Total time spent providing and/or coordinating discharge services: Time spent: Greater than 30 minutes Exam Narrative: General: In no acute distress, well nourished Head: atraumatic, no encephalopathy Eyes: EOMI, PERRLA, sclera clear ENT: moist mucous membranes, nasal passages clear Neck: supple, no JVD, no adenopathy, trachea midline Cardiac: Normal S1 and S2. No murmur, gallops or friction rubs, peripheral pulses intact. Respiratory: Lungs clear to auscultation, no adventitious lung sounds, currently on room air Gastrointestinal: soft, non-distended, non-tender, normoactive bowel sounds. : voiding without difficulty. Extremities: moves all extremities well, no edema, good ROM, strength 5/5 Skin: clean, dry, intact. No wounds or lesions. Neuro: Alert and oriented x4, cranial nerves intact, no neuro deficits. Psych: normal mood, normal affect, interactive DS: Data Data Completed and Pending Completed studies during hospitalization: Chest x-ray x2 Hip/pelvis x-ray Pending studies at discharge: None Labs on day of discharge: Labs from last 24 hours 10/14/23 07:38 POC Capillary Glucose 158 H Procedures/Treatments: None Discharge Plan Discharge Attending physician on discharge: Noe Wright Consulting providers: Bernarda Dodd Discharging Clinician: Bernarda Dodd Anticipated Discharge Date/Time: 10/14/23 07:47 Patient Disposition: Home, Self-Care Activity: as tolerated Diet: as tolerated Discharge Instructions: Per Care Coordination: [facility] will follow you at discharge for physical therapy. They are planning to see you on Tuesday, October 15 and will give you a call with a time when it gets closer. Their phone number is [phone]. Patient Instructions: Furosemide (By mouth), Pain Management in Older Adults (DC), Potassium Content of Foods List (DC), Fall Prevention for Older Adults (DC) Patient Language: Libyan Stand Alone Forms: General Discharge Information Follow-up/Referrals: Riaz Francis MD [Physician] - 10/24/23 11:00 am Discharge Medications: New furosemide 40 mg Tablet 40 mg PO DAILY Qty: 30 0RF Continued carvedilol 6.25 mg tablet 6.25 mg PO BID enalapril maleate 5 mg tablet 2.5 mg PO DAILY allopurinol 300 mg tablet 300 mg PO HS tamsulosin 0.4 mg capsule 0.4 mg PO DAILY Januvia 100 mg tablet 100 mg PO DAILY acetaminophen 500 mg Tablet 1,000 mg PO TID Rx Instructions: every 8 hours Miralax 17 g PO DAILY PRN (Reason: Constipation) ROSA-COLACE 1 tablet PO BID lovastatin 40 mg tablet 40 mg PO DAILY Qty: 30 5RF Eliquis 5 mg tablet
[2023-10-14 08:00] VITALS: BP 123/73; PULSE 68; RESP 16; TEMP 36.1; O2SAT 99
[2023-10-14] MEDS: LOVASTATIN 20 MG TABLET 40 MG PO (08:21)
[2023-10-14] MEDS: APIXABAN 2.5 MG TABLET 5 MG PO (08:22)
[2023-10-14 08:23] VITALS: PULSE 76
[2023-10-14] MEDS: carvediloL 6.25 MG TABLET PO (08:23)
[2023-10-14] MEDS: TAMSULOSIN HCL 0.4 MG CAPSULE PO (08:23)
[2023-10-14] MEDS: FUROSEMIDE 40 MG TABLET PO (08:24)
[2023-10-14] MEDS: ENALAPRIL MALEATE 2.5 MG TABLET PO (08:24)
[2023-10-14] MEDS: EMPAGLIFLOZIN 10 MG TABLET PO (08:24)
[2023-10-14] MEDS: TOLNAFTATE 1% POWDER 45 GM BTL 1 APPLIC TOPICAL (08:26)
--- NOTE | 2023-10-14 10:00 | PC.NURSE ---
Patient left unit in w/c, accompanied by nurse and patient's son. Personal items sent home with patient. Discharge instructions given to both patient and his son. Both voiced understanding. Patient left hospital grounds in privately owned vehicle.
--- NOTE | 2023-10-20 09:08 | PC.NURSE ---
discharge call back complete, doing well, has been having home health and no questions about dc instructions or care
== END 2023-10-14 10:00 | disposition home or self-care (01) | DRG 560 ==
PROVIDERS: Nurse Practitioner; Nurse Practitioner Acute Care; Admitting Provider Internal Medicine; PCP Internal Medicine; Visit Provider Nurse Practitioner Family
DX: S32.401D Unspecified fracture of right acetabulum, subsequent encounter for fracture with routine healing (principal); I48.20 Chronic atrial fibrillation, unspecified; I50.32 Chronic diastolic (congestive) heart failure; I11.0 Hypertensive heart disease with heart failure; E78.5 Hyperlipidemia, unspecified; E11.9 Type 2 diabetes mellitus without complications; N40.0 Benign prostatic hyperplasia without lower urinary tract symptoms; M10.9 Gout, unspecified; M19.90 Unspecified osteoarthritis, unspecified site; W19.XXXD Unspecified fall, subsequent encounter; Z79.01 Long term (current) use of anticoagulants; Z95.0 Presence of cardiac pacemaker; Z87.891 Personal history of nicotine dependence
CPT/HCPCS: 36415; 71045; 73521; 82948; 85025; 97110; 97116; 97161; 97166; 97530; 97535; A9270

== ENCOUNTER 2023-12-10 07:28 | Outpatient (CLI) | payer MEDICARE, MEDICAID, SELFPAY ==
[2023-12-10 08:18] LABS: Hematocrit 40.4 % (37.0-46.0); Hemoglobin 13.4 g/dL (12.4-15.3); Mean Corpuscular HGB Conc 33.2 g/dL (32-36); Mean Corpuscular Volume 96.4 fL (78.0-102.0); Mean Platelet Volume 9.9 fl (8.7-11.0); Platelet Count Result 172 K/mm3 (150-420); Red Blood Count 4.19 M/mm3 (4.70-6.10); Red Cell Distribution Width 13.4 % (11.6-14.4); White Blood Count 4.3 K/mm3 (4.8-10.8)
[2023-12-10 08:24] LABS: Add Urine Microscopic? NO; Appearance Urine Clear (Clear); Bilirubin Urine Negative (Negative); Blood Urine Negative (Negative); Color Urine Light Yellow (Yellow); Glucose Urine UA 3+ (Negative); Ketones Urine Negative (Negative); Leukocyte Esterase Ur Negative (Negative); Nitrate Urine Negative (Negative); Protein Urine Negative (Negative); Urobilinogen Urine 0.2 mg/dL (0.2-1.0); pH Urine 5.5 (5.0-8.0)
[2023-12-10 08:31] LABS: Creatinine Urine 44.18 mg/dL (40-278); MALB Creatinine Ratio 82.1 mg/g (0-30); Microalbumin Urine Random 36.3 mg/L
[2023-12-10 08:59] LABS: Hemoglobin A1C 6.1 % (<5.7)
[2023-12-10 09:11] LABS: Alanine Aminotransferase 68 U/L (16-63); Albumin Level 3.8 g/dL (3.4-5.0); Alkaline Phosphatase 166 U/L (46-116); Anion Gap 8 mmol/L (4-12); Aspartate Amino Transferase 41 U/L (15-37); Bilirubin Direct 0.1 mg/dL (0-0.2); Bilirubin,Total 0.6 mg/dL (0.00-1.00); Blood Urea Nitrogen 19 mg/dL (7-18); Calcium 9.6 mg/dL (8.5-10.1); Carbon Dioxide 27 mmol/L (21-32); Chloride 108 mmol/L (98-108); Cholesterol 113 mg/dL (0-200); Estimated Glomerular Filt Rate > 60; Ferritin 55 ng/mL (26-388); Folic Acid 18.3 ng/mL (8.6->20); Free T3 2.27 pg/mL (2.18-3.98); Free T4 Free Thyroxine 0.95 ng/dL (0.76-1.46); Glucose 151 mg/dL (70-99); HDL Direct 30 mg/dL (40-60); Iron 69 ug/dL (65-175); LDL Cholesterol Calculated 54 mg/dL (<130); NT Pro B Type Natriuretic Pept 561 pg/mL (0-450); Osmolality Calculated 301 mOsm/kg (285-295); Potassium 4.8 mmol/L (3.5-5.1); Sodium 143 mmol/L (136-145); Thyroid Stimulating Hormone 3.45 uIU/mL (0.36-3.74); Total Protein 7.1 g/dL (6.4-8.2); Triglycerides 145 mg/dL (0-150); Uric Acid 4.3 mg/dL (3.5-7.2); Vitamin B12 309 pg/mL (193-986)
[2023-12-10 11:01] LABS: Creatine Kinase 167 U/L (39-308)
== END 2023-12-10 07:29 | disposition home or self-care (01) ==
LOC: CHSLAB 07:32
PROVIDERS: PCP Internal Medicine; Visit Provider Internal Medicine
DX: G31.84 Mild cognitive impairment of uncertain or unknown etiology (principal); K76.0 Fatty (change of) liver, not elsewhere classified; R74.8 Abnormal levels of other serum enzymes; E03.4 Atrophy of thyroid (acquired); E79.0 Hyperuricemia without signs of inflammatory arthritis and tophaceous disease; E11.9 Type 2 diabetes mellitus without complications; I10 Essential (primary) hypertension; I48.21 Permanent atrial fibrillation; E78.2 Mixed hyperlipidemia; I50.9 Heart failure, unspecified
CPT/HCPCS: 36415; 80053; 80061; 80076; 81003; 82043; 82550; 82607; 82728; 82746; 83036; 83540; 83880; 84439; 84443; 84481; 84550; 85027

== ENCOUNTER 2024-01-18 07:19 | Outpatient (CLI) | payer MEDICARE, SELFPAY ==
[2024-01-18 08:19] LABS: Alanine Aminotransferase 75 U/L (16-63); Albumin Level 3.8 g/dL (3.4-5.0); Alkaline Phosphatase 181 U/L (46-116); Anion Gap 10 mmol/L (4-12); Aspartate Amino Transferase 43 U/L (15-37); Bilirubin,Total 0.4 mg/dL (0.00-1.00); Blood Urea Nitrogen 17 mg/dL (7-18); Calcium 9.3 mg/dL (8.5-10.1); Carbon Dioxide 25 mmol/L (21-32); Chloride 107 mmol/L (98-108); Estimated Glomerular Filt Rate 58; Glucose 144 mg/dL (70-99); Osmolality Calculated 298 mOsm/kg (285-295); Potassium 5.1 mmol/L (3.5-5.1); Sodium 142 mmol/L (136-145); Total Protein 6.9 g/dL (6.4-8.2)
== END 2024-01-18 07:20 | disposition home or self-care (01) ==
LOC: CHSLAB 07:21
PROVIDERS: PCP Internal Medicine; Visit Provider Internal Medicine
DX: I10 Essential (primary) hypertension (principal); E78.2 Mixed hyperlipidemia
CPT/HCPCS: 36415; 80053

== ENCOUNTER 2024-03-30 10:24 | Emergency (ER) | payer MEDICARE, SELFPAY ==
--- NOTE | ~2024-03-30 | XR_ITS ---
EXAMINATION: XR abdomen obstructive series DATE: 03/30/2024 11:14 INDICATION: Constipation TECHNIQUE: Supine and upright views of the abdomen. FINDINGS: No prior studies for comparison. The visualized lung parenchyma is normal.. There is a nonobstructive bowel gas pattern. Moderate colo matthew fecal loading. Gas and stool are seen throughout the colon to the level of the rectum. There is no free air. IMPRESSION: 1. No acute abdominal abnormality. Reviewed, dictated and finalized at location L. ITY CONTROL CLERK
[2024-03-30 10:24] VITALS: BP 136/70; PULSE 80; RESP 18; TEMP 36.6; O2SAT 100
--- NOTE | 2024-03-30 10:32 | ED.GIBLEED ---
HPI - GI Bleed General Chief complaint: Unspecified Stated complaint: rectal bleeding Time Seen by Provider: 03/30/24 10:32 Source: patient and EMS Mode of arrival: EMS Limitations: no limitations History of Present Illness HPI Narrative: Patient is an 83-year-old male with some bright red blood on his toilet paper noted today after straining with constipation for the past 2 days. He has not been bleeding rectally in general. No clots. No abdominal pain. Constipation without bowel movement for 2 days. He took a stool softener early this morning. He is on Eliquis for AFib. complaint: blood on toilet paper Onset (ago): hour(s) (1) Pain Consistency: intermittent and now resolved Severity: mild Relieving factors: none Exacerbating factors: none Context: liver disease ( Fatty liver) and anticoagulant use Associated symptoms: denies other symptoms Treatments Prior to Arrival: none Related Data Home Medications ?Medication ?Instructions ?Recorded ?Confirmed ?Last Taken ?Type allopurinol 300 mg tablet 300 mg PO HS 04/17/19 10/24/23 09/28/23 20:43 History carvedilol 6.25 mg tablet 6.25 mg PO BID 04/17/19 10/24/23 09/29/23 06:02 History enalapril maleate 5 mg tablet 2.5 mg PO DAILY 04/17/19 10/24/23 10/28/22 History apixaban 5 mg tablet (Eliquis) 5 mg PO BID 07/18/23 10/24/23 09/29/23 09:09 History sitagliptin phosphate 100 mg 100 mg PO DAILY 09/11/23 10/24/23 Unknown History tablet (Januvia) tamsulosin 0.4 mg capsule 0.4 mg PO DAILY 09/11/23 10/24/23 09/29/23 09:09 History Miralax 17 g PO DAILY PRN Constipation 09/29/23 10/24/23 Unknown History ROSA-COLACE 1 tablet PO BID 09/29/23 10/24/23 09/29/23 09:09 History acetaminophen 500 mg tablet 1,000 mg PO TID 09/29/23 10/24/23 Unknown History Allergies Allergy/AdvReac Type Severity Reaction Status Date / Time No Known Allergies Allergy Verified 10/24/23 11:22 Review of Systems Review of Systems: All systems reviewed & are unremarkable except as noted in HPI and below Constitutional: Constitutional: Reports no additional constitutional complaints Eyes: Eyes: Reports no additional eye complaints ENT: Reports system reviewed and no additional complaints, except as documented Cardiovascular: Cardiovascular: Reports no additional cardiovascular complaints Respiratory: Respiratory: Reports no additional respiratory complaints Gastrointestinal: Gastrointestinal: Reports no additional gastrointestinal complaints Genitourinary: Genitourinary: Reports no additional male genitourinary complaints Musculoskeletal: Musculoskeletal: Reports no additional musculoskeletal complaints Integumentary/Breasts: Skin/Breast: Reports system reviewed and no additional complaints, except as docu Neurologic: Reports system reviewed and no additional complaints, except as documented Psychiatric: Psychiatric: Reports no additional psychiatric complaints Endocrine: Endocrine: Reports no additional endocrine complaints Hematologic/Lymphatic: Hematologic/Lymphatic: Reports no additional hematologic/lymphatic complaints Allergic/Immunologic: Allergic/Immunologic: Reports no additional allergic/immunologic complaints PMFSH Past Medical History Medical History Diastolic congestive heart failure Chronic anticoagulation Cerebrovascular accident Arthritis Benign prostatic hyperplasia Gout Atrial fibrillation Hypertension Dyslipidemia Type 2 diabetes mellitus Surgical History Surgical History Previous back surgery History of colonoscopy with polypectomy History of appendectomy History of cardiac catheterization History of permanent cardiac pacemaker placement Family History Family History Other Diabetes mellitus Hypertension Social History Social History Social History: The patient is with two children. His daughter lives in [place] and is a traveling nurse. He designates his son, Ham as his emergency contact. He is retired, disabled after work for [employer]. He suffered a back injury which left him to retire early. He lives at home alone. Surrogate medical decision maker: Ham Brewer (son). Code status: Full code. Years smoked: 30 Smoking status: Former smoker Tobacco type: cigarettes Smokeless tobacco user: chewing tobacco Second hand tobacco smoke exposure: Yes Alcohol intake: never Substance use: never Substance use type: does not use Do You Feel Safe in your Home?: No Lack of Transportation: No Lack of Food: Sometimes True Current Housing: I Have Housing Concerned About Future Housing: No Difficulty Paying Gas/Electric Bills: YES Difficulty Paying for Meds: No Currently Unemployed: No Education: High School Diploma/GED Difficulty w/ Childcare or Family Care: No Living arrangements: alone Occupation/Education: retired Spiritual care concerns: No Exam Const: General: healthy appearing Nutritional Appearance: well nourished Orientation/consciousness: patient oriented x3 HENMT: Head: normal to inspection Ears: external ears normal Face/Nose/Sinus: Normal external nose present Eyes: Conjunctivae: conjunctivae normal Pupils: Equal, round and reactive pupils present EOM: EOMs intact bilaterally Neck: Neck: normal visual inspection Chest: Chest palpation & inspection: normal inspection of the chest Resp: Effort & Inspection: normal respiratory effort and not labored Auscultation: clear to auscultation bilaterally and no crackles Cardio: Rate: regular rate Rhythm: regular rhythm Heart sounds: no murmurs GI: Inspection: non-distended GI Palp: Yes Soft to palpation and No Tenderness to palpation present (GI) Auscultation: normal bowel sounds Other: Rectal exam showed a normal tone, locally irritated and inflamed skin with hemorrhoids : General: Yes bladder normal to palpation Back/Spine/Pelvis: Back: no CVA tenderness Skin: General skin exam: normal color Rashes: no rashes Wounds: no wounds Neuro: General: patient oriented x3 Cranial nerves: Yes Nystagmus not present Speech: normal speech Extrem: General: normal to inspection Psych: Mental Status: mental status grossly normal Affect: normal affect Attitude: cooperative Course Vital Signs Vital signs: Vital Signs Temperature 36.6 C 03/30/24 10:24 Pulse Rate 80 03/30/24 10:24 Respiratory Rate 18 03/30/24 10:24 Blood Pressure 136/70 03/30/24 10:24 Pulse Oximetry 100 03/30/24 10:24 Oxygen Delivery Room Air 03/30/24 10:24 Temperature 36.6 C 03/30/24 10:24 Pulse Rate 80 03/30/24 10:24 Respiratory Rate 18 03/30/24 10:24 Blood Pressure 136/70 03/30/24 10:24 Pulse Oximetry 100 03/30/24 10:24 Oxygen Delivery Room Air 03/30/24 10:24 MDM - GI Bleed MDM Narrative Medical decision making narrative: patient is an 83-year-old male with bright red blood on his toilet paper after straining stool. We will do an exam and get basic labs for reassurance. I will get an x-ray of the abdomen for reassurance. patient had a large bowel movement here in the emergency room and no blood seen except at the top of the bowel movement bright red blood. Lab Data Attestation: I reviewed the patient's lab results. 03/30/24 10:53 03/30/24 10:53 Labs: Lab Results 03/30/24 Range/Units 10:53 WBC 6.1 (4.8-10.8) K/mm3 RBC 4.22 L (4.70-6.10) M/mm3 Hgb 13.4 (12.4-15.3) g/dL Hct 41.6 (37.0-46.0) % MCV 98.6 (78.0-102.0) fL MCH 31.8 H (27.0-31.0) pg MCHC 32.2 (32-36) g/dL RDW 13.3 (11.6-14.4) % Plt Count 184 (150-420) K/mm3 MPV 9.6 (8.7-11.0) fl Immature Gran % (Auto) 0.3 H (0.0-0.0) % Neut % (Auto) 76.0 H (50.0-70.0) % Lymph % (Auto) 16.3 L (18.0-42.0) % [place] % (Auto) 6.4 (2.0-11.0) % Eos % (Auto) 0.7 L (1.0-6.0) % Baso % (Auto) 0.3 (0.0-1.0) % Lymph # (Auto) 0.99 L (1.10-4.50) K/mm3 [place] # (Auto) 0.39 (0.10-0.90) K/mm3 Eos # (Auto) 0.04 (0.02-0.50) K/mm3 Baso # (Auto) 0.02 (0.00-0.10) K/mm3 Abs Immat Gran (auto) 0.02 H (0.00-0.00) K/mm3 Absolute Neuts (auto) 4.60 (1.70-7.20) K/mm3 Absolute Nucleated RBC 0.00 (0.00-0.00) K/mm3 Nucleated RBC % 0.0 (0-0.0) % PT 10.8 (9.50-12.1) Seconds INR 1.0 APTT 33.2 H (23.9-30.70) Sec Sodium 137 (136-145) mmol/L Potassium 5.1 (3.5-5.1) mmol/L Chloride 100 (98-108) mmol/L Carbon Dioxide 25 (21-32) mmol/L Anion Gap 12 (4-12) mmol/L BUN 24 H (7-18) mg/dL Creatinine 1.34 H (0.70-1.30) mg/dL Estim Creat Clear Calc 37 ml/min Estimated GFR 51 L (59 - ) Glucose 170 H (70-99) mg/dL Calculated Osmolality 292 (285-295) mOsm/kg Calcium 9.3 (8.5-10.1) mg/dL Total Bilirubin 0.7 (0.00-1.00) mg/dL AST 40 H (15-37) U/L ALT 95 H (16-63) U/L Alkaline Phosphatase 208 H (46-116) U/L Total Protein 7.9 (6.4-8.2) g/dL Albumin 4.1 (3.4-5.0) g/dL Stool Occult Blood Negative (Negative) Imaging Data Attestation: I personally reviewed and interpreted this imaging study as follows: Radiologist's impression: x-ray of the abdomen acute series is negative for acute process Discharge Plan Discharge Clinical Impression: Acute hemorrhoid, Acute constipation Patient Disposition: Home, Self-Care Condition: Stable Instructions: Hemorrhoids (ED) Additional Instructions: please follow-up with the primary doctor in the next week. Please follow-up with the certified nurse midwife as planned. Monitor for further blood in the stool and notify your doctor if continued issue. Patient Language: New Zealander Prescriptions: No Action carvedilol 6.25 mg tablet 6.25 mg PO BID enalapril maleate 5 mg tablet 2.5 mg PO DAILY allopurinol 300 mg tablet 300 mg PO HS tamsulosin 0.4 mg capsule 0.4 mg PO DAILY Januvia 100 mg tablet 100 mg PO DAILY acetaminophen 500 mg Tablet 1,000 mg PO TID Rx Instructions: every 8 hours Miralax 17 g PO DAILY PRN (Reason: Constipation) ROSA-COLACE 1 tablet PO BID furosemide 40 mg Tablet 40 mg PO DAILY Qty: 30 0RF lovastatin 40 mg tablet 40 mg PO DAILY Qty: 30 5RF Eliquis 5 mg tablet 5 mg PO BID Jardiance 10 mg Tablet 10 mg PO DAILY Qty: 30 0RF Follow-up/Referrals: Brady Bourgeois MD [Primary Care Provider] - Time of Disposition: 11:36
[2024-03-30 10:57] LABS: Basophils Absolute Auto 0.02 K/mm3 (0.00-0.10); Basophils Percent Auto 0.3 % (0.0-1.0); Eosinophils Absolute Auto 0.04 K/mm3 (0.02-0.50); Eosinophils Percent Auto 0.7 % (1.0-6.0); Hematocrit 41.6 % (37.0-46.0); Hemoglobin 13.4 g/dL (12.4-15.3); Immature Granulocyte Absolute 0.02 K/mm3 (0.00-0.00); Immature Granulocyte Percent A 0.3 % (0.0-0.0); Lymphocytes Absolute Auto 0.99 K/mm3 (1.10-4.50); Lymphocytes Percent Auto 16.3 % (18.0-42.0); Mean Corpuscular HGB Conc 32.2 g/dL (32-36); Mean Corpuscular Hemoglobin 31.8 pg (27.0-31.0); Mean Corpuscular Volume 98.6 fL (78.0-102.0); Mean Platelet Volume 9.6 fl (8.7-11.0); Monocytes Absolute Auto 0.39 K/mm3 (0.10-0.90); Monocytes Percent Auto 6.4 % (2.0-11.0); Platelet Count Result 184 K/mm3 (150-420); Red Blood Count 4.22 M/mm3 (4.70-6.10); Red Cell Distribution Width 13.3 % (11.6-14.4); White Blood Count 6.1 K/mm3 (4.8-10.8)
--- OUTSIDE RECORDS SUMMARY | 2024-03-30 10:59 | XMS_ITS | Clinical Summary ---
Author Organization [facility] Address [address] [place] [id number] Care Team Providers Care Manager Story Name Role Phone Unavailable Primary Care Provider Unavailabl e Social History Tobacco Use Types Packs/Day Years Used Date Smoking Tobacco: Never Assessed Sex and Gender Information Value Date Recorded Sex Assigned at Not on file Legal Sex Male 8:38 PM CDT Gender Identity Not on file Sexual Orientation Not on file Plan of Treatment Health Maintenance Due Date Last Done Comments DTaP, Tdap and Td Vaccines ( 1 - Tdap) 08/04/1958 Zoster Vaccines (1 of 2) 08/04/1989 Pneumococcal Vaccine: 65+ Ye ars (1 of 1 - PCV) 08/04/2004 RSV Immunization or 60+ Years (1 - 1-dose 75+ series) 08/04/2014 COVID-19 Vaccine ( - 2023-2 5 season) 2023 Influenza Adult (#1) 2023 Meningococcal B Vaccine Aged Out No l onger eligible based on patient's age to complete this topic Meningococcal Vaccine Aged Out No feliz sheila eligible based on patient's age to complete this topic RSV Immunizations Under 20 Months Aged Out No longer eligible based on patient's age to complete this topic
--- OUTSIDE RECORDS SUMMARY | 2024-03-30 10:59 | XMS_ITS ---
Author Organization [facility] Address [address] [place], [place] [id number] Care Team Providers Care Loop Tender Name Role Phone IRENE DOWELL Unavailable [phone] Brady Bourgeois Unavailable Unavailable REASON FOR VISIT *General care Encounters Encounter Location Date Provider Diagnosis [address] [id number] 03/15/2024 IRENE DOWELL Plan Of Treatment Next Appt Details Provider Name:BRENT DUFF, 05/31/2024 11:40:00 AM, [address] [place] [address], [id number], Progress Notes * MARSHA YADAV LDOB:[birth year] (83 yo M)Acc No.[id number]:03/15/2024 Patient: MARSHA NGUYEN Provider: Sharee Dowell DPM :1940 A ge:83 Y S ex:Male Date:03/15/2024 Address:[address] [place], [place] [id number] Subjective: * Chief Complaints: * 1 . *General care. * Medical History: Objective: * Vitals: Assessment: Plan: * Treatment: * Billing Information: * Visit Code: * Procedure Codes: * Electronic signature of IRENE DOWELL DPM on 03/30/2024 at 10:59 AM SAMPLE WASHER Sign off status: Pending * Provider: Sharee Dowell DPM Date: 0 03/15/2024 Generated for Printi ng/Faxing/eTransmitting on: 0 03/30/2024 10:59 AM SAMPLE WASHER
--- OUTSIDE RECORDS SUMMARY | 2024-03-30 10:59 | XMS_ITS | Clinical Summary ---
Author Organization [facility] Address [address] [place] [phone] Care Team Providers Care Mental Health Social Worker Name Role Phone Brady Bourgeois MD Primary Care Provider + [phone] Allergies No known active allergies Medications lovastatin (MEVACOR) 20 mg tablet take 1 tablet by oral route every day with the evening meal 0 0 8 Active enalapril (VASOTEC) 5 mg tablet take 1 tablet by oral route every day 0 0 8 Active warfarin (COUMADIN) 4 mg tablet take 1 1/2 tablet (6MG) daily or as directed by Dr. Bourgeois 70 5 2 Active Additional Information Patient taking differently:4 mg,5.5 mg daily, Reported on 08/30/2022 allopurinol (ZYLOPRIM) 300 mg tablet Take one by mouth one time per day 0 0 8 Active Additional Information Patient taking differently:300 mgoral Nightly, Reported on 08/30/2022 potassium chloride ER (KLOR-CON,K-DUR ) 20 mEq CR tablet Take one by mouth one time per day 0 0 8 Active magnesium oxide (MAG-OX) 400 mg (241.3 mg elemental) tablet Take one by mouth one time per day 30 5 8 Active Additional Information Patient not taking.Reported on 08/30/2022 carvedilol (COREG) 6.25 mg tablet Take 1 tablet (6.25 mg total) by mouth 2 (two) times a day with meals Active glimepiride (AMARYL) 2 mg tablet Take 1 tablet (2 mg total) by mouth 2 (two) times a day 1 Active triamcinolone (KENALOG) 0.1 % cream APPLY A THIN LAYER OF CREAM EXTERNALLY TO AFFECTED AREA EVERY DAY AT BEDTIME 3 Active furosemide (Lasix) 40 mg tabletIndicatio ns:Chronic diastolic heart failure (HCC) Take 1.5 tablets (60 mg total) by mouth daily 150 tablet 3 3 Active Jardiance 10 mg tablet Take 1 tablet (10 mg total) by mouth daily 4 Active tamsulosin (FLOMAX) 0.4 mg extended release capsule TAKE 1 CAPSULE BY MOUTH ONCE DAILY 30 MINUTES FOLLOWING THE SAME MEAL EACH DAY 4 Active aspirin 81 mg enteric coated tablet Take 1 tablet (81 mg total) by mouth daily Active Active Problems Problem Noted Date Diagnosed Date H/O: stroke 04/20/2023 Hyperlipidemia associated with type 2 diabetes m ellitus 03/04/2021 Claudication 02/22/2020 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 02/22/2020 Benign localized prostatic h yperplasia with lower urinary tract symptoms (LUTS) 11/21/2019 Multiple-type hyperlipidemia 09/17/2015 Overview (05/13/2016): Mixed hyperlipidemia Dyspnea on exertion 09/17/2015 Overview (05/13/2016): LACKEY (dyspnea on exertion) Persistent atrial fibrillation 09/17/2015 Overview (05/13/2016): Persistent atrial fibrillation Chronic anticoagulation 09/17/2015 Overview (05/13/2016): Chronic anticoagulation 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 Dx; Second Degree AVB, Afib. DOI 11/26/2015, chronic lead 12/15/07. Carelink remote monitoring Q3 mo, office pacer checks Q1 yr. Chronic diastolic heart failure 10/15/2013 Overview (05/13/2016): Chronic diastolic CHF (congestive heart failure) Resolved Problems Problem Noted Date Diagnosed Date Resolved Date History of anticoagulant therapy 10/15/2013 01/16/2017 Overview (05/13/2016): Anticoagulant long-term use Hyperlipidemia 10/15/2013 01/16/2017 Overview (05/13/2016): Hyperlipidemia Atrial fibrillation (CMS/HCC) 10/15/2013 01/16/2017 Overview (05/13/2016): Atrial fibrillation Chronic coronary artery disease 10/15/2013 01/16/2017 Overview (05/13/2016): Occlusive coronary artery disease Encounters Date Type Department Care Team Description 02/15/2024 7:15 AM FINANCE ATTORNEY Ancillary Procedure [facility] Cardiology [address] [facility] [address] [place] [phone] Pacemaker (Primary Dx); Second degree AV block; Persistent atrial fibrillation (HCC) 02/15/2024 Telephone [facility] Cardiology [address] [facility] [address] [place] [phone] Kit Patel MD from Last 3 Months Surgical History Surgery Date Site/Laterality Comments CARDIAC PACEMAKER PLACEMENT LUMBAR SPINE SURGERY APPENDECTOMY 02/07/1959 - 02/07/1960 Medical History Medical History Date Comments Atrial fibrillation (CMS/HCC) (HCC) Hypertension Hyperlipidemia BPH (benign prostatic hyperplasia) Type 2 diabetes mellitus (HCC) Arthritis Skin cancer Nocturia Family History Medical History Relation Name Comments Diabetes Brother No Known Problems Father Diabetes Mother Relation Name Status Comments Brother Father Mother Social History Tobacco Use Types Packs/Day Years Used Date Smoking Tobacco: Former Smokeless Tobacco: Former Quit: 09/23/2019 Tobacco Cessation:Counseling Given: Not Answered Alcohol Use Standard Drinks/Week Comments No 0 (1 standard drink = 0.6 oz pur e alcohol) Personal Safety Answer Date Recorded Getting School Help Needed Not on file 02/19 Sex and Gender Information Value Date Recorded Sex Assigned at Not on file Legal Sex Male 11:28 AM FINANCE ATTORNEY Gender Identity Not on file Sexual Orientation Not on file Obstetrics History Last Filed Vital Signs Vital Sign Reading Time Taken Comments Blood Pressure 110/48 04/20/2023 10:26 AM CDT Pulse 64 04/20/2023 10:26 AM CDT Temperature 36.4 C (97.5 F) 03/03/2020 12:42 PM FINANCE ATTORNEY Respiratory Rate 16 12/28/2019 10:55 AM FINANCE ATTORNEY Oxygen Saturation 99% 04/20/2023 10:26 AM CDT Inhaled Oxygen Concentration - - Weight 81.2 kg (179 lb) 04/20/2023 10:26 AM CDT Height 177.8 cm (5' 10 ) 04/20/2023 10:26 AM CDT Body Mass Index 25.68 04/20/2023 10:26 AM CDT Plan of Treatment Health Maintenance Due Date Last Done Comments Albumin Creatinine Ratio, Urine 1940 Depression Screening 1940 Hemoglobin A1C 1940 Dilated Eye Exam 1940 Foot Exam 1940 Hepatitis B Screening 08/04/1957 Zoster Vaccine (1 of 2) 08/04/1989 Well Visit 65+ 08/04/2004 DTaP/Tdap/Td Vaccine (1 - Tdap) 08/08/2010 1 Fall Risk Assessment 12/27/2020 12/28/2019 Lipid Panel 04/06/2022 04/06/2021 Influenza Vaccine (#1) 2023 9, 11/02/2017, 10/21/2016, Additional history exists eGFR 09/25/2024 09/26/2023, 09/07, 09/19/2023, Additional history exists Pneumococcal vaccine 65+ Completed 017, 12/23/2006, 12/12/2006 Medical Devices Implanted Type Area Acupressure Therapist Device Identifier Shelf Expiration Date Model / Serial / Lot Pacemaker-11/25 Implanted:11/25 by Alba Argueta MD (Quantity not on file) Pacemaker Chest Medtronic Second Degree AVB, Afib ADAPTA / [id number] / CHRONIC LEADS 2007 Procedures Procedure Name Priority Date/Time Associated Diagnosis Comments DEVICE CHECK - REMOTE Routine 02/21/2024 11:43 AM FINANCE ATTORNEY Second degree AV block Persistent atrial fibrillation (HCC) EGFR Routine 09/26/2023 6:25 AM CDT LIPID PANEL Routine 04/06/2021 Coronary arteriosclerosis in [place]igh[place] artery Chronic diastolic heart failure (CMS/HCC) (HCC) Persistent atrial fibrillation (HCC) Hyperlipidemia associated with type 2 diabetes mellitus (HCC) from Last 3 Months or Most Recently Relevant to Health Maintenance Results * DEVICE CHECK - REMOTE (02/21/2024 11:43 AM FINANCE ATTORNEY) Anatomical Region Laterality Modality Other Narrative 03/23/2024 7:51 AM FINANCE ATTORNEY Medtronic Dual Pacemaker-Programmed VVIR-Bill Single PM. Dx; Second Degree AVB, Afib. DOI 11/26/2015, chronic lead 12/15/07. Carelink remote monitoring Q3 mo, office pacer checks Q1 yr. Routine VVIR Pacemaker Remote. Transmission attached. Battery status: 2.70 V, 12 months remaining battery life to RHIANNA. Stable lead impedances, pacing and sensing thresholds. Presenting rhythm: V paced CHAPLAIN RESIDENT-97.6% 1 Ventricular high rate episodes detected, IEGM demonstrates 2 seconds of NSVT. Medications: Warfarin, ASA 81 mg, carvedilol 6.25 mg, enalapril 5 mg See scanned report. Office pacemaker follow up: Letter sent to patient to call and make office check appointment CareLink remote f/u 05/16/24. Osmel Piña, CRYSTAL us Kit Patel MD [facility] PROC EDURES Final Result * eGFR (09/26/2023 6:25 AM CDT) eGFR 84 >=60 mL/min/1. 73 m2 NAOMI BARAKAT Comment: Interpretive Data Reference Interval Normal >/= 90 mL/min/1.73m2 Mildly decreased* 60 - 89 mL/min/1.73m2 Mildly to moderately decreased 45 - 59 mL/min/1.73m2 Moderately to severely decreased 30 - 44 mL/min/1.73m2 Severely decreased 15 - 29 mL/min/1.73m2 Kidney Failure < 15 mL/min/1.73m2 *Relative to young adult level Estimated glomerular filtration rate is determined by the 2020 CKD-EPI equation recommended by the National Kidney Foundation (A Unifying Approach to GFR Estimation: Recommendations of the NKF-ASK Task Force on Reassessing the Inclusion of Race in Diagnosing Kidney Disease, JASN 2020). The CKD-EPI equation should not be used for patients with unstable renal function and has not been validated in children and those over 70. Current interpretive data was last reviewed 2020. Testing performed by: [facility], [address] [place] [address]., [id number] Blood 09/26/2023 6:25 AM CDT 09/26/2023 8:31 AM CDT us Notinfile Unknown LAB BLOOD ORDERABLES Final Res ult [facility]I [facility] Department [place] [address] * Lipid panel (04/06/2021) SCRIBED Cholesterol, Total 123 <200 EXTERNAL LAB SCRIBED HDL 28 >40 EXTERNAL LAB SCRIBED LDL 69 <100 EXTERNAL LAB SCRIBED Triglycerides 128 <150 EXTERNAL LAB Blood specimen (specimen) 04/06/2021 us Alba Argueta MD LAB BLOOD ORDERABLES Final Result EXTERNAL LAB from Last 3 Months or Most Recently Relevant to Health Maintenance Insurance MEDICARE COMMERCIAL GENERIC MEDICARE SOLUTIONS Care Teams Mental Health Social Worker Relationship Specialty Start Date End Date Brady Bourgeois MD [address] [place] [address] PCP - General 05/07/16
--- OUTSIDE RECORDS SUMMARY | 2024-03-30 10:59 | XMS_ITS | Referral Summary ---
Author Organization [facility] Address [address] [place] [phone] Care Team Providers Care Loftsman Name Role Phone Brady Bourgeois MD Primary Care Provider [phone] Encounters Date Type Department Care Team Description 02/15/2024 Telephone [facility] Card[facility] [address] [place] [phone] Kit Patel MD 02/15/2024 7:15 AM SALES REPRESENTATIVE ADDING MACHINES Ancillary Procedure [facility] Cardiology [address] [facility] [address], [place] [address] Pacemaker (Primary Dx); Second degree AV block; Persistent atrial fibrillation (HCC) from Last 3 Months Allergies No known active allergies Medications lovastatin [...] Chronic anticoagulation Occlusion of right coronary artery (CMS/[facility]) 11/2015 Overview (05/13/2016): Right coronary artery occlusion Essential hypertension 09/17/2015 Overview (05/13/2016): Essential hypertension Coronary arteriosclerosis in [place] artery 05/31 Overview (05/13/2016): CAD in [place] artery Pacemaker 10/15/2013 Overview (08/18/2017): Medtronic Dual [...] 10/15/2013 01/16/2017 Overview (05/13/2016): Hyperlipidemia Atrial fibrillation ([facility]) 10/15/2013 01/16/2017 Overview (05/13/2016): Atrial fibrillation Chronic coronary artery disease 10/15/2013 01/16/2017 Overview (05/13/2016): Occlusive coronary artery disease Social History Tobacco Use Types Packs/Day Years [...] on file Legal Sex Male 11:28 AM SALES REPRESENTATIVE ADDING MACHINES Gender Identity Not on file Sexual Orientation Not on file Last Filed Vital Signs Vital Sign Reading Time Taken Comments Blood Pressure 110/48 04/20/2023 10:26 AM CDT Pulse 64 04/20/2023 10:26 AM CDT Temperature 36.4 C (97.5 F) 03/03/2020 12:42 PM SALES REPRESENTATIVE ADDING MACHINES Respiratory Rate 16 12/28/2019 10:55 AM SALES REPRESENTATIVE ADDING MACHINES Oxygen Saturation 99% 04/20/2023 10:26 AM CDT Inhaled Oxygen Concentration - - Weight 81.2 kg (179 lb) 04/20/2023 10:26 AM CDT Height 177.8 cm (5' 10 ) 04/20/2023 10:26 AM CDT Body Mass Index 25.68 04/20/2023 10:26 AM CDT Plan of Treatment Not on file Medical Devices Implanted Type Area Molding Cutter Device Identifier Shelf Expiration Date Model / Serial / Lot Pacemaker-11/25 Implanted:11/25 by Alba Argueta MD (Quantity not on file) Pacemaker Chest Medtronic Second Degree AVB, Afib ADAPTA / [id number] / CHRONIC LEADS 2007 Procedures Procedure Name Priority Date/Time Associated Diagnosis Comments DEVICE CHECK - REMOTE Routine 02/21/2024 11:43 AM SALES REPRESENTATIVE ADDING MACHINES Second degree AV block Persistent atrial fibrillation (HCC) EGFR Routine 09/26/2023 6:25 AM CDT LIPID PANEL Routine 04/06/2021 Coronary arteriosclerosis in [place] artery Chronic diastolic heart failure (CMS/HCC) (HCC) Persistent atrial fibrillation (HCC) Hyperlipidemia associated with type 2 diabetes mellitus (HCC) from Last 3 Months or Most Recently Relevant to Health Maintenance Results * DEVICE CHECK - REMOTE (02/21/2024 11:43 AM SALES REPRESENTATIVE ADDING MACHINES) Anatomical Region Laterality Modality Other Narrative 03/23/2024 7:51 AM SALES REPRESENTATIVE ADDING MACHINES Medtronic Dual Pacemaker-Programmed VVIR-Bill Single PM. Dx; Second Degree AVB, Afib. DOI 11/26/2015, chronic lead 12/15/07. Carelink remote monitoring Q3 mo, office pacer checks Q1 yr. Routine VVIR Pacemaker Remote. Transmission attached. Battery status: 2.70 V, 12 months remaining battery life to RHIANNA. Stable lead impedances, pacing and sensing thresholds. Presenting rhythm: V paced MALWARE ANALYST-97.6% 1 Ventricular high rate episodes detected, IEGM demonstrates 2 seconds of NSVT. Medications: Warfarin, ASA 81 mg, carvedilol 6.25 mg, enalapril 5 mg See scanned report. Office pacemaker follow up: Letter sent to patient to call and make office check appointment [facility]Link remote f/u 05/16/24. Osmel Piña RN us Kit Patel MD CV CARDIAC SERVICES [...] was last reviewed 2020. Testing performed by: [facility], [address] [place] [address]., [id number] Blood 09/26/2023 6:25 AM CDT 09/26/2023 8:31 AM CDT us Notinfile Unknown LAB BLOOD ORDERABLES Final Res ult NAOMI BARAKAT [id number] [facility] Department [place] [address] * Lipid panel (04/06/2021) SCRIBED Cholesterol, Total 123 <200 EXTERNAL LAB SCRIBED HDL 28 >40 EXTERNAL LAB SCRIBED LDL 69 <100 EXTERNAL LAB SCRIBED Triglycerides 128 <150 EXTERNAL LAB Blood specimen (specimen) 04/06/2021 Alba Argueta MD LAB BLOOD ORDERABLES Final Result EXTERNAL LAB from Last 3 Months or Most Recently Relevant to Health Maintenance Insurance MEDICARE COMMERCIAL GENERIC [place] [address] Care Teams Loftsman Relationship Specialty Start Date End Date Brady Bourgeois MD [address] [place] [address] PCP - General 05/07/16
--- OUTSIDE RECORDS SUMMARY | 2024-03-30 11:00 | XMS_ITS ---
Author Organization [facility] Address [address] [place], [place] [id number] Care Team Providers Care Car Sales Representative Name Role Phone IRENE DOWELL Unavailable [phone] Brady Bourgeois Unavailable Unavailable CORBY MELENDEZ Unavailable [phone] REASON FOR VISIT *General care Medications Medication SIG (Take, Route, Fr equency, Duration) Notes Start Date End Date Status Memantine HCl 5 MG Oral for 30 Days Active Allopurinol 300 MG Oral for 90 Days Active Warfarin Sodium 5 MG TAKE 1 TABLET BY [facility] ONCE DAILY Oral for 90 Days Active Carvedilol 6.25 MG Oral for 90 Days Active Lovastatin 20 MG Oral for 90 Days Active Encounters Encounter Location Date Provider Diagnosis [facility] [address] [place], [place] [id number] 11/10/2023 CORBY MELENDEZ Other hammer toe(s) (acquired), right foot M20.41 ; Tinea unguium B35.1 ; Other hammer toe(s) (acquired), left foot M20.42 ; Pain in right toe(s) M79.674 ; Pain in left toe(s) M79.675 ; 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 The patient was given education about shoe recommendations specific for the condition. The patient was educated about custom orthotics and how appropriate shoes and orthotics can prevent further worsening of the deformity. The patient was educated about how bad shoe habits can worsen the condition. NSAIDS, P.T., injections and other conservative treatments were discussed. Both surgical and non surgical treatments were discussed, but conservative options were emphasized. 11/10/2023 Tinea unguium (ICD-10 - B35.1) Aseptic debridement of elongated thickened nails x 10 using sterile nippers, nails were debrided in length and thickness by 30% utilizing a nail nipper without incident. The patient was educated regarding all treatment options that include topical and oral antifungal treatments. I discussed the options of taking a sample of the nail to confirm diagnosis. Nail clippings were not sent for pathology analysis. The patient was educated why and how the fungal infection evolved in their feet and the patient was given information regarding how to prevent further infection. The patient was told to keep feet dry and change socks. The patient was told to be careful with old shoes and excessive sweating. The patient was educated regarding both OTC and prescription treatments. g 11/10/2023 Other hammer toe(s) (acquired), left foot (ICD-10 - M20.42) 11/10/2023 Pain in right toe(s) (ICD-10 - M79.674) 11/10/2023 Pain in left toe(s) (ICD-10 - M79.675) 11/10/2023 Unspecified atherosclerosis of [place] arteries of extremities, bilateral legs (ICD-10 - I70.203) Patient educated on risks and aggravating factors of PVD, including conservative treatment options such as a diet and exercise regimen to aid in slowing progression of vascular disease 11/10/2023 Type 2 diabetes mellitus with diabetic peripheral angiopathy without gangrene (ICD-10 - E11.51) Patient educated on proper diabetic foot care and the importance of tight glycemic control in regards to the prevention of diabetic manifestations and symptomatology in lower extremity. Explained to patient the importance of keeping interdigital spaces dry, not walking bare foot, having supportive shoe gear, using moisturizer to skin on feet daily especially in winter months, and checking feet daily for any new lesions or areas suspicious of trauma infection or ulceration. Explained to patient to return to ED if any change in foot health associated with signs of systemic infection including but not limited to nausea, vomiting, fever. Plan Of Treatment Treatment Notes Assessment Notes Other hammer toe(s) (acquired), right fo ot The patient was educated regarding how to mechanically stabilize their deformity. The patient was given education about shoe recommendations specific for the condition. The patient was educated about custom orthotics and how appropriate shoes and orthotics can prevent further worsening of the deformity. The patient was educated about how bad shoe habits can worsen the condition. NSAIDS, P.T., injections and other conservative treatments were discussed. Both surgical and non surgical treatments were discussed, but conservative options were emphasized. Tinea unguium Aseptic debridement of elongated thickened nails x 10 using sterile nippers, nails were debrided in length and thickness by 30% utilizing a nail nipper without incident. The patient was educated regarding all treatment options that include topical and oral antifungal treatments. I discussed the options of taking a sample of the nail to confirm diagnosis. Nail clippings were not sent for pathology analysis. The patient was educated why and how the fungal infection evolved in their feet and the patient was given information regarding how to prevent further infection. The patient was told to keep feet dry and change socks. The patient was told to be careful with old shoes and excessive sweating. The patient was educated regarding both OTC and prescription treatments. g Unspecified atherosclerosis of [place] arteries of extremities, bilateral legs Patient educated on risks and aggravating factors of PVD, including conservative treatment options such as a diet and exercise regimen to aid in slowing progression of vascular disease Type 2 diabetes mellitus wit h diabetic peripheral angiopathy without gangrene Patient educated on proper diabetic foot care and the importance of tight glycemic control in regards to the prevention of diabetic manifestations and symptomatology in lower extremity. Explained to patient the importance of keeping interdigital spaces dry, not walking bare foot, having supportive shoe gear, using moisturizer to skin on feet daily especially in winter months, and checking feet daily for any new lesions or areas suspicious of trauma infection or ulceration. Explained to patient to return to ED if any change in foot health associated with signs of systemic infection including but not limited to nausea, vomiting, fever. Next Appt Details Follow Up: 3 Months, Reason: Provider Name:BRENT DUFF, 05/31/2024 11:40:00 AM, [address] [place] [address], [id number], Progress Notes * MARSHA YADAV LDOB:[birth year] (83 yo M)Acc No.[id number]:11/10/2023 Patient: MARSHA NGUYEN Provider: Reece MELENDEZ :1940 A ge:83 Y S ex:Male Date:11/10/2023 Address:[address] [place], [place] [address] Subjective: * Chief Complaints: * 1 . *General care. * HPI: H PI: General care P atient presents to the office for diabetic foot care. Patient states that their nails are thickened, elongated and painful. Patient states that it is aggravated by shoe gear. Onset is gradual., Patient is taking prescription blood thinners., Date last seen by Dr. Bourgeois was 10/2023., Initials mca. * ROS: G eneral / Constitutional: Patient denies w eakness. R espiratory: Patient denies c hronic cough, shortness of breath, sputum production. C ardiovascular: Patient denies c hest pain, history of VT, irregular heartbeat. M usculoskeletal: Patient complains of h ammertoes. P eripheral Vascular: Patient denies b lanching of skin, cold extremities, decreased sensation in extremities. S kin: Patient complains of n ail changes, fungal nails. ? N eurologic: Patient denies d izziness, gait abnormality, headache. * Medical History: * Medications: T aking Carvedilol 6.25 MG Tablet Oral , Taking Warfarin Sodium 5 MG Tablet TAKE 1 TABLET BY MOUTH ONCE DAILY Oral , Taking Allopurinol 300 MG Tablet Oral , Taking Memantine HCl 5 MG Tablet Oral , Taking Lovastatin 20 MG Tablet Oral Objective: * Vitals: * Examination: P hysical Examination: V ascular: Dorsalis Pedis pulse noted at 1/4 right foot and 1/4 left foot and Posterior Tibial pulse noted at 1/4 right foot and 1/4 left foot, Capillary refill times noted to be less than three seconds x ten, Temperature gradient noted to be warm to cool to bilateral foot, pedal hair present to bilateral foot and no varicosities are noted Dermatologic: there are no open lesions, no signs of active clinical infection, no erythema noted, no ecchymoses, nails are elongated thickened and dystrophic with subungual debris x ten Musculoskeletal: there is pain to palpation onto nail plate x ten, no calf pain noted bilaterally, arch height noted at 2/5 non-weight bearing bilaterally, first metatarsophalangeal joint range of motion 30 deg non-weight bearing bilaterally, flexible fifth digit hammer toe deformity noted to bilateral foot reducible with kelikian push up test Neurology: protective sensation intact to light touch bilateral digits one through five, vibratory sensation intact to first metatarsophalangeal joint bilaterally. Assessment: * Assessment: 1. T inea unguium - B35.1 (Primary) 2 . O ther hammer toe(s) (acquired), right foot - M20.41 3 . O ther hammer toe(s) (acquired), left foot - M20.42 ? 4 . P ain in right toe(s) - M79.674 5 . P ain in left toe(s) - M79.675 6 . U nspecified atherosclerosis of [place] arteries of extremities, bilateral legs - I70.203 7 . T ype 2 diabetes mellitus with diabetic peripheral angiopathy without gangrene - E11.51 Plan: * Treatment: 2. O ther hammer toe(s) (acquired), right foot Notes: The patient was educated regarding how to mechanically stabilize their deformity. The patient was given education about shoe recommendations specific for the condition. The patient was educated about custom orthotics and how appropriate shoes and orthotics can prevent further worsening of the deformity. The patient was educated about how bad shoe habits can worsen the condition. NSAIDS, P.T., injections and other conservative treatments were discussed. Both surgical and non surgical treatments were discussed, but conservative options were emphasized. 3. U nspecified atherosclerosis of [place] arteries of extremities, bilateral legs Notes: Patient educated on risks and aggravating factors of PVD, including conservative treatment options such as a diet and exercise regimen to aid in slowing progression of vascular disease ? 4. T ype 2 diabetes mellitus with diabetic peripheral angiopathy without gangrene Notes: Patient educated on proper diabetic foot care and the importance of tight glycemic control in regards to the prevention of diabetic manifestations and symptomatology in lower extremity. Explained to patient the importance of keeping interdigital spaces dry, not walking bare foot, having supportive shoe gear, using moisturizer to skin on feet daily especially in winter months, and checking feet daily for any new lesions or areas suspicious of trauma infection or ulceration. Explained to patient to return to ED if any change in foot health associated with signs of systemic infection including but not limited to nausea, vomiting, fever. * Procedure Codes: 1 1721 DEBRIDE NAIL, 6 OR MORE, Modifiers: Q8 * Follow Up: 3 Months * Billing Information: * Visit Code: * Procedure Codes: 54760 DEBRIDE NAIL, 6 OR MORE. Modifiers: Q8 * Sign off status: Completed true * Provider: Reece MELENDEZ Date: Generated for Krystian martínez/Dinora/Estefani on: 0 03/30/2024 11:00 AM PRODUCT INSPECTION COORDINATOR History and Physical Notes * HPI (History of Present Illness) Category Sub-Category Detail Notes Category Not es HPI General care Patient presents to the office for diabetic foot care. Patient states that their nails are thickened, elongated and painful. Patient states that it is aggravated by shoe gear. Onset is gradual., Patient is taking prescription blood thinners., Date last seen by Dr. Bourgeois was 10/2023., Initials mca Examination Category Sub-Category Detail Notes Category Not es Physical Examination Vascular: Dorsalis Pedis pulse noted at 1/4 right foot and 1/4 left foot and Posterior Tibial pulse noted at 1/4 right foot and 1/4 left foot, Capillary refill times noted to be less than three seconds x ten, Temperature gradient noted to be warm to cool to bilateral foot, pedal hair present to bilateral foot and no varicosities are noted Dermatologic: there are no open lesions, no signs of active clinical infection, no erythema noted, no ecchymoses, nails are elongated thickened and dystrophic with subungual debris x ten Musculoskeletal: there is pain to palpation onto nail plate x ten, no calf pain noted bilaterally, arch height noted at 2/5 non-weight bearing bilaterally, first metatarsophalangeal joint range of motion 30 deg non-weight bearing bilaterally, flexible fifth digit hammer toe deformity noted to bilateral foot reducible with kelikian push up test Neurology: protective sensation intact to light touch bilateral digits one through five, vibratory sensation intact to first metatarsophalangeal joint bilaterally
--- OUTSIDE RECORDS SUMMARY | 2024-03-30 11:00 | XMS_ITS | Encounter Summary ---
Author Organization [facility] Address [address] [address] Care Team Providers Care Molder Shoulder Pad Name Role Phone Brady Bourgeois MD Primary Care Provider + [phone] Brady Bourgeois MD Primary Care Provider + [phone] Encounter Details Date Type Department Care Team (Late st Contact Info) Description 03/11/2016 Orders Only [facility] ProviderTracy MD [address] [place] [address] Social History Tobacco Use Types Packs/Day Years Used Date Smoking Tobacco: Former Alcohol Use Standard Drinks/Week Comments No 0 (1 standard drink = 0.6 oz pur e alcohol) Sex and Gender Information Value Date Recorded Sex Assigned at Not on file Legal Sex Male 11:28 AM PRODUCT MARKETING COORDINATOR Gender Identity Not on file Sexual Orientation Not on file documented as of this encounter Plan of Treatment Not on file documented as of this encounter Procedures Procedure Name Priority Date/Time Associated Diagnosis Comments CARDIOLOGY REPORT 03/11/2016 documented in this encounter Results * CARDIOLOGY REPORT (03/11/2016) Anatomical Region Laterality Modality Other Narrative 03/11/2016 Ordered by an unspecified provider. Historical Provider [facility] Final Result documented in this encounter Visit Diagnoses Not on filedocumented in this encounter Care Teams Molder Shoulder Pad Relationship Specialty Start Date End Date Brady Bourgeois MD [address] [place] [address] PCP - General 3/31/17 Brady Bourgeois MD [address] [place] [address] PCP - General 07/16/15 05/06/16 documented as of this encounter
--- OUTSIDE RECORDS SUMMARY | 2024-03-30 11:00 | XMS_ITS | Encounter Summary ---
Author Organization [facility] Address [address] [address] Care Team Providers Care Solar Mechanical Engineer Name Role Phone Brady Bourgeois MD Primary Care Provider [phone] Encounter Details Date Type Department Care Team (Late st Contact Info) Description 06/09/2016 Orders Only [facility] ProviderTracy MD [address] [place] [address] Social History Tobacco Use Types Packs/Day Years Used Date Smoking Tobacco: Former Alcohol Use Standard Drinks/Week Comments No 0 (1 standard drink = 0.6 oz pur e alcohol) Sex and Gender Information Value Date Recorded Sex Assigned at Not on file Legal Sex Male 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 Historical Provider [facility] Final Result documented in this encounter Visit Diagnoses Not on filedocumented in this encounter Care Teams Solar Mechanical Engineer Relationship Specialty Start Date End Date Brady Bourgeois MD [address] [place] [address] PCP - General 05/07/16 documented as of this encounter
--- OUTSIDE RECORDS SUMMARY | 2024-03-30 11:00 | XMS_ITS ---
Author Organization [facility] Address [address] [place], [place] [id number] Care Team Providers Care Prepleater Name Role Phone IRENE DOWELL Unavailable [phone] Brady Bourgeois Unavailable Unavailable REASON FOR VISIT Patient presents for at-risk foot care . The patient has painful toenails that cause difficulty with ambulation and shoegear. The onset is gradual Medications Medication SIG (Take, Route, Fr equency, Duration) Notes Start Date End Date Status Memantine HCl 5 MG Oral for 30 Days Active Lovastatin 20 MG Oral for 90 Days Active Warfarin Sodium 5 MG TAKE 1 TABLET BY [facility] ONCE DAILY Oral for 90 Days Active Allopurinol 300 MG Oral for 90 Days Active Carvedilol 6.25 MG Oral for 90 Days Active Encounters Encounter Location Date Provider Diagnosis [address] [phone] 03/29/2024 IRENE DOWELL Tinea unguium B35.1 Assessments Encounter Date Diagnosis (ICD Code) Assessment Notes Treatment Notes Treatment Clinical Notes Section Notes 03/29/2024 Tinea unguium (ICD-10 - B35.1) FUNGAL TOENAILS: Discussed various treatment options for fungal toenails including debridement, topical antifungals, oral antifungals, toenail avulsion, or toenail matrixectomy. NAIL DEBRIDEMENT: Nails 1-5 Bilateral were debrided extensively with nail nippers and emery board, reducing length and girth to pink healthy tissue with any subungual debris and necrotic tissue removed Plan Of Treatment Treatment Notes Assessment Notes Tinea unguium FUNGAL TOENAILS: Discussed various treatment options for fungal toenails including debridement, topical antifungals, oral antifungals, toenail avulsion, or toenail matrixectomy. NAIL DEBRIDEMENT: Nails 1-5 Bilateral were debrided extensively with nail nippers and emery board, reducing length and girth to pink healthy tissue with any subungual debris and necrotic tissue removed Next Appt Details Follow Up: 10-12 Weeks, Reas on: At Risk Foot care, sooner if problems arise Provider Name:BRENT NOONAN CRISTIANEBLAYNE, 05/31/2024 11:40:00 AM, [address] [place] [address], [id number], Progress Notes * REINALDOZULEIMA MARSHA LDOB:[birth year] (83 yo M)Acc No.[id number]:03/29/2024 Patient: MARSHA NGUYEN Provider: Sharee Dowell DPM :1940 A ge:83 Y S ex:Male Date:03/29/2024 Address:[address] [place] [address] Subjective: * Chief Complaints: * 1 . Patient presents for at-risk foot care . The patient has painful toenails that cause difficulty with ambulation and shoegear. The onset is gradual. * HPI: H PI: General care P atremi presents to the office for diabetic foot care. Patient states that their nails are thickened, elongated and painful. Patient states that it is aggravated by shoe gear. Onset is gradual., Patient is taking prescription blood thinners., Date last seen by Dr. Bourgeois was 12/2023., Initials [facility]. sample. * Medical History: * Medications: T aking Carvedilol 6.25 MG Tablet Oral , Taking Warfarin Sodium 5 MG Tablet TAKE 1 TABLET BY MOUTH ONCE DAILY Oral , Taking Allopurinol 300 MG Tablet Oral , Taking Memantine HCl 5 MG Tablet Oral , Taking Lovastatin 20 MG Tablet Oral , Medication List reviewed and reconciled with the patient Objective: * Vitals: * Examination: C onstitutional: Constitutional T he patient is awake, alert, well developed, well groomed and well nourished. D ermatologic: Skin findings: S kin is thin, atrophic and lacking pedal hair. Nail pathology: N ails 1, 2, 3, 4, and 5 bilateral are elongated, thick, discolored, and dystrophic with subungual debris. They are painful to palpation. ? V ascular: Dorsalis pedis pulse: 1 /4 b ilateral. Posterior tibial pulse: 0 /4 b ilateral. Capillary refill: g reater than 3 seconds. Edema: N o edema, bilateral. N eurologic: Gross sensation G ross sensation is intact to light touch.? M usculoskeletal: Muscle Strength M uscle strength is 5/5 in regards to dorsiflexion, plantarflexion, inversion, and eversion in bilateral lower extremities. ? Assessment: * Assessment: 1. T roseanna aguirre - B35.1 (Primary) Plan: * Treatment: * Follow Up: 1 0-12 Weeks (Reason: At Risk Foot care, sooner if problems arise) * Billing Information: * Visit Code: * Procedure Codes: * Electronic signature of IRENE DOWELL DPM on 03/30/2024 at 10:59 AM [facility] Sign off status: Pending * Provider: Sharee Dowell DPM Date: 0 03/29/2024 Generated for Krystian martínez/Dinora/Estefani on: 0 03/30/2024 10:59 AM [facility] History and Physical Notes * HPI (History [...] Date last seen by Dr. Bourgeois was 12/2023., Initials mca sample Examination Category Sub-Category Detail Notes Category Not es Dermatologic Skin findings: Skin is thin, at rophic and lacking pedal hair Nail pathology: Nails 1, 2, 3, 4, an d 5 bilateral are elongated, thick, discolored, and dystrophic with subungual debris. They are painful to palpation Neurologic Gross sensation Gross sensation is intact to light touch Vascular Dorsalis pedis pulse: 1/4 bilateral Edema: No edema, bilateral Capillary refill: greater than 3 secon ds Posterior tibial pulse: 0/4 bilateral Musculoskeletal Muscle Strength Muscle strength is 5/5 in regards to dorsiflexion, plantarflexion, inversion, and eversion in bilateral lower extremities Constitutional Constitutional The patient is a wake, alert, well developed, well groomed and well nourished
--- OUTSIDE RECORDS SUMMARY | 2024-03-30 11:00 | XMS_ITS | Encounter Summary ---
Author Organization [facility] Address [address] [address] Care Team Providers Care Bureau Chief Name Role Phone Brady Bourgeois MD Primary Care Provider + [phone] Brady Bourgeois MD Primary Care Provider + [phone] Encounter Details Date Type Department Care Team (Late st Contact Info) Description 03/10/2016 Orders Only [facility] ProviderTracy MD [address] [place] [address] Social History Tobacco Use Types Packs/Day Years Used Date Smoking Tobacco: Former Alcohol Use Standard Drinks/Week Comments No 0 (1 standard drink = 0.6 oz pur e alcohol) Sex and Gender Information Value Date Recorded Sex Assigned at Not on file Legal Sex Male 11:28 AM SHIP CAPTAIN Gender Identity Not on file Sexual Orientation Not on file documented as of this encounter Plan of Treatment Not on file documented as of this encounter Procedures Procedure Name Priority Date/Time Associated Diagnosis Comments CARDIOLOGY REPORT 03/10/2016 documented in this encounter Results * CARDIOLOGY REPORT (03/10/2016) Anatomical Region Laterality Modality Other Narrative 03/10/2016 Ordered by an unspecified provider. Historical Provider [facility] Final Result documented in this encounter Visit Diagnoses Not on filedocumented in this encounter Care Teams Bureau Chief Relationship Specialty Start Date End Date Brady Bourgeois MD [address] [place] [address] PCP - General 3/31/17 Brady Bourgeois MD [address] [place] [address] PCP - General 07/16/15 05/06/16 documented as of this encounter
--- OUTSIDE RECORDS SUMMARY | 2024-03-30 11:00 | XMS_ITS | Patient Health Record ---
Author Organization [facility] Address [address] [place], [place] [address] Care Team Providers Care Clerical Production Worker Name Role Phone DELMER IRENE Unavailable [phone] Brady Bourgeois Unavailable Unavailable CORBY MELENDEZ Unavailable [phone] Allergies No Known Allergies Reason For Referral No Information Medications Medication SIG (Take, Route, Fr equency, Duration) Notes Start Date End Date Status Memantine HCl 5 MG Oral for 30 Days Active Lovastatin 20 MG Oral for 90 Days Active Warfarin Sodium 5 MG TAKE 1 TABLET BY MO [facility] ONCE DAILY Oral for 90 Days Active Allopurinol 300 MG Oral for 90 Days Active Carvedilol 6.25 MG Oral for 90 Days Active Vital Signs Height-cm 175.26 cm 09/08/2023 Weight-kg 90.72 kg 09/08/2023 Height 69.00 in 09/08/2023 Weight 200 lbs 09/08/2023 BMI 29.53 kg/m2 09/08/2023 Encounters Encounter Location Date Provider Diagnosis [facility] [address] [place], [place] [id number] 03/29/2024 IRENE DOWELL Tinea unguium B35.1 [facility] [address] [place], [place] [id number] 04/28/2023 CORBY MELENDEZ Other hammer toe(s) (acquired), right foot M20.41 ; Tinea unguium B35.1 ; Other hammer toe(s) (acquired), left foot M20.42 ; Pain in right toe(s) M79.674 ; Pain in left toe(s) M79.675 ; Unspecified atherosclerosis of [place] arteries of extremities, bilateral legs I70.203 and Type 2 diabetes mellitus with diabetic peripheral angiopathy without gangrene E11.[address] [id number] 06/30/2023 [place] Other hammer toe(s) (acquired), right foot M20.41 ; Tinea unguium B35.1 ; Other hammer toe(s) (acquired), left foot M20.42 ; Pain in right toe(s) M79.674 ; Pain in left toe(s) M79.675 ; Unspecified atherosclerosis of [place] arteries of extremities, bilateral legs I70.203 and Type 2 diabetes mellitus with diabetic peripheral angiopathy without gangrene E11.[address] [id number] 09/08/2023 [place] Other hammer toe(s) (acquired), right foot M20.41 ; Tinea unguium B35.1 ; Other hammer toe(s) (acquired), left foot M20.42 ; Pain in right toe(s) M79.674 ; Pain in left toe(s) M79.675 ; Unspecified atherosclerosis of [place] arteries of extremities, bilateral legs I70.203 and Type 2 diabetes mellitus with diabetic peripheral angiopathy without gangrene E11.[address] [id number] 11/10/2023 [place] Other hammer toe(s) (acquired), right foot M20.41 ; Tinea unguium B35.1 ; Other hammer toe(s) (acquired), left foot M20.42 ; Pain in right toe(s) M79.674 ; Pain in left toe(s) M79.675 ; Unspecified atherosclerosis of [place] arteries of extremities, bilateral legs I70.203 and Type 2 diabetes mellitus with diabetic peripheral angiopathy without gangrene E11.51 Assessments Encounter Date Diagnosis (ICD Code) Assessment Notes Treatment Notes Treatment Clinical Notes Section Notes 04/28/2023 Other hammer toe(s) (acquired), right foot (ICD-10 [...] were discussed, but conservative options were emphasized. 04/28/2023 Tinea unguium (ICD-10 - B35.1) Aseptic debridement [...] regarding both OTC and prescription treatments. g 06/30/2023 Tinea unguium (ICD-10 - B35.1) Aseptic debridement [...] regarding both OTC and prescription treatments. g 06/30/2023 Other hammer toe(s) (acquired), right foot (ICD-10 [...] were discussed, but conservative options were emphasized. 09/08/2023 Tinea unguium (ICD-10 - B35.1) Aseptic debridement [...] regarding both OTC and prescription treatments. g 09/08/2023 Other hammer toe(s) (acquired), right foot (ICD-10 [...] treatments. g 11/10/2023 Other hammer toe(s) (acquired), right foot [...] were discussed, but conservative options were emphasized. 03/29/2024 Tinea unguium (ICD-10 - B35.1) FUNGAL TOENAILS: Discussed various treatment options for fungal toenails including debridement, topical antifungals, oral antifungals, toenail avulsion, or toenail matrixectomy. NAIL DEBRIDEMENT: Nails 1-5 Bilateral were debrided extensively with nail nippers and emery board, reducing length and girth to pink healthy tissue with any subungual debris and necrotic tissue removed 11/10/2023 Other hammer toe(s) (acquired), left foot (ICD-10 - M20.42) 09/08/2023 Other hammer toe(s) (acquired), left foot (ICD-10 - M20.42) 06/30/2023 Other hammer toe(s) (acquired), left foot (ICD-10 - M20.42) 04/28/2023 Other hammer toe(s) (acquired), left foot (ICD-10 - M20.42) 04/28/2023 Pain in right toe(s) (ICD-10 - M79.674) 06/30/2023 Pain in right toe(s) (ICD-10 - M79.674) 09/08/2023 Pain in right toe(s) (ICD-10 - M79.674) 11/10/2023 Pain in right toe(s) (ICD-10 - M79.674) 11/10/2023 Pain in left toe(s) (ICD-10 - M79.675) 09/08/2023 Pain in left toe(s) (ICD-10 - M79.675) 06/30/2023 Pain in left toe(s) (ICD-10 - M79.675) 04/28/2023 Pain in left toe(s) (ICD-10 - M79.675) 04/28/2023 Unspecified atherosclerosis of [place] arteries of extremities, bilateral legs (ICD-10 - I70.203) Patient educated on risks and aggravating factors of PVD, including conservative treatment options such as a diet and exercise regimen to aid in slowing progression of vascular disease 06/30/2023 Unspecified atherosclerosis of [place] arteries of extremities, bilateral legs (ICD-10 - I70.203) Patient educated on risks and aggravating factors of PVD, including conservative treatment options such as a diet and exercise regimen to aid in slowing progression of vascular disease 09/08/2023 Unspecified atherosclerosis of [place] arteries of extremities, bilateral legs (ICD-10 - I70.203) Patient educated on risks and aggravating factors of PVD, including conservative treatment options such as a diet and exercise regimen to aid in slowing progression of vascular disease 11/10/2023 Unspecified atherosclerosis of [place] arteries of extremities, bilateral legs (ICD-10 - [...] but not limited to nausea, vomiting, fever. 09/08/2023 Type 2 diabetes mellitus with diabetic peripheral [...] but not limited to nausea, vomiting, fever. 06/30/2023 Type 2 diabetes mellitus with diabetic peripheral [...] but not limited to nausea, vomiting, fever. 04/28/2023 Type 2 diabetes mellitus with diabetic peripheral [...] to nausea, vomiting, fever. Plan Of Treatment Next Appt Details Provider Name:BRENT DUFF, 05/31/2024 11:40:00 AM, [address] [place] [address], [id number], Insurance Providers Payer Name Payer Address Payer Phone Subscriber Number Group Number Insured Name Patient Relationship to Insured Coverage Start Date Coverage End Date Medicare Part B [place] [address] EVELINE MÉNDEZ [phone] [id number] MARSHA YADAV Self - patient is the insured [facility] ([facility]) ATTN CLAIMS [address] [place] [address] [id number] MARSHA YADAV Self - patient is the insured
[2024-03-30 11:07] LABS: Occult Blood Negative (Negative)
[2024-03-30 11:13] LABS: Partial Thromboplastin Time 33.2 Sec (23.9-30.70); Prothrombin Time 10.8 Seconds (9.50-12.1)
[2024-03-30 11:15] LABS: Alanine Aminotransferase 95 U/L (16-63); Albumin Level 4.1 g/dL (3.4-5.0); Alkaline Phosphatase 208 U/L (46-116); Anion Gap 12 mmol/L (4-12); Aspartate Amino Transferase 40 U/L (15-37); Bilirubin,Total 0.7 mg/dL (0.00-1.00); Blood Urea Nitrogen 24 mg/dL (7-18); Calcium 9.3 mg/dL (8.5-10.1); Carbon Dioxide 25 mmol/L (21-32); Chloride 100 mmol/L (98-108); Estimated CRCL calculation 37 ml/min; Estimated Glomerular Filt Rate 51; Glucose 170 mg/dL (70-99); Osmolality Calculated 292 mOsm/kg (285-295); Potassium 5.1 mmol/L (3.5-5.1); Sodium 137 mmol/L (136-145); Total Protein 7.9 g/dL (6.4-8.2)
--- OUTSIDE RECORDS SUMMARY | 2024-03-30 11:49 | XMS_ITS | Encounter Summary ---
Author Organization [facility] Address [address] [address] Care Team Providers Care Traffic I Manager Name Role Phone Brady Bourgeois MD Primary Care Provider + [phone] Brady Bourgeois MD Primary Care Provider + [phone] Encounter Details Date Type Department Care Team (Late st Contact Info) Description 03/11/2016 Orders Only [facility] ProviderTracy MD [address] [place] [address] Social History Tobacco Use Types Packs/Day Years Used Date Smoking Tobacco: Former Alcohol Use Standard Drinks/Week Comments No 0 (1 standard drink = 0.6 oz pur e alcohol) Sex and Gender Information Value Date Recorded Sex Assigned at Not on file Legal Sex Male 11:28 AM CUSTOMER SOLUTIONS SPECIALIST Gender Identity Not on file Sexual Orientation [...] on filedocumented in this encounter Care Teams Traffic I Manager Relationship Specialty Start Date End Date Brady Bourgeois MD [address] [place] [address] PCP - General 3/31/17 Brady Bourgeois MD [address] [place] [address] PCP - General 07/16/15 05/06/16 documented as of this encounter
--- OUTSIDE RECORDS SUMMARY | 2024-03-30 11:49 | XMS_ITS | Clinical Summary ---
Author Organization [facility] Address [address] [place] [phone] Care Team Providers Care Machine Ii Trimmer Name Role Phone Brady Bourgeois MD Primary Care Provider + [phone] Allergies No known active allergies Medications lovastatin [...] Overview (05/13/2016): Essential hypertension Coronary arteriosclerosis in [place] artery 05/31 Overview (05/13/2016): CAD in [place] artery Pacemaker 10/15/2013 Overview (08/18/2017): Medtronic Dual [...] Department Care Team Description 02/15/2024 7:15 AM VP CONSTRUCTION Ancillary Procedure [facility] Cardiology [address] [facility] [address] [place] [phone] Pacemaker (Primary Dx); Second degree AV block; Persistent atrial fibrillation (HCC) 02/15/2024 Telephone [facility] Cardiology [address] [facility] [address] [place] [address] Kit Patel MD from Last 3 [...] on file Legal Sex Male 11:28 AM VP CONSTRUCTION Gender Identity Not on file Sexual Orientation Not on file Obstetrics History Last Filed Vital Signs Vital Sign Reading Time Taken Comments Blood Pressure 110/48 04/20/2023 10:26 AM CDT Pulse 64 04/20/2023 10:26 AM CDT Temperature 36.4 C (97.5 F) 03/03/2020 12:42 PM VP CONSTRUCTION Respiratory Rate 16 12/28/2019 10:55 AM VP CONSTRUCTION Oxygen Saturation 99% 04/20/2023 10:26 AM CDT [...] 12/23/2006, 12/12/2006 Medical Devices Implanted Type Area Tea Leaf Reader Device Identifier Shelf Expiration Date Model / Serial / Lot Pacemaker-11/25 Implanted:11/25 by Alba Argueta MD (Quantity not on file) Pacemaker Chest Medtronic Second Degree AVB, Afib ADAPTA / [id number] / CHRONIC LEADS 2007 Procedures Procedure Name Priority Date/Time Associated Diagnosis Comments DEVICE CHECK - REMOTE Routine 02/21/2024 11:43 AM VP CONSTRUCTION Second degree AV block Persistent atrial fibrillation (HCC) EGFR Routine 09/26/2023 6:25 AM CDT LIPID PANEL Routine 04/06/2021 Coronary arteriosclerosis in [place] artery Chronic diastolic heart failure (CMS/HCC) (HCC) Persistent atrial fibrillation (HCC) Hyperlipidemia associated with type 2 diabetes mellitus (HCC) from Last 3 Months or Most Recently Relevant to Health Maintenance Results * DEVICE CHECK - REMOTE (02/21/2024 11:43 AM VP CONSTRUCTION) Anatomical Region Laterality Modality Other Narrative 03/23/2024 7:51 AM VP CONSTRUCTION Medtronic Dual Pacemaker-Programmed VVIR-Bill Single PM. Dx; Second Degree AVB, Afib. DOI 11/26/2015, chronic lead 12/15/07. Carelink remote monitoring Q3 mo, office pacer checks Q1 yr. Routine VVIR Pacemaker Remote. Transmission attached. Battery status: 2.70 V, 12 months remaining battery life to RHIANNA. Stable lead impedances, pacing and sensing thresholds. Presenting rhythm: V paced PORTABLE SAWMILL OPERATOR-97.6% 1 Ventricular high rate episodes detected, IEGM [...] was last reviewed 2020. Testing performed by: [facility], [address] [place] [address]., [address] Blood 09/26/2023 6:25 AM CDT 09/26/2023 8:31 AM CDT us Notinfile Unknown LAB BLOOD ORDERABLES Final Res ult [facility] [place] [address] * Lipid panel (04/06/2021) SCRIBED Cholesterol, Total 123 <200 EXTERNAL LAB SCRIBED HDL 28 >40 EXTERNAL LAB SCRIBED LDL 69 <100 EXTERNAL LAB SCRIBED Triglycerides 128 <150 EXTERNAL LAB Blood specimen (specimen) 04/06/2021 us Alba Argueta MD LAB BLOOD ORDERABLES Final Result EXTERNAL LAB from Last 3 Months or Most Recently Relevant to Health Maintenance Insurance MEDICARE COMMERCIAL GENERIC MEDICARE [facility] MED[facility] Address: [address] [address] [place] [address] Care Teams Machine Ii Trimmer Relationship Specialty Start Date End Date Brady Bourgeois MD [address] [place] [address] PCP - General 05/07/16
--- OUTSIDE RECORDS SUMMARY | 2024-03-30 11:49 | XMS_ITS | Referral Summary ---
Author Organization [facility] Address [address] [place] [phone] Care Team Providers Care Lead Caster Helper Name Role Phone Brady Bourgeois MD Primary Care Provider [phone] Encounters Date Type Department Care Team Description 02/15/2024 Telephone [facility] Cardiology [address] [place] [phone] Kit Patel MD 02/15/2024 7:15 AM WIPING RAG WASHER Ancillary Procedure [facility] Medical [facility] Cardiology [address] [facility] [address], [place] [address] Pacemaker (Primary Dx); Second degree [...] Chronic anticoagulation Occlusion of right coronary artery (CMS/[facility]) 11/2015 Overview (05/13/2016): Right coronary artery occlusion Essential hypertension 09/17/2015 Overview (05/13/2016): Essential hypertension Coronary arteriosclerosis in [place] artery 05/31 Overview (05/13/2016): CAD in [place] artery Pacemaker 10/15/2013 Overview (08/18/2017): Medtronic Dual [...] 10/15/2013 01/16/2017 Overview (05/13/2016): Hyperlipidemia Atrial fibrillation ([facility]) 10/15/2013 01/16/2017 Overview (05/13/2016): Atrial fibrillation Chronic [...] on file Legal Sex Male 11:28 AM WIPING RAG WASHER Gender Identity Not on file Sexual Orientation Not on file Last Filed Vital Signs Vital Sign Reading Time Taken Comments Blood Pressure 110/48 04/20/2023 10:26 AM CDT Pulse 64 04/20/2023 10:26 AM CDT Temperature 36.4 C (97.5 F) 03/03/2020 12:42 PM WIPING RAG WASHER Respiratory Rate 16 12/28/2019 10:55 AM WIPING RAG WASHER Oxygen Saturation 99% 04/20/2023 10:26 AM CDT Inhaled Oxygen Concentration - - Weight 81.2 kg (179 lb) 04/20/2023 10:26 AM CDT Height 177.8 cm (5' 10 ) 04/20/2023 10:26 AM CDT Body Mass Index 25.68 04/20/2023 10:26 AM CDT Plan of Treatment Not on file Medical Devices Implanted Type Area Landing Worker Device Identifier Shelf Expiration Date Model / Serial / Lot Pacemaker-11/25 Implanted:11/25 by Alba Argueta MD (Quantity not on file) Pacemaker Chest Medtronic Second Degree AVB, Afib ADAPTA / [id number] / CHRONIC LEADS 2007 Procedures Procedure Name Priority Date/Time Associated Diagnosis Comments DEVICE CHECK - REMOTE Routine 02/21/2024 11:43 AM WIPING RAG WASHER Second degree AV block Persistent atrial fibrillation (HCC) EGFR Routine 09/26/2023 6:25 AM CDT LIPID PANEL Routine 04/06/2021 Coronary arteriosclerosis in [place] artery Chronic diastolic heart failure (CMS/HCC) (HCC) Persistent atrial fibrillation (HCC) Hyperlipidemia associated with type 2 diabetes mellitus (HCC) from Last 3 Months or Most Recently Relevant to Health Maintenance Results * DEVICE CHECK - REMOTE (02/21/2024 11:43 AM WIPING RAG WASHER) Anatomical Region Laterality Modality Other Narrative 03/23/2024 7:51 AM WIPING RAG WASHER Medtronic Dual Pacemaker-Programmed VVIR-Bill Single PM. Dx; Second Degree AVB, Afib. DOI 11/26/2015, chronic lead 12/15/07. Carelink remote monitoring Q3 mo, office pacer checks Q1 yr. Routine VVIR Pacemaker Remote. Transmission attached. Battery status: 2.70 V, 12 months remaining battery life to RHIANNA. Stable lead impedances, pacing and sensing thresholds. Presenting rhythm: V paced CLASSIFYING MACHINE OPERATOR-97.6% 1 Ventricular high rate episodes detected, [...] was last reviewed 2020. Testing performed by: [facility], [address] [place] [address]., [address] Blood 09/26/2023 6:25 AM CDT 09/26/2023 8:31 AM CDT us Notinfile Unknown LAB BLOOD ORDERABLES Final Res ult [facility] [address] [facility] Department [place] [address] * Lipid panel (04/06/2021) SCRIBED [...] MEDICARE COMMERCIAL GENERIC MEDICARE SOLUTIONS Care Teams Lead Caster Helper Relationship Specialty Start Date End Date Brady Bourgeois MD [address] [place] [address] PCP - General 05/07/16
--- OUTSIDE RECORDS SUMMARY | 2024-03-30 11:49 | XMS_ITS | Encounter Summary ---
Author Organization [facility] Address [address] [address] Care Team Providers Care Finance Administrator Name Role Phone Brady Bourgeois MD Primary Care Provider + [phone] Brady Bourgeois MD Primary Care Provider + [phone] Encounter Details Date Type Department Care Team (Late st Contact Info) Description 03/10/2016 Orders Only [facility] ProviderTracy MD [address] [place] [address] Social History Tobacco Use Types Packs/Day Years Used Date Smoking Tobacco: Former Alcohol Use Standard Drinks/Week Comments No 0 (1 standard drink = 0.6 oz pur e alcohol) Sex and Gender Information Value Date Recorded Sex Assigned at Not on file Legal Sex Male 11:28 AM PBX OPERATOR Gender Identity Not on file Sexual Orientation [...] on filedocumented in this encounter Care Teams Finance Administrator Relationship Specialty Start Date End Date Brady Bourgeois MD [address] [place] [address] PCP - General 3/31/17 Brady Bourgeois MD [address] [place] [address] PCP - General 07/16/15 05/06/16 documented as of this encounter
--- OUTSIDE RECORDS SUMMARY | 2024-03-30 11:49 | XMS_ITS | Encounter Summary ---
Author Organization [facility] Address [address] [address] Care Team Providers Care Uke Driver Name Role Phone Brady Bourgeois MD Primary Care Provider [phone] Encounter Details Date Type Department Care Team (Late st Contact Info) Description 06/09/2016 Orders Only [facility] ProviderTracy MD [address] [place] [address] Social History Tobacco Use Types Packs/Day Years Used Date Smoking Tobacco: Former Alcohol Use Standard Drinks/Week Comments No 0 (1 standard drink = 0.6 oz pur e alcohol) Sex and Gender Information Value Date Recorded Sex Assigned at Not on file Legal Sex Male 11:28 AM CENTRAL STATION OPERATOR Gender Identity Not on file Sexual [...] on filedocumented in this encounter Care Teams Uke Driver Relationship Specialty Start Date End Date Brady Bourgeois MD [address] [place] [address] PCP - General 05/07/16 documented as of this encounter
--- OUTSIDE RECORDS SUMMARY | 2024-03-30 11:49 | XMS_ITS | Clinical Summary ---
Author Organization [facility] Address [address] [place] [address] Care Team Providers Care Hypoid Gear Tester Name Role Phone Unavailable Primary Care Provider [...]
[2024-03-30 11:51] VITALS: BP 133/65; PULSE 80; RESP 18; O2SAT 99
== END 2024-03-30 11:51 | disposition home or self-care (01) ==
PROVIDERS: Emergency Provider Emergency Medicine; PCP Internal Medicine
DX: K64.9 Unspecified hemorrhoids (principal); K59.00 Constipation, unspecified; I48.91 Unspecified atrial fibrillation; I11.0 Hypertensive heart disease with heart failure; I50.9 Heart failure, unspecified; E11.9 Type 2 diabetes mellitus without complications; Z86.73 Personal history of transient ischemic attack (TIA), and cerebral infarction without residual deficits; Z87.891 Personal history of nicotine dependence
CPT/HCPCS: 36415; 74019; 80053; 82272; 85025; 85610; 85730; 99283

== ENCOUNTER 2024-04-20 08:29 | Outpatient (CLI) | payer MEDICARE, SELFPAY ==
--- OUTSIDE RECORDS SUMMARY | 2024-04-20 08:47 | XMS_ITS ---
Author Organization [facility] Address [address] [place], [place] [address] Care Team Providers Care Creative Services Specialist Name Role Phone IRENE DOWELL Unavailable [phone] Brady Bourgeois Unavailable Unavailable REASON FOR VISIT *General care Encounters Encounter Location Date Provider Diagnosis [address] [id number] 03/15/2024 IRENE DOWELL Plan Of Treatment Next Appt Details Provider Name:BRENT DUFF, 05/31/2024 11:40:00 AM, [address] [place] [address], [id number], Progress Notes * MARSHA YADAV LDOB:[birth year] (83 yo M)Acc No.[id number]:03/15/2024 Patient: MARSHA NGUYEN Provider: Sharee Dowell DPM :1940 A ge:83 Y S ex:Male Date:03/15/2024 Address:[address] [place], [place] [phone] Subjective: * Chief Complaints: * 1 . *General care. * Medical History: Objective: * Vitals: Assessment: Plan: * Treatment: * Billing Information: * Visit Code: * Procedure Codes: * Electronic signature of IRENE DOWELL DPM on 04/20/2024 at 08:47 AM CDT Sign off status: Pending * Provider: Sharee Dowell DPM Date: 0 03/15/2024 Generated for Krystian martínez/Dinora/eTransmitting on: 0 04/20/2024 08:47 AM CDT
--- OUTSIDE RECORDS SUMMARY | 2024-04-20 08:47 | XMS_ITS | Clinical Summary ---
Author Organization [facility] Address [address] [place] [address] Care Team Providers Care Commutator V Ring Assembler Name Role Phone Brady Bourgeois MD Primary Care Provider + [phone] Allergies No known active allergies Medications lovastatin [...] Chronic anticoagulation Occlusion of right coronary artery 09/17/2015 Overview (05/13/2016): Right coronary artery occlusion Essential hypertension 09/17/2015 Overview (05/13/2016): Essential hypertension Coronary arteriosclerosis in [place] artery 05/31 Overview (05/13/2016): CAD in [place] artery Pacemaker 10/15/2013 Overview (08/18/2017): Medtronic Dual [...] 10/15/2013 01/16/2017 Overview (05/13/2016): Hyperlipidemia Atrial fibrillation 10/15/2013 01/17/20 17 Overview (05/13/2016): Atrial fibrillation Chronic coronary artery disease 10/15/2013 01/16/2017 Overview (05/13/2016): Occlusive coronary artery disease Encounters Date Type Department Care Team Description 02/15/2024 7:15 AM EDGE PLUGGER Ancillary Procedure [facility] Cardiology [address] [facility] [address] [facility] [address] Pacemaker (Primary Dx); Second degree AV block; Persistent atrial fibrillation (HCC) 02/15/2024 Telephone [facility] Cardiology [address] [facility] [address] [place] [phone] Kit Patel MD from Last 3 Months Surgical History Surgery Date Site/Laterality Comments CARDIAC PACEMAKER PLACEMENT LUMBAR SPINE SURGERY APPENDECTOMY 02/07/1959 - 02/07/1960 Medical History Medical History Date Comments Atrial fibrillation (HCC) Hypertension Hyperlipidemia BPH (benign prostatic hyperplasia) [...] on file Legal Sex Male 11:28 AM EDGE PLUGGER Gender Identity Not on file Sexual Orientation Not on file Obstetrics History Last Filed Vital Signs Vital Sign Reading Time Taken Comments Blood Pressure 110/48 04/20/2023 10:26 AM CDT Pulse 64 04/20/2023 10:26 AM CDT Temperature 36.4 C (97.5 F) 03/03/2020 12:42 PM EDGE PLUGGER Respiratory Rate 16 12/28/2019 10:55 AM EDGE PLUGGER Oxygen Saturation 99% 04/20/2023 10:26 AM CDT [...] 12/23/2006, 12/12/2006 Medical Devices Implanted Type Area Lighting Adviser Device Identifier Shelf Expiration Date Model / Serial / Lot Pacemaker-11/25 Implanted:11/25 by Alba Argueta MD (Quantity not on file) Pacemaker Chest Medtronic Second Degree AVB, Afib ADAPTA / [id number] / CHRONIC LEADS 2007 Procedures Procedure Name Priority Date/Time Associated Diagnosis Comments DEVICE CHECK - REMOTE Routine 02/21/2024 11:43 AM EDGE PLUGGER Second degree AV block Persistent atrial fibrillation (HCC) EGFR Routine 09/26/2023 6:25 AM CDT LIPID PANEL Routine 04/06/2021 Coronary arteriosclerosis in [place] artery Chronic diastolic heart failure (HCC) Persistent atrial fibrillation (HCC) Hyperlipidemia associated with type 2 diabetes mellitus (HCC) from Last 3 Months or Most Recently Relevant to Health Maintenance Results * DEVICE CHECK - REMOTE (02/21/2024 11:43 AM EDGE PLUGGER) Anatomical Region Laterality Modality Other Narrative 03/23/2024 7:51 AM EDGE PLUGGER Medtronic Dual Pacemaker-Programmed VVIR-Bill Single PM. Dx; Second Degree AVB, Afib. DOI 11/26/2015, chronic lead 12/15/07. Carelink remote monitoring Q3 mo, office pacer checks Q1 yr. Routine VVIR Pacemaker Remote. Transmission attached. Battery status: 2.70 V, 12 months remaining battery life to RHIANNA. Stable lead impedances, pacing and sensing thresholds. Presenting rhythm: V paced PATIENT SERVICES TECHNICIAN-97.6% 1 Ventricular high rate episodes detected, IEGM [...] was last reviewed 2020. Testing performed by: [facility], [address] [place] [address]., [id number] Blood 09/26/2023 6:25 AM CDT 09/26/2023 8:31 AM CDT us Notinfile Unknown LAB BLOOD ORDERABLES Final Res ult NAOMI [facility] Department [place] [address] * Lipid panel (04/06/2021) SCRIBED [...] MEDICARE COMMERCIAL GENERIC MEDICARE SOLUTIONS Care Teams Commutator V Ring Assembler Relationship Specialty Start Date End Date Brady Bourgeois MD [address] [place] [address] PCP - General 05/07/16
--- OUTSIDE RECORDS SUMMARY | 2024-04-20 08:47 | XMS_ITS | Referral Summary ---
Author Organization [facility] Address [address] [place] [address] Care Team Providers Care Bet Taker Name Role Phone Brady Bourgeois MD Primary Care Provider [phone] Encounters Date Type Department Care Team Description 02/15/2024 Telephone [facility] Cardiology [address] [place] [phone] Kit Patel MD 02/15/2024 7:15 AM DIRECTOR ALUMNI RELATIONS Ancillary Procedure [facility] Medical [facility] Cardiology [address] [facility] [address], [place] [address] Pacemaker (Primary Dx); Second degree [...] Overview (05/13/2016): Essential hypertension Coronary arteriosclerosis in [place] artery 05/31 Overview (05/13/2016): CAD in [place] artery Pacemaker 10/15/2013 Overview (08/18/2017): Medtronic Dual [...] on file Legal Sex Male 11:28 AM DIRECTOR ALUMNI RELATIONS Gender Identity Not on file Sexual Orientation Not on file Last Filed Vital Signs Vital Sign Reading Time Taken Comments Blood Pressure 110/48 04/20/2023 10:26 AM CDT Pulse 64 04/20/2023 10:26 AM CDT Temperature 36.4 C (97.5 F) 03/03/2020 12:42 PM DIRECTOR ALUMNI RELATIONS Respiratory Rate 16 12/28/2019 10:55 AM DIRECTOR ALUMNI RELATIONS Oxygen Saturation 99% 04/20/2023 10:26 AM CDT Inhaled Oxygen Concentration - - Weight 81.2 kg (179 lb) 04/20/2023 10:26 AM CDT Height 177.8 cm (5' 10 ) 04/20/2023 10:26 AM CDT Body Mass Index 25.68 04/20/2023 10:26 AM CDT Plan of Treatment Not on file Medical Devices Implanted Type Area Brewery Cellar Worker Device Identifier Shelf Expiration Date Model / Serial / Lot Pacemaker-11/25 Implanted:11/25 by Alba Argueta MD (Quantity not on file) Pacemaker Chest Medtronic Second Degree AVB, Afib ADAPTA / [id number] / CHRONIC LEADS 2007 Procedures Procedure Name Priority Date/Time Associated Diagnosis Comments DEVICE CHECK - REMOTE Routine 02/21/2024 11:43 AM DIRECTOR ALUMNI RELATIONS Second degree AV block Persistent atrial fibrillation (HCC) EGFR Routine 09/26/2023 6:25 AM CDT LIPID PANEL Routine 04/06/2021 Coronary arteriosclerosis in [place] artery Chronic diastolic heart failure (HCC) Persistent atrial fibrillation (HCC) Hyperlipidemia associated with type 2 diabetes mellitus (HCC) from Last 3 Months or Most Recently Relevant to Health Maintenance Results * DEVICE CHECK - REMOTE (02/21/2024 11:43 AM DIRECTOR ALUMNI RELATIONS) Anatomical Region Laterality Modality Other Narrative 03/23/2024 7:51 AM DIRECTOR ALUMNI RELATIONS Medtronic Dual Pacemaker-Programmed VVIR-Bill Single PM. Dx; Second Degree AVB, Afib. DOI 11/26/2015, chronic lead 12/15/07. Carelink remote monitoring Q3 mo, office pacer checks Q1 yr. Routine VVIR Pacemaker Remote. Transmission attached. Battery status: 2.70 V, 12 months remaining battery life to RHIANNA. Stable lead impedances, pacing and sensing thresholds. Presenting rhythm: V paced MONORAIL OPERATOR-97.6% 1 Ventricular high rate episodes detected, [...] was last reviewed 2020. Testing performed by: [facility], [address] [place] [address]., [id number] Blood 09/26/2023 6:25 AM CDT 09/26/2023 8:31 AM CDT us Notinfile Unknown LAB BLOOD ORDERABLES Final Res ult NAOMI [facility] [address] [facility] Department [place] [address] * Lipid panel (04/06/2021) SCRIBED Cholesterol, Total 123 <200 EXTERNAL LAB SCRIBED HDL 28 >40 EXTERNAL LAB SCRIBED LDL 69 <100 EXTERNAL LAB SCRIBED Triglycerides 128 <150 EXTERNAL LAB Blood specimen (specimen) 04/06/2021 lAba Argueta MD LAB BLOOD ORDERABLES Final Result EXTERNAL LAB from Last 3 Months or Most Recently Relevant to Health Maintenance Insurance MEDICARE COMMERCIAL GENERIC MEDICARE SOLUTIONS Care Teams Bet Taker Relationship Specialty Start Date End Date Brady Bourgeois MD [address] [place] [address] PCP - General 05/07/16
--- OUTSIDE RECORDS SUMMARY | 2024-04-20 08:48 | XMS_ITS | Encounter Summary ---
Author Organization [facility] Address [address] [address] Care Team Providers Care Salt Washer Harvesting Station Name Role Phone Brady Bourgeois MD Primary Care Provider + [phone] Brady Bourgeois MD Primary Care Provider + [phone] Encounter Details Date Type Department Care Team (Late st Contact Info) Description 03/10/2016 Orders Only [facility] ProviderTracy MD [address] [place] [address] Social History Tobacco Use Types Packs/Day Years Used Date Smoking Tobacco: Former Alcohol Use Standard Drinks/Week Comments No 0 (1 standard drink = 0.6 oz pur e alcohol) Sex and Gender Information Value Date Recorded Sex Assigned at Not on file 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
--- OUTSIDE RECORDS SUMMARY | 2024-04-20 08:48 | XMS_ITS | Encounter Summary ---
Author Organization [facility] Address [address] [address] Care Team Providers Care Cognos Architect Name Role Phone Brady Bourgeois MD Primary Care Provider + [phone] Brady Bourgeois MD Primary Care Provider + [phone] Encounter Details Date Type Department Care Team (Late st Contact Info) Description 03/11/2016 Orders Only [facility] ProviderTracy MD [address] [place] [address] Social History Tobacco Use Types Packs/Day Years Used Date Smoking Tobacco: Former Alcohol Use Standard Drinks/Week Comments No 0 (1 standard drink = 0.6 oz pur e alcohol) Sex and Gender Information Value Date Recorded Sex Assigned at Not on file 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
--- OUTSIDE RECORDS SUMMARY | 2024-04-20 08:48 | XMS_ITS | CONTINUITY OF CARE DOCUMENT ---
Author Name gisell jameson Address Unknown Organization [facility] Address [address] [facility] [address] [place] [address] Phone [phone] Care Team Providers Care Impregnator Helper Name Role Phone Dean GARCIA, Osito Unavailable [phone] PRATEEK DAVILA MD Unavailable PRATEEK DAVILA MD Unavailable PROBLEMS Condition Status Date Provider Notes SSS/AFIB - S/P PPM MED[employer]IC 2008, HX ATRIAL FLUTTER/ABLATIO active Osito Moran MD HYPERTENSION active Osito Moran MD HYPERCHOLESTEROLEMIA active Osito Moran MD GOUT active Osito Moran MD DIABETES MELLITUS active Osito Moran MD ARTHRITIS active Osito Moran MD BENIGN PROSTATIC HYPERTROPHY active Kelly Moran MD CAD - 100% OCCL RCA active Osito Esteves CHF - DIASTOLIC active Osito Moran MD SHORTNESS OF BREATH active Osito Esteves ENCOUNTERS Date Type Provider Location Encounter Diag nosis - In-person encounter Office Visit [facility] [facility] - In-person encounter Office Visit Osito Moran MD [place] [facility] SHORTNESS OF BREATH - In-person encounter Office Visit Osito Moran MD [place] [facility] SSS/AFIB - S/P PPM [employer] 2008, HX ATRIAL FLUTTER/ABLATIOHYPERTENSIONHY PERCHOLESTEROLEMIAGOUTDIABETE S MELLITUSARTHRITISBENIGN PROSTATIC HYPERTROPHYCAD - 100% OCCL RCACHF - DIASTOLIC VITAL SIGNS Date Observation Value Provider blood pressure, diastolic 62 mm[Hg] Padilla Moran MD blood pressure, systolic 120 mm[Hg] Lc Moran MD pulse rate 80 /min Osito Moran MD oxygen saturation, oximetry 98 % Osito Moran MD respiratory rate E&M 16 /min Kelly Moran MD weight E&M 195 [lb_av] Osito Moran MD height E&M 71 [in_i] Osito Moran MD blood pressure, diastolic 70 mm[Hg] Padilla Moran MD blood pressure, systolic 132 mm[Hg] Lc Moran MD pulse rate 82 /min Osito Moran MD oxygen saturation, oximetry 99 % Osito Moran MD respiratory rate E&M 16 /min Kelly Moran MD weight E&M 198 [lb_av] Osito Moran MD height E&M 61 [in_i] Osito Moran MD respiratory rate E&M 14 /min Kelly Moran MD oxygen saturation, oximetry 99 % Osito Moran MD pulse rate 60 /min Osito Moran MD weight E&M 190 [lb_av] Osito Moran MD height E&M 59 [in_i] Osito Moran MD blood pressure, diastolic, left arm 70 mm [Hg] Osito Moran MD blood pressure, systolic, left arm 130 mm [Hg] Osito Moran MD blood pressure, diastolic, right arm 74 m m[Hg] Osito Moran MD blood pressure, systolic, right arm 124 m m[Hg] Osito Moran MD RESULTS Date Observation Value Provider Reference Range Interpretation Location B-type natriuretic peptide 163 pg/mL [facility] prothrombin time (patient) 24.6 s Renzo Najera international normalized ratio (INR) 2.2 Renzo Najera Normal international normalized ratio (INR) 1.9 [facility] alanine aminotransferase (SGPT), serum 56 1/L [facility] aspartate aminotransferase (SGOT), serum 33 1/L [facility] creatinine, serum 1.01 mg/dL [facility] potassium, serum 4.6 mmol/L [facility] sodium, serum 139 mmol/L [facility] platelet count 193 10*3/mm3 [facility] hematocrit, blood 39.0 % [facility] B-type natriuretic peptide 201 pg/mL [facility] cholesterol/HDL ratio, serum 5.3 [facility] triglyceride, serum, fasting 149 mg/dL [facility] HDL cholesterol, serum 26 mg/dL [facility] LDL cholesterol, serum 82 mg/dL [facility] cholesterol, serum 138 mg/dL [facility] HISTORY OF MEDICATION USE Medication Status Instructions Dates Provider Indications Com ments HYDRALAZINE HCL 10 MG ORAL TABLET active 2 tabs by mouth twice a day (replaces bidil) 0 Kristy Hernandez RN ISOSORBIDE DINITRATE 10 MG ORAL TABLET active one tab twice a day (replaces bidil) 0 Kristy Hernandez RN BIDIL 20-37.5 MG ORAL TABLET completed Take half a tablet twice a day 0 - 0 Kristy Hernandez RN LOVASTATIN 20 MG ORAL TABLET active po one daily 5 Osito Moran MD COUMADIN TABLET active dose adjusted pe r INR 5 Osito Moran MD ENALAPRIL MALEATE 5 MG ORAL TABLET active daily 5 Osito Moran MD ASPIRIN 325 MG ORAL TABLET active ONE TAB. DAILY 5 Osito Moran MD ALLOPURINOL 300 MG ORAL TABLET active daily 5 Osito Moran MD FUROSEMIDE 40 MG ORAL TABLET active Take half a tablet once a day. Or take one tablet every other day. 0 Osito Moran MD SOCIAL HISTORY Date Observation Value Provider social history E&M E thnicity: J ob Status: Employed full-time O ccupation: Geremias Moran MD Occupation #1 [employer] Osito Moran MD drug use none Osito Moran MD social history reviewed E&M reviewed Osito Moran MD social history reviewed E&M reviewed Osito Moran MD social history E&M E thnicity: Osito Morna MD alcohol use, average drinks per day no Osito Moran MD smoking status former smoker Osito olsen MD social history reviewed E&M reviewed Osito Moran MD MENTAL STATUS Date Observation Value Provider assessment of judgme nt and insight E&M Alert and oriented to time, place and person. Mood and affect are normal. Osito Moran MD assessment of judgme nt and insight E&M Alert and oriented to time, place and person. Mood and affect are normal. Osito Moran MD assessment of judgme nt and insight E&M Alert and oriented to time, place and person. Mood and affect are normal. Osito Moran MD INSURANCE PROVIDERS Payer name Policy type / Coverage type [place] red republican ID MEDICO INS Commercial insurance company [id number] [place] MEDICARE Medicare [id number] TREATMENT PLAN Date Name B TYPE NATRIURETIC P EPTIDE (BNP) BASIC METABOLIC PANE L W/EGFR Full PFT
--- OUTSIDE RECORDS SUMMARY | 2024-04-20 08:48 | XMS_ITS ---
Author Organization [facility] Address [address] [place], [place] [address] Care Team Providers Care Divisional Human Resources Director Name Role Phone IRENE DOWELL Unavailable [phone] Brday Bourgeois Unavailable Unavailable CORBY MELENDEZ Unavailable [phone] REASON FOR VISIT *General care Medications Medication SIG (Take, Route, Fr equency, Duration) Notes Start Date End Date Status Memantine HCl 5 MG Oral for 30 Days Active Allopurinol 300 MG Oral for 90 Days Active Warfarin Sodium 5 MG TAKE 1 TABLET BY [facility] ONCE DAILY Oral for 90 Days Active Carvedilol 6.25 MG Oral for 90 Days Active Lovastatin 20 MG Oral for 90 Days Active Encounters Encounter Location Date Provider Diagnosis [address] [place], [place] [id number] 11/10/2023 CORBY MELENDEZ Other hammer toe(s) (acquired), right foot M20.41 ; Tinea unguium B35.1 ; Other hammer toe(s) (acquired), left foot M20.42 ; Pain in right toe(s) M79.674 ; Pain in left toe(s) M79.675 ; Unspecified atherosclerosis of [place] arteries of extremities, bilateral legs I70.203 and [...] (ICD-10 - M79.675) 11/10/2023 Unspecified atherosclerosis of [place] arteries of extremities, bilateral legs (ICD-10 - [...] and prescription treatments. g Unspecified atherosclerosis of [place] arteries of extremities, bilateral legs Patient educated [...] Reason: Provider Name:BRENT DUFF, 05/31/2024 11:40:00 AM, [address] [place] [address], [phone], Progress Notes * MARSHA YADAV LDOB:[birth year] (83 yo M)Acc No.[id number]:11/10/2023 Patient: MARSHA NGUYEN Provider: Reece MELENDEZ :1940 A ge:83 Y S ex:Male Date:11/10/2023 Address:[address] [place], [place] [address] Subjective: * Chief Complaints: * 1 . [...] Patient denies c hest pain, history of SD, irregular heartbeat. M usculoskeletal: Patient complains of [...] M79.675 6 . U nspecified atherosclerosis of [place] arteries of extremities, bilateral legs - I70.203 [...] were emphasized. 3. U nspecified atherosclerosis of [place] arteries of extremities, bilateral legs Notes: Patient [...] Information: * Visit Code: * Procedure Codes: 60501 DEBRIDE NAIL, 6 OR MORE. Modifiers: Q8 * Sign off status: Completed true * Provider: Reece MELENDEZ Date: Generated for Krystian Singh/Estefani on: 0 04/20/2024 08:48 AM CDT History and Physical Notes * HPI (History [...]
--- OUTSIDE RECORDS SUMMARY | 2024-04-20 08:48 | XMS_ITS | Patient Health Record ---
Author Organization [facility] Address [address] [place], [place] [address] Care Team Providers Care Nursery Helper Name Role Phone IRENE DOWELL Unavailable [phone] Brady Bourgeois Unavailable Unavailable CORBY MELENDEZ Unavailable [phone] Allergies No Known Allergies Reason For Referral No Information Medications Medication SIG (Take, Route, Fr equency, Duration) Notes Start Date End Date Status Memantine HCl 5 MG Oral for 30 Days Active Lovastatin 20 MG Oral for 90 Days Active Warfarin Sodium 5 MG TAKE 1 TABLET BY [facility] ONCE DAILY Oral for 90 Days Active Allopurinol 300 MG Oral for 90 Days Active Carvedilol 6.25 MG Oral for 90 Days Active Vital Signs Height-cm 175.26 cm 09/08/2023 Weight-kg 90.72 kg 09/08/2023 Height 69.00 in 09/08/2023 Weight 200 lbs 09/08/2023 BMI 29.53 kg/m2 09/08/2023 Encounters Encounter Location Date Provider Diagnosis [facility] [address] [place], [place] [id number] 04/28/2023 CORBY MELENDEZ Other hammer toe(s) (acquired), right foot M20.41 ; Tinea unguium B35.1 ; Other hammer toe(s) (acquired), left foot M20.42 ; Pain in right toe(s) M79.674 ; Pain in left toe(s) M79.675 ; Unspecified atherosclerosis of [place] arteries of extremities, bilateral legs I70.203 and Type 2 diabetes mellitus with diabetic peripheral angiopathy without gangrene E11.[address] [place] [id number] 06/30/2023 CORBY MELENDEZ Other hammer toe(s) (acquired), right foot M20.41 ; Tinea unguium B35.1 ; Other hammer toe(s) (acquired), left foot M20.42 ; Pain in right toe(s) M79.674 ; Pain in left toe(s) M79.675 ; Unspecified atherosclerosis of [place] arteries of extremities, bilateral legs I70.203 and Type 2 diabetes mellitus with diabetic peripheral angiopathy without gangrene E11.[address] [id number] 09/08/2023 CORBY MELENDEZ Other hammer toe(s) (acquired), right foot M20.41 ; Tinea unguium B35.1 ; Other hammer toe(s) (acquired), left foot M20.42 ; Pain in right toe(s) M79.674 ; Pain in left toe(s) M79.675 ; Unspecified atherosclerosis of [place] arteries of extremities, bilateral legs I70.203 and Type 2 diabetes mellitus with diabetic peripheral angiopathy without gangrene E11.51 [facility] [address] [place], [place] [id number] 11/10/2023 CORBY AL Other hammer toe(s) (acquired), right foot M20.41 ; Tinea unguium B35.1 ; Other hammer toe(s) (acquired), left foot M20.42 ; Pain in right toe(s) M79.674 ; Pain in left toe(s) M79.675 ; Unspecified atherosclerosis of [place] arteries of extremities, bilateral legs I70.203 and Type 2 diabetes mellitus with diabetic peripheral angiopathy without gangrene E11.[address] [id number] 03/29/2024 IRENE DOWELL Tinea unguium B35.1 ; Pain in right toe(s) M79.674 ; Pain in left toe(s) M79.675 and Atherosclerosis of [place] arteries of extremities with intermittent claudication, bilateral legs I70.213 Assessments Encounter Date Diagnosis (ICD Code) Assessment [...] any subungual debris and necrotic tissue removed 03/29/2024 Pain in right toe(s) (ICD-10 - M79.674) 03/29/2024 Pain in left toe(s) (ICD-10 - M79.675) 11/10/2023 Other hammer toe(s) (acquired), left foot [...] Pain in right toe(s) (ICD-10 - M79.674) 03/29/2024 Atherosclerosis of [place] arteries of extremities with intermittent claudication, bilateral legs (ICD-10 - I70.213) 11/10/2023 Pain in left toe(s) (ICD-10 - M79.675) 09/08/2023 Pain in left toe(s) (ICD-10 - M79.675) 06/30/2023 Pain in left toe(s) (ICD-10 - M79.675) 04/28/2023 Pain in left toe(s) (ICD-10 - M79.675) 04/28/2023 Unspecified atherosclerosis of [place] arteries of extremities, bilateral legs (ICD-10 - I70.203) Patient educated on risks and aggravating factors of PVD, including conservative treatment options such as a diet and exercise regimen to aid in slowing progression of vascular disease 06/30/2023 Unspecified atherosclerosis of [place] arteries of extremities, bilateral legs (ICD-10 - I70.203) Patient educated on risks and aggravating factors of PVD, including conservative treatment options such as a diet and exercise regimen to aid in slowing progression of vascular disease 09/08/2023 Unspecified atherosclerosis of [place] arteries of extremities, bilateral legs (ICD-10 - I70.203) Patient educated on risks and aggravating factors of PVD, including conservative treatment options such as a diet and exercise regimen to aid in slowing progression of vascular disease 11/10/2023 Unspecified atherosclerosis of [place] arteries of extremities, bilateral legs (ICD-10 - [...] Details Provider Name:BRENT DUFF, 05/31/2024 11:40:00 AM, [address] [place] [address], [phone], Insurance Providers Payer Name Payer Address Payer Phone Subscriber Number Group Number Insured Name Patient Relationship to Insured Coverage Start Date Coverage End Date [facility] [address] [address] [place], [place] [id number] MARSHA YADAV Self - patient is the insured
--- OUTSIDE RECORDS SUMMARY | 2024-04-20 08:48 | XMS_ITS | Encounter Summary ---
Author Organization [facility] Address [address] [address] Care Team Providers Care Distributor Cleaner Name Role Phone Brady Bourgeois MD Primary Care Provider [phone] Encounter Details Date Type Department Care Team (Late st Contact Info) Description 06/09/2016 Orders Only [facility] ProviderTracy MD [address] [place] [address] Social History Tobacco Use Types Packs/Day Years Used Date Smoking Tobacco: Former Alcohol Use Standard Drinks/Week Comments No 0 (1 standard drink = 0.6 oz pur e alcohol) Sex and Gender Information Value Date Recorded Sex Assigned at Not on file 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
--- OUTSIDE RECORDS SUMMARY | 2024-04-20 08:48 | XMS_ITS ---
Author Organization [facility] Address [address] [place], [place] [address] Care Team Providers Care Supervisor Channel Process Name Role Phone IRENE DOWELL Unavailable [phone] Brady Bourgeois Unavailable Unavailable REASON FOR VISIT [...] Sodium 5 MG TAKE 1 TABLET BY [facility] ONCE DAILY Oral for 90 Days Active Allopurinol 300 MG Oral for 90 Days Active Carvedilol 6.25 MG Oral for 90 Days Active Encounters Encounter Location Date Provider Diagnosis [address] [id number] 03/29/2024 IRENE DELMER Tinea unguium B35.1 ; Pain in right toe(s) M79.674 ; Pain in left toe(s) M79.675 and Atherosclerosis of [place] arteries of extremities with intermittent claudication, bilateral [...] Pain in left toe(s) (ICD-10 - M79.675) 03/29/2024 Atherosclerosis of [place] arteries of extremities with intermittent claudication, bilateral legs (ICD-10 - I70.213) Plan Of Treatment Treatment Notes Assessment Notes [...] care, sooner if problems arise Provider Name:BRENT DUFF, 05/31/2024 11:40:00 AM, [address] [place] [address], [id number], Progress Notes * MARSHA YADAV LDOB:[birth year] (83 yo M)Acc No.[id number]:03/29/2024 Patient: MARSHA NGUYEN Provider: Sharee Dowell DPM :1940 A ge:83 Y S ex:Male Date:03/29/2024 Address:[address] [place] [address] Subjective: * Chief Complaints: * Delfino douglas presents for at-risk foot care . The patient has painful toenails that cause difficulty with ambulation and shoegear. The onset is gradual * HPI: H PI: General care Delfino douglas presents to the office for diabetic foot care. Patient states that their nails are thickened, elongated and painful. Patient states that it is aggravated by shoe gear. Onset is gradual., Patient is taking prescription blood thinners., Date last seen by Dr. Bourgeois was 12/2023., Initials mca. sample. * Medical History: * Surgical History: * Hospitalization/Major Diagno stic Procedure: * Medications: T akingCarvedilol 6.25 MG Tablet Oral Warfarin Sodium 5 MG Tablet TAKE 1 TABLET BY MOUTH ONCE DAILY Oral Allopurinol 300 MG Tablet Oral Memantine HCl 5 MG Tablet Oral Lovastatin 20 MG Tablet Oral Medication List reviewed and reconciled with the patientTaking Carvedilol 6.25 MG Tablet Oral Taking Warfarin Sodium 5 MG Tablet TAKE 1 TABLET BY MOUTH ONCE DAILY Oral Taking Allopurinol 300 MG Tablet Oral Taking Memantine HCl 5 MG Tablet Oral Taking Lovastatin 20 MG Tablet Oral Medication List reviewed and reconciled with the [...] extremities. ? Assessment: * Assessment: 1. T inea unguium - B35.1 (Primary) 2 . P ain in right toe(s) - M79.674? 3. P ain in left toe(s) - M79.675 4 . A therosclerosis of wy[place] arteries of extremities with intermittent claudication, bilateral legs - I70.213 Plan: * Treatment: * Procedure Codes: * Follow Up: 1 0-12 Weeks (Reason: At Risk Foot care, sooner if problems arise) * Billing Information: * Visit Code: 51121 Office Visit, Est Pt., Level 3. * Procedure Codes: * Sign off status: Completed true * Provider: Sharee Dowell DPM Date: 0 03/29/2024 Generated for Krystian martínez/Dinora/Saniyaransmitting on: 0 04/20/2024 08:48 AM CDT History [...]
[2024-04-20 09:32] LABS: Anion Gap 10 mmol/L (4-12); Blood Urea Nitrogen 24 mg/dL (7-18); Calcium 9.3 mg/dL (8.5-10.1); Carbon Dioxide 25 mmol/L (21-32); Chloride 104 mmol/L (98-108); Estimated Glomerular Filt Rate 47; Glucose 181 mg/dL (70-99); Osmolality Calculated 297 mOsm/kg (285-295); Potassium 5.3 mmol/L (3.5-5.1); Sodium 139 mmol/L (136-145)
== END 2024-04-20 08:30 | disposition home or self-care (01) ==
LOC: CHSLAB 08:31
PROVIDERS: PCP Internal Medicine; Visit Provider Internal Medicine
DX: I10 Essential (primary) hypertension (principal)
CPT/HCPCS: 36415; 80048

== ENCOUNTER 2024-06-15 07:10 | Outpatient (CLI) | payer MEDICARE, SELFPAY ==
--- OUTSIDE RECORDS SUMMARY | 2024-06-15 07:15 | XMS_ITS ---
Author Organization [facility] Address [address] [place], [place] [address] Care Team Providers Care Spindle Setter Name Role Phone IRENE DOWELL Unavailable [phone] Brady Bourgeois Unavailable Unavailable REASON FOR VISIT *General care Encounters Encounter Location Date Provider Diagnosis [address] [id number] 03/15/2024 IRENE DOWELL Plan Of Treatment Next Appt Details Provider Name:BRENT DUFF, 06/21/2024 02:50:00 PM, [address] [place] [address], [id number], Progress Notes * MARSHA YADAV LDOB:[birth year] (83 yo M)Acc No.[id number]:03/15/2024 Patient: MARSHA NGUYEN Provider: Sharee Dowell DPM :1940 A ge:83 Y S ex:Male Date:03/15/2024 Address:[address] [place], [place] [phone] Subjective: * Chief Complaints: * 1 . *General care. * Medical History: Objective: * Vitals: Assessment: Plan: * Treatment: * Billing Information: * Visit Code: * Procedure Codes: * Electronic signature of IRENE DOWELL DPM on 06/15/2024 at 07:14 AM CDT Sign off status: Pending * Provider: Sharee Dowell DPM Date: 0 03/15/2024 Generated for Krystian martínez/Dinora/eTransmitting on: 0 06/15/2024 07:14 AM CDT
--- OUTSIDE RECORDS SUMMARY | 2024-06-15 07:15 | XMS_ITS ---
Author Organization [facility] Address [address] [place], [place] [address] Care Team Providers Care Home Improvement Advisor Name Role Phone IRENE DOWELL Unavailable [phone] Brady Bourgeois Unavailable Unavailable BRENT WILSON Unavailable [phone] REASON FOR VISIT *General care Encounters Encounter Location Date Provider Diagnosis [address] [id number] 05/31/2024 BRENT WILSON Plan Of Treatment Next Appt Details Provider Name:BRENT DUFF, 06/21/2024 02:50:00 PM, [address] [place] [address], [id number], Progress Notes * MARSHA YADAV LDOB:[birth year] (83 yo M)Acc No.[id number]:05/31/2024 Patient: MARSHA NGUYEN Provider: Danielito WILSON :1940 A ge:83 Y S ex:Male Date:05/31/2024 Address:[address] [place], [place] [phone] Subjective: * Chief Complaints: * 1 . *General care. * Medical History: Objective: * Vitals: Assessment: Plan: * Treatment: * Billing Information: * Visit Code: * Procedure Codes: * Electronic signature of SHERWIN WILSON DPM on 06/15/2024 at 07:15 AM CDT Sign off status: Pending * Provider: Danielito WILSON Date: 0 05/31/2024 Generated for Krystian Singh/Estefani on: 0 06/15/2024 07:15 AM CDT
--- OUTSIDE RECORDS SUMMARY | 2024-06-15 07:15 | XMS_ITS | Clinical Summary ---
Author Organization [facility] Address [address] [place] [address] Care Team Providers Care Wheel Truer Name Role Phone Brady Bourgeois MD Primary Care Provider + [phone] Allergies No known active allergies Medications lovastatin [...] 70 5 2 Active Additional Information Patient not taking.Reported on 04/24/2024 allopurinol (ZYLOPRIM) 300 mg tablet Take one by mouth one time per day 0 0 8 Active potassium chloride ER (KLOR-CON,K-DUR ) 20 mEq CR tablet Take one by mouth one time per day 0 0 8 Active magnesium oxide (MAG-OX) 400 mg (241.3 mg elemental) tablet Take one by mouth one time per day 30 5 8 Active Additional Information Patient not taking.Reported on 04/24/2024 carvedilol (COREG) 6.25 mg tablet Take 1 [...] (81 mg total) by mouth daily Active Eliquis 5 mg tablet Take 1 tablet (5 mg total) by mouth 2 (two) times a day 4 Active Januvia 100 mg tablet Take 1 tablet (100 mg total) by mouth daily 4 Active Active Problems Problem Noted Date Diagnosed [...] Overview (05/13/2016): Essential hypertension Coronary arteriosclerosis in [place] artery 05/31 Overview (05/13/2016): CAD in [place] artery Pacemaker 10/15/2013 Overview (08/18/2017): Medtronic Dual [...] Overview (05/13/2016): Hyperlipidemia Atrial fibrillation 10/15/2013 01/17/20 Overview (05/13/2016): Atrial fibrillation Chronic coronary artery disease 10/15/2013 01/16/2017 Overview (05/13/2016): Occlusive coronary artery disease Encounters Date Type Department Care Team Description 05/16/2024 7:45 AM CDT Ancillary Procedure [facility] Cardiology [address] [place] [address] [place] [phone] Pacemaker (Primary Dx); Second degree AV block; Persistent atrial fibrillation (HCC) 05/16/2024 Telephone [facility] Cardiology [address] [place] [address] [place] [phone] Kit Patel MD 04/24/2024 9:30 AM CDT Office Visit [facility] Cardiology [address] [address] [place] [phone] Kit Patel MD Coronary arteriosclerosis in [place] artery (Primary Dx); Persistent atrial fibrillation (HCC) from Last 3 Months Surgical History Surgery [...] on file Legal Sex Male 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 HELPER Gender Identity Not on file Sexual Orientation Not on file Obstetrics History Last Filed Vital Signs Vital Sign Reading Time Taken Comments Blood Pressure 116/66 04/24/2024 9:30 AM CDT Pulse 93 04/24/2024 9:30 AM CDT Temperature 36.4 C (97.5 F) 03/03/2020 12:42 PM FOUNDRY HELPER Respiratory Rate 16 12/28/2019 10:5 5 AM FOUNDRY HELPER Oxygen Saturation 99% 04/24/2024 9:30 AM CDT Inhaled Oxygen Concentration - - Weight 85.7 kg (188 lb 14.4 oz) 04/24/2024 9:30 AM CDT Height 177.8 cm (5' 10 ) 04/24/2024 9:30 AM CDT Body Mass Index 27.1 04/24/2024 9:30 AM CDT Plan of Treatment Health Maintenance Due Date Last Done Comments Albumin Creatinine Ratio, Urine 1940 Depression Screening 1940 Hemoglobin A1C 1940 Dilated Eye Exam 1940 Foot Exam 1940 Hepatitis B Screening 08/04/1957 Zoster Vaccine (1 of 2) 08/04/1989 Well Visit 65+ 08/04/2004 DTaP/Tdap/Td Vaccine (1 - Tdap) 08/08/2010 1 Fall Risk Assessment 12/27/2020 12/28/2019 Lipid Panel 04/06/2022 04/06/2021 eGFR 09/25/2024 09/26/2023, 09/07, 09/19/2023, Additional history exists Influenza Vaccine (Season Ended) 2024 10/24/2018, 11/02/2017, 10/21/2016, Additional history exists Pneumococcal vaccine 65+ Completed 017, 12/23/2006, 12/12/2006 Medical Devices Implanted Type Area Sales Manager Prearranged Funerals Device Identifier Shelf Expiration Date Model / Serial / Lot Pacemaker-11/25 Implanted:11/25 by Alba Argueta MD (Quantity not on file) Pacemaker Chest Medtronic Second Degree AVB, Afib ADAPTA / [id number] / CHRONIC LEADS 2007 Procedures Procedure Name Priority Date/Time Associated Diagnosis Comments DEVICE CHECK - REMOTE Routine 05/16/2024 11:17 AM CDT Second degree AV block Persistent atrial fibrillation (HCC) EGFR Routine 09/26/2023 6:25 AM CDT LIPID PANEL Routine 04/06/2021 Coronary arteriosclerosis in [place] artery Chronic diastolic heart failure (HCC) Persistent atrial fibrillation (HCC) Hyperlipidemia associated with type 2 diabetes mellitus (HCC) from Last 3 Months or Most Recently Relevant to Health Maintenance Results * DEVICE CHECK - REMOTE (05/16/2024 11:17 AM CDT) Anatomical Region Laterality Modality Other Narrative 05/17/2024 8:26 AM CDT Medtronic Adapta Dual Pacemaker-Programmed VVIR-Bill Single PM. Dx; Second Degree AVB, Afib. DOI 11/26/2015, chronic lead 12/15/07. Carelink remote monitoring Q3 mo, office pacer checks Q1 yr. Routine VVIR Pacemaker Remote. Transmission attached. Battery status: 2.69 V, 11 months remaining battery life to RHIANNA. Stable lead impedances, pacing and sensing thresholds. Presenting rhythm: VS OPERATORS SCHOOL MANAGER OPERATORS SCHOOL MANAGER-97.6% To Ventricular high rate episodes detected, IEGM demonstrates NSVT with the longest episode lasting for sec. Medications: Warfarin, Eliquis 5 mg, ASA 81 mg, carvedilol 6.25 mg, enalapril 5 mg See scanned report. Office pacemaker follow up: 08/29/24 CareLink remote f/u 6 months. Osmel Piña RN us Kit Patle MD [facility] PROC EDURES Final [...] was last reviewed 2020. Testing performed by: [facility], [address] [place] [address]., [id number] Blood 09/26/2023 6:25 AM CDT 09/26/2023 8:31 AM CDT us Notinfile Unknown LAB BLOOD ORDERABLES Final Res ult NAOMI [address] [facility] Department [place] [address] * Lipid panel (04/06/2021) SCRIBED Cholesterol, Total 123 <200 EXTERNAL LAB SCRIBED HDL 28 >40 EXTERNAL LAB SCRIBED LDL 69 <100 EXTERNAL LAB SCRIBED Triglycerides 128 <150 EXTERNAL LAB Blood specimen (specimen) 04/06/2021 us Alba Argueta MD LAB BLOOD ORDERABLES Final Result EXTERNAL LAB from Last 3 Months or Most Recently Relevant to Health Maintenance Insurance MEDICARE [facility] MEDICARE ADVANTAGE IDPA Care Teams Wheel Truer Relationship Specialty Start Date End Date Brady Bourgeois MD [address] [place] [address] PCP - General 05/07/16
--- OUTSIDE RECORDS SUMMARY | 2024-06-15 07:15 | XMS_ITS | Patient Health Record ---
Author Organization [facility] Address [address] [place], [place] [address] Care Team Providers Care [place]keag Operator Name Role Phone IRENE DOWELL Unavailable [phone] Brady Bourgeois Unavailable Unavailable CORBY MELENDEZ Unavailable [phone] BRENT WILSON Unavailable [phone] Allergies No Known Allergies Reason For Referral No Information Medications Medication SIG (Take, Route, Fr equency, Duration) Notes Start Date End Date Status Memantine HCl 5 MG Oral for 30 Days Active Lovastatin 20 MG Oral for 90 Days Active Warfarin Sodium 5 MG TAKE 1 TABLET BY [facility] ONCE DAILY Oral for 90 Days Active Allopurinol 300 MG Oral for 90 Days Active Carvedilol 6.25 MG Oral for 90 Days Active Vital Signs Height-cm 175.26 cm 09/08/2023 Weight-kg 90.72 kg 09/08/2023 Height 69.00 in 09/08/2023 Weight 200 lbs 09/08/2023 BMI 29.53 kg/m2 09/08/2023 Encounters Encounter Location Date Provider Diagnosis [address] [id number] 06/30/2023 CORBY MELENDEZ Other hammer toe(s) (acquired), right foot M20.41 ; Tinea unguium B35.1 ; Other hammer toe(s) (acquired), left foot M20.42 ; Pain in right toe(s) M79.674 ; Pain in left toe(s) M79.675 ; Unspecified atherosclerosis of [place] arteries of extremities, bilateral legs I70.203 and Type 2 diabetes mellitus with diabetic peripheral angiopathy without gangrene E11.51 [facility] [address] [place], [place] [id number] 09/08/2023 CORBY MELENDEZ Other hammer toe(s) (acquired), right foot M20.41 ; Tinea unguium B35.1 ; Other hammer toe(s) (acquired), left foot M20.42 ; Pain in right toe(s) M79.674 ; Pain in left toe(s) M79.675 ; Unspecified atherosclerosis of [place] arteries of extremities, bilateral legs I70.203 and Type 2 diabetes mellitus with diabetic peripheral angiopathy without gangrene E11.51 [facility] [address] [place], [place] [id number] 11/10/2023 CORBY MELENDEZ Other hammer toe(s) (acquired), right foot M20.41 ; Tinea unguium B35.1 ; Other hammer toe(s) (acquired), left foot M20.42 ; Pain in right toe(s) M79.674 ; Pain in left toe(s) M79.675 ; Unspecified atherosclerosis of [place] arteries of extremities, bilateral legs I70.203 and Type 2 diabetes mellitus with diabetic peripheral angiopathy without gangrene E11.[address] [id number] 03/29/2024 IRENE DOWELL Tinea unguium B35.1 ; Pain in right toe(s) M79.674 ; Pain in left toe(s) M79.675 and Atherosclerosis of [place] arteries of extremities with intermittent claudication, bilateral legs I70.213 Assessments Encounter Date Diagnosis (ICD Code) Assessment Notes Treatment Notes Treatment Clinical Notes Section Notes 06/30/2023 Tinea unguium (ICD-10 - B35.1) Aseptic [...] (acquired), left foot (ICD-10 - M20.42) 06/30/2023 Pain in right toe(s) (ICD-10 - M79.674) 09/08/2023 Pain in right toe(s) (ICD-10 - M79.674) 11/10/2023 Pain in right toe(s) (ICD-10 - M79.674) 03/29/2024 Atherosclerosis of [place] arteries of extremities with intermittent claudication, bilateral legs (ICD-10 - I70.213) 11/10/2023 Pain in left toe(s) (ICD-10 - M79.675) 09/08/2023 Pain in left toe(s) (ICD-10 - M79.675) 06/30/2023 Pain in left toe(s) (ICD-10 - M79.675) 06/30/2023 Unspecified atherosclerosis of [place] arteries of extremities, bilateral legs (ICD-10 - I70.203) Patient educated on risks and aggravating factors of PVD, including conservative treatment options such as a diet and exercise regimen to aid in slowing progression of vascular disease 09/08/2023 Unspecified atherosclerosis of [place] arteries of extremities, bilateral legs (ICD-10 - I70.203) Patient educated on risks and aggravating factors of PVD, including conservative treatment options such as a diet and exercise regimen to aid in slowing progression of vascular disease 11/10/2023 Unspecified atherosclerosis of [place] arteries of extremities, bilateral legs (ICD-10 - [...] Details Provider Name:BRENT DUFF, 06/21/2024 02:50:00 PM, [address] [place] [address], [id number], Insurance Providers Payer Name Payer Address Payer Phone Subscriber Number Group Number Insured Name Patient Relationship to Insured Coverage Start Date Coverage End Date [facility] [address] [address] [place], [place] [id number] MARSHA YADAV Self - patient is the insured
--- OUTSIDE RECORDS SUMMARY | 2024-06-15 07:15 | XMS_ITS | Referral Summary ---
Author Organization [facility] Address [address] [place] [id number] Care Team Providers Care Relays Draftsperson Name Role Phone Brady Bourgeois MD Primary Care Provider [phone] Encounters Date Type Department Care Team Description 05/16/2024 Telephone [facility] Cardiology [address] [place] [address] [place] [phone] Kit Patel MD 05/16/2024 7:45 AM CDT Ancillary Procedure [facility] Cardiology [address] [place] [address] [place] [phone] Pacemaker (Primary Dx); Second degree AV block; Persistent atrial fibrillation (HCC) 04/24/2024 9:30 AM CDT Office Visit [facility] Cardiology [address] [facility] [address] [place] [address] Kit Patel MD Coronary arteriosclerosis in [place] artery (Primary Dx); Persistent atrial fibrillation (HCC) [...] Overview (05/13/2016): Essential hypertension Coronary arteriosclerosis in [place] artery 05/31 Overview (05/13/2016): CAD in [place] artery Pacemaker 10/15/2013 Overview (08/18/2017): Medtronic Dual [...] on file Legal Sex Male 11:28 AM STAVE HEWER Gender Identity Not on file Sexual Orientation Not on file Last Filed Vital Signs Vital Sign Reading Time Taken Comments Blood Pressure 116/66 04/24/2024 9:30 AM CDT Pulse 93 04/24/2024 9:30 AM CDT Temperature 36.4 C (97.5 F) 03/03/2020 12:42 PM STAVE HEWER Respiratory Rate 16 12/28/2019 10:5 5 AM STAVE HEWER Oxygen Saturation 99% 04/24/2024 9:30 AM CDT Inhaled Oxygen Concentration - - Weight 85.7 kg (188 lb 14.4 oz) 04/24/2024 9:30 AM CDT Height 177.8 cm (5' 10 ) 04/24/2024 9:30 AM CDT Body Mass Index 27.1 04/24/2024 9:30 AM CDT Plan of Treatment Not on file Medical Devices Implanted Type Area Mergers And Acquisitions Manager Device Identifier Shelf Expiration Date Model / Serial / Lot Pacemaker-11/25 Implanted:11/25 by Alba Argueta MD (Quantity not on file) Pacemaker Chest Medtronic Second Degree AVB, Afib ADAPTA / [id number] / CHRONIC LEADS 2008 Procedures Procedure Name Priority Date/Time Associated Diagnosis Comments DEVICE CHECK - REMOTE Routine 05/16/2024 11:17 AM CDT Second degree AV block Persistent atrial fibrillation (HCC) EGFR Routine 09/26/2023 6:25 AM CDT LIPID PANEL Routine 04/06/2021 Coronary arteriosclerosis in [place] artery Chronic diastolic heart failure (HCC) Persistent [...] pacing and sensing thresholds. Presenting rhythm: VS DISTRIBUTION DESIGNER DISTRIBUTION DESIGNER-97.6% To Ventricular high rate episodes detected, IEGM demonstrates NSVT with the longest episode lasting for sec. Medications: Warfarin, Eliquis 5 mg, ASA 81 mg, carvedilol 6.25 mg, enalapril 5 mg See scanned report. Office pacemaker follow up: 08/29/24 [facility] remote f/u 6 months. Osmel Piña RN us Kit Patel MD [...] last reviewed 2020. Testing performed by: [facility], [address] [place] [address]., [id number] Blood 09/26/2023 6:25 AM CDT 09/26/2023 8:31 AM CDT Notinfile Unknown LAB BLOOD ORDERABLES Final Res ult NAOMI [address] [facility] Department [place] [address] * Lipid panel (04/06/2021) SCRIBED Cholesterol, Total 123 <200 EXTERNAL LAB SCRIBED HDL 28 >40 EXTERNAL LAB SCRIBED LDL 69 <100 EXTERNAL LAB SCRIBED Triglycerides 128 <150 EXTERNAL LAB Blood specimen (specimen) 04/06/2021 us Alba Argueta MD LAB BLOOD ORDERABLES Final Result EXTERNAL LAB from Last 3 Months or Most Recently Relevant to Health Maintenance Insurance MEDICARE [facility] MEDICARE ADVANTAGE IDPA Care Teams Relays Draftsperson Relationship Specialty Start Date End Date Brady Bourgeois MD [address] [place] [address] PCP - General 05/07/16
--- OUTSIDE RECORDS SUMMARY | 2024-06-15 07:16 | XMS_ITS | Encounter Summary ---
Author Organization [facility] Address [address] [address] Care Team Providers Care Landscape Horticulture Instructor Name Role Phone Brady Bourgeois MD Primary Care Provider [phone] Encounter Details Date Type Department Care Team (Late st Contact Info) Description 06/09/2016 Orders Only [facility] ProviderTracy MD [address] [place] [address] Social History Tobacco Use Types Packs/Day Years Used Date Smoking Tobacco: Former Alcohol Use Standard Drinks/Week Comments No 0 (1 standard drink = 0.6 oz pur e alcohol) Sex and Gender Information Value Date Recorded Sex Assigned at Not on file Legal 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
--- OUTSIDE RECORDS SUMMARY | 2024-06-15 07:16 | XMS_ITS | Encounter Summary ---
Author Organization [facility] Address [address] [address] Care Team Providers Care Mate Chief Name Role Phone Brady Bourgeois MD Primary Care Provider + [phone] Brady Bourgeois MD Primary Care Provider + [phone] Encounter Details Date Type Department Care Team (Late st Contact Info) Description 03/11/2016 Orders Only [facility] ProviderTracy MD [address] [place] [address] Social History Tobacco Use Types Packs/Day Years Used Date Smoking Tobacco: Former Alcohol Use Standard Drinks/Week Comments No 0 (1 standard drink = 0.6 oz pur e alcohol) Sex and Gender Information Value Date Recorded Sex Assigned at Not on file Legal Sex Male 11:28 AM CARBIDE GRINDER Gender Identity Not on file Sexual Orientation [...] on filedocumented in this encounter Care Teams Mate Chief Relationship Specialty Start Date End Date Brady Bourgeois MD [address] [place] [address] PCP - General 3/31/17 Brady Bourgeois MD [address] [place] [address] PCP - General 07/16/15 05/06/16 documented as of this encounter
--- OUTSIDE RECORDS SUMMARY | 2024-06-15 07:16 | XMS_ITS | Encounter Summary ---
Author Organization [facility] Address [address] [address] Care Team Providers Care Instrumentation Engineer Name Role Phone Brady Bourgeois MD Primary Care Provider + [phone] Brady Bourgeois MD Primary Care Provider + [phone] Encounter Details Date Type Department Care Team (Late st Contact Info) Description 03/10/2016 Orders Only [facility] ProviderTracy MD [address] [place] [address] Social History Tobacco Use Types Packs/Day Years Used Date Smoking Tobacco: Former Alcohol Use Standard Drinks/Week Comments No 0 (1 standard drink = 0.6 oz pur e alcohol) Sex and Gender Information Value Date Recorded Sex Assigned at Not on file Legal Sex Male 11:28 AM HAND I BLOCKER Gender Identity Not on file Sexual Orientation [...] on filedocumented in this encounter Care Teams Instrumentation Engineer Relationship Specialty Start Date End Date Brady Bourgeois MD [address] [place] [address] PCP - General 3/31/17 Brady Bourgeois MD [address] [place] [address] PCP - General 07/16/15 05/06/16 documented as of this encounter
--- OUTSIDE RECORDS SUMMARY | 2024-06-15 07:16 | XMS_ITS | CONTINUITY OF CARE DOCUMENT ---
Author Name gisell jameson Address Unknown Organization [facility] Address [address] [facility] [address] [place] [address] Phone [phone] Care Team Providers Care Trial Court Judge Name Role Phone Dean GARCIA, Osito Unavailable PRATEEK DAVILA MD Unavailable PRATEEK DAVILA MD [...] In-person encounter Office Visit Osito Moran MD [facility] SHORTNESS OF BREATH - In-person encounter Office Visit Osito Moran MD [facility] SSS/AFIB - S/P PPM [employer] 2008, [...] Moran MD weight E&M 195 [lb_av] Osito Moarn MD height E&M 71 [in_i] Osito Moran [...] Interpretation Location B-type natriuretic peptide 163 pg/mL [facility] prothrombin time (patient) 24.6 s Renzo Najera international normalized ratio (INR) 2.2 Renzo Najera Normal international normalized ratio (INR) 1.9 [facility] alanine aminotransferase (SGPT), serum 56 1/L [facility] aspartate aminotransferase (SGOT), serum 33 1/L [facility] creatinine, serum 1.01 mg/dL [facility] potassium, serum 4.6 mmol/L [facility] sodium, serum 139 mmol/L [facility] platelet count 193 10*3/mm3 [facility] hematocrit, blood 39.0 % [facility] B-type natriuretic peptide 201 pg/mL [facility] cholesterol/HDL ratio, serum 5.3 [facility] triglyceride, serum, fasting 149 mg/dL [facility] HDL cholesterol, serum 26 mg/dL [facility] LDL cholesterol, serum 82 mg/dL [facility] cholesterol, serum 138 mg/dL [facility] HISTORY OF MEDICATION USE Medication Status Instructions [...] MD social history E&M E thnicity: Osito Moran MD alcohol use, average drinks per day [...] Payer name Policy type / Coverage type [employer] Commercial insurance company [id number] [place] MEDICARE Medicare [id number] TREATMENT PLAN Date Name B TYPE NATRIURETIC P EPTIDE (BNP) BASIC METABOLIC PANE L W/EGFR Full PFT
--- OUTSIDE RECORDS SUMMARY | 2024-06-15 07:16 | XMS_ITS ---
Author Organization [facility] Address [address] [place], [place] [id number] Care Team Providers Care Materials Handling Coordinator Name Role Phone IRENE DOWELL Unavailable [phone] Brady Bourgeois Unavailable Unavailable REASON FOR VISIT [...] Sodium 5 MG TAKE 1 TABLET BY [facility] ONCE DAILY Oral for 90 Days Active Allopurinol 300 MG Oral for 90 Days Active Carvedilol 6.25 MG Oral for 90 Days Active Encounters Encounter Location Date Provider Diagnosis [address] [id number] 03/29/2024 IRENE DELMER Tinea unguium B35.1 ; Pain in right toe(s) M79.674 ; Pain in left toe(s) M79.675 and Atherosclerosis of [place] arteries of extremities with intermittent claudication, bilateral [...] toe(s) (ICD-10 - M79.675) 03/29/2024 Atherosclerosis of [place] arteries of extremities with intermittent claudication, bilateral [...] sooner if problems arise Provider Name:BRENT DUFF, 06/21/2024 02:50:00 PM, [address] [place] [address], [id number], Progress Notes * MARSHA YADAV LDOB:[birth year] (83 yo M)Acc No.[id number]:03/29/2024 Patient: MARSHA NGUYEN Provider: Sharee Dowell DPM :1940 A ge:83 Y S ex:Male Date:03/29/2024 Address:[address] [place] [address] Subjective: * Chief Complaints: * Delfino douglas [...] - M79.675 4 . A therosclerosis of [place] arteries of extremities with intermittent claudication, bilateral legs - I70.213 Plan: * Treatment: * Procedure Codes: * Follow Up: 1 0-12 Weeks (Reason: At Risk Foot care, sooner if problems arise) * Billing Information: * Visit Code: 20627 Office Visit, Est Pt., Level 3. * Procedure Codes: * Sign off status: Completed true * Provider: Sharee Dowlel DPM Date: 0 03/29/2024 Generated for Krystian martínez/Dinora/Daijasmitting on: 0 06/15/2024 07:16 AM CDT History and Physical Notes * [...]
[2024-06-15 07:27] LABS: Hematocrit 40.2 % (37.0-46.0); Hemoglobin 13.2 g/dL (12.4-15.3); Mean Corpuscular HGB Conc 32.8 g/dL (32-36); Mean Corpuscular Hemoglobin 31.7 pg (27.0-31.0); Mean Corpuscular Volume 96.4 fL (78.0-102.0); Mean Platelet Volume 9.5 fl (8.7-11.0); Platelet Count Result 159 K/mm3 (150-420); Red Blood Count 4.17 M/mm3 (4.70-6.10); Red Cell Distribution Width 12.8 % (11.6-14.4); White Blood Count 4.9 K/mm3 (4.8-10.8)
[2024-06-15 07:35] LABS: Add Urine Microscopic? NO; Appearance Urine Clear (Clear); Bilirubin Urine Negative (Negative); Blood Urine Negative (Negative); Color Urine Light Yellow (Yellow); Glucose Urine UA 3+ (Negative); Ketones Urine Negative (Negative); Leukocyte Esterase Ur Negative LEU/UL (Negative); Nitrate Urine Negative (Negative); Protein Urine Negative (Negative); Urobilinogen Urine 0.2 mg/dL (0.2-1.0); pH Urine 5.5 (5.0-8.0)
[2024-06-15 07:49] LABS: Creatinine Urine 29.96 mg/dL (40-278); MALB Creatinine Ratio 79.7 mg/g (0-30); Microalbumin Urine Random 23.9 mg/L
[2024-06-15 09:40] LABS: Free T3 2.56 pg/mL (2.18-3.98)
[2024-06-15 10:28] LABS: Alanine Aminotransferase 73 U/L (6-50); Albumin Level 4.3 g/dL (3.5-5.1); Alkaline Phosphatase 158 U/L (38-126); Anion Gap 6 mmol/L (4-12); Aspartate Amino Transferase 56 U/L (17-59); Bilirubin,Total 0.7 mg/dL (0.2-1.3); Blood Urea Nitrogen 24 mg/dL (9-20); Calcium 9.6 mg/dL (8.4-10.2); Carbon Dioxide 24 mmol/L (22-30); Chloride 108 mmol/L (98-107); Cholesterol 111 mg/dL (0-200); Creatine Kinase 105 U/L (55-170); Estimated Glomerular Filt Rate > 60; Glucose 152 mg/dL (65-110); HDL Direct 24 mg/dL; LDL Cholesterol Calculated 53 mg/dL (<130); Osmolality Calculated 293 mOsm/kg (285-295); Sodium 138 mmol/L (137-145); Total Protein 7.1 g/dL (6.3-8.2); Triglycerides 171 mg/dL (<150); Uric Acid 3.9 mg/dL (3.5-8.5)
[2024-06-15 10:41] LABS: Free T4 Free Thyroxine 1.27 ng/dL (0.78-2.19)
== END 2024-06-15 07:11 | disposition home or self-care (01) ==
LOC: CHSLAB 07:13
PROVIDERS: PCP Internal Medicine; Visit Provider Internal Medicine
DX: E03.4 Atrophy of thyroid (acquired) (principal); E11.65 Type 2 diabetes mellitus with hyperglycemia; E79.0 Hyperuricemia without signs of inflammatory arthritis and tophaceous disease; E78.2 Mixed hyperlipidemia; N39.0 Urinary tract infection, site not specified
CPT/HCPCS: 36415; 80053; 80061; 81003; 82043; 82550; 83036; 84439; 84443; 84481; 84550; 85027

== ENCOUNTER 2024-09-10 14:36 | Outpatient (CLI) | payer MEDICARE, SELFPAY ==
--- NOTE | ~2024-09-10 | XR_ITS ---
XR sacroiliac joints min 3V 09/10/2024 14:59 Indication: Low back pain Procedure: 3 view sacroiliac joints Comparison: 10/10/2023 Findings: There is mild bilateral symmetric degenerative change of the sacroiliac joints. There is lo wer lumbar spondylosis. No acute fracture, subluxation or dislocation. No evidence for ankylosis or e rosion. 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 Reviewed, dictated and finalized at location A. 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
--- NOTE | ~2024-09-10 | XR_ITS ---
Lumbosacral Spine: AP and lateral views Clinical History: Pain Findings: There is mild dextroscoliosis of the thoracal lumbar spine. There is moderate compression f racture of L1, age-indeterminate. There is moderate to advanced degenerative disc narrowing throughou t the lumbar spine. There is moderate facet arthropathy throughout the lumbar spine. The sacroiliac j oints are normally outlined. Impression: Moderate L1 compression fracture, age-indeterminate. This may be acute. Moderate degenerative spondylitic changes throughout the lumbar spine, as above. Reviewed, dictated and finalized at location . Impression: Moderate L1 compression fracture, age-indeterminate. This may be acute. Moderate degenerative spondylitic changes throughout the lumbar spine, as above .
--- OUTSIDE RECORDS SUMMARY | 2024-09-10 14:51 | XMS_ITS | Referral Summary ---
Author Organization [facility] Address [address] [place] [address] Care Team Providers Care Mainspring Fabrication Supervisor Name Role Phone Brady Bourgeois MD Primary Care Provider [phone] Encounters Date Type Department Care Team Description 08/29/[address] [facility] Cardiology [address] [address] Kit Patel MD Pacemaker (Primary Dx); Persistent atrial fibrillation (HCC); Second degree AV block 08/29/2024 9:30 AM CDT Ancillary Procedure [facility] Cardiology [address] [place] [address] Pacemaker (Primary Dx); Second degree AV block; [...] Overview (05/13/2016): Essential hypertension Coronary arteriosclerosis in [place] artery 05/31 Overview (05/13/2016): CAD in [place] artery Pacemaker 10/15/2013 Overview (08/18/2017): Medtronic Dual [...] on file Legal Sex Male 11:28 AM SENIOR BUSINESS ARCHITECT Gender Identity Not on file Sexual Orientation Not on file Last Filed Vital Signs Vital Sign Reading Time Taken Comments Blood Pressure 116/66 04/24/2024 9:30 AM CDT Pulse 93 04/24/2024 9:30 AM CDT Temperature 36.4 C (97.5 F) 03/03/2020 12:42 PM SENIOR BUSINESS ARCHITECT Respiratory Rate 16 12/28/2019 10:5 5 AM SENIOR BUSINESS ARCHITECT Oxygen Saturation 99% 04/24/2024 9:30 AM CDT Inhaled Oxygen Concentration - - Weight 85.7 kg (188 lb 14.4 oz) 04/24/2024 9:30 AM CDT Height 177.8 cm (5' 10) 04/24/2024 9:30 AM CDT Body Mass Index 27.1 04/24/2024 9:30 AM CDT Plan of Treatment Not on file Medical Devices Implanted Type Area Dealer Sales Manager Device Identifier Shelf Expiration Date Model / Serial / Lot Pacemaker-11/25 Implanted:11/25 by Alba Argueta MD (Quantity not on file) Pacemaker Chest Medtronic Second Degree AVB, Afib ADAPTA / [id number] / CHRONIC LEADS 2007 Procedures Procedure Name Priority Date/Time Associated Diagnosis Comments DEVICE CHECK - IN OFFICE Routine 08/29/2024 9:17 AM CDT Second degree AV block Persistent atrial fibrillation (HCC) EGFR Routine 09/26/2023 6:25 AM CDT LIPID PANEL Routine 04/06/2021 Coronary arteriosclerosis in [place] artery Chronic diastolic heart failure (HCC) Persistent atrial fibrillation (HCC) Hyperlipidemia associated with type 2 diabetes mellitus (HCC) from Last 3 Months or Most Recently Relevant to Health Maintenance Results * DEVICE CHECK - IN OFFICE (08/29/2024 9:17 AM CDT) Anatomical Region Laterality Modality Other Narrative 08/31/2024 12:17 PM CDT Medtronic Dual Pacemaker. Dx; Second Degree AVB, Chronic Afib. DOI 11/26/2015-Ellie, chronic lead 12/15/07. Carelink remote monitoring Q3 mo, office pacer checks Q1 yr. Programmed VVIR-Bill Single PM. Supervising MD: Dr Moody. Office VVI pacemaker evaluation demonstrated normal device function. Battery function-2.69V, with 9 months remaining battery life to RHIANNA. Presenting rhythm-VPaced. Underlying rhythm-Predominately Ventricular paced @ VVI 30 bpm. AIRCRAFT SEAT UPHOLSTERER-97.4%. Pt is on Eliquis therapy. 2 ventricular high rate episodes noted, iegm's suggestive of Afib with RVR. No programming changes made to device settings. See scanned report. Carelink remote f/u 12/05/2024. Estephania Rivera, CRYSTAL us Kit Patel MD CV CARDIAC [...] was last reviewed 2020. Testing performed by: [facility], [address] [place] [address], [place]., [address] Blood 09/26/2023 6:25 AM CDT 09/26/2023 8:31 AM CDT us Notinfile Unknown LAB BLOOD ORDERABLES Final Res ult [facility]ERN[facility] [address] Department [place] [address] * Lipid panel (04/06/2021) SCRIBED Cholesterol, Total 123 <200 EXTERNAL LAB SCRIBED HDL 28 >40 EXTERNAL LAB SCRIBED LDL 69 <100 EXTERNAL LAB SCRIBED Triglycerides 128 <150 EXTERNAL LAB Blood specimen (specimen) 04/06/2021 Alba Argueta MD LAB BLOOD ORDERABLES Final Result EXTERNAL LAB from Last 3 Months or Most Recently Relevant to Health Maintenance Insurance MEDICARE [facility] MEDICARE ADVANTAGE IDPA Care Teams Mainspring Fabrication Supervisor Relationship Specialty Start Date End Date Brady Bourgeois MD [address] [place], [place] [id number] PCP - General 05/07/16
--- OUTSIDE RECORDS SUMMARY | 2024-09-10 14:51 | XMS_ITS | Clinical Summary ---
Author Organization [facility] Address [address] [place] [address] Care Team Providers Care Grab Jack Man Name Role Phone Brady Bourgeois MD Primary Care Provider + [phone] Allergies No known active allergies Medications lovastatin [...] Overview (05/13/2016): Essential hypertension Coronary arteriosclerosis in [place] artery 05/31 Overview (05/13/2016): CAD in [place] artery Pacemaker 10/15/2013 Overview (08/18/2017): Medtronic Dual [...] Date Type Department Care Team Description 08/29/2024 9:30 AM CDT Ancillary Procedure [facility] Cardiology [address] [facility] [address] [place] [address] Pacemaker (Primary Dx); Second degree AV block; Persistent atrial fibrillation (HCC) 08/29/2024 Orders Only [facility] Cardiology [address] [facility] [address] [place] [phone] Kit Patel MD Pacemaker (Primary Dx); Persistent atrial fibrillation (HCC); Second degree AV block from Last 3 Months Surgical History Surgery Date Site/Laterality Comments CARDIAC PACEMAKER PLACEMENT LUMBAR SPINE SURGERY APPENDECTOMY 02/07/1959 - 02/07/1960 Medical History Medical History Date Comments Atrial fibrillation (HCC) Hypertension Hyperlipidemia BPH (benign prostatic hyperplasia) Type 2 diabetes mellitus Arthritis Skin cancer Nocturia Family History Medical [...] file Legal 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 Gender Identity Not on file Sexual Orientation Not on file Obstetrics History Last Filed Vital Signs Vital Sign Reading Time Taken Comments Blood Pressure 116/66 04/24/2024 9:30 AM CDT Pulse 93 04/24/2024 9:30 AM CDT Temperature 36.4 C (97.5 F) 03/03/2020 12:42 PM DIRECTOR COLLEGE Respiratory Rate 16 12/28/2019 10:5 5 AM DIRECTOR COLLEGE Oxygen Saturation 99% 04/24/2024 9:30 AM CDT [...] 09/07, 09/19/2023, Additional history exists Influenza Vaccine (#1) 2024 9, 11/02/2017, 10/21/2016, Additional history exists Pneumococcal vaccine 65+ Completed 017, 12/23/2006, 12/12/2006 Medical Devices Implanted Type Area Microstrategy Bi Developer Device Identifier Shelf Expiration Date Model / Serial / Lot Pacemaker-10/19 /2016 Implanted:11/25 by Alba Argueta MD (Quantity not on file) Pacemaker Chest Medtronic Second Degree AVB, Afib ADAPTA / [id number] / CHRONIC LEADS 2007 Procedures Procedure Name Priority Date/Time Associated Diagnosis Comments DEVICE CHECK - IN OFFICE Routine 08/29/2024 9:17 AM CDT Second degree AV block Persistent atrial fibrillation (HCC) EGFR Routine 09/26/2023 6:25 AM CDT LIPID PANEL Routine 04/06/2021 Coronary arteriosclerosis in [place] artery Chronic diastolic heart failure (HCC) Persistent atrial fibrillation (HCC) Hyperlipidemia associated with type 2 diabetes mellitus (HCC) from Last 3 Months or Most Recently Relevant to Health Maintenance Results * DEVICE CHECK - IN OFFICE (08/29/2024 9:17 AM CDT) Anatomical Region Laterality Modality Other Narrative 08/31/2024 12:17 PM CDT Medtronic Dual Pacemaker. Dx; Second Degree AVB, Chronic Afib. DOI 11/26/2015-Luis Atrom, chronic lead 12/15/07. Carelink remote monitoring Q3 mo, office pacer checks Q1 yr. Programmed VVIR-Bill Single PM. Supervising MD: Dr Moody. Office VVI pacemaker evaluation demonstrated normal device function. Battery function-2.69V, with 9 months remaining battery life to RHIANNA. Presenting rhythm-VPaced. Underlying rhythm-Predominately Ventricular paced @ VVI 30 bpm. RESEARCH ELECTRICIAN-97.4%. Pt is on Eliquis therapy. 2 ventricular high rate episodes noted, iegm's suggestive of Afib with RVR. No programming changes made to device settings. See scanned report. Carelink remote f/u 12/05/2024. Estephania Rivera RN us Kit Patel MD CV CARDIAC [...] 2020. Testing performed by: [facility], [address] [place] [address]., [id number] Blood 09/26/2023 6:25 AM CDT 09/26/2023 8:31 AM CDT us Notinfile Unknown LAB BLOOD ORDERABLES Final Res ult NAOMI [address] [facility] Department [place] [address] * Lipid panel (04/06/2021) SCRIBED Cholesterol, Total 123 <200 EXTERNAL LAB SCRIBED HDL 28 >40 EXTERNAL LAB SCRIBED LDL 69 <100 EXTERNAL LAB SCRIBED Triglycerides 128 <150 EXTERNAL LAB Blood specimen (specimen) 04/06/2021 us Alba Argueta MD LAB BLOOD ORDERABLES Final Result EXTERNAL LAB from Last 3 Months or Most Recently Relevant to Health Maintenance Insurance MEDICARE [facility] MEDICARE AD[facility]ANT[facility] MEDICARE Address: [address] [address] [place] [address] IDPA Care Teams Grab Jack Man Relationship Specialty Start Date End Date Brady Borugeois MD [address] [place] [address] PCP - General 05/07/16
--- OUTSIDE RECORDS SUMMARY | 2024-09-10 14:51 | XMS_ITS ---
Author Organization [facility] Address [address] [place], [place] [phone] Care Team Providers Care Gasoline Power Shovel Operator Name Role Phone IRENE DOWELL Unavailable [phone] Brady Bourgeois Unavailable Unavailable BRENT WILSON Unavailable [phone] Allergies No Known Allergies REASON FOR VISIT *General care Medications Medication SIG (Take, Route, Fr equency, Duration) Notes Start Date End Date Status Allopurinol 300 MG Oral; Duration: 90 Days Active Memantine HCl 5 MG Oral; Duration: 30 Days Active Warfarin Sodium 5 MG TAKE 1 TABLET BY [facility] ONCE DAILY Oral; Duration: 90 Days Ac tive Lovastatin 20 MG Oral; Duration: 90 Days Active Carvedilol 6.25 MG Oral; Duration: 90 Days Active Encounters Encounter Location Date Provider Diagnosis [address] [id number] 06/21/2024 BRENT WILSON Tinea unguium B35.1 ; Pain in right toe(s) M79.674 ; Pain in left toe(s) M79.675 and Atherosclerosis of [place] arteries of extremities with intermittent claudication, bilateral [...] toe(s) (ICD-10 - M79.675) 06/21/2024 Atherosclerosis of [place] arteries of extremities with intermittent claudication, bilateral [...] debris and necrotic tissue removed Atherosclerosis of [place] ar teries of extremities with intermittent claudication, bilateral legs Check and protect LE bilateral. Call with any changes or concerns. Next Appt Details Follow Up: 10-12 Weeks, Reas on: At Risk Foot care, sooner if problems arise Provider Name:BRENT DUFF, 10/25/2024 10:10:00 AM, [address] [place] [address], [phone], Progress Notes * MARSHA YADAV LDOB:[birth year] (84 yo M)Acc No.[id number]:06/21/2024 Patient: MARSHA NGUYEN Provider: Danielito WILSON :1940 A ge:83 Y S ex:Male Date:06/21/2024 Address:[address] [place] [address] Subjective: * Chief Complaints: * 1 . *General care. * HPI: H PI: General care P atient presents to the office for diabetic foot care. Patient states that their nails are thickened, elongated and painful. Patient states that it is aggravated by shoe gear. Onset is gradual., Patient denies taking blood thinners., Date last seen by Dr. Bourgeois was 05/2024., Initials [facility]. * ROS: G eneral / Constitutional: [...] - M79.675 4 . A therosclerosis of [place] arteries of extremities with intermittent claudication, bilateral legs - I70.213 Plan: * Treatment: 2. A therosclerosis of [place] arteries of extremities with intermittent claudication, bilateral legs Notes: Check and protect LE bilateral. Call with any changes or concerns. * Follow Up: 1 0-12 Weeks (Reason: At Risk Foot care, sooner if problems arise) * Billing Information: * Visit Code: 31487 Office Visit, Est Pt., Level 3. * Procedure Codes: * Electronic signature of SHERWIN WILSON DPM on 09/10/2024 at 02:51 PM CDT Sign off status: Pending * Provider: Danielito WILSON Date: 0 06/21/2024 Generated for Krystian martínez/Dinora/Estefani on: 0 09/10/2024 02:51 PM CDT History and Physical Notes * [...]
--- OUTSIDE RECORDS SUMMARY | 2024-09-10 14:52 | XMS_ITS | Encounter Summary ---
Author Organization [facility] Address [address] [facility] [address] [place] [address] Care Team Providers Care Cattle Dipper Name Role Phone Brady Bourgeois MD Primary Care Provider [phone] Encounter Details Date Type Department Care Team (Late st Contact Info) Description 06/09/2016 Orders Only [facility] ProviderTracy MD [address] [place] [address] Social History Tobacco Use Types Packs/Day Years Used Date Smoking Tobacco: Former Alcohol Use Standard Drinks/Week Comments No 0 (1 standard drink = 0.6 oz pur e alcohol) Sex and Gender Information Value Date Recorded Sex Assigned at Not on file Legal 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
--- OUTSIDE RECORDS SUMMARY | 2024-09-10 14:52 | XMS_ITS | Encounter Summary ---
Author Organization [facility] Address [address] [address] Care Team Providers Care Streetcar Dispatcher Name Role Phone Brady Bourgeois MD Primary Care Provider + [phone] Brady Bourgeois MD Primary Care Provider + [phone] Encounter Details Date Type Department Care Team (Late st Contact Info) Description 03/11/2016 Orders Only [facility] ProviderTracy MD [address] [place] [address] Social History Tobacco Use Types Packs/Day Years Used Date Smoking Tobacco: Former Alcohol Use Standard Drinks/Week Comments No 0 (1 standard drink = 0.6 oz pur e alcohol) Sex and Gender Information Value Date Recorded Sex Assigned at Not on file 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
--- OUTSIDE RECORDS SUMMARY | 2024-09-10 14:52 | XMS_ITS ---
Author Organization [facility] Address [address] [place], [place] [phone] Care Team Providers Care Classroom Instructor Name Role Phone IRENE DOWELL Unavailable [phone] Brady Bourgeois Unavailable Unavailable BRENT WILSON Unavailable [phone] REASON FOR VISIT *General care Encounters Encounter Location Date Provider Diagnosis [address] [id number] 05/31/2024 BRENT WILSON Plan Of Treatment Next Appt Details Provider Name:BRENT DUFF, 10/25/2024 10:10:00 AM, [address] [place] [address], [phone], Progress Notes * MARSHA YADAV LDOB:[birth year] (84 yo M)Acc No.[id number]:05/31/2024 Patient: MARSHA NGUYEN Provider: Danielito WILSON :1940 A ge:83 Y S ex:Male Date:05/31/2024 Address:[address] [place], [place] [phone] Subjective: * Chief Complaints: * 1 . *General care. * Medical History: Objective: * Vitals: Assessment: Plan: * Treatment: * Billing Information: * Visit Code: * Procedure Codes: * Electronic signature of SHERWIN WILSON DPM on 09/10/2024 at 02:51 PM CDT Sign off status: Pending * Provider: Danielito WILSON Date: 0 05/31/2024 Generated for Krystian Singh/Estefani on: 0 09/10/2024 02:51 PM CDT
--- OUTSIDE RECORDS SUMMARY | 2024-09-10 14:52 | XMS_ITS | Encounter Summary ---
Author Organization [facility] Address [address] [facility] [address] [place] [address] Care Team Providers Care Chemical Dependency Therapist Name Role Phone Brady Bourgeois MD Primary Care Provider + [phone] Brady Bourgeois MD Primary Care Provider + [phone] Encounter Details Date Type Department Care Team (Late st Contact Info) Description 03/10/2016 Orders Only [facility] ProviderTracy MD [address] [place] [address] Social History Tobacco Use Types Packs/Day Years Used Date Smoking Tobacco: Former Alcohol Use Standard Drinks/Week Comments No 0 (1 standard drink = 0.6 oz pur e alcohol) Sex and Gender Information Value Date Recorded Sex Assigned at Not on file Legal Sex Male 11:28 AM CMO Gender Identity Not on file Sexual Orientation [...] on filedocumented in this encounter Care Teams Chemical Dependency Therapist Relationship Specialty Start Date End Date Brady Bourgeois MD [address] [place], [place] [phone] PCP - General 05/07/16 Brady Bourgeois MD [address] [place] [address] PCP - General 07/16/15 05/06/16 documented as of this encounter
== END 2024-09-10 14:37 | disposition home or self-care (01) ==
LOC: CHSIMG 14:39
PROVIDERS: PCP Internal Medicine; Visit Provider Internal Medicine
DX: M54.50 Low back pain, unspecified (principal); S32.010A Wedge compression fracture of first lumbar vertebra, initial encounter for closed fracture; M43.06 Spondylolysis, lumbar region
CPT/HCPCS: 72100; 72202

== ENCOUNTER 2024-09-25 09:32 | Outpatient (CLI) | payer MEDICARE, SELFPAY ==
--- OUTSIDE RECORDS SUMMARY | 2024-05-31 06:40 | XMS_ITS ---
Author Organization [facility] Address [address] [place], [place] [address] Care Team Providers Care Personal Development Mentor Name Role Phone IRENE DOWELL Unavailable [phone] Brady Bourgeois Unavailable Unavailable BRENT WILSON Unavailable [phone] REASON FOR VISIT *General care Encounters Encounter Location Date Provider Diagnosis [address] [id number] 05/31/2024 BRENT WILSON Plan Of Treatment Next Appt Details Provider Name:BRENT DUFF, 10/25/2024 10:10:00 AM, [address] [place] [address], [id number], Progress Notes * MARSHA YADAV LDOB:[birth year] (84 yo M)Acc No.[id number]:05/31/2024 Patient: MARSHA NGUYEN Provider: Danielito WILSON :1940 A ge:83 Y S ex:Male Date:05/31/2024 Address:[address] [place], [place] [phone] Subjective: * Chief Complaints: * 1 . *General care. * Medical History: Objective: * Vitals: Assessment: Plan: * Treatment: * Billing Information: * Visit Code: * Procedure Codes: * Electronic signature of SHERWIN WILSON DPM on 09/25/2024 at 09:53 AM CDT Sign off status: Pending * Provider: Danielito WILSON Date: 0 05/31/2024 Generated for Krystian Singh/Estefnai on: 0 09/25/2024 09:53 AM CDT
--- OUTSIDE RECORDS SUMMARY | 2024-06-21 09:50 | XMS_ITS ---
Author Organization [facility] Address [address] [place], [place] [phone] Care Team Providers Care Evp Strategy Name Role Phone IRENE DOWELL Unavailable [phone] Brady Bourgeois Unavailable Unavailable BRENT WILSON Unavailable [phone] Allergies No Known Allergies REASON FOR VISIT *General care Medications Medication SIG (Take, Route, Fr equency, Duration) Notes Start Date End Date Status Allopurinol 300 MG Oral; Duration: 90 Days Active Memantine HCl 5 MG Oral; Duration: 30 Days Active Warfarin Sodium 5 MG TAKE 1 TABLET BY [facility] ONCE DAILY Oral; Duration: 90 Days Ac tive Lovastatin 20 MG Oral; Duration: 90 Days Active Carvedilol 6.25 MG Oral; Duration: 90 Days Active Encounters Encounter Location Date Provider Diagnosis [address] [id number] 06/21/2024 BRENT WILSON Tinea unguium B35.1 ; Pain in right toe(s) M79.674 ; Pain in left toe(s) M79.675 and Atherosclerosis of [place] arteries of extremities with intermittent claudication, bilateral [...] toe(s) (ICD-10 - M79.675) 06/21/2024 Atherosclerosis of [place] arteries of extremities with intermittent claudication, bilateral [...] debris and necrotic tissue removed Atherosclerosis of [place] ar teries of extremities with intermittent claudication, bilateral legs Check and protect LE bilateral. Call with any changes or concerns. Next Appt Details Follow Up: 10-12 Weeks, Reas on: At Risk Foot care, sooner if problems arise Provider Name:BRENT DUFF, 10/25/2024 10:10:00 AM, [address] [place] [address], [id number], Progress Notes * MARSHA YADAV LDOB:[birth year] (84 yo M)Acc No.[id number]:06/21/2024 Patient: MARSHA NGUYEN Provider: Danielito WILSON :1940 A ge:83 Y S ex:Male Date:06/21/2024 Address:[address] [place] [address] Subjective: * Chief Complaints: * 1 . *General care. * HPI: H PI: General care P atient presents to the office for diabetic foot care. Patient states that their nails are thickened, elongated and painful. Patient states that it is aggravated by shoe gear. Onset is gradual., Patient denies taking blood thinners., Date last seen by Dr. Bourgeois was 05/2024., Initials [facility]. * ROS: G eneral / Constitutional: [...] - M79.675 4 . A therosclerosis of [place] arteries of extremities with intermittent claudication, bilateral legs - I70.213 Plan: * Treatment: 2. A therosclerosis of [place] arteries of extremities with intermittent claudication, bilateral legs Notes: Check and protect LE bilateral. Call with any changes or concerns. * Follow Up: 1 0-12 Weeks (Reason: At Risk Foot care, sooner if problems arise) * Billing Information: * Visit Code: 32560 Office Visit, Est Pt., Level 3. * Procedure Codes: * Electronic signature of SHERWIN WILSON DPM on 09/25/2024 at 09:52 AM CDT Sign off status: Pending * Provider: Danielito WILSON Date: 0 06/21/2024 Generated for Krystian martínez/Dinora/Estefani on: 0 09/25/2024 09:52 AM CDT History and Physical Notes * [...]
--- OUTSIDE RECORDS SUMMARY | 2024-08-23 09:10 | XMS_ITS ---
Author Organization [facility] Address [address] [place], [place] [address] Care Team Providers Care Petal Cutter Name Role Phone IRENE DOWELL Unavailable [phone] Brady Bourgeois Unavailable Unavailable BRENT WILSON Unavailable [phone] REASON FOR VISIT *General care Medications Medication SIG (Take, Route, Fr equency, Duration) Notes Start Date End Date Status Lovastatin 20 MG Oral; Duration: 90 Days Active Carvedilol 6.25 MG Oral; Duration: 90 Days Active Allopurinol 300 MG Oral; Duration: 90 Days Active Warfarin Sodium 5 MG TAKE 1 TABLET BY [facility] ONCE DAILY Oral; Duration: 90 Days Ac tive Memantine HCl 5 MG Oral; Duration: 30 Days Active Vital Signs Height 69.00 in 08/23/2024 Weight 200 lbs 08/23/2024 BMI 29.53 kg/m2 08/23/2024 Height-cm 175.26 cm 08/23/2024 Weight-kg 90.72 kg 08/23/2024 Encounters Encounter Location Date Provider Diagnosis [address] [id number] 08/23/2024 BRENT WILSON Tinea unguium B35.1 ; Pain in right toe(s) M79.674 ; Pain in left toe(s) M79.675 and Atherosclerosis of [place] arteries of extremities with intermittent claudication, bilateral [...] toe(s) (ICD-10 - M79.675) 08/23/2024 Atherosclerosis of [place] arteries of extremities with intermittent claudication, bilateral [...] debris and necrotic tissue removed Atherosclerosis of [place] ar teries of extremities with intermittent claudication, bilateral legs Check and protect LE bilateral. Call with any changes or concerns. Next Appt Details Follow Up: 10-12 Weeks, Reas on: At Risk Foot care, sooner if problems arise Provider Name:BRENT DUFF, 10/25/2024 10:10:00 AM, [address] [place] [address], [id number], Progress Notes * MARSHA YADAV LDOB:[birth year] (84 yo M)Acc No.[id number]:08/23/2024 Patient: MARSHA NGUYEN Provider: Danielito WILSON :1940 A ge:84 Y S ex:Male Date:08/23/2024 Address:[address] [place], [place] [address] Subjective: * Chief Complaints: * 1 . *General care. * HPI: H PI: General care P atient presents to the office for diabetic foot care. Patient states that their nails are thickened, elongated and painful. Patient states that it is aggravated by shoe gear. Onset is gradual., Patient is taking prescription blood thinners., Date last seen by Dr. Bourgeois was 08/2024., Initials [facility]. * ROS: G eneral / Constitutional: [...] - M79.675 4 . A therosclerosis of [place] arteries of extremities with intermittent claudication, bilateral legs - I70.213 Plan: * Treatment: 2. A therosclerosis of [place] arteries of extremities with intermittent claudication, bilateral [...] arise) * Billing Information: * Visit Code: 98129 Office Visit, Est Pt., Level 3. * Procedure Codes: * Electronic signature of SHERWIN WILSON DPM on 09/25/2024 at 09:53 AM CDT Sign off status: Pending * Provider: Danielito WILSON Date: 0 08/23/2024 Generated for Krystian martínez/Dinora/Estefani on: 0 09/25/2024 09:53 AM CDT History and Physical Notes * [...]
--- NOTE | ~2024-09-25 | CT_ITS ---
EXAMINATION: CT lumbar spine wo con DATE: 09/25/2024 10:15 INDICATION: Low back pain TECHNIQUE: Computed tomography (CT) of the head was performed without intravenous contrast. The dose-length product was 1453.91 mGy-cm. COMPARISON: Lumbar spine x-rays 09/10/2024; lumbar spine CT 11/17/2015 FINDINGS: There are mixed lytic and sclerotic regions throughout the L1 vertebral body and posterior elements similar to the CT study from 11/17/2015. 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 Other etiologies are less likely. The L1 vertebral body is slightly more compressed than seen in the previous CT study. Interval compression fracture of the L1 vertebral body is possible. If there is acute tenderness in this location, an acute compression fracture of L1 vertebral body is possible. Consider an MRI of the lumbar spine for further assessment. Mild levoconvex curvature of the lumbar spine, unchanged. Moderate joint space narrowing at the L1-L2, L2-L3, L3-4, L4-5 and L5-S1 levels. Bones appear osteopenic. No other possible compression fracture in the lumbar spine. Evaluation of the spinal canal contents and bilateral neuroforamen is limited d ue to CT technique. Small posterior disc osteophyte complex at the L1-L2 level. IMPRESSION: 1. The L1 vertebral body is slightly more compressed than seen in the previous CT study. Interval compression fracture of the L1 vertebral body is possible. If there is acute tenderness in this location, an acute compression fracture of L1 vertebral body is possible. Consider an MRI of the lumbar spine for further assessment. 2. There are mixed lytic and sclerotic regions throughout the L1 vertebral body and posterior elements similar to the CT study from 11/17/2015. 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 Other etiologies are less likely. 3. Multilevel degenerative change throughout the lumbar spine. Evaluation of the spinal canal contents and bilateral neuroforamen is limited due to CT technique. Consider an MRI of the lumbar spine for further assessment Reviewed, dictated and finalized at location A. IMPRESSION: 1. The L1 vertebral body is slightly more compressed than seen in the previous CT study. Interval compression fracture of the L1 vertebral body is possible. I f there is acute tenderness in this location, an acute compression fracture of L1 vertebral body is possible. Consider an MRI of the lumbar spine for further assessment. 2. There are mixed lytic and sclerotic regions throughout the L1 vertebral body and posterior elements similar to the CT study from 11/17/2015. The findings a re favored to represent Paget's disease. Other etiologies are less likely. 3. Multilevel degenerative change throughout the lumbar spine. Evaluation of th e spinal canal contents and bilateral neuroforamen is limited due to CT techniq ue. Consider an MRI of the lumbar spine for further assessment
--- OUTSIDE RECORDS SUMMARY | 2024-09-25 09:53 | XMS_ITS | Clinical Summary ---
Author Organization [facility] Address [address] [place] [id number] Care Team Providers Care Egg Breaker Name Role Phone Brady Bourgeois MD Primary Care Provider + [phone] Allergies No known active allergies Medications lovastatin (MEVACOR) 20 mg tablet take 1 tablet by oral route every day with the evening meal 0 0 8 Active enalapril (VASOTEC) 5 mg tablet take 1 tablet by oral route every day 0 0 8 Active warfarin (COUMADIN) 4 mg tablet take 1 1/2 tablet (6MG) daily or as directed by Dr. Buorgeois 70 5 2 Active Additional Information Patient [...] Overview (05/13/2016): Essential hypertension Coronary arteriosclerosis in [place] artery 05/31 Overview (05/13/2016): CAD in [place] artery Pacemaker 10/15/2013 Overview (08/18/2017): Medtronic [...] Description 08/29/2024 9:30 AM CDT Ancillary Procedure [facility] [address] [place] [address] Pacemaker (Primary Dx); Second degree AV block; Persistent atrial fibrillation (HCC) 08/29/2024 Orders Only [facility] [address] [facility] [address] [place] [phone] Kit Patel MD Pacemaker (Primary Dx); Persistent [...] on file 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 Gender Identity Not on file Sexual Orientation Not on file Obstetrics History Last Filed Vital Signs Vital Sign Reading Time Taken Comments Blood Pressure 116/66 04/24/2024 9:30 AM CDT Pulse 93 04/24/2024 9:30 AM CDT Temperature 36.4 C (97.5 F) 03/03/2020 12:42 PM POWER LINEMAN Respiratory Rate 16 12/28/2019 10:5 5 AM POWER LINEMAN Oxygen Saturation 99% 04/24/2024 9:30 AM CDT [...] 12/23/2006, 12/12/2006 Medical Devices Implanted Type Area Market Master Device Identifier Shelf Expiration Date Model / Serial / Lot Pacemaker-10/19 /2016 Implanted:11/25 by Alba Argueta MD (Quantity not on file) Pacemaker Chest Medtronic Second Degree AVB, Afib ADAPTA / [id number] / [employer]RONIC LEADS 2007 Procedures Procedure Name Priority Date/Time Associated Diagnosis Comments DEVICE CHECK - IN OFFICE Routine 08/29/2024 9:17 AM CDT Second degree AV block Persistent atrial fibrillation (HCC) EGFR Routine 09/26/2023 6:25 AM CDT LIPID PANEL Routine 04/06/2021 Coronary arteriosclerosis in [place] artery Chronic diastolic heart failure (HCC) [...] rhythm-Predominately Ventricular paced @ VVI 30 bpm. DEWER-97.4%. Pt is on Eliquis therapy. 2 ventricular [...] last reviewed 2020. Testing performed by: [facility], [address] [place] [address]., [address] Blood 09/26/2023 6:25 AM CDT 09/26/2023 8:31 AM CDT us Notinfile Unknown LAB BLOOD ORDERABLES Final Res ult NAOMI [address] [facility] [place] [address] * Lipid panel (04/06/2021) SCRIBED Cholesterol, Total 123 <200 EXTERNAL LAB SCRIBED HDL 28 >40 EXTERNAL LAB SCRIBED LDL 69 <100 EXTERNAL LAB SCRIBED Triglycerides 128 <150 EXTERNAL LAB Blood specimen (specimen) 04/06/2021 us Alba Argueta MD LAB BLOOD ORDERABLES Final Result EXTERNAL LAB from Last 3 Months or Most Recently Relevant to Health Maintenance Insurance MEDICARE COMMERCIAL GENERIC [facility] MEDICARE ADVANTAGE IDPA Care Teams Egg Breaker Relationship Specialty Start Date End Date Brday Bourgeois MD [address] [place] [address] PCP - General 05/07/16
--- OUTSIDE RECORDS SUMMARY | 2024-09-25 09:53 | XMS_ITS | Patient Health Record ---
Author Organization [facility] Address [address] [place], [place] [id number] Care Team Providers Care Career Law Clerk Name Role Phone IRENE DOWELL Unavailable [phone] Brady Bourgeois Unavailable Unavailable DENISEROEL GUADARRAMAUR Unavailable [phone] BRENT WILSON Unavailable [phone] Allergies No Known Allergies Reason For Referral No Information Medications Medication SIG (Take, Route, Fr equency, Duration) Notes Start Date End Date Status Lovastatin 20 MG Oral; Duration: 90 Days Active Carvedilol 6.25 MG Oral; Duration: 90 Days Active Allopurinol 300 MG Oral; Duration: 90 Days Active Warfarin Sodium 5 MG TAKE 1 TABLET BY [facility] ONCE DAILY Oral; Duration: 90 Days Ac tive Memantine HCl 5 MG Oral; Duration: 30 Days Active Vital Signs Height-cm 175.26 cm 08/23/2024 Weight-kg 90.72 kg 08/23/2024 Height 69.00 in 08/23/2024 Weight 200 lbs 08/23/2024 BMI 29.53 kg/m2 08/23/2024 Encounters Encounter Location Date Provider Diagnosis [address] [id number] 06/21/2024 BRENT WILSON Tinea unguium B35.1 ; Pain in right toe(s) M79.674 ; Pain in left toe(s) M79.675 and Atherosclerosis of [place] arteries of extremities with intermittent claudication, bilateral legs I70.[address] [id number] 08/23/2024 BRENT WILSON Tinea unguium B35.1 ; Pain in right toe(s) M79.674 ; Pain in left toe(s) M79.675 and Atherosclerosis of [place] arteries of extremities with intermittent claudication, bilateral legs I70.213 [facility] [address] [place], [place] [id number] 11/10/2023 CORBY MELENDEZ Other hammer toe(s) (acquired), right foot M20.41 ; Tinea unguium B35.1 ; Other hammer toe(s) (acquired), left foot M20.42 ; Pain in right toe(s) M79.674 ; Pain in left toe(s) M79.675 ; Unspecified atherosclerosis of [place] arteries of extremities, bilateral legs I70.203 and Type 2 diabetes mellitus with diabetic peripheral angiopathy without gangrene E11.[address] [id number] 03/29/2024 IRENE DOWELL Tinea unguium B35.1 ; Pain in right toe(s) M79.674 ; Pain in left toe(s) M79.675 and Atherosclerosis of [place] arteries of extremities with intermittent claudication, bilateral legs I70.213 Assessments Encounter Date Diagnosis (ICD Code) Assessment Notes Treatment Notes Treatment Clinical Notes Section Notes 11/10/2023 Tinea unguium (ICD-10 - B35.1) Aseptic [...] in right toe(s) (ICD-10 - M79.674) 06/21/2024 Tinea unguium (ICD-10 - B35.1) FUNGAL [...] in right toe(s) (ICD-10 - M79.674) 08/23/2024 Tinea unguium (ICD-10 - B35.1) FUNGAL [...] in left toe(s) (ICD-10 - M79.675) 06/21/2024 Pain in left toe(s) (ICD-10 - M79.675) 03/29/2024 Pain in left toe(s) (ICD-10 - M79.675) 11/10/2023 Other hammer toe(s) (acquired), left foot (ICD-10 - M20.42) 11/10/2023 Pain in right toe(s) (ICD-10 - M79.674) 03/29/2024 Atherosclerosis of [place] arteries of extremities with intermittent claudication, bilateral legs (ICD-10 - I70.213) 06/21/2024 Atherosclerosis of [place] arteries of extremities with intermittent claudication, bilateral legs (ICD-10 - I70.213) Check and protect LE bilateral. Call with any changes or concerns. 08/23/2024 Atherosclerosis of [place] arteries of extremities with intermittent claudication, bilateral legs (ICD-10 - I70.213) Check and protect LE bilateral. Call with any changes or concerns. 11/10/2023 Pain in left toe(s) (ICD-10 - M79.675) 11/10/2023 Unspecified atherosclerosis of [place] arteries of extremities, bilateral legs (ICD-10 - [...] Details Provider Name:BRENT DUFF, 10/25/2024 10:10:00 AM, [address] [place] [address], [id number], Insurance Providers Payer Name Payer Address Payer Phone Subscriber Number Group Number Insured Name Patient Relationship to Insured Coverage Start Date Coverage End Date [facility] [address] [address] [place], [place] [id number] MARSHA YADAV Self - patient is the insured Medical (General) History Medical History History ICD Code Diabetic
--- OUTSIDE RECORDS SUMMARY | 2024-09-25 09:53 | XMS_ITS | Encounter Summary ---
Author Organization [facility] Address [address] [facility] [address] [place] [address] Care Team Providers Care Biometrics Experimentalist Name Role Phone Brady Bourgeois MD Primary Care Provider + [phone] Brady Bourgeois MD Primary Care Provider + [phone] Encounter Details Date Type Department Care Team (Late st Contact Info) Description 03/10/2016 Orders Only [facility] ProviderTracy MD [address] [place] [address] Social History Tobacco Use Types Packs/Day Years Used Date Smoking Tobacco: Former Alcohol Use Standard Drinks/Week Comments No 0 (1 standard drink = 0.6 oz pur e alcohol) Sex and Gender Information Value Date Recorded Sex Assigned at Not on file 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
--- OUTSIDE RECORDS SUMMARY | 2024-09-25 09:54 | XMS_ITS | Encounter Summary ---
Author Organization [facility] Address [address] [facility] [address] [place] [address] Care Team Providers Care Forest Management Teacher Name Role Phone Brady Bourgeois MD Primary Care Provider [phone] Encounter Details Date Type Department Care Team (Late st Contact Info) Description 06/09/2016 Orders Only [facility] ProviderTracy MD [address] [place] [address] Social History Tobacco Use Types Packs/Day Years Used Date Smoking Tobacco: Former Alcohol Use Standard Drinks/Week Comments No 0 (1 standard drink = 0.6 oz pur e alcohol) Sex and Gender Information Value Date Recorded Sex Assigned at Not on file 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
--- OUTSIDE RECORDS SUMMARY | 2024-09-25 09:54 | XMS_ITS | Encounter Summary ---
Author Organization [facility] Address [address] [facility] [address] [place] [address] Care Team Providers Care Advertising Account Representative Name Role Phone Brady Bourgeois MD Primary Care Provider + [phone] Brady Bourgeois MD Primary Care Provider + [phone] Encounter Details Date Type Department Care Team (Late st Contact Info) Description 03/11/2016 Orders Only [facility] ProviderTracy MD [address] [place] [address] Social History Tobacco Use Types Packs/Day Years Used Date Smoking Tobacco: Former Alcohol Use Standard Drinks/Week Comments No 0 (1 standard drink = 0.6 oz pur e alcohol) Sex and Gender Information Value Date Recorded Sex Assigned at Not on file 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
== END 2024-09-25 09:33 | disposition home or self-care (01) ==
LOC: CHSIMG 09:34
PROVIDERS: PCP Internal Medicine; Visit Provider Internal Medicine
DX: M54.50 Low back pain, unspecified (principal)
CPT/HCPCS: 72131

== ENCOUNTER 2024-10-30 13:54 | Outpatient (CLI) | payer MEDICARE, SELFPAY ==
--- OUTSIDE RECORDS SUMMARY | 2024-05-31 06:40 | XMS_ITS ---
Author Organization [facility] Address [address] [place], [place] [address] Care Team Providers Care Dirt Bike Mechanic Name Role Phone IRENE DOWELL Unavailable [phone] Brady Bourgeois Unavailable Unavailable BRENT WILSON Unavailable [phone] REASON FOR VISIT *General care Encounters Encounter Location Date Provider Diagnosis [address] [id number] 05/31/2024 BRENT WILSON Plan Of Treatment Next Appt Details Provider Name:BRENT DUFF, 11/15/2024 09:20:00 AM, [address] [place] [address], [id number], Provider Name:BRENT DUFF, 12/27/2024 10:10:00 AM, [address] [place] [address], [id number], Progress Notes * MARSHA YADAV LDOB:[birth year] (84 yo M)Acc No.[id number]:05/31/2024 Patient: MARSHA NGUYEN Provider: Danielito WILSON :1940 A ge:83 Y S ex:Male Date:05/31/2024 Address:[address] [place], [place] [phone] Subjective: * Chief Complaints: * 1 . *General care. * Medical History: Objective: * Vitals: Assessment: Plan: * Treatment: * Billing Information: * Visit Code: * Procedure Codes: * Electronic signature of SHERWIN WILSON DPM on 10/30/2024 at 02:09 PM CDT Sign off status: Pending * Provider: Danielito WILSON Date: 0 05/31/2024 Generated for Krystian martínez/Dinora/Estefani on: 0 10/30/2024 02:09 PM CDT
--- OUTSIDE RECORDS SUMMARY | 2024-06-21 09:50 | XMS_ITS ---
Author Organization [facility] Address [address] [place], [place] [id number] Care Team Providers Care Long Chain Dyeing Machine Operator Name Role Phone IRENE DOWELL Unavailable [phone] Brady Bourgeois Unavailable Unavailable BRENT WILSON Unavailable [phone] Allergies No Known Allergies REASON FOR VISIT *General care Medications Medication SIG (Take, Route, Fr equency, Duration) Notes Start Date End Date Status Allopurinol 300 MG Oral; Duration: 90 Days Active Memantine HCl 5 MG Oral; Duration: 30 Days Active Warfarin Sodium 5 MG TAKE 1 TABLET BY [facility] ONCE DAILY Oral; Duration: 90 Days Ac tive Lovastatin 20 MG Oral; Duration: 90 Days Active Carvedilol 6.25 MG Oral; Duration: 90 Days Active Encounters Encounter Location Date Provider Diagnosis [address] [id number] 06/21/2024 BRENT WILSON Tinea unguium B35.1 ; Pain in right toe(s) M79.674 ; Pain in left toe(s) M79.675 and Atherosclerosis of [place] arteries of extremities with intermittent claudication, bilateral legs I70.213 Assessments Encounter Date Diagnosis (ICD Code) Assessment Notes Treatment Notes Treatment Clinical Notes Section Notes 06/21/2024 Tinea unguium (ICD-10 - B35.1) FUNGAL TOENAILS: Discussed various treatment options for fungal toenails including debridement, topical antifungals, oral antifungals, toenail avulsion, or toenail matrixectomy. NAIL DEBRIDEMENT: Nails 1-5 Bilateral were debrided extensively with nail nippers and emery board, reducing length and girth to pink healthy tissue with any subungual debris and necrotic tissue removed 06/21/2024 Pain in right toe(s) (ICD-10 - M79.674) 06/21/2024 Pain in left toe(s) (ICD-10 - M79.675) 06/21/2024 Atherosclerosis of [place] arteries of extremities with intermittent claudication, bilateral legs (ICD-10 - I70.213) Check and protect LE bilateral. Call with any changes or concerns. Plan Of Treatment Treatment Notes Assessment Notes Tinea unguium FUNGAL TOENAILS: Discussed various treatment options for fungal toenails including debridement, topical antifungals, oral antifungals, toenail avulsion, or toenail matrixectomy. NAIL DEBRIDEMENT: Nails 1-5 Bilateral were debrided extensively with nail nippers and emery board, reducing length and girth to pink healthy tissue with any subungual debris and necrotic tissue removed Atherosclerosis of [place] ar teries of extremities with intermittent claudication, bilateral legs Check and protect LE bilateral. Call with any changes or concerns. Next Appt Details Follow Up: 10-12 Weeks, Reas on: At Risk Foot care, sooner if problems arise Provider Name:BRENT DUFF, 11/15/2024 09:20:00 AM, [address] [place] [address], [id number], Provider Name:BRENT DUFF, 12/27/2024 10:10:00 AM, [address] [place] [address], [id number], Progress Notes * MARSHA YADAV LDOB:[birth year] (84 yo M)Acc No.[id number]:06/21/2024 Patient: MARSHA NGUYEN Provider: Danielito WILSON :1940 A ge:83 Y S ex:Male Date:06/21/2024 Address:[address] [place], [place] [phone] Subjective: * Chief Complaints: * 1 . *General care. * HPI: H PI: General care P atient presents to the office for diabetic foot care. Patient states that their nails are thickened, elongated and painful. Patient states that it is aggravated by shoe gear. Onset is gradual., Patient denies taking blood thinners., Date last seen by Dr. Bourgeois was 05/2024., Initials [facility]. * ROS: G eneral / Constitutional: Patient denies w eakness. M usculoskeletal: Patient complains of h ammertoes. P eripheral Vascular: Patient denies b lanching of skin, cold extremities, decreased sensation in extremities. S kin: Patient complains of n ail changes, fungal nails. ? N eurologic: Patient denies d izziness, gait abnormality, headache. * Medical History: D iabetic. * Social History: M igrated Social History: M igrated Social History: Smoking Status : Former tobacco user , History of tobacco use :. * Medications: T aking Carvedilol 6.25 MG Tablet Oral , Taking Warfarin Sodium 5 MG Tablet TAKE 1 TABLET BY MOUTH ONCE DAILY Oral , Taking Allopurinol 300 MG Tablet Oral , Taking Memantine HCl 5 MG Tablet Oral , Taking Lovastatin 20 MG Tablet Oral , Medication List reviewed and reconciled with the patient * Allergies: N .K.D.A. Objective: * Vitals: * Examination: C onstitutional: [...] - M79.675 4 . A therosclerosis of [place] arteries of extremities with intermittent claudication, bilateral legs - I70.213 Plan: * Treatment: 2. A therosclerosis of [place] arteries of extremities with intermittent claudication, bilateral legs Notes: Check and protect LE bilateral. Call with any changes or concerns. * Follow Up: 1 0-12 Weeks (Reason: At Risk Foot care, sooner if problems arise) * Billing Information: * Visit Code: 10671 Office Visit, Est Pt., Level 3. * Procedure Codes: * Electronic signature of SHERWIN WILSON DPM on 10/30/2024 at 02:08 PM CDT Sign off status: Pending * Provider: Danielito WILSON Date: 0 06/21/2024 Generated for Krystian martínez/Dinora/Estefani on: 0 10/30/2024 02:08 PM CDT History and Physical Notes * HPI (History of Present Illness) Category Sub-Category Detail Notes Category Not es HPI General care Patient presents to the office for diabetic foot care. Patient states that their nails are thickened, elongated and painful. Patient states that it is aggravated by shoe gear. Onset is gradual., Patient denies taking blood thinners., Date last seen by Dr. Bourgeois was 05/2024., Initials [facility] Examination Category Sub-Category Detail Notes [...]
--- OUTSIDE RECORDS SUMMARY | 2024-08-23 09:10 | XMS_ITS ---
Author Organization [facility] Address [address] [place], [place] [address] Care Team Providers Care Wide Piece Goods Inspector Name Role Phone IRENE DOWELL Unavailable [phone] Brady Bourgeois Unavailable Unavailable BRENT WILSON Unavailable [phone] REASON FOR VISIT *General care Medications Medication SIG (Take, Route, Fr equency, Duration) Notes Start Date End Date Status Lovastatin 20 MG Oral; Duration: 90 Days Active Carvedilol 6.25 MG Oral; Duration: 90 Days Active Allopurinol 300 MG Oral; Duration: 90 Days Active Warfarin Sodium 5 MG TAKE 1 TABLET BY [facility] ONCE DAILY Oral; Duration: 90 Days Ac tive Memantine HCl 5 MG Oral; Duration: 30 Days Active Vital Signs Height 69.00 in 08/23/2024 Weight 200 lbs 08/23/2024 BMI 29.53 kg/m2 08/23/2024 Height-cm 175.26 cm 08/23/2024 Weight-kg 90.72 kg 08/23/2024 Encounters Encounter Location Date Provider Diagnosis [address] [id number] 08/23/2024 BRENT WILSON Tinea unguium B35.1 ; Pain in right toe(s) M79.674 ; Pain in left toe(s) M79.675 and Atherosclerosis of [place] arteries of extremities with intermittent claudication, bilateral [...] toe(s) (ICD-10 - M79.675) 08/23/2024 Atherosclerosis of [place] arteries of extremities with intermittent claudication, bilateral [...] debris and necrotic tissue removed Atherosclerosis of [place] ar teries of extremities with intermittent claudication, bilateral legs Check and protect LE bilateral. Call with any changes or concerns. Next Appt Details Follow Up: 10-12 Weeks, Reas on: At Risk Foot care, sooner if problems arise Provider Name:BRENT DUFF, 11/15/2024 09:20:00 AM, [address] [place] [address], [id number], Provider Name:BRENT DUFF, 12/27/2024 10:10:00 AM, [address] [place] [address], [id number], Progress Notes * MARSHA YADAV LDOB:[birth year] (84 yo M)Acc No.[id number]:08/23/2024 Patient: MARSHA NGUYEN Provider: Danielito WILSON :1940 A ge:84 Y S ex:Male Date:08/23/2024 Address:[address] [place], [place] [address] Subjective: * Chief Complaints: * 1 . [...] - M79.675 4 . A therosclerosis of [place] arteries of extremities with intermittent claudication, bilateral legs - I70.213 Plan: * Treatment: 2. A therosclerosis of [place] arteries of extremities with intermittent claudication, bilateral [...] arise) * Billing Information: * Visit Code: [id number] Office Visit, Est Pt., Level 3. * Procedure Codes: * Electronic signature of SHERWIN WILSON DPM on 10/30/2024 at 02:09 PM CDT Sign off status: Pending * Provider: Danielito WILSON Date: 0 08/23/2024 Generated for Krystian Strong on: 0 10/30/2024 02:09 PM CDT History and Physical Notes [...]
--- OUTSIDE RECORDS SUMMARY | 2024-10-25 05:10 | XMS_ITS ---
Author Organization [facility] Address [address] [place], [place] [id number] Care Team Providers Care Electrical Controls Engineer Name Role Phone IRENE DOWELL Unavailable [phone] Brady Bourgeois Unavailable Unavailable BRENT WILSON Unavailable [phone] Allergies No Known Allergies REASON FOR VISIT *General care Medications Medication SIG (Take, Route, Fr equency, Duration) Notes Start Date End Date Status Memantine HCl 5 MG Oral; Duration: 30 Days Active Lovastatin 20 MG Oral; Duration: 90 Days Active Warfarin Sodium 5 MG TAKE 1 TABLET BY [facility] ONCE DAILY Oral; Duration: 90 Days Ac tive Allopurinol 300 MG Oral; Duration: 90 Days Active Carvedilol 6.25 MG Oral; Duration: 90 Days Active Vital Signs Height 69.00 in 10/25/2024 Weight 200 lbs 10/25/2024 BMI 29.53 kg/m2 10/25/2024 Height-cm 175.26 cm 10/25/2024 Weight-kg 90.72 kg 10/25/2024 Encounters Encounter Location Date Provider Diagnosis [address] [id number] 10/25/2024 BRENT WILSON Tinea unguium B35.1 ; Pain in right toe(s) M79.674 ; Pain in left toe(s) M79.675 and Atherosclerosis of [place] arteries of extremities with intermittent claudication, bilateral legs I70.213 Assessments Encounter Date Diagnosis (ICD Code) Assessment Notes Treatment Notes Treatment Clinical Notes Section Notes 10/25/2024 Tinea unguium (ICD-10 - B35.1) FUNGAL TOENAILS: Discussed various treatment options for fungal toenails including debridement, topical antifungals, oral antifungals, toenail avulsion, or toenail matrixectomy. NAIL DEBRIDEMENT: Nails 1-5 Bilateral were debrided extensively with nail nippers and emery board, reducing length and girth to pink healthy tissue with any subungual debris and necrotic tissue removed 10/25/2024 Pain in right toe(s) (ICD-10 - M79.674) 10/25/2024 Pain in left toe(s) (ICD-10 - M79.675) 10/25/2024 Atherosclerosis of [place] arteries of extremities with intermittent claudication, bilateral [...] debris and necrotic tissue removed Atherosclerosis of [place] ar teries of extremities with intermittent claudication, bilateral legs Check and protect LE bilateral. Call with any changes or concerns. Next Appt Details Follow Up: 10-12 Weeks, Reas on: At Risk Foot care, sooner if problems arise Provider Name:BRENT DUFF, 11/15/2024 09:20:00 AM, [address] [place] [address], [id number], Provider Name:BRENT DUFF, 12/27/2024 10:10:00 AM, [address] [place] [address], [id number], Progress Notes * MARSHA YADAV LDOB:[birth year] (84 yo M)Acc No.[id number]:10/25/2024 Patient: MARSHA NGUYEN Provider: Danielito WILSON :1940 A ge:84 Y S ex:Male Date:10/25/2024 Address:[address] [place] [address] Subjective: * Chief Complaints: * 1 . *General care. * HPI: H PI: General care P atient presents to the office for diabetic foot care. Patient states that their nails are thickened, elongated and painful. Patient states that it is aggravated by shoe gear. Onset is gradual., Patient is taking prescription blood thinners., Date last seen by Dr. Bourgeois was 08/2024., Initials nd. * ROS: G eneral / Constitutional: Patient denies w eakness. M usculoskeletal: Patient complains of h ammertoes. P eripheral Vascular: Patient denies b lanching of skin, cold extremities, decreased sensation in extremities. S kin: Patient complains of n ail changes, fungal nails. ? N eurologic: Patient denies d izziness, gait abnormality, headache. * Medical History: D iabetic. * Surgical History: D enies Past Surgical History. * Hospitalization/Major Diagno stic Procedure: D enies Past Hospitalization. * Family History: N o Family History documented.. * Social History: M igrated Social History: [...] * Allergies: N .K.D.A. Objective: * Vitals: W t: 200 lbs, [...] - M79.675 4 . A therosclerosis of [place] arteries of extremities with intermittent claudication, bilateral legs - I70.213 Plan: * Treatment: 2. A therosclerosis of [place] arteries of extremities with intermittent claudication, bilateral [...] Pending * Provider: Danielito WILSON Date: 0 10/25/2024 Generated for Krystian Strong on: 0 10/30/2024 [...] seen by Dr. Bourgeois was 08/2024., Initials nd Examination Category Sub-Category Detail Notes Category Not [...]
--- NOTE | ~2024-10-30 | XR_ITS ---
EXAMINATION: XR femur LT min 2V, 10/30/2024 14:15 CDT HISTORY: Fall left leg pain COMPARISON: No comparisons available. Findings: No acute fracture or malalignment. No significant degenerative changes. Soft tissues unremarkable. Impression: No acute fracture or malalignment. Reviewed, dictated and finalized at location A. Impression: No acute fracture or malalignment.
--- NOTE | ~2024-10-30 | XR_ITS ---
EXAMINATION: XR hip LT min 2V, 10/30/2024 14:15 CDT HISTORY: Fall left leg pain COMPARISON: No comparisons available. Findings: No acute fracture or malalignment. No significant degenerative changes. Soft tissues unremarkable. Impression: No acute fracture or malalignment. Reviewed, dictated and finalized at location A. Impression: No acute fracture or malalignment.
--- OUTSIDE RECORDS SUMMARY | 2024-10-30 14:08 | XMS_ITS | Clinical Summary ---
Author Organization [facility] Address [address] [place] [address] Care Team Providers Care Pound Attendant Name Role Phone Brady Bourgeois MD Primary Care Provider + [phone] Allergies No known active allergies Medications lovastatin [...] Overview (05/13/2016): Essential hypertension Coronary arteriosclerosis in [place] artery 05/31 Overview (05/13/2016): CAD in [place] artery Pacemaker 10/15/2013 Overview (08/18/2017): Medtronic [...] 08/29/2024 9:30 AM CDT Ancillary Procedure [facility] [address] [facility] [address] [place] [address] Pacemaker (Primary Dx); Second degree AV block; Persistent atrial fibrillation (HCC) 08/29/2024 Orders Only [facility] [address] [facility] [address] [place] [phone] Kit Patel MD Pacemaker (Primary Dx); Persistent [...] on file 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 Gender Identity Not on file Sexual Orientation Not on file Obstetrics History Last Filed Vital Signs Vital Sign Reading Time Taken Comments Blood Pressure 116/66 04/24/2024 9:30 AM CDT Pulse 93 04/24/2024 9:30 AM CDT Temperature 36.4 C (97.5 F) 03/03/2020 12:42 PM BACKREST ASSEMBLER Respiratory Rate 16 12/28/2019 10:5 5 AM BACKREST ASSEMBLER Oxygen Saturation 99% 04/24/2024 9:30 AM CDT [...] 12/23/2006, 12/12/2006 Medical Devices Implanted Type Area Front Office Director Device Identifier Shelf Expiration Date Model / Serial / Lot Pacemaker-10/19 /2016 Implanted:11/25 by Alba Argueta MD (Quantity not on file) Pacemaker Chest Medtronic Second Degree AVB, Afib ADAPTA / [id number] / CHRONIC LEADS 2007 Procedures Procedure Name Priority Date/Time Associated Diagnosis Comments DEVICE CHECK - IN OFFICE Routine 08/29/2024 9:17 AM CDT Second degree AV block Persistent atrial fibrillation (HCC) EGFR Routine 09/26/2023 6:25 AM CDT LIPID PANEL Routine 04/06/2021 Coronary arteriosclerosis in [place] artery Chronic diastolic heart failure (HCC) [...] rhythm-Predominately Ventricular paced @ VVI 30 bpm. SEO ENGINEER-97.4%. Pt is on Eliquis therapy. 2 ventricular [...] last reviewed 2020. Testing performed by: [facility], [address] [place] [address]., [id number] Blood 09/26/2023 6:25 AM CDT 09/26/2023 8:31 AM CDT us Notinfile Unknown LAB BLOOD ORDERABLES Final Res ult NAOMI [address] [facility] [place] [address] * Lipid panel (04/06/2021) SCRIBED Cholesterol, Total 123 <200 EXTERNAL LAB SCRIBED HDL 28 >40 EXTERNAL LAB SCRIBED LDL 69 <100 EXTERNAL LAB SCRIBED Triglycerides 128 <150 EXTERNAL LAB Blood specimen (specimen) 04/06/2021 us Alba Argueta MD LAB BLOOD ORDERABLES Final Result EXTERNAL LAB from Last 3 Months or Most Recently Relevant to Health Maintenance Insurance MEDICARE [facility] Address: [address] [address] [place] [address] COMMERCIAL GENERIC [facility] MEDICARE ADVANTAGE IDPA Care Teams Pound Attendant Relationship Specialty Start Date End Date Brady Bourgeois MD [address] [place] [address] PCP - General 05/07/16
--- OUTSIDE RECORDS SUMMARY | 2024-10-30 14:09 | XMS_ITS | Encounter Summary ---
Author Organization [facility] Address [address] [place] [address] Care Team Providers Care Field Control Inspector Name Role Phone Brady Bourgeois MD Primary Care Provider [phone] Encounter Details Date Type Department Care Team (Late st Contact Info) Description 05/31/2022 Orders Only [facility] Health Information Management [address] [place] [address] Scanning, Provider Social History Tobacco Use Types Packs/Day Years Used Date Smoking Tobacco: Former Smokeless Tobacco: Former Quit: 09/23/2019 Alcohol Use Standard Drinks/Week Comments No 0 (1 standard drink = 0.6 oz pur e alcohol) Sex and Gender Information Value Date Recorded Sex Assigned at Not on file 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 Gender Identity Not on file Sexual Orientation Not on file documented as of this encounter Plan of Treatment Not on file documented as of this encounter Procedures Procedure Name Priority Date/Time Associated Diagnosis Comments CARDIOLOGY DOCUMENT SCAN 05/31/2022 documented in this encounter Results * Cardiology Document Scan (05/31/2022) Anatomical Region Laterality Modality Other us Provider Scanning CV CARDIAC SERVICES PROCEDURES Final Result documented in this encounter Visit Diagnoses Not on filedocumented in this encounter Care Teams Field Control Inspector Relationship Specialty Start Date End Date Brady Bourgeois MD [address] [place] [address] PCP - General 05/07/16 documented as of this encounter
--- OUTSIDE RECORDS SUMMARY | 2024-10-30 14:10 | XMS_ITS | Encounter Summary ---
Author Organization [facility] Address [address] [facility] [address] [place] [address] Care Team Providers Care Catalytic Converter Operator Helper Name Role Phone Brady Bourgeois MD Primary Care Provider [phone] Encounter Details Date Type Department Care Team (Late st Contact Info) Description 06/09/2016 Orders Only [facility] ProviderTracy MD [address] [place] [address] Social History Tobacco Use Types Packs/Day Years Used Date Smoking Tobacco: Former Alcohol Use Standard Drinks/Week Comments No 0 (1 standard drink = 0.6 oz pur e alcohol) Sex and Gender Information Value Date Recorded Sex Assigned at Not on file 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
--- OUTSIDE RECORDS SUMMARY | 2024-10-30 14:10 | XMS_ITS | Encounter Summary ---
Author Organization [facility] Address [address] [address] Care Team Providers Care Buyer Broker Name Role Phone Brady Bourgeois MD Primary Care Provider + [phone] Brady Bourgeois MD Primary Care Provider + [phone] Encounter Details Date Type Department Care Team (Late st Contact Info) Description 03/11/2016 Orders Only [facility] ProviderTracy MD [address] [place] [address] Social History Tobacco Use Types Packs/Day Years Used Date Smoking Tobacco: Former Alcohol Use Standard Drinks/Week Comments No 0 (1 standard drink = 0.6 oz pur e alcohol) Sex and Gender Information Value Date Recorded Sex Assigned at Not on file 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
--- OUTSIDE RECORDS SUMMARY | 2024-10-30 14:10 | XMS_ITS | Encounter Summary ---
Author Organization [facility] Address [address] [address] Care Team Providers Care Portfolio Architect Name Role Phone Brady Bourgeois MD Primary Care Provider + [phone] Brady Bourgeois MD Primary Care Provider + [phone] Encounter Details Date Type Department Care Team (Late st Contact Info) Description 03/10/2016 Orders Only [facility] ProviderTracy MD [address] [place] [address] Social History Tobacco Use Types Packs/Day Years Used Date Smoking Tobacco: Former Alcohol Use Standard Drinks/Week Comments No 0 (1 standard drink = 0.6 oz pur e alcohol) Sex and Gender Information Value Date Recorded Sex Assigned at Not on file 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
--- OUTSIDE RECORDS SUMMARY | 2024-10-30 14:10 | XMS_ITS | Patient Health Record ---
Author Organization [facility] Address [address] [place], [place] [id number] Care Team Providers Care Fly Rail Operator Name Role Phone IRENE DOWELL Unavailable [phone] Brady Bourgeois Unavailable Unavailable DENISEROEL GUADARRAMAUR Unavailable [phone] BRENT WILSON Unavailable [phone] Allergies No Known Allergies Reason For Referral [...] Oral; Duration: 90 Days Active Vital Signs Height-cm 175.26 cm 10/25/2024 Weight-kg 90.72 kg 10/25/2024 Height 69.00 in 10/25/2024 Weight 200 lbs 10/25/2024 BMI 29.53 kg/m2 10/25/2024 Encounters Encounter Location Date Provider Diagnosis [address] [id number] 06/21/2024 BRENT WILSON Tinea unguium B35.1 ; Pain in right toe(s) M79.674 ; Pain in left toe(s) M79.675 and Atherosclerosis of [place] arteries of extremities with intermittent claudication, bilateral legs I70.[address] [id number] 08/23/2024 BRENT WILSON Tinea unguium B35.1 ; Pain in right toe(s) M79.674 ; Pain in left toe(s) M79.675 and Atherosclerosis of [place] arteries of extremities with intermittent claudication, bilateral legs I70.213 [facility] [address] [place], [place] [id number] 10/25/2024 BRENT WILSON Tinea unguium B35.1 ; Pain in right toe(s) M79.674 ; Pain in left toe(s) M79.675 and Atherosclerosis of [place] arteries of extremities with intermittent claudication, bilateral legs I70.213 [facility] [address] [place], [place] [id number] 11/10/2023 CORBY MELENDEZ Other hammer toe(s) (acquired), right foot M20.41 ; Tinea unguium B35.1 ; Other hammer toe(s) (acquired), left foot M20.42 ; Pain in right toe(s) M79.674 ; Pain in left toe(s) M79.675 ; Unspecified atherosclerosis of [place] arteries of extremities, bilateral legs I70.203 and Type 2 diabetes mellitus with diabetic peripheral angiopathy without gangrene E11.[address] [id number] 03/29/2024 IRENE DOWELL Tinea unguium B35.1 ; Pain in right toe(s) M79.674 ; Pain in left toe(s) M79.675 and Atherosclerosis of [place] arteries of extremities with intermittent claudication, bilateral [...] in right toe(s) (ICD-10 - M79.674) 10/25/2024 Tinea unguium (ICD-10 - B35.1) FUNGAL [...] in left toe(s) (ICD-10 - M79.675) 08/23/2024 Pain in left toe(s) (ICD-10 - M79.675) 06/21/2024 Pain in left toe(s) (ICD-10 - M79.675) 03/29/2024 Pain in left toe(s) (ICD-10 - M79.675) 11/10/2023 Other hammer toe(s) (acquired), left foot (ICD-10 - M20.42) 11/10/2023 Pain in right toe(s) (ICD-10 - M79.674) 03/29/2024 Atherosclerosis of [place] arteries of extremities with intermittent claudication, bilateral legs (ICD-10 - I70.213) 06/21/2024 Atherosclerosis of [place] arteries of extremities with intermittent claudication, bilateral legs (ICD-10 - I70.213) Check and protect LE bilateral. Call with any changes or concerns. 08/23/2024 Atherosclerosis of [place] arteries of extremities with intermittent claudication, bilateral legs (ICD-10 - I70.213) Check and protect LE bilateral. Call with any changes or concerns. 10/25/2024 Atherosclerosis of [place] arteries of extremities with intermittent claudication, bilateral legs (ICD-10 - I70.213) Check and protect LE bilateral. Call with any changes or concerns. 11/10/2023 Pain in left toe(s) (ICD-10 - M79.675) 11/10/2023 Unspecified atherosclerosis of [place] arteries of extremities, bilateral legs (ICD-10 - [...] Details Provider Name:BRENT DUFF, 11/15/2024 09:20:00 AM, [address] [place] [address], [phone], Provider Name:BRENT DUFF, 12/27/2024 10:10:00 AM, [address] [place] [address], [id number], Insurance Providers Payer Name Payer Address Payer Phone Subscriber Number Group Number Insured Name Patient Relationship to Insured Coverage Start Date Coverage End Date [facility] [address] [address] [place], [place] [id number] MARSHA YADAV Self - patient is the insured Medical (General) History Medical History History ICD Code Diabetic
== END 2024-10-30 13:55 | disposition home or self-care (01) ==
LOC: CHSIMG 13:56
PROVIDERS: PCP Internal Medicine; Visit Provider Nurse Practitioner Family
DX: S89.92XA Unspecified injury of left lower leg, initial encounter (principal)
CPT/HCPCS: 73502; 73552

== ENCOUNTER 2024-11-05 13:43 | Outpatient (CLI) | payer MEDICARE, SELFPAY ==
--- OUTSIDE RECORDS SUMMARY | 2024-05-31 06:40 | XMS_ITS ---
Author Organization [facility] Address [address] [place], [place] [address] Care Team Providers Care System Planning Engineer Name Role Phone IRENE DOWELL Unavailable [phone] Brady oBurgeois Unavailable Unavailable BRENT WILSON Unavailable [phone] REASON FOR VISIT *General care Encounters Encounter Location Date Provider Diagnosis [address] [id number] 05/31/2024 BRENT WILSON Plan Of Treatment Next Appt Details Provider Name:BRENT DUFF, 11/15/2024 09:20:00 AM, [address] [place] [address], [id number], Provider Name:BRENT DUFF, 12/27/2024 10:10:00 AM, [address] [place] [address], [id number], Progress Notes * MARSHA YADAV LDOB:[birth year] (84 yo M)Acc No.[id number]:05/31/2024 Patient: MARSHA NGUYEN Provider: Danielito WILSON :1940 A ge:83 Y S ex:Male Date:05/31/2024 Address:[address] [place], [place] [id number] Subjective: * Chief Complaints: * 1 . *General care. * Medical History: Objective: * Vitals: Assessment: Plan: * Treatment: * Billing Information: * Visit Code: * Procedure Codes: * Electronic signature of SHERWIN WILSON DPM on 11/05/2024 at 02:09 PM CDT Sign off status: Pending * Provider: Danielito WILSON Date: 0 05/31/2024 Generated for Krystian martínez/Dinora/Estefani on: 0 11/05/2024 02:09 PM CDT
--- OUTSIDE RECORDS SUMMARY | 2024-06-21 09:50 | XMS_ITS ---
Author Organization [facility] Address [address] [place], [place] [address] Care Team Providers Care Director [employer] Name Role Phone IRENE DOWELL Unavailable [phone] Brady Bourgeois Unavailable Unavailable BRENT WILSON Unavailable [phone] Allergies No Known Allergies REASON FOR VISIT *General care Medications Medication SIG (Take, Route, Fr equency, Duration) Notes Start Date End Date Status Allopurinol 300 MG Oral; Duration: 90 Days Active Memantine HCl 5 MG Oral; Duration: 30 Days Active Warfarin Sodium 5 MG TAKE 1 TABLET BY [facility] ONCE DAILY Oral; Duration: 90 Days Ac tive Lovastatin 20 MG Oral; Duration: 90 Days Active Carvedilol 6.25 MG Oral; Duration: 90 Days Active Encounters Encounter Location Date Provider Diagnosis [address] [id number] 06/21/2024 BRENT WILSON Tinea unguium B35.1 ; Pain in right toe(s) M79.674 ; Pain in left toe(s) M79.675 and Atherosclerosis of [place] arteries of extremities with intermittent claudication, bilateral [...] toe(s) (ICD-10 - M79.675) 06/21/2024 Atherosclerosis of [place] arteries of extremities with intermittent claudication, bilateral [...] debris and necrotic tissue removed Atherosclerosis of [place] ar teries of extremities with intermittent claudication, bilateral legs Check and protect LE bilateral. Call with any changes or concerns. Next Appt Details Follow Up: 10-12 Weeks, Reas on: At Risk Foot care, sooner if problems arise Provider Name:BRENT DUFF, 11/15/2024 09:20:00 AM, [address] [place] [address], [id number], Provider Name:BRENT DUFF, 12/27/2024 10:10:00 AM, [address] [place] [address], [id number], Progress Notes * MARSHA YADAV LDOB:[birth year] (84 yo M)Acc No.[id number]:06/21/2024 Patient: MARSHA NGUYEN Provider: Danielito WILSON :1940 A ge:83 Y S ex:Male Date:06/21/2024 Address:[address] [place], [place] [id number] Subjective: * Chief Complaints: * 1 . *General care. * HPI: H PI: General care P atient presents to the office for diabetic foot care. Patient states that their nails are thickened, elongated and painful. Patient states that it is aggravated by shoe gear. Onset is gradual., Patient denies taking blood thinners., Date last seen by Dr. Bourgeois was 05/2024., Initials [facility]. * ROS: G eneral / Constitutional: Patient [...] - M79.675 4 . A therosclerosis of [place] arteries of extremities with intermittent claudication, bilateral legs - I70.213 Plan: * Treatment: 2. A therosclerosis of [place] arteries of extremities with intermittent claudication, bilateral legs Notes: Check and protect LE bilateral. Call with any changes or concerns. * Follow Up: 1 0-12 Weeks (Reason: At Risk Foot care, sooner if problems arise) * Billing Information: * Visit Code: 50266 Office Visit, Est Pt., Level 3. * Procedure Codes: * Electronic signature of SHERWIN WILSON DPM on 11/05/2024 at 02:09 PM CDT Sign off status: Pending * Provider: Danielito WILSON Date: 0 06/21/2024 Generated for Krystian martínez/Dinora/Estefani on: 0 11/05/2024 02:09 PM CDT History and Physical Notes * [...]
--- OUTSIDE RECORDS SUMMARY | 2024-08-23 09:10 | XMS_ITS ---
Author Organization [facility] Address [address] [place], [place] [address] Care Team Providers Care Aluminum Boat Assembly Supervisor Name Role Phone IRENE DOWELL Unavailable [phone] Brady Bourgeois Unavailable Unavailable BRENT WILSON Unavailable [phone] REASON FOR VISIT *General care Medications Medication SIG (Take, Route, Fr equency, Duration) Notes Start Date End Date Status Lovastatin 20 MG Oral; Duration: 90 Days Active Carvedilol 6.25 MG Oral; Duration: 90 Days Active Allopurinol 300 MG Oral; Duration: 90 Days Active Warfarin Sodium 5 MG TAKE 1 TABLET BY [facility] ONCE DAILY Oral; Duration: 90 Days Ac tive Memantine HCl 5 MG Oral; Duration: 30 Days Active Vital Signs Height 69.00 in 08/23/2024 Weight 200 lbs 08/23/2024 BMI 29.53 kg/m2 08/23/2024 Height-cm 175.26 cm 08/23/2024 Weight-kg 90.72 kg 08/23/2024 Encounters Encounter Location Date Provider Diagnosis [address] [id number] 08/23/2024 BRENT WILSON Tinea unguium B35.1 ; Pain in right toe(s) M79.674 ; Pain in left toe(s) M79.675 and Atherosclerosis of [place] arteries of extremities with intermittent claudication, bilateral [...] toe(s) (ICD-10 - M79.675) 08/23/2024 Atherosclerosis of [place] arteries of extremities with intermittent claudication, bilateral [...] debris and necrotic tissue removed Atherosclerosis of [place] ar teries of extremities with intermittent claudication, bilateral legs Check and protect LE bilateral. Call with any changes or concerns. Next Appt Details Follow Up: 10-12 Weeks, Reas on: At Risk Foot care, sooner if problems arise Provider Name:BRENT DUFF, 11/15/2024 09:20:00 AM, [address] [place] [address], [id number], Provider Name:BRENT DUFF, 12/27/2024 10:10:00 AM, [address] [place] [address], [id number], Progress Notes * MARSHA YADAV LDOB:[birth year] (84 yo M)Acc No.[id number]:08/23/2024 Patient: MARSHA NGUYEN Provider: Danielito WILSON :1940 A ge:84 Y S ex:Male Date:08/23/2024 Address:[address] [place], [place] [address] Subjective: * Chief Complaints: * 1 . *General care. * HPI: H PI: General care P atient presents to the office for diabetic foot care. Patient states that their nails are thickened, elongated and painful. Patient states that it is aggravated by shoe gear. Onset is gradual., Patient is taking prescription blood thinners., Date last seen by Dr. Bourgeois was 08/2024., Init[facility]. * ROS: G eneral / [...] extremities. ? Assessment: * Assessment: 1. T [place] unguium - B35.1 (Primary) 2 . P ain in right toe(s) - M79.674? 3. P ain in left toe(s) - M79.675 4 . A therosclerosis of [place] arteries of extremities with intermittent claudication, bilateral legs - I70.213 Plan: * Treatment: 2. A therosclerosis of [place] arteries of extremities with intermittent claudication, bilateral [...] arise) * Billing Information: * Visit Code: 45807 Office Visit, Est Pt., Level 3. * Procedure Codes: * Electronic signature of SHERWIN WILSON DPM on 11/05/2024 at 02:09 PM CDT Sign off status: Pending * Provider: Danielito WILSON Date: 0 08/23/2024 Generated for Krystian Strong on: 0 11/05/2024 02:09 PM CDT History [...]
--- OUTSIDE RECORDS SUMMARY | 2024-10-25 05:10 | XMS_ITS ---
Author Organization [facility] Address [address] [place], [place] [phone] Care Team Providers Care Lens Grinder Rough Name Role Phone IRENE DOWELL Unavailable [phone] Brady Bourgeois Unavailable Unavailable BRENT WILSON Unavailable [phone] Allergies No Known Allergies REASON FOR VISIT *General care Medications Medication SIG (Take, Route, Fr equency, Duration) Notes Start Date End Date Status Memantine HCl 5 MG Oral; Duration: 30 Days Active Lovastatin 20 MG Oral; Duration: 90 Days Active Warfarin Sodium 5 MG TAKE 1 TABLET BY [facility] ONCE DAILY Oral; Duration: 90 Days Ac tive Allopurinol 300 MG Oral; Duration: 90 Days Active Carvedilol 6.25 MG Oral; Duration: 90 Days Active Vital Signs Height 69.00 in 10/25/2024 Weight 200 lbs 10/25/2024 BMI 29.53 kg/m2 10/25/2024 Height-cm 175.26 cm 10/25/2024 Weight-kg 90.72 kg 10/25/2024 Encounters Encounter Location Date Provider Diagnosis [address] [id number] 10/25/2024 BRENT WILSON Tinea unguium B35.1 ; Pain in right toe(s) M79.674 ; Pain in left toe(s) M79.675 and Atherosclerosis of [place] arteries of extremities with intermittent claudication, bilateral [...] toe(s) (ICD-10 - M79.675) 10/25/2024 Atherosclerosis of [place] arteries of extremities with intermittent claudication, bilateral [...] debris and necrotic tissue removed Atherosclerosis of [place] ar teries of extremities with intermittent claudication, bilateral legs Check and protect LE bilateral. Call with any changes or concerns. Next Appt Details Follow Up: 10-12 Weeks, Reas on: At Risk Foot care, sooner if problems arise Provider Name:BRENT DUFF, 11/15/2024 09:20:00 AM, [address] [place] [address], [id number], Provider Name:BRENT DUFF, 12/27/2024 10:10:00 AM, [address] [place] [address], [id number], Progress Notes * MARSHA YADAV LDOB:[birth year] (84 yo M)Acc No.[id number]:10/25/2024 Patient: MARSHA NGUYEN Provider: Danielito WILSON :1940 A ge:84 Y S ex:Male Date:10/25/2024 Address:[address] [place] [address] Subjective: * Chief Complaints: * 1 . [...] - M79.675 4 . A therosclerosis of [place] arteries of extremities with intermittent claudication, bilateral legs - I70.213 Plan: * Treatment: 2. A therosclerosis of [place] arteries of extremities with intermittent claudication, bilateral [...] 10/25/2024 Generated for Krystian Strong on: 0 11/05/2024 [...]
--- NOTE | ~2024-11-05 | XR_ITS ---
EXAMINATION: XR hip RT min 3V w AP pelvis, 11/05/2024 14:00 CDT HISTORY: INJURY/ FALL/ PAIN IN R HIP PELVIS AND SACRUM COMPARISON: No comparisons available. Findings: No acute fracture or malalignment. No significant degenerative changes. Soft tissues unremarkable. Impression: No acute fracture or malalignment. Reviewed, dictated and finalized at location P. Impression: No acute fracture or malalignment.
--- NOTE | ~2024-11-05 | XR_ITS ---
EXAMINATION: XR sacrum coccyx min 2V DATE: 11/05/2024 14:16 INDICATION: Sacral pain post fall TECHNIQUE: Frontal, angled frontal and lateral views of the sacrum and coccyx were obtained. COMPARISON: None. FINDINGS: Mild lower lumbar levocurvature with severe spondylosis. Sacral arches are intact. No fracture. Osteoarthritis of the bilateral sacroiliac joints, mild on the right and moderate on the left. Bilateral hip joint spaces appear relatively preserved. IMPRESSION: 1. No acute osseous abnormality. 2. 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 Reviewed, dictated and finalized at location A.
--- OUTSIDE RECORDS SUMMARY | 2024-11-05 14:09 | XMS_ITS | Clinical Summary ---
Author Organization [facility] Address [address] [place] [address] Care Team Providers Care Trans Router Name Role Phone Brady Bourgeois MD Primary Care Provider + [phone] Allergies No known active allergies Medications lovastatin [...] by Dr. Bourgeois 70 5 2 Active allopurinol (ZYLOPRIM) 300 mg tablet Take one by mouth one time per day 0 0 8 Active potassium chloride ER (KLOR-CON,K-DUR ) 20 mEq CR tablet Take one by mouth one time per day 0 0 8 Active magnesium oxide (MAG-OX) 400 mg (241.3 mg elemental) tablet Take one by mouth one time per day 30 5 8 Active carvedilol (COREG) 6.25 mg tablet Take 1 [...] mg total) by mouth daily 4 Active glipiZIDE XL (GLUCOTROL XL) 2.5 mg 24 hr tablet TAKE 1 TABLET BY MOUTH ONCE DAILY WITH SUPPER 5 Active Active Problems Problem Noted Date Diagnosed [...] Overview (05/13/2016): Essential hypertension Coronary arteriosclerosis in [place] artery 05/31 Overview (05/13/2016): CAD in [place] artery Pacemaker 10/15/2013 Overview (08/18/2017): Medtronic Dual [...] Encounters Date Type Department Care Team Description 11/02/2024 10:30 AM CDT Office Visit [facility] Cardiology [address] [place] [phone] Kit Patel MD Persistent atrial fibrillation (HCC) (Primary Dx); Pacemaker 08/29/2024 9:30 AM CDT Ancillary Procedure [facility] Cardiology [address] [place] [address] Pacemaker (Primary Dx); Second degree AV block; Persistent atrial fibrillation (HCC) 08/29/2024 Orders Only [facility] Cardiology [address] [facility] [address], [place] [address] Kit Patel MD Pacemaker (Primary Dx); Persistent [...] on file Legal Sex Male 11:28 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 Gender Identity Not on file Sexual Orientation Not on file Obstetrics History Last Filed Vital Signs Vital Sign Reading Time Taken Comments Blood Pressure 104/58 11/02/2024 10:20 AM CDT Pulse 95 11/02/2024 10:20 AM CDT Temperature 36.4 C (97.5 F) 03/03/2020 12:42 PM 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 Respiratory Rate 16 12/28/2019 10:55 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 Oxygen Saturation 99% 11/02/2024 10:20 AM CDT Inhaled Oxygen Concentration - - Weight 81.4 kg (179 lb 8 oz) 11/02/2024 10:20 AM CDT Height 177.8 cm (5' 10) 11/02/2024 10:20 AM CDT Body Mass Index 25.76 11/02/2024 10:20 AM CDT Plan of Treatment Health Maintenance Due Date Last Done Comments Albumin Creatinine Ratio, Urine 1940 Depression Screening 1940 Hemoglobin A1C 1939 Dilated Eye Exam 1939 Foot Exam 1939 Hepatitis B Screening 08/04/1957 Zoster Vaccine (1 of 2) 08/04/1989 Well Visit 65+ 08/04/2004 Fall Risk Assessment 12/27/2020 12/28/2019 Lipid Panel 04/06/2022 04/06/2021 eGFR 09/25/2024 09/26/2023, 09/07, 09/19/2023, Additional history exists Influenza Vaccine (#1) 2024 , 10/18/2019, 10/24/2018, Additional history exists DTaP/Tdap/Td Vaccine (2 - Td or Tdap) 10/28/2032 10/28/2022, 08/07/2010 Pneumococcal vaccine 65+ Completed 017, 12/23/2006, 12/12/2006 Medical Devices Implanted Type Area Knobber Device Identifier Shelf Expiration Date Model / Serial / Lot Pacemaker-11/25 Implanted:11/25 by Alba Argueta MD (Quantity not on file) Pacemaker Chest Medtronic Second Degree AVB, Afib ADAPTA / [id number] / CHRONIC LEADS 2007 Procedures Procedure Name Priority Date/Time Associated Diagnosis Comments DEVICE CHECK - IN OFFICE Routine 08/29/2024 9:17 AM CDT Second degree AV block Persistent atrial fibrillation (HCC) EGFR Routine 09/26/2023 6:25 AM CDT LIPID PANEL Routine 04/06/2021 Coronary arteriosclerosis in [place] artery Chronic diastolic heart failure (HCC) Persistent atrial fibrillation (HCC) Hyperlipidemia associated with type 2 diabetes mellitus (HCC) from Last 3 Months or Most Recently Relevant to Health Maintenance Results * DEVICE CHECK - IN OFFICE (08/29/2024 9:17 AM CDT) Anatomical Region Laterality Modality Other Narrative 08/31/2024 12:17 PM CDT Medtronic Dual Pacemaker. Dx; Second Degree AVB, Chronic Afib. DOI 11/26/2015-Liusom, chronic lead 12/15/07. Carelink remote monitoring Q3 mo, office pacer checks Q1 yr. Programmed VVIR-Bill Single PM. Supervising MD: Dr Moody. Office VVI pacemaker evaluation demonstrated normal device function. Battery function-2.69V, with 9 months remaining battery life to RHIANNA. Presenting rhythm-VPaced. Underlying rhythm-Predominately Ventricular paced @ VVI 30 bpm. SECURITY INCIDENT HANDLER-97.4%. Pt is on Eliquis therapy. 2 ventricular high rate episodes noted, iegm's suggestive of Afib with RVR. No programming changes made to device settings. See scanned report. Carelink remote f/u 12/05/2024. Estephania Rivera, CRYSTAL us Kit Patel MD [facility] PROC EDURES Final Result * eGFR (09/26/2023 6:25 AM CDT) eGFR 84 >=60 mL/min/1. 73 m2 NAOMI Comment: Interpretive Data Reference Interval Normal >/= [...] was last reviewed 2020. Testing performed by: [facility], [address] [place] [address]., [id number] Blood 09/26/2023 6:25 AM CDT 09/26/2023 8:31 AM CDT us Notinfile Unknown LAB BLOOD ORDERABLES Final Res ult NAOMI [address] [facility] Department [place] [address] * Lipid panel (04/06/2021) SCRIBED Cholesterol, Total 123 <200 EXTERNAL LAB SCRIBED HDL 28 >40 EXTERNAL LAB SCRIBED LDL 69 <100 EXTERNAL LAB SCRIBED Triglycerides 128 <150 EXTERNAL LAB Blood specimen (specimen) 04/06/2021 us Alba Argueta MD LAB BLOOD ORDERABLES Final Result EXTERNAL LAB from Last 3 Months or Most Recently Relevant to Health Maintenance Insurance MEDICARE [facility] MEDICARE ADVANTAGE Care Teams Trans Router Relationship Specialty Start Date End Date Brady Bourgeois MD [address] [place] [address] PCP - General 05/07/16
--- OUTSIDE RECORDS SUMMARY | 2024-11-05 14:09 | XMS_ITS | Encounter Summary ---
Author Organization [facility] Address [address] [place] [address] Care Team Providers Care Water Operator Name Role Phone Brady Bourgeois MD Primary Care Provider + [phone] Encounter Details Date Type Department Care Team (Late st Contact Info) Description 05/31/2022 Orders Only [facility] Health Information Management [address] [place] [address] Scanning, Provider Social History Tobacco Use Types Packs/Day Years Used Date Smoking Tobacco: Former Smokeless Tobacco: Former Quit: 09/23/2019 Alcohol Use Standard Drinks/Week Comments No 0 (1 standard drink = 0.6 oz pur e alcohol) Sex and Gender Information Value Date Recorded Sex Assigned at Not on file Legal Sex Male 11:28 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
--- OUTSIDE RECORDS SUMMARY | 2024-11-05 14:10 | XMS_ITS | Patient Health Record ---
Author Organization [facility] Address [address] [place], [place] [phone] Care Team Providers Care Paint Spray Tender Name Role Phone IRENE DOWLEL Unavailable [phone] Brady Bourgeois Unavailable Unavailable DENISEROEL GUADARRAMAUR Unavailable [phone] BRENT WILSON Unavailable [phone] Allergies No Known Allergies Reason For Referral No Information Medications Medication SIG (Take, Route, Fr equency, Duration) Notes Start Date End Date Status Memantine HCl 5 MG Oral; Duration: 30 Days Active Lovastatin 20 MG Oral; Duration: 90 Days Active Warfarin Sodium 5 MG TAKE 1 TABLET BY [facility] ONCE DAILY Oral; Duration: 90 Days Ac tive Allopurinol 300 MG Oral; Duration: 90 Days Active Carvedilol 6.25 MG Oral; Duration: 90 Days Active Vital Signs Height-cm 175.26 cm 10/25/2024 Weight-kg 90.72 kg 10/25/2024 Height 69.00 in 10/25/2024 Weight 200 lbs 10/25/2024 BMI 29.53 kg/m2 10/25/2024 Encounters Encounter Location Date Provider Diagnosis [address] [id number] 06/21/2024 BRENT WILSON Tinea unguium B35.1 ; Pain in right toe(s) M79.674 ; Pain in left toe(s) M79.675 and Atherosclerosis of [place] arteries of extremities with intermittent claudication, bilateral legs I70.[address] [id number] 08/23/2024 BRENT WILSON Tinea unguium B35.1 ; Pain in right toe(s) M79.674 ; Pain in left toe(s) M79.675 and Atherosclerosis of [place] arteries of extremities with intermittent claudication, bilateral legs I70.213 [facility] [address] [place], [place] [id number] 10/25/2024 BRENT WILSON Tinea unguium B35.1 ; Pain in right toe(s) M79.674 ; Pain in left toe(s) M79.675 and Atherosclerosis of [place] arteries of extremities with intermittent claudication, bilateral legs I70.213 [facility] [address] [place], [place] [id number] 11/10/2023 CORBY MELENDEZ Other hammer toe(s) (acquired), right foot M20.41 ; Tinea unguium B35.1 ; Other hammer toe(s) (acquired), left foot M20.42 ; Pain in right toe(s) M79.674 ; Pain in left toe(s) M79.675 ; Unspecified atherosclerosis of [place] arteries of extremities, bilateral legs I70.203 and Type 2 diabetes mellitus with diabetic peripheral angiopathy without gangrene E11.[address] [id number] 03/29/2024 IRENE DOWELL Tinea unguium B35.1 ; Pain in right toe(s) M79.674 ; Pain in left toe(s) M79.675 and Atherosclerosis of [place] arteries of extremities with intermittent claudication, bilateral [...] toe(s) (ICD-10 - M79.674) 03/29/2024 Atherosclerosis of [place] arteries of extremities with intermittent claudication, bilateral legs (ICD-10 - I70.213) 06/21/2024 Atherosclerosis of [place] arteries of extremities with intermittent claudication, bilateral legs (ICD-10 - I70.213) Check and protect LE bilateral. Call with any changes or concerns. 08/23/2024 Atherosclerosis of [place] arteries of extremities with intermittent claudication, bilateral legs (ICD-10 - I70.213) Check and protect LE bilateral. Call with any changes or concerns. 10/25/2024 Atherosclerosis of [place] arteries of extremities with intermittent claudication, bilateral legs (ICD-10 - I70.213) Check and protect LE bilateral. Call with any changes or concerns. 11/10/2023 Pain in left toe(s) (ICD-10 - M79.675) 11/10/2023 Unspecified atherosclerosis of [place] arteries of extremities, bilateral legs (ICD-10 - [...] Provider Name:BRENT DUFF, 11/15/2024 09:20:00 AM, [address] [place] [address], [phone], Provider Name:BRENT DUFF, 12/27/2024 10:10:00 AM, [address] [place] [address], [id number], Insurance Providers Payer Name Payer Address Payer Phone Subscriber Number Group Number Insured Name Patient Relationship to Insured Coverage Start Date Coverage End Date [facility] [address] [address] [place], [place] [id number] MARSHA YADAV Self - patient is the insured Medical (General) History Medical History History ICD Code Diabetic
--- OUTSIDE RECORDS SUMMARY | 2024-11-05 14:10 | XMS_ITS | Encounter Summary ---
Author Organization [facility] Address [address] [address] Care Team Providers Care Cigarette Machines Mechanic Name Role Phone Brady Bourgeois MD Primary Care Provider + [phone] Brady Bourgeois MD Primary Care Provider + [phone] Encounter Details Date Type Department Care Team (Late st Contact Info) Description 03/10/2016 Orders Only [facility] ProviderTracy MD [address] [place] [address] Social History Tobacco Use Types Packs/Day Years Used Date Smoking Tobacco: Former Alcohol Use Standard Drinks/Week Comments No 0 (1 standard drink = 0.6 oz pur e alcohol) Sex and Gender Information Value Date Recorded Sex Assigned at Not on file Legal Sex Male 11:28 AM MANAGER MOTOR Gender Identity Not on file Sexual Orientation [...] on filedocumented in this encounter Care Teams Cigarette Machines Mechanic Relationship Specialty Start Date End Date Brady Bourgeois MD [address] [place], [place] [id number] PCP - General 05/07/16 Brady Bourgeois MD [address] [place] [address] PCP - General 07/16/15 05/06/16 documented as of this encounter
--- OUTSIDE RECORDS SUMMARY | 2024-11-05 14:10 | XMS_ITS | Encounter Summary ---
Author Organization [facility] Address [address] [address] Care Team Providers Care Travel Coordinator Name Role Phone Brady Bourgeois MD Primary Care Provider + [phone] Encounter Details Date Type Department Care Team (Late st Contact Info) Description 06/09/2016 Orders Only [facility] ProviderTracy MD [address] [place] [address] Social History Tobacco Use Types Packs/Day Years Used Date Smoking Tobacco: Former Alcohol Use Standard Drinks/Week Comments No 0 (1 standard drink = 0.6 oz pur e alcohol) Sex and Gender Information Value Date Recorded Sex Assigned at Not on file Legal Sex Male 11:28 AM VISITOR 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
--- OUTSIDE RECORDS SUMMARY | 2024-11-05 14:10 | XMS_ITS | Encounter Summary ---
Author Organization [facility] Address [address] [address] Care Team Providers Care Fireman Helper Name Role Phone Brady Bourgeois MD Primary Care Provider + [phone] Brady Bourgeois MD Primary Care Provider + [phone] Encounter Details Date Type Department Care Team (Late st Contact Info) Description 03/11/2016 Orders Only [facility] ProviderTracy MD [address] [place] [address] Social History Tobacco Use Types Packs/Day Years Used Date Smoking Tobacco: Former Alcohol Use Standard Drinks/Week Comments No 0 (1 standard drink = 0.6 oz pur e alcohol) Sex and Gender Information Value Date Recorded Sex Assigned at Not on file Legal Sex Male 11:28 AM THREAD SPINNER Gender Identity Not on file Sexual Orientation Not on file documented as of this encounter Plan of Treatment Not on file documented as of this encounter Procedures Procedure Name Priority Date/Time Associated Diagnosis Comments CARDIOLOGY REPORT 03/11/2016 documented in this encounter Results * CARDIOLOGY REPORT (03/11/2016) Anatomical Region Laterality Modality Other Narrative 03/11/2016 Ordered by an unspecified provider. Historical Provider [facility] USNNY PERRY Final Result documented in this encounter Visit Diagnoses Not on filedocumented in this encounter Care Teams Fireman Helper Relationship Specialty Start Date End Date Brady Bourgeois MD [address] [place], [place] [id number] PCP - General 05/07/16 Brady Bourgeois MD [address] [place] [address] PCP - General 07/16/15 05/06/16 documented as of this encounter
== END 2024-11-05 13:44 | disposition home or self-care (01) ==
LOC: CHSIMG 13:45
PROVIDERS: PCP Internal Medicine; Visit Provider Internal Medicine
DX: M25.551 Pain in right hip (principal); M43.06 Spondylolysis, lumbar region; M85.88 Other specified disorders of bone density and structure, other site
CPT/HCPCS: 72220; 73502

== ENCOUNTER 2024-11-13 09:04 | Outpatient (CLI) | payer MEDICARE, SELFPAY ==
--- OUTSIDE RECORDS SUMMARY | 2024-05-31 06:40 | XMS_ITS ---
Author Organization [facility] Address [address] [place], [place] [address] Care Team Providers Care Head Of Talent Management Name Role Phone IRENE DOWELL Unavailable [phone] Brady Bourgeois Unavailable Unavailable BRENT WILSON Unavailable [phone] REASON FOR VISIT *General care Encounters Encounter Location Date Provider Diagnosis [address] [id number] 05/31/2024 BRENT WILSON Plan Of Treatment Next Appt Details Provider Name:BRENT DUFF, 11/15/2024 09:20:00 AM, [address] [place] [address], [id number], Provider Name:BRENT DUFF, 12/27/2024 10:10:00 AM, [address] [place] [address], [id number], Progress Notes * MARSHA YADAV LDOB:[birth year] (84 yo M)Acc No.[id number]:05/31/2024 Patient: MARSHA NGUYEN Provider: Danielito WILSON :1940 A ge:83 Y S ex:Male Date:05/31/2024 Address:[address] [place], [place] [id number] Subjective: * Chief Complaints: * 1 . *General care. * Medical History: Objective: * Vitals: Assessment: Plan: * Treatment: * Billing Information: * Visit Code: * Procedure Codes: * Electronic signature of SHERWIN WILSON DPM on 11/13/2024 at 09:26 AM CDT Sign off status: Pending * Provider: Danielito WILSON Date: 0 05/31/2024 Generated for Krystian martínez/Dinora/Estefani on: 1 09:26 AM CDT
--- OUTSIDE RECORDS SUMMARY | 2024-06-21 09:50 | XMS_ITS ---
Author Organization [facility] Address [address] [place], [place] [id number] Care Team Providers Care Family Service Aide Name Role Phone IRENE DOWELL Unavailable [phone] Brady Bourgeois Unavailable Unavailable BRENT WILSON Unavailable [phone] Allergies No Known Allergies REASON FOR VISIT *General care Medications Medication SIG (Take, Route, Fr equency, Duration) Notes Start Date End Date Status Allopurinol 300 MG Oral; Duration: 90 Days Active Memantine HCl 5 MG Oral; Duration: 30 Days Active Warfarin Sodium 5 MG TAKE 1 TABLET BY [facility] ONCE DAILY Oral; Duration: 90 Days Ac tive Lovastatin 20 MG Oral; Duration: 90 Days Active Carvedilol 6.25 MG Oral; Duration: 90 Days Active Encounters Encounter Location Date Provider Diagnosis [address] [id number] 06/21/2024 BRENT WILSON Tinea unguium B35.1 ; Pain in right toe(s) M79.674 ; Pain in left toe(s) M79.675 and Atherosclerosis of [place] arteries of extremities with intermittent claudication, bilateral [...] toe(s) (ICD-10 - M79.675) 06/21/2024 Atherosclerosis of [place] arteries of extremities with intermittent claudication, bilateral [...] debris and necrotic tissue removed Atherosclerosis of [place] ar teries of extremities with intermittent claudication, bilateral legs Check and protect LE bilateral. Call with any changes or concerns. Next Appt Details Follow Up: 10-12 Weeks, Reas on: At Risk Foot care, sooner if problems arise Provider Name:BRENT DUFF, 11/15/2024 09:20:00 AM, [address] [place] [address], [id number], Provider Name:BRENT DUFF, 12/27/2024 10:10:00 AM, [address] [place] [address], [id number], Progress Notes * MARSHA YADAV LDOB:[birth year] (84 yo M)Acc No.[id number]:06/21/2024 Patient: MARSHA NGUYEN Provider: Danielito WILSON :1940 A ge:83 Y S ex:Male Date:06/21/2024 Address:[address] [place], [place] [phone] Subjective: * Chief Complaints: * 1 . *General care. * HPI: H PI: General care P atient presents to the office for diabetic foot care. Patient states that their nails are thickened, elongated and painful. Patient states that it is aggravated by shoe gear. Onset is gradual., Patient denies taking blood thinners., Date last seen by Dr. Bourgeois was 05/2024., Initials [facility]. * ROS: G eneral / [...] - M79.675 4 . A therosclerosis of [place] arteries of extremities with intermittent claudication, bilateral legs - I70.213 Plan: * Treatment: 2. A therosclerosis of [place] arteries of extremities with intermittent claudication, bilateral legs Notes: Check and protect LE bilateral. Call with any changes or concerns. * Follow Up: 1 0-12 Weeks (Reason: At Risk Foot care, sooner if problems arise) * Billing Information: * Visit Code: 58451 Office Visit, Est Pt., Level 3. * Procedure Codes: * Electronic signature of SHERWIN WILSON DPM on 11/13/2024 at 09:26 AM CDT Sign off status: Pending * Provider: Danielito WILSON Date: 0 06/21/2024 Generated for Krystian martínez/Dinora/Estefani on: 1 09:26 AM CDT History and Physical Notes * [...]
--- OUTSIDE RECORDS SUMMARY | 2024-08-23 09:10 | XMS_ITS ---
Author Organization [facility] Address [address] [place], [place] [id number] Care Team Providers Care Laborer Sawmill Name Role Phone IRENE DOWELL Unavailable [phone] Brady Bourgeois Unavailable Unavailable BRENT WILSON Unavailable [phone] REASON FOR VISIT *General care Medications Medication SIG (Take, Route, Fr equency, Duration) Notes Start Date End Date Status Lovastatin 20 MG Oral; Duration: 90 Days Active Carvedilol 6.25 MG Oral; Duration: 90 Days Active Allopurinol 300 MG Oral; Duration: 90 Days Active Warfarin Sodium 5 MG TAKE 1 TABLET BY [facility] ONCE DAILY Oral; Duration: 90 Days Ac tive Memantine HCl 5 MG Oral; Duration: 30 Days Active Vital Signs Height 69.00 in 08/23/2024 Weight 200 lbs 08/23/2024 BMI 29.53 kg/m2 08/23/2024 Height-cm 175.26 cm 08/23/2024 Weight-kg 90.72 kg 08/23/2024 Encounters Encounter Location Date Provider Diagnosis [address] [id number] 08/23/2024 BRENT WILSON Tinea unguium B35.1 ; Pain in right toe(s) M79.674 ; Pain in left toe(s) M79.675 and Atherosclerosis of [place] arteries of extremities with intermittent claudication, bilateral [...] toe(s) (ICD-10 - M79.675) 08/23/2024 Atherosclerosis of [place] arteries of extremities with intermittent claudication, bilateral [...] debris and necrotic tissue removed Atherosclerosis of [place] ar teries of extremities with intermittent claudication, bilateral legs Check and protect LE bilateral. Call with any changes or concerns. Next Appt Details Follow Up: 10-12 Weeks, Reas on: At Risk Foot care, sooner if problems arise Provider Name:BRENT DUFF, 11/15/2024 09:20:00 AM, [address] [place] [address], [id number], Provider Name:BRENT DUFF, 12/27/2024 10:10:00 AM, [address] [place] [address], [id number], Progress Notes * MARSHA YADAV LDOB:[birth year] (84 yo M)Acc No.[id number]:08/23/2024 Patient: MARSHA NGUYEN Provider: Danielito WILSON :1940 A ge:84 Y S ex:Male Date:08/23/2024 Address:[address] [place], [place] [address] Subjective: * Chief Complaints: * 1 . [...] - M79.675 4 . A therosclerosis of [place] arteries of extremities with intermittent claudication, bilateral legs - I70.213 Plan: * Treatment: 2. A therosclerosis of [place] arteries of extremities with intermittent claudication, bilateral [...] arise) * Billing Information: * Visit Code: [id number] Office Visit, Est Pt., Level 3. * Procedure Codes: * Electronic signature of SHERWIN WILSON DPM on 11/13/2024 at 09:26 AM CDT Sign off status: Pending * Provider: Danielito WILSON Date: 0 08/23/2024 Generated for Krystian martínez/Dinora/Estefani on: 1 09:26 [...] to light touch Vascular Dorsalis pedis pulse: 1/ bilateral Edema: No edema, bilateral Capillary refill: greater than 3 secon ds Posterior tibial pulse: 0/4 bilateral Musculoskeletal Muscle Strength Muscle strength is 5/5 in regards to dorsiflexion, plantarflexion, inversion, and eversion in bilateral lower extremities Constitutional Constitutional The patient is a wake, alert, well developed, well groomed and well nourished
--- OUTSIDE RECORDS SUMMARY | 2024-10-25 05:10 | XMS_ITS ---
Author Organization [facility] Address [address] [place], [place] [address] Care Team Providers Care English Language Learner Tutor Name Role Phone IRENE DOWELL Unavailable [phone] Brady Bourgeois Unavailable Unavailable BRENT WILSON Unavailable [phone] Allergies No Known Allergies REASON FOR VISIT [...] 10/25/2024 Encounters Encounter Location Date Provider Diagnosis [address] [id number] 10/25/2024 BRENT WILSON Tinea unguium B35.1 ; Pain in right toe(s) M79.674 ; Pain in left toe(s) M79.675 and Atherosclerosis of [place] arteries of extremities with intermittent claudication, bilateral [...] toe(s) (ICD-10 - M79.675) 10/25/2024 Atherosclerosis of [place] arteries of extremities with intermittent claudication, bilateral [...] necrotic tissue removed Atherosclerosis of [place] ar teries of extremities with intermittent claudication, bilateral legs Check and protect LE bilateral. Call with any changes or concerns. Next Appt Details Follow Up: 10-12 Weeks, Reas on: At Risk Foot care, sooner if problems arise Provider Name:BRENT DUFF, 11/15/2024 09:20:00 AM, [address] [place] [address], [id number], Provider Name:BRENT DUFF, 12/27/2024 10:10:00 AM, [address] [place] [address], [id number], Progress Notes * MARSHA YADAV LDOB:[birth year] (84 yo M)Acc No.[id number]:10/25/2024 Patient: MARSHA NGUYEN Provider: Danielito WILSON :1940 A ge:84 Y S ex:Male Date:10/25/2024 Address:[address] [place] [address] Subjective: * Chief Complaints: * 1 . [...] 4 . A therosclerosis of [place] arteries of extremities with intermittent claudication, bilateral legs - I70.213 Plan: * Treatment: 2. A therosclerosis of [place] arteries of extremities with intermittent claudication, bilateral legs Notes: Check and protect LE bilateral. Call with any changes or concerns. * Follow Up: 1 0-12 Weeks (Reason: At Risk Foot care, sooner if problems arise) * Billing Information: * Visit Code: 06735 Office Visit, Est Pt., Level 3. * Procedure Codes: * Electronic signature of SHERWIN WILSON DPM on 11/13/2024 at 09:26 AM CDT Sign off status: Pending * Provider: Danielito WILSON Date: 0 10/25/2024 Generated for Krystian martínez/Dinora/Estefani on: 1 09:26 [...]
[2024-11-13 09:22] LABS: Hematocrit 39.2 % (37.0-46.0); Hemoglobin 12.8 g/dL (12.4-15.3); Mean Corpuscular HGB Conc 32.7 g/dL (32-36); Mean Corpuscular Hemoglobin 32.4 pg (27.0-31.0); Mean Corpuscular Volume 99.2 fL (78.0-102.0); Platelet Count Result 154 K/mm3 (150-420); Red Blood Count 3.95 M/mm3 (4.70-6.10); White Blood Count 5.7 K/mm3 (4.8-10.8)
--- OUTSIDE RECORDS SUMMARY | 2024-11-13 09:26 | XMS_ITS | Clinical Summary ---
Author Organization [facility] Address [address] [place] [address] Care Team Providers Care Reception Clerk Name Role Phone Brady Bourgeois MD Primary Care Provider + [phone] Allergies No known active allergies Medications lovastatin [...] Overview (05/13/2016): Essential hypertension Coronary arteriosclerosis in [place] artery 05/31 Overview (05/13/2016): CAD in [place] artery Pacemaker 10/15/2013 Overview (08/18/2017): Medtronic Dual [...] Description 11/02/2024 10:30 AM CDT Office Visit [facility] Cardiology [address] [place] [address] Kit Patel MD Persistent atrial fibrillation (HCC) (Primary Dx); Pacemaker 08/29/2024 9:30 AM CDT Ancillary Procedure [facility] Cardiology [address] [place] [address] Pacemaker (Primary Dx); Second degree AV block; Persistent atrial fibrillation (HCC) 08/29/2024 Orders Only [facility] Cardiology [address] [facility] [address], [place] [address] Kit Patel MD Pacemaker (Primary Dx); Persistent [...] on file Legal Sex Male 11:28 AM PUMPER HEAD Gender Identity Not on file Sexual Orientation Not on file Obstetrics History Last Filed Vital Signs Vital Sign Reading Time Taken Comments Blood Pressure 104/58 11/02/2024 10:20 AM CDT Pulse 95 11/02/2024 10:20 AM CDT Temperature 36.4 C (97.5 F) 03/03/2020 12:42 PM PUMPER HEAD Respiratory Rate 16 12/28/2019 10:55 AM PUMPER HEAD Oxygen Saturation 99% 11/02/2024 10:20 AM CDT [...] 12/23/2006, 12/12/2006 Medical Devices Implanted Type Area Consulting Senior Practice Director Device Identifier Shelf Expiration Date Model / Serial / Lot Pacemaker-11/25 Implanted:11/25 by Alba Argueta MD (Quantity not on file) Pacemaker Chest Medtronic Second Degree AVB, Afib ADAPTA / [id number] / CHRONIC LEADS 2007 Procedures Procedure Name Priority Date/Time Associated Diagnosis Comments DEVICE CHECK - IN OFFICE Routine 08/29/2024 9:17 AM CDT Second degree AV block Persistent atrial fibrillation (HCC) EGFR Routine 09/26/2023 6:25 AM CDT LIPID PANEL Routine 04/06/2021 Coronary arteriosclerosis in [place] artery Chronic diastolic heart failure (HCC) Persistent atrial fibrillation (HCC) Hyperlipidemia associated with type 2 diabetes mellitus (HCC) from Last 3 Months or Most Recently Relevant to Health Maintenance Results * DEVICE CHECK - IN OFFICE (08/29/2024 9:17 AM CDT) Anatomical Region Laterality Modality Other Narrative 08/31/2024 12:17 PM CDT Medtronic Dual Pacemaker. Dx; Second Degree AVB, Chronic Afib. DOI 11/26/2015-Luisom, chronic lead 12/15/07. Carelink remote monitoring Q3 mo, office pacer checks Q1 yr. Programmed VVIR-Bill Single PM. Supervising MD: Dr Moody. Office VVI pacemaker evaluation demonstrated normal device function. Battery function-2.69V, with 9 months remaining battery life to RHIANNA. Presenting rhythm-VPaced. Underlying rhythm-Predominately Ventricular paced @ VVI 30 bpm. MANUFACTURING TECHNOLOGIST-97.4%. Pt is on Eliquis therapy. 2 ventricular [...] was last reviewed 2020. Testing performed by: [facility], [address] [place] [address]., [id number] Blood 09/26/2023 6:25 AM CDT 09/26/2023 8:31 AM CDT us Notinfile Unknown LAB BLOOD ORDERABLES Final Res ult NAOMI [address] [facility] Department [place] [address] * Lipid panel (04/06/2021) SCRIBED Cholesterol, Total 123 <200 EXTERNAL LAB SCRIBED HDL 28 >40 EXTERNAL LAB SCRIBED LDL 69 <100 EXTERNAL LAB SCRIBED Triglycerides 128 <150 EXTERNAL LAB Blood specimen (specimen) 04/06/2021 us Alba Argueta MD LAB BLOOD ORDERABLES Final Result EXTERNAL LAB from Last 3 Months or Most Recently Relevant to Health Maintenance Insurance MEDICARE [facility] MEDICARE ADVANTAGE Care Teams Reception Clerk Relationship Specialty Start Date End Date Brady Bourgeois MD [address] [place] [address] PCP - General 05/07/16
--- OUTSIDE RECORDS SUMMARY | 2024-11-13 09:27 | XMS_ITS | Patient Health Record ---
Author Organization [facility] Address [address] [place], [place] [phone] Care Team Providers Care Aircraft Maintenance Manager Name Role Phone IRENE DOWELL Unavailable [phone] Brady Bourgeois Unavailable Unavailable BRENT WILSON Unavailable [phone] Allergies No Known Allergies Reason For Referral No Information Medications Medication SIG (Take, Route, Fr equency, Duration) Notes Start Date End Date Status Memantine HCl 5 MG Oral; Duration: 30 Days Active Lovastatin 20 MG Oral; Duration: 90 Days Active Warfarin Sodium 5 MG TAKE 1 TABLET BY [facility] ONCE DAILY Oral; Duration: 90 Days Ac tive Allopurinol 300 MG Oral; Duration: 90 Days Active Carvedilol 6.25 MG Oral; Duration: 90 Days Active Vital Signs Height-cm 175.26 cm 10/25/2024 Weight-kg 90.72 kg 10/25/2024 Height 69.00 in 10/25/2024 Weight 200 lbs 10/25/2024 BMI 29.53 kg/m2 10/25/2024 Encounters Encounter Location Date Provider Diagnosis [address] [id number] 06/21/2024 BRENT WILSON Tinea unguium B35.1 ; Pain in right toe(s) M79.674 ; Pain in left toe(s) M79.675 and Atherosclerosis of [place] arteries of extremities with intermittent claudication, bilateral legs I70.[address] [id number] 08/23/2024 BRENT WILSON Tinea unguium B35.1 ; Pain in right toe(s) M79.674 ; Pain in left toe(s) M79.675 and Atherosclerosis of [place] arteries of extremities with intermittent claudication, bilateral legs I70.[address] [id number] 10/25/2024 BRENT WILSON Tinea unguium B35.1 ; Pain in right toe(s) M79.674 ; Pain in left toe(s) M79.675 and Atherosclerosis of [place] arteries of extremities with intermittent claudication, bilateral legs I70.[address] [id number] 03/29/2024 IRENE DOWELL Tinea unguium B35.1 ; Pain in right toe(s) M79.674 ; Pain in left toe(s) M79.675 and Atherosclerosis of [place] arteries of extremities with intermittent claudication, bilateral [...] toe(s) (ICD-10 - M79.675) 03/29/2024 Atherosclerosis of [place] arteries of extremities with intermittent claudication, bilateral legs (ICD-10 - I70.213) 06/21/2024 Atherosclerosis of [place] arteries of extremities with intermittent claudication, bilateral legs (ICD-10 - I70.213) Check and protect LE bilateral. Call with any changes or concerns. 08/23/2024 Atherosclerosis of [place] arteries of extremities with intermittent claudication, bilateral legs (ICD-10 - I70.213) Check and protect LE bilateral. Call with any changes or concerns. 10/25/2024 Atherosclerosis of [place] arteries of extremities with intermittent claudication, bilateral legs (ICD-10 - I70.213) Check and protect LE bilateral. Call with any changes or concerns. Plan Of Treatment Next Appt Details Provider Name:BRENT DUFF, 11/15/2024 09:20:00 AM, [address] [place] [address], [phone], Provider Name:BRENT V SARAN DUFF, 12/27/2024 10:10:00 AM, [address] [place], [place], [phone], Insurance Providers Payer Name Payer Address Payer Phone Subscriber Number Group Number Insured Name Patient Relationship to Insured Coverage Start Date Coverage End Date [facility] [address] [address] [place], [place] [phone] [id number] MARSHA YADAV Self - patient is the insured Medical (General) History Medical History History ICD Code Diabetic
--- OUTSIDE RECORDS SUMMARY | 2024-11-13 09:27 | XMS_ITS | Encounter Summary ---
Author Organization [facility] Address [address] [address] Care Team Providers Care Histology Tech Name Role Phone Brady Bourgeois MD Primary Care Provider + [phone] Brady Bourgeois MD Primary Care Provider + [phone] Encounter Details Date Type Department Care Team (Late st Contact Info) Description 03/11/2016 [facility] Only [facility] ProviderTracy MD [address] [place] [address] Social History Tobacco Use Types Packs/Day Years Used Date Smoking Tobacco: Former Alcohol Use Standard Drinks/Week Comments No 0 (1 standard drink = 0.6 oz pur e alcohol) Sex and Gender Information Value Date Recorded Sex Assigned at Not on file 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
--- OUTSIDE RECORDS SUMMARY | 2024-11-13 09:27 | XMS_ITS | Encounter Summary ---
Author Organization [facility] Address [address] [address] Care Team Providers Care Medical Records Analyst Name Role Phone Brady Bourgeois MD Primary Care Provider + [phone] Encounter Details Date Type Department Care Team (Late st Contact Info) Description 06/09/2016 [facility] Only [facility] ProviderTracy MD [address] [place] [address] Social History Tobacco Use Types Packs/Day Years Used Date Smoking Tobacco: Former Alcohol Use Standard Drinks/Week Comments No 0 (1 standard drink = 0.6 oz pur e alcohol) Sex and Gender Information Value Date Recorded Sex Assigned at Not on file Legal 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
--- OUTSIDE RECORDS SUMMARY | 2024-11-13 09:27 | XMS_ITS | Encounter Summary ---
Author Organization [facility] Address [address] [address] Care Team Providers Care Process Owner Name Role Phone Brady Bourgeois MD Primary Care Provider + [phone] Bardy Bourgeois MD Primary Care Provider + [phone] Encounter Details Date Type Department Care Team (Late st Contact Info) Description 03/10/2016 [facility] Only [facility] ProviderTracy MD [address] [place] [address] Social History Tobacco Use Types Packs/Day Years Used Date Smoking Tobacco: Former Alcohol Use Standard Drinks/Week Comments No 0 (1 standard drink = 0.6 oz pur e alcohol) Sex and Gender Information Value Date Recorded Sex Assigned at Not on file 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
[2024-11-13 09:49] LABS: Alanine Aminotransferase 56 U/L (6-50); Albumin Level 4.4 g/dL (3.5-5.1); Alkaline Phosphatase 124 U/L (38-126); Anion Gap 13 mmol/L (4-12); Aspartate Amino Transferase 45 U/L (17-59); Bilirubin,Total 0.9 mg/dL (0.2-1.3); Blood Urea Nitrogen 29 mg/dL (9-20); Calcium 9.9 mg/dL (8.4-10.2); Carbon Dioxide 22 mmol/L (22-30); Chloride 105 mmol/L (98-107); Estimated Glomerular Filt Rate 57; Glucose 207 mg/dL (65-110); Osmolality Calculated 301 mOsm/kg (285-295); Potassium 5.0 mmol/L (3.4-5.0); Sodium 140 mmol/L (137-145); Total Protein 8.1 g/dL (6.3-8.2)
== END 2024-11-13 09:05 | disposition home or self-care (01) ==
LOC: CHSLAB 09:05
PROVIDERS: PCP Internal Medicine; Visit Provider Nurse Practitioner Family
DX: R74.8 Abnormal levels of other serum enzymes (principal); K76.0 Fatty (change of) liver, not elsewhere classified
CPT/HCPCS: 36415; 80053; 85027

== ENCOUNTER 2024-12-05 07:02 | Outpatient (CLI) | payer MEDICARE, SELFPAY ==
--- OUTSIDE RECORDS SUMMARY | 2024-06-21 09:50 | XMS_ITS ---
Author Organization [facility] Address [address] [place], [place] [address] Care Team Providers Care Erp Technical Lead Name Role Phone IRENE DOWELL Unavailable [phone] Brady Bourgeois Unavailable Unavailable BRENT WILSON Unavailable [phone] Allergies No Known Allergies REASON FOR VISIT *General care Medications Medication SIG (Take, Route, Frequency, Duration) Notes Start Date End Date Status Allopurinol 300 MG Tablet Oral; Duration: 90 Days Active Memantine HCl 5 MG Tablet Oral; Duration: 30 Days Active Warfarin Sodium 5 MG Tablet TAKE 1 TABLE T BY MOUTH ONCE DAILY Oral; Duration: 90 Days Active Lovastatin 20 MG Tablet Oral; Duration: 90 Days Active Carvedilol 6.25 MG Tablet Oral; Duration: 90 Days Active Social History Social History Additional Details Category Social Info Options Details Migrated Social History Migrated Social History Smoking Status : Former tobacco user , History of tobacco use : Encounters Encounter Location Date Provider Diagnosis [address] [id number] 06/21/2024 BRENT WILSON Tinea unguium B35.1 ; Pain in right toe(s) M79.674 ; Pain in left toe(s) M79.675 and Atherosclerosis of [place] arteries of extremities with intermittent claudication, bilateral [...] toe(s) (ICD-10 - M79.675) 06/21/2024 Atherosclerosis of [place] arteries of extremities with intermittent claudication, bilateral [...] debris and necrotic tissue removed Atherosclerosis of [place] ar teries of extremities with intermittent claudication, bilateral legs Check and protect LE bilateral. Call with any changes or concerns. Next Appt Details Follow Up: 10-12 Weeks, Reas on: At Risk Foot care, sooner if problems arise Provider Name:BRENT DUFF, 12/27/2024 10:10:00 AM, [address] [place] [address], [id number], History and Physical Notes * HPI (History [...] to light touch Vascular Dorsalis pedis pulse: 02/10 bilateral Edema: No edema, bilateral Capillary refill: greater than 3 secon ds Posterior tibial pulse: 0/4 bilateral Musculoskeletal Muscle Strength Muscle strength is 5/5 in regards to dorsiflexion, plantarflexion, inversion, and eversion in bilateral lower extremities Constitutional Constitutional The patient is a wake, alert, well developed, well groomed and well nourished Progress Notes * REINALDOZULEIMA MARSHA LDOB:[birth year] (84 yo M)Acc No.[id number]:06/21/2024 Patient: MARSHA NGUYEN Provider: Danielito WILSON :1940 A ge:83 Y S ex:Male Date:06/21/2024 Address:[address] [place], [place] [address] Subjective: * Chief Complaints: * * General care * HPI: H PI: General care P atient presents to the office for diabetic foot care. Patient states that their nails are thickened, elongated and painful. Patient states that it is aggravated by shoe gear. Onset is gradual., Patient denies taking blood thinners., Date last seen by Dr. Bourgeois was 05/2024., Initials [facility]. * ROS: G eneral / Constitutional: Patient denies w eakness. M usculoskeletal: Patient complains of h ammertoes. P eripheral Vascular: Patient denies b lanching of skin, cold extremities, decreased sensation in extremities. S kin: Patient complains of n ail changes, fungal nails. ? N eurologic: Patient denies d izziness, gait abnormality, headache. * Medical History: Diabetic Medical History Verified * Social History: M igrated Social History: M igrated Social History: Smoking Status : Former tobacco user , History of tobacco use :. * Medications: T akingCarvedilol 6.25 MG Tablet [...] reconciled with the patient * Allergies: N .K.BaironyesAllergies Verified. Objective: * Examination: C onstitutional: Constitutional T he [...] - M79.675 4 . A therosclerosis of [place] arteries of extremities with intermittent claudication, bilateral legs - I70.213 Plan: * Treatment: 2. A therosclerosis of [place] arteries of extremities with intermittent claudication, bilateral legs Notes: Check and protect LE bilateral. Call with any changes or concerns. * Follow Up: 1 0-12 Weeks (Reason: At Risk Foot care, sooner if problems arise) Billing Information: * Visit Code: 16974 Office Visit, Est Pt., Level 3. * Procedure Codes: * Electronic signature of SHERWIN WILSON DPM on 12/05/2024 at 07:06 AM CDT Sign off status: Pending * Provider: Danielito WILSON Date: 0 06/21/2024 Generated for Krystian martínez/Dinora/Estefani on: 1 07:06 AM CDT
--- OUTSIDE RECORDS SUMMARY | 2024-08-23 09:10 | XMS_ITS ---
Author Organization [facility] Address [address] [place], [place] [address] Care Team Providers Care Top Collar Baster Name Role Phone IRENE DOWELL Unavailable [phone] Brady Bourgeois Unavailable Unavailable BRENT WILSON Unavailable [phone] REASON FOR VISIT *General care Medications Medication SIG (Take, Route, Frequency, Duration) Notes Start Date End Date Status Lovastatin 20 MG Tablet Oral; Duration: 90 Days Active Carvedilol 6.25 MG Tablet Oral; Duration: 90 Days Active Allopurinol 300 MG Tablet Oral; Duration: 90 Days Active Warfarin Sodium 5 MG Tablet TAKE 1 TABLE T BY MOUTH ONCE DAILY Oral; Duration: 90 Days Active Memantine HCl 5 MG Tablet Oral; Duration: 30 Days Active Social History Social History Additional Details Category Social Info Options Details Migrated Social History Migrated Social History Smoking Status : Former tobacco user , History of tobacco use : Vital Signs Height 69.00 in 08/23/2024 Weight 200 lbs 08/23/2024 BMI 29.53 kg/m2 08/23/2024 Height-cm 175.26 cm 08/23/2024 Weight-kg 90.72 kg 08/23/2024 Encounters Encounter Location Date Provider Diagnosis [address] [id number] 08/23/2024 BRENT WILSON Tinea unguium B35.1 ; Pain in right toe(s) M79.674 ; Pain in left toe(s) M79.675 and Atherosclerosis of [place] arteries of extremities with intermittent claudication, bilateral legs I70.213 Assessments Encounter Date Diagnosis (ICD Code) Assessment Notes Treatment Notes Treatment Clinical Notes Section Notes 08/23/2024 Tinea unguium (ICD-10 - B35.1) FUNGAL TOENAILS: Discussed various treatment options for fungal toenails including debridement, topical antifungals, oral antifungals, toenail avulsion, or toenail matrixectomy. NAIL DEBRIDEMENT: Nails 1-5 Bilateral were debrided extensively with nail nippers and emery board, reducing length and girth to pink healthy tissue with any subungual debris and necrotic tissue removed 08/23/2024 Pain in right toe(s) (ICD-10 - M79.674) 08/23/2024 Pain in left toe(s) (ICD-10 - M79.675) 08/23/2024 Atherosclerosis of [place] arteries of extremities with intermittent claudication, bilateral [...] debris and necrotic tissue removed Atherosclerosis of [place] ar teries of extremities with intermittent claudication, bilateral legs Check and protect LE bilateral. Call with any changes or concerns. Next Appt Details Follow Up: 10-12 Weeks, Reas on: At Risk Foot care, sooner if problems arise Provider Name:BRENT DUFF, 12/27/2024 10:10:00 AM, [address] [place] [address], [id number], History and Physical Notes * HPI (History [...] Date last seen by Dr. Bourgeois was 08/2024., Initials [facility] Examination Category Sub-Category Detail Notes [...] groomed and well nourished Progress Notes * MARSHA YADAV LDOB:[birth year] (84 yo M)Acc No.[id number]:08/23/2024 Patient: MARSHA NGUYEN Provider: Danielito WILSON :1940 A ge:84 Y S ex:Male Date:08/23/2024 Address:[address] [place] [address] Subjective: * Chief Complaints: * * General care * HPI: H PI: General care P atient presents to the office for diabetic foot care. Patient states that their nails are thickened, elongated and painful. Patient states that it is aggravated by shoe gear. Onset is gradual., Patient is taking prescription blood thinners., Date last seen by Dr. Bourgeois was 08/2024., Initials [facility]. * ROS: G eneral / Constitutional: [...] user , History of tobacco use :. Social History Verified. * Medications: T akingCarvedilol 6.25 MG Tablet [...] reconciled with the patient Objective: * Vitals: W t: 200 lbs, Wt-k.72 kg, Ht: 69.00 in, Ht-cm: 175.26 cm, BMI: 29.53 Index, Body Surface Area: 2.1. * Examination: C onstitutional: Constitutional T he [...] - M79.675 4 . A therosclerosis of [place] arteries of extremities with intermittent claudication, bilateral legs - I70.213 Plan: * Treatment: 2. A therosclerosis of [place] arteries of extremities with intermittent claudication, bilateral legs Notes: Check and protect LE bilateral. Call with any changes or concerns. * Immunizations: Immunization record has been reviewed and updated. * Preventive Medicine: Screenings: F all risk screening F all Risk Assessment: N o falls in the past year. * Follow Up: 1 0-12 Weeks (Reason: At Risk Foot care, sooner if problems arise) Billing Information: * Visit Code: 67299 Office Visit, Est Pt., Level 3. * Procedure Codes: * Electronic signature of SHERWIN WILSON DPM on 12/05/2024 at 07:07 AM CDT Sign off status: Pending * Provider: Danielito WILSON Date: 0 08/23/2024 Generated for Krystian martínez/Dinora/Estefani on: 1 07:07 AM CDT
--- OUTSIDE RECORDS SUMMARY | 2024-10-25 05:10 | XMS_ITS ---
Author Organization [facility] Address [address] [place], [place] [id number] Care Team Providers Care Hand Blocker Name Role Phone IRENE DOWELL Unavailable [phone] Brady Bourgeois Unavailable Unavailable BRENT WILSON Unavailable [phone] Allergies No Known Allergies REASON FOR VISIT *General care Medications Medication SIG (Take, Route, Frequency, Duration) Notes Start Date End Date Status Memantine HCl 5 MG Tablet Oral; Duration: 30 Days Active Lovastatin 20 MG Tablet Oral; Duration: 90 Days Active Warfarin Sodium 5 MG Tablet TAKE 1 TABLE T BY MOUTH ONCE DAILY Oral; Duration: 90 Days Active Allopurinol 300 MG Tablet Oral; Duration: 90 Days Active Carvedilol 6.25 MG Tablet Oral; Duration: 90 Days Active Social History Social History Additional Details Category Social Info Options Details Migrated Social History Migrated Social History Smoking Status : Former tobacco user , History of tobacco use : Vital Signs Height 69.00 in 10/25/2024 Weight 200 lbs 10/25/2024 BMI 29.53 kg/m2 10/25/2024 Height-cm 175.26 cm 10/25/2024 Weight-kg 90.72 kg 10/25/2024 Encounters Encounter Location Date Provider Diagnosis [address] [id number] 10/25/2024 BRENT WILSON Tinea unguium B35.1 ; Pain in right toe(s) M79.674 ; Pain in left toe(s) M79.675 and Atherosclerosis of [place] arteries of extremities with intermittent claudication, bilateral [...] toe(s) (ICD-10 - M79.675) 10/25/2024 Atherosclerosis of [place] arteries of extremities with intermittent claudication, bilateral [...] debris and necrotic tissue removed Atherosclerosis of [place] ar teries of extremities with intermittent claudication, bilateral legs Check and protect LE bilateral. Call with any changes or concerns. Next Appt Details Follow Up: 10-12 Weeks, Reas on: At Risk Foot care, sooner if problems arise Provider Name:BRENT DUFF, 12/27/2024 10:10:00 AM, [address] [place] [address], [id number], History and Physical Notes * HPI (History of Present Illness) Category Sub-Category Detail Notes Category Not es HPI General care Patient presents to the office for diabetic foot care. Patient states that their nails are thickened, elongated and painful. Patient states that it is aggravated by shoe gear. Onset is gradual., Patient is taking prescription blood thinners., Date last seen by Dr. oBurgeois was 08/2024., Initials nd Examination Category Sub-Category [...] MARSHA YADAV LDOB:[birth year] (84 yo M)Acc No.[id number]:10/25/2024 Patient: MARSHA NGUYEN Provider: Danielito WILSON :1940 A ge:84 Y S ex:Male Date:10/25/2024 Address:[address] [place] [address] Subjective: * Chief Complaints: * * General [...] Medical History: Diabetic Medical History Verified * Surgical History: Denies Past Surgical History. Surgical History verified. * Hospitalization/Major Diagno stic Procedure: Denies Past Hospitalization. Hospitalization Verified. * Family History: N o Family History documented.. F amily History Verified.. * Social History: M igrated Social History: [...] reconciled with the patient * Allergies: N .K.D.A.yesAllergies Verified. Objective: * Vitals: W t: 200 lbs, [...] - M79.675 4 . A therosclerosis of [place] arteries of extremities with intermittent claudication, bilateral legs - I70.213 Plan: * Treatment: 2. A therosclerosis of [place] arteries of extremities with intermittent claudication, bilateral legs Notes: Check and protect LE bilateral. Call with any changes or concerns. * Follow Up: 1 0-12 Weeks (Reason: At Risk Foot care, sooner if problems arise) Billing Information: * Visit Code: 22957 Office Visit, Est Pt., Level 3. * Procedure Codes: * Electronic signature of SHERWIN WILSON DPM on 12/05/2024 at 07:07 AM CDT Sign off status: Pending * Provider: Danielito WILSON Date: 0 10/25/2024 Generated for Krystian martínez/Dinora/Estefani on: 07:07 AM CDT
--- OUTSIDE RECORDS SUMMARY | 2024-11-15 04:20 | XMS_ITS ---
Author Organization [facility] Address [address] [place], [place] [address] Care Team Providers Care Youth Services Specialist Name Role Phone IRENE DOWELL Unavailable [phone] Brady Bourgeois Unavailable Unavailable BRENT WILSON Unavailable [phone] Allergies No Known Allergies REASON FOR VISIT INGROWN NAIL CHECK Medications Medication SIG (Take, Route, Frequency, Duration) Notes Start Date End Date Status Memantine HCl 5 MG Tablet Oral; Duration: 30 Days Active Allopurinol 300 MG Tablet Oral; Duration: 90 Days Active Warfarin Sodium 5 MG Tablet TAKE 1 TABLE T BY MOUTH ONCE DAILY Oral; Duration: 90 Days Active Carvedilol 6.25 MG Tablet Oral; Duration: 90 Days Active Lovastatin 20 MG Tablet Oral; Duration: 90 Days Active Social History Social History Additional Details Category Social Info Options Details Migrated Social History Migrated Social History Smoking Status : Former tobacco user , History of tobacco use : Vital Signs Height 69.00 in 11/15/2024 Weight 200 lbs 11/15/2024 BMI 29.53 kg/m2 11/15/2024 Height-cm 175.26 cm 11/15/2024 Weight-kg 90.72 kg 11/15/2024 Encounters Encounter Location Date Provider Diagnosis [address] [id number] 11/15/2024 BRENT WILSON Tinea unguium B35.1 ; Ingrowing nail L60.0 ; Pain in right toe(s) M79.674 ; Pain in left toe(s) M79.675 and Atherosclerosis of king salmon arteries of extremities with intermittent claudication, bilateral legs I70.213 Assessments Encounter Date Diagnosis (ICD Code) Assessment Notes Treatment Notes Treatment Clinical Notes Section Notes 11/15/2024 Tinea unguium (ICD-10 - B35.1) 11/15/2024 Ingrowing nail (ICD-10 - L60.0) Slant Back Toenail: Following skin prep, the offending nail border was debrided without anesthesia. The patient was instructed on monitoring for infection or recurrence. 11/15/2024 Pain in right toe(s) (ICD-10 - M79.674) 11/15/2024 Pain in left toe(s) (ICD-10 - M79.675) 11/15/2024 Atherosclerosis of king salmon arteries of extremities with intermittent claudication, bilateral legs (ICD-10 - I70.213) Check and protect LE bilateral. Call with any changes or concerns. Plan Of Treatment Treatment Notes Assessment Notes Ingrowing nail Slant Back Toenail: Following skin prep, the offending nail border was debrided without anesthesia. The patient was instructed on monitoring for infection or recurrence. Atherosclerosis of king salmon ar teries of extremities with intermittent claudication, bilateral legs Check and protect LE bilateral. Call with any changes or concerns. Next Appt Details Provider Name:BRENT DUFF, 12/27/2024 10:10:00 AM, [address] [place] [address], [phone], History and Physical Notes * HPI (History of Present Illness) Category Sub-Category Detail Notes Category Not es HPI New Complaint Established sandra ent presents with a new complaint., Patient complains of an issue to right big toe ingrown nail, Duration of problem is 2 weeks. Patient denies any injury., MA: nd Examination Category Sub-Category Detail Notes Category Not es Dermatologic Skin findings: Skin is thin, at rophic and lacking pedal hair Nail pathology: Nails 1, 2, 3, 4, an d 5 bilateral are elongated, thick, discolored, and dystrophic with subungual debris. They are painful to palpation Ingrown Nail Nail is incurvated o n the, bilateral border of the right great toenail, bilateral border of the left great toenail. , There is pain on palpation. Neurologic Gross sensation Gross sensation is intact [...] MARSHA YADAV LDOB:[birth year] (84 yo M)Acc No.[id number]:11/15/2024 Patient: MARSHA NGUYEN Provider: Danielito WILSON :1940 A ge:84 Y S ex:Male Date:11/15/2024 Address:[address] [place] [address] Subjective: * Chief Complaints: * I NGROWN NAIL CHECK * HPI: H PI: New Complaint E stablished patient presents with a new complaint., Patient complains of an issue to right big toe ingrown nail, Duration of problem is 2 weeks.?Patient denies any injury., MA: nd. * ROS: G eneral / Constitutional: [...] reconciled with the patient * Allergies: N .KGabyesAllergies Verified. Objective: * Vitals: W t: 200 [...] subungual debris. They are painful to palpation. Ingrown Nail N ail is incurvated on the, bilateral border of the right great toenail, bilateral border of the left great toenail. , There is pain on palpation.. V ascular: Dorsalis pedis pulse: 1 /4 [...] lower extremities. ? Assessment: * Assessment: 1. I ngrowing nail - L60.0 (Primary) 2 . T inea unguium - B35.1 ?3. P ain in right toe(s) - M79.674 4 . P ain in left toe(s) - M79.675? 5. A therosclerosis of king salmon arteries of extremities with intermittent claudication, bilateral legs - I70.213 Plan: * Treatment: 2. A therosclerosis of king salmon arteries of extremities with intermittent claudication, bilateral legs Notes: Check and protect LE bilateral. Call with any changes or concerns. Billing Information: * Visit Code: 13445 Office Visit, Est Pt., Level 3. * Procedure Codes: * Electronic signature of SHERWIN WILSON DPM on 12/05/2024 at 07:06 AM CDT Sign off status: Pending * Provider: Danielito WILSON Date: Generated for Krystian martínez/Dinora/Estefani on: 07:06 AM CDT
--- NOTE | ~2024-12-05 | US_ITS ---
ULTRASOUND ABDOMEN LIMITED (RIGHT UPPER QUADRANT) Clinical History: K76.0 - Fatty (change of) liver, not elsewhere classified Comparison: CT abdomen and pelvis 09/24/2022 Technique: Right upper quadrant sonography Findings: Liver: Normal size. Normal echotexture. No intrahepatic biliary ductal dilatation. Normal hepatopedal flow main portal vein. Small hyperechoic focus near dome probably hemangioma. Common Duct: Normal caliber. 4 mm. Gallbladder: No stones. No wall thickening. No pericholecystic fluid. Pancreas: Obscured by bowel gas. Right kidney: 16 mm simple cyst.. Retrohepatic IVC: Unremarkable. IMPRESSION: 1. No acute findings. Reviewed, dictated and finalized at location R. IMPRESSION: 1. No acute findings.
--- OUTSIDE RECORDS SUMMARY | 2024-12-05 07:06 | XMS_ITS | Clinical Summary ---
Author Organization [facility] Address [address] [place] [id number] Care Team Providers Care Instrument Designer Name Role Phone Brady Bourgeois MD Primary Care Provider + [phone] Allergies No known active allergies Medications lovastatin [...] Overview (05/13/2016): Essential hypertension Coronary arteriosclerosis in [place] artery 05/31 Overview (05/13/2016): CAD in [place] artery Pacemaker 10/15/2013 Overview (08/18/2017): Medtronic Dual [...] Description 11/02/2024 10:30 AM CDT Office Visit [facility] Cardiology [address] [place] [address] Kit Patel MD Persistent atrial fibrillation (HCC) (Primary Dx); Pacemaker from Last 3 Months Surgical History Surgery [...] on file Legal 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 Gender Identity Not on file Sexual Orientation Not on file Obstetrics History Last Filed Vital Signs Vital Sign Reading Time Taken Comments Blood Pressure 104/58 11/02/2024 10:20 AM CDT Pulse 95 11/02/2024 10:20 AM CDT Temperature 36.4 C (97.5 F) 03/03/2020 12:42 PM BUNK ASSEMBLER Respiratory Rate 16 12/28/2019 10:55 AM BUNK ASSEMBLER Oxygen Saturation 99% 11/02/2024 10:20 AM CDT [...] 12/23/2006, 12/12/2006 Medical Devices Implanted Type Area Sheet Turner Device Identifier Shelf Expiration Date Model / Serial / Lot Pacemaker-11/25 Implanted:11/25 by Alba Argueta MD (Quantity not on file) Pacemaker Chest Medtronic Second Degree AVB, Afib ADAPTA / [id number] / CHRONIC LEADS 2008 Procedures Procedure Name Priority Date/Time Associated Diagnosis Comments EGFR Routine 09/26/2023 6:25 AM CDT LIPID PANEL Routine 04/06/2021 Coronary arteriosclerosis in [place] artery Chronic diastolic heart failure (HCC) Persistent atrial fibrillation (HCC) Hyperlipidemia associated with type 2 diabetes mellitus (HCC) from Last 3 Months or Most Recently Relevant to Health Maintenance Results * eGFR (09/26/2023 6:25 AM CDT) eGFR [...] was last reviewed 2020. Testing performed by: [facility], [address] [place] [address]., [id number] Blood 09/26/2023 6:25 AM CDT 09/26/2023 8:31 AM CDT us Notinfile Unknown LAB BLOOD ORDERABLES Final Res ult NAOMI BARAKAT [address] [facility] Department [place] [address] * Lipid panel (04/06/2021) SCRIBED Cholesterol, Total 123 <200 EXTERNAL LAB SCRIBED HDL 28 >40 EXTERNAL LAB SCRIBED LDL 69 <100 EXTERNAL LAB SCRIBED Triglycerides 128 <150 EXTERNAL LAB Blood specimen (specimen) 04/06/2021 Alba Argueta MD LAB BLOOD ORDERABLES Final Result EXTERNAL LAB from Last 3 Months or Most Recently Relevant to Health Maintenance Insurance MEDICARE COMMERCIAL GENERIC [facility] MEDICARE ADVANTAGE [facility] MEDICARE Address: [facility] [address] [place] [address] Care Teams Instrument Designer Relationship Specialty Start Date End Date Brady Bourgeois MD [address] [place] [address] PCP - General 05/07/16
--- OUTSIDE RECORDS SUMMARY | 2024-12-05 07:07 | XMS_ITS | Encounter Summary ---
Author Organization [facility] Address [address] [address] Care Team Providers Care Valve Lapper Name Role Phone Brady Bourgeois MD Primary Care Provider + [phone] Brady Bourgeois MD Primary Care Provider + [phone] Encounter Details Date Type Department Care Team (Late st Contact Info) Description 03/10/2016 Orders Only [facility] ProviderTracy MD [address] [place] [address] Social History Tobacco Use Types Packs/Day Years Used Date Smoking Tobacco: Former Alcohol Use Standard Drinks/Week Comments No 0 (1 standard drink = 0.6 oz pur e alcohol) Sex and Gender Information Value Date Recorded Sex Assigned at Not on file Legal Sex Male 11:28 AM FOOD ASSEMBLER KITCHEN Gender Identity Not on file Sexual Orientation [...] on filedocumented in this encounter Care Teams Valve Lapper Relationship Specialty Start Date End Date Brady Bourgeois MD [address] [place], [place] [id number] PCP - General 05/07/16 Brady Bourgeois MD [address] [place] [address] PCP - General 07/16/15 05/06/16 documented as of this encounter
--- OUTSIDE RECORDS SUMMARY | 2024-12-05 07:07 | XMS_ITS | Encounter Summary ---
Author Organization [facility] Address [address] [address] Care Team Providers Care Head Inspector And Center Marker Name Role Phone Brady Bourgeois MD Primary Care Provider + [phone] Encounter Details Date Type Department Care Team (Late st Contact Info) Description 06/09/2016 [facility] Only [facility] ProviderTracy MD [address] [place] [address] Social History Tobacco Use Types Packs/Day Years Used Date Smoking Tobacco: Former Alcohol Use Standard Drinks/Week Comments No 0 (1 standard drink = 0.6 oz pur e alcohol) Sex and Gender Information Value Date Recorded Sex Assigned at Not on file Legal Sex Male 11:28 AM INTERFACE ENGINEER Gender Identity Not on file Sexual Orientation [...] on filedocumented in this encounter Care Teams Head Inspector And Center Marker Relationship Specialty Start Date End Date Brady Bourgeois MD [address] [place] [address] PCP - General 05/07/16 documented as of this encounter
--- OUTSIDE RECORDS SUMMARY | 2024-12-05 07:07 | XMS_ITS | Patient Health Record ---
Author Organization [facility] Address [address] [place], [place] [address] Care Team Providers Care Cdl Team Truck Driver Name Role Phone IRENE DOWELL Unavailable [phone] Brady Bourgeois Unavailable Unavailable BRENT WILSON Unavailable [phone] Allergies No Known Allergies Reason For Referral No Information Medications Medication SIG (Take, Route, Frequency, Duration) [...] History of tobacco use : Vital Signs Height-cm 175.26 cm 11/15/2024 Weight-kg 90.72 kg 11/15/2024 Height 69.00 in 11/15/2024 Weight 200 lbs 11/15/2024 BMI 29.53 kg/m2 11/15/2024 Encounters Encounter Location Date Provider Diagnosis [address] [id number] 06/21/2024 BRENT WILSON Tinea unguium B35.1 ; Pain in right toe(s) M79.674 ; Pain in left toe(s) M79.675 and Atherosclerosis of [place] arteries of extremities with intermittent claudication, bilateral legs I70.[address] [id number] 08/23/2024 BRENT WILSON Tinea unguium B35.1 ; Pain in right toe(s) M79.674 ; Pain in left toe(s) M79.675 and Atherosclerosis of [place] arteries of extremities with intermittent claudication, bilateral legs I70.[address] [id number] 10/25/2024 BRENT WILSON Tinea unguium B35.1 ; Pain in right toe(s) M79.674 ; Pain in left toe(s) M79.675 and Atherosclerosis of [place] arteries of extremities with intermittent claudication, bilateral legs I70.[address] [id number] 11/15/2024 BRENT WILSON Tinea unguium B35.1 ; Ingrowing nail L60.0 ; Pain in right toe(s) M79.674 ; Pain in left toe(s) M79.675 and Atherosclerosis of [place] arteries of extremities with intermittent claudication, bilateral legs I70.[address] [id number] 03/29/2024 IRENE DOWELL Tinea unguium B35.1 ; Pain in right toe(s) M79.674 ; Pain in left toe(s) M79.675 and Atherosclerosis of august[place] arteries of extremities with intermittent claudication, bilateral [...] in right toe(s) (ICD-10 - M79.674) 11/15/2024 Tinea unguium (ICD-10 - B35.1) 11/15/2024 [...] toe(s) (ICD-10 - M79.675) 03/29/2024 Atherosclerosis of augustine arteries of extremities with intermittent claudication, bilateral legs (ICD-10 - I70.213) 06/21/2024 Atherosclerosis of [place]ustine arteries of extremities with intermittent claudication, bilateral legs (ICD-10 - I70.213) Check and protect LE bilateral. Call with any changes or concerns. 08/23/2024 Atherosclerosis of [place] arteries of extremities with intermittent claudication, bilateral legs (ICD-10 - I70.213) Check and protect LE bilateral. Call with any changes or concerns. 10/25/2024 Atherosclerosis of [place]ustine arteries of extremities with intermittent claudication, bilateral legs (ICD-10 - I70.213) Check and protect LE bilateral. Call with any changes or concerns. 11/15/2024 Pain in left toe(s) (ICD-10 - M79.675) 11/15/2024 Atherosclerosis of augustine arteries of extremities with intermittent claudication, bilateral legs (ICD-10 - I70.213) Check and protect LE bilateral. Call with any changes or concerns. Plan Of Treatment Next Appt Details Provider Name:BRENT DUFF, 12/27/2024 10:10:00 AM, [address], [place], [id number], Insurance Providers Payer Name Payer Address Payer Phone Subscriber Number Group Number Insured Name Patient Relationship to Insured Coverage Start Date Coverage End Date [facility] [address] [address] [place], [place] [id number] MARSHA YADAV Self - patient is the insured Medical (General) History Medical History History ICD Code Diabetic
--- OUTSIDE RECORDS SUMMARY | 2024-12-05 07:07 | XMS_ITS | Encounter Summary ---
Author Organization [facility] Address [address] [address] Care Team Providers Care Cone Machine Feeder Name Role Phone Brady Bourgeois MD Primary Care Provider + [phone] Brady Bourgeois MD Primary Care Provider + [phone] Encounter Details Date Type Department Care Team (Late st Contact Info) Description 03/11/2016 Orders Only [facility] ProviderTracy MD [address] [place] [address] Social History Tobacco Use Types Packs/Day Years Used Date Smoking Tobacco: Former Alcohol Use Standard Drinks/Week Comments No 0 (1 standard drink = 0.6 oz pur e alcohol) Sex and Gender Information Value Date Recorded Sex Assigned at Not on file Legal Sex Male 11:28 AM HEALTH AND SAFETY TECH Gender Identity Not on file Sexual [...] on filedocumented in this encounter Care Teams Cone Machine Feeder Relationship Specialty Start Date End Date Brady Bourgeois MD [address] [place], [place] [address] PCP - General 05/07/16 Brady Bourgeois MD [address] [place] [address] PCP - General 07/16/15 05/06/16 documented as of this encounter
[2024-12-05 07:15] LABS: Hematocrit 40.0 % (37.0-46.0); Hemoglobin 13.1 g/dL (12.4-15.3); Mean Corpuscular HGB Conc 32.8 g/dL (32-36); Mean Corpuscular Hemoglobin 32.2 pg (27.0-31.0); Mean Corpuscular Volume 98.3 fL (78.0-102.0); Platelet Count Result 159 K/mm3 (150-420); Red Blood Count 4.07 M/mm3 (4.70-6.10); White Blood Count 5.2 K/mm3 (4.8-10.8)
[2024-12-05 07:23] LABS: Add Urine Microscopic? NO; Appearance Urine Clear (Clear); Glucose Urine UA 3+ (Negative); Leukocyte Esterase Ur Negative (Negative); Nitrate Urine Negative (Negative); Specific Grav Ur <= 1.005 (1.010-1.020)
[2024-12-05 07:34] LABS: Hemoglobin A1C 6.8 % (<5.7)
[2024-12-05 07:38] LABS: MALB Creatinine Ratio 94.0 mg/g (0-30)
[2024-12-05 07:57] LABS: Alanine Aminotransferase 60 U/L (6-50); Albumin Level 4.7 g/dL (3.5-5.1); Alkaline Phosphatase 136 U/L (38-126); Anion Gap 11 mmol/L (4-12); Aspartate Amino Transferase 42 U/L (17-59); Bilirubin,Total 0.8 mg/dL (0.2-1.3); Blood Urea Nitrogen 21 mg/dL (9-20); Calcium 10.2 mg/dL (8.4-10.2); Carbon Dioxide 26 mmol/L (22-30); Chloride 107 mmol/L (98-107); Cholesterol 135 mg/dL (0-200); Creatine Kinase 107 U/L (55-170); Estimated Glomerular Filt Rate 60; Glucose 146 mg/dL (65-110); HDL Direct 36 mg/dL; Iron 88 ug/dL (49-181); Osmolality Calculated 304 mOsm/kg (285-295); Potassium 5.4 mmol/L (3.4-5.0); Sodium 144 mmol/L (137-145); Total Protein 8.8 g/dL (6.3-8.2); Triglycerides 221 mg/dL (<150); Uric Acid 4.2 mg/dL (3.5-8.5)
[2024-12-05 08:06] LABS: NT Pro B Type Natriuretic Pept 581 pg/mL (19.9-100)
[2024-12-05 08:13] LABS: Free T3 4.23 pg/mL (2.18-3.98)
[2024-12-05 08:14] LABS: Free T4 Free Thyroxine 0.93 ng/dL (0.78-2.19)
[2024-12-05 08:28] LABS: Thyroid Stimulating Hormone 4.180 uIU/mL (0.465-4.680)
[2024-12-05 08:32] LABS: Ferritin 42.00 ng/mL (11.1-264)
== END 2024-12-05 07:03 | disposition home or self-care (01) ==
LOC: CHSIMG 07:04
PROVIDERS: PCP Internal Medicine; Visit Provider Nurse Practitioner Family
DX: K76.0 Fatty (change of) liver, not elsewhere classified (principal); R74.8 Abnormal levels of other serum enzymes; E79.0 Hyperuricemia without signs of inflammatory arthritis and tophaceous disease; E03.4 Atrophy of thyroid (acquired); I48.11 Longstanding persistent atrial fibrillation; I50.30 Unspecified diastolic (congestive) heart failure; I11.0 Hypertensive heart disease with heart failure
CPT/HCPCS: 36415; 76705; 80053; 80061; 81003; 82043; 82550; 82728; 83036; 83540; 83880; 84439; 84443; 84481; 84550; 85027